=== PATIENT | female | born 1940 | race Caucasian/White ===

== ENCOUNTER 2023-07-13 10:23 | Inpatient (IN) ==
--- NOTE | 2023-07-13 11:08 | Emergency Department Note ---
Impression & Plan Acute hyponatremia, Dizziness ED Provider Note Provider: Kalin Wesley MD DATE OF SERVICE: 07/13/2023 CHIEF COMPLAINT: Weak/dizzy, abnormal labs HISTORY OF PRESENT ILLNESS: Patient is a 83-year-old female history of hypertension referred by primary doctor today due to abnormal blood work with symptoms. Family reports the patient had blood work drawn yesterday and was called with results by the primary doctor office today stating that her sodium was low and to come here for evaluation rather than keep their appointment this afternoon. Has been following particular over the past month with some weakness and balance and dizziness issues. Did fall about a month ago. Did strike her head but did not lose consciousness. Not on anticoagulants by report. On and off symptoms. Blood pressure has been waxing and waning as well. Working with primary doctor left several weeks with changes in lisinopril dosing. Is on hydrochlorothiazide. Hydrates well with water and flavored water according to family. Denies any syncope or falls. Denies significant headache or chest pain. Family states that she has always report all of her symptoms to them. No other significant injury from falling walking up the stairs about a month ago are reported. PAST MEDICAL HISTORY: As noted above MEDICATIONS: Reviewed home medication list SOCIAL HISTORY: Resides at home PHYSICAL EXAM: GENERAL: alert and oriented in no acute distress on stretcher Head: normocephalic and atraumatic EYES: No injection, discharge or icterus. PERRL, EOMI. NECK: Trachea midline. Supple. ENT: Mucous membranes pink and moist. LUNGS: Airway patent. No retractions. Breath sounds clear with good air entry bilaterally. HEART: Irregular rate and rhythm. No chest wall tenderness ABDOMEN: Soft and non-tender, without guarding or rebound SKIN: Acyanotic, warm, dry, without rashes EXTREMITIES: Without tenderness with some slight chronic edema of the feet. NEUROLOGICAL: No focal deficits moving all extremities to command. No aphasia. No facial droop or slurred speech.Ambulatory. EK bpm sinus bradycardia with PACs. No acute PVC. No acute ST segment elevation. Nonspecific anterior T wave changes. QTc 461 CONTINUOUS CARDIAC MONITORING: was ordered and showed a heart rate of 50s to 60s bpm in normal sinus rhythm to sinus bradycardia frequent PACs GCS 15. Patient's laboratory studies and imaging reviewed. Differential includes Infection, dehydration, metabolic abnormality, hypo/hyperglycemia, electrolyte disturbance, anemia, hypoxia, cardiac sources, intracerebral event, toxicologic, neurologic, as well as other pathologies. IMPRESSION/MEDICAL DECISION MAKING: Referred to ongoing symptoms did lose sodium by report. Case management accessed [facility] records and reviewed chemistries. Blood work yesterday with chronic CKD with creatinine 1.4 with a sodium of 129, chloride of 93, potassium of 4.4, CO2 of 24, BUN of 20. Did fall about a month ago and now having on and off dizziness symptoms. Will obtain head CT to exclude any cranial abnormality causing symptoms. EKG to be obtained but denies significant chest pain or palpitations. Denies significant chest or abdominal discomfort at this time. Has been hydrating well and would have this could be related little bit to the hyponatremia versus her hydrochlorothiazide she is on and was told to stop today. Blood pressure near initially somewhat elevated but blood pressures at home have been normal to slightly low. CT head and chest x-ray per radiology without significant traumatic injuries noted. Evidence of fluid overload. Blood work here without leukocytosis or anemia. TSH 7.9 with free T4 pending. Awesome's low at 266. CKD chronic with BUN 25 and creatinine 1.35 today. Significantly today worsened hyponatremia with a sodium now 124. Still awaiting urine sample for further testing there. Will bring the patient in given her worsening hyponatremia that seems somewhat symptomatic. Unsure if this is the entire ideology of why she has been more unsteady and having balance issues recently but will need monitoring. Discussed with the [facility] hospitalist team. DIAGNOSIS: Hyponatremia, weakness/dizziness DISPOSITION: Hospitalist will evaluate Patient was agreeable with this plan. Past Med/Surg History Medical History (Updated 07/13/23 @ 12:41 by NERIS Juárez) Hypothyroidism HLD (hyperlipidemia) HTN (hypertension) Surgical History (Updated 07/13/23 @ 13:24 by NERIS Juárez) No pertinent past surgical history Social History (Updated 07/13/23 @ 13:24 by NERIS Juárez) Smoking Status: Former smoker Second Hand Exposure: No; Do You Dip or Chew Tobacco: No; Hx Alcohol Use: No Hx Substance Use: No Preferred Language: Libyan Feels Safe at Home: Yes Allergies Allergies Allergy/AdvReac Type Severity Reaction Status Date / Time rosuvastatin [From Crestor] AdvReac Unknown Verified 07/13/23 13:49 Home Meds Home Medications Medication Instructions Recorded Confirmed alendronate 70 mg tablet 70 mg PO .WEEK 07/13/23 07/13/23 aspirin 81 mg tablet,delayed 81 mg PO DAILY 07/13/23 07/13/23 release cyanocobalamin (vitamin B-12) 5,000 mcg PO Q OTHER DAY 07/13/23 07/13/23 5,000 mcg sublingual tablet (Vitamin B-12) ferrous sulfate 325 mg (65 mg 65 mg PO Q OTHER DAY 07/13/23 07/13/23 iron) tablet (iron) folic acid 800 mcg tablet 0.8 mg PO DAILY 07/13/23 07/13/23 furosemide 20 mg tablet 20 mg PO Q OTHER DAY 07/13/23 07/13/23 hydrochlorothiazide 12.5 mg capsule 12.5 mg PO DAILY 07/13/23 07/13/23 levothyroxine 75 mcg tablet 75 mcg PO QAM 07/13/23 07/13/23 lisinopril 10 mg tablet 10 mg PO QAM 07/13/23 07/13/23 metoprolol succinate 100 mg 100 mg PO QAM 07/13/23 07/13/23 tablet,extended release 24 hr omeprazole 20 mg capsule,delayed 20 mg PO QAM 07/13/23 07/13/23 release pravastatin 20 mg tablet 20 mg PO DAILY 07/13/23 07/13/23 sertraline 50 mg tablet 50 mg PO QAM 07/13/23 07/13/23 Results & Data (ED) Vital Signs Vital Signs - 24 hr 07/13/23 10:36 07/13/23 10:52 07/13/23 10:54 Temperature 36.5 C Temperature Source Temporal Artery Scan Pulse Rate 62 58 L 60 Pulse Rate from SpO2 Sensor 59 L 53 L Respiratory Rate 20 13 14 Respiratory Effort / Characteristics Non-Labored Spontaneous Respiratory Depth Normal Blood Pressure 124/73 Blood Pressure Mean 90 Pulse Oximetry 97 99 98 Oxygen Delivery Method Room Air Sepsis Recent Fever Within 48 Hours No Sepsis New/Unexplained Change in Mental Status N/A Sepsis Action Taken by Nursing No Action Required 07/13/23 10:54 07/13/23 11:00 07/13/23 11:00 Temperature Temperature Source Pulse Rate 59 L Pulse Rate from SpO2 Sensor Respiratory Rate 21 Respiratory Effort / Characteristics Respiratory Depth Blood Pressure 160/80 H 146/77 H Blood Pressure Mean 109 98 Pulse Oximetry Oxygen Delivery Method Sepsis Recent Fever Within 48 Hours Sepsis New/Unexplained Change in Mental Status Sepsis Action Taken by Nursing 07/13/23 11:30 07/13/23 12:02 07/13/23 12:04 Temperature Temperature Source Pulse Rate 58 L Pulse Rate from SpO2 Sensor 41 L 56 L Respiratory Rate 21 Respiratory Effort / Characteristics Respiratory Depth Blood Pressure 140/68 Blood Pressure Mean 86 Pulse Oximetry 98 100 Oxygen Delivery Method Sepsis Recent Fever Within 48 Hours Sepsis New/Unexplained Change in Mental Status Sepsis Action Taken by Nursing 07/13/23 12:04 07/13/23 12:14 07/13/23 12:21 Temperature Temperature Source Pulse Rate 58 L 57 L Pulse Rate from SpO2 Sensor 54 L Respiratory Rate 15 Respiratory Effort / Characteristics Respiratory Depth Blood Pressure Blood Pressure Mean Pulse Oximetry 100 Oxygen Delivery Method Room Air Sepsis Recent Fever Within 48 Hours Sepsis New/Unexplained Change in Mental Status Sepsis Action Taken by Nursing Laboratory Data 07/13/23 11:05 07/13/23 11:05 Lab Results 07/13/23 07/13/23 Range/Units 11:05 11:15 WBC 7.73 (4.8-10.8) K/ul RBC 4.05 L (4.20-5.40) M/uL Hgb 12.1 (12.0-16.0) g/dl Hct 34.0 L (37.0-47.0) % MCV 84.0 (80.0-100.0) fL MCH 29.9 (25.0-34.0) pg MCHC 35.6 (32.0-36.0) g/dL RDW Std Deviation 41.6 (36.4-46.3) fL RDW Coeff of Amberly 13.5 (11.5-14.5) % Plt Count 181 (130-400) K/uL MPV 9.3 L (9.4-12.4) fL Immature Gran % (Auto) 0.4 % Neut % (Auto) 61.5 % Lymph % (Auto) 25.2 % [place] % (Auto) 10.2 % Eos % (Auto) 2.2 % Baso % (Auto) 0.5 % Neut # (Auto) 4.75 (1.40-6.50) K/uL Lymph # (Auto) 1.95 (1.20-3.40) K/uL [place] # (Auto) 0.79 H (0.11-0.59) K/uL Eos # (Auto) 0.17 (0.00-0.50) K/uL Baso # (Auto) 0.04 (0.00-0.20) K/uL Immature Gran # (Auto) 0.03 (0.01-0.20) K/uL PT 10.3 (9.0-12.0) Seconds INR 0.9 (0.9-1.1) Sodium 124 L (136-145) mmol/L Potassium 4.7 (3.5-5.1) mmol/L Chloride 92 L (98-107) mmol/L Carbon Dioxide 24 (21-32) mmol/L Anion Gap 8 (3-11) BUN 25 H (6-23) mg/dl Creatinine 1.35 H (0.6-1.2) mg/dl Est Cr Clr Drug Dosing 38.3 ml/min Est GFR ( Amer) 42.0 ml/min Est GFR (Non-Af Amer) 36.2 ml/min BUN/Creatinine Ratio 18.5 (10-20) Glucose 88 (70-99(Fasting)) mg/dl Osmolality 266 L (280-300) mOsm/kg Calcium 8.6 (8.6-10.3) mg/dl Phosphorus 3.4 (2.5-4.9) mg/dl Magnesium 1.7 (1.7-2.4) mg/dl Total Bilirubin 0.6 (0.2-1.0) mg/dl AST 17 (13-39) U/L ALT 8 (7-52) U/L Alkaline Phosphatase 66 (34-104) U/L Troponin I High Sens 7.2 (0-14) pg/ml Total Protein 6.8 (6.0-8.3) gm/dl Albumin 4.3 (3.4-5.0) gm/dl Globulin 2.5 (2.5-4.0) gm/dl Albumin/Globulin Ratio 1.7 (0.9-2) TSH 7.954 H (0.300-4.500) uIu/ml Free T4 0.97 (0.61-1.60) ng/dl SARS-CoV-2, RNA, NAAT NEGATIVE (NEGATIVE) Administered Medications Discontinued Medications Sodium Chloride (Nss) 1,000 mls @ 999 mls/hr IV .Q1H1M SEBASTIEN Stop: 07/13/23 14:16 Last Admin: 07/13/23 14:00 Dose: 999 mls/hr Documented By: Fabián Imaging Data Radiologist's Impression: Chest X-Ray 07/13/23 11:02 XR chest 1V portable HISTORY: 83 years-old Female weakness acute weakness COMPARISON: None TECHNIQUE: AP view of the chest. FINDINGS: Cardiomediastinal and hilar silhouettes are within normal limits. No pneumothorax, pleural effusion, airspace consolidation or pulmonary edema. Bones appear grossly intact. IMPRESSION: No acute process. ACT 112: Negative or not required by law. The above report was generated using voice recognition software. It may contain grammatical, syntax or spelling errors. Electronically signed by: Marko Mooney M.D. 07/13/2023 11:[address] 07/13/23 11:02 CT head/brain wo con CLINICAL HISTORY: 83 years-old Female with weak, fall, dizzy. Acute headache with weakness and dizziness. Trauma status post fall TECHNIQUE: Multiple axial CT images of the head were obtained without contrast. A dose lowering technique was utilized adhering to the principles of ALARA. CT DOSE: 547.75 mGy.cm COMPARISON: None. FINDINGS: No acute intracranial hemorrhage, midline shift, intracranial mass, hydrocephalus, territorial ischemia or abnormal extra-axial collection. Involutional changes with chronic microvascular ischemic disease. The calvarium is intact. The paranasal sinuses, mastoid air cells, and middle ear cavities are clear. IMPRESSION: No acute intracranial abnormality or calvarial fracture. ACT 112: Negative or not required by law. The above report was generated using voice recognition software. It may contain grammatical, syntax or spelling errors. Electronically signed by: Marko Mooney M.D. 07/13/2023 12:08 PM Discharge Plan Visit Data Chief Complaint: Referred by Doctor Stated Complaint: LOW SODIUM ED Provider: Kalin Wesley Discharge Problem: Acute hyponatremia, Dizziness Patient Disposition: Being Evaluated by Hospitalist Condition: Fair Discharge Instructions Interventions: ED Discharge Assessment Last Done: 07/13/23 12:55
--- NOTE | 2023-07-13 11:37 | XRay Report ---
XR chest 1V portable HISTORY: 83 years-old Female weakness acute weakness COMPARISON: None TECHNIQUE: AP view of the chest. FINDINGS: Cardiomediastinal and hilar silhouettes are within normal limits. No pneumothorax, pleural effusion, airspace consolidation or pulmonary edema. Bones appear grossly intact. IMPRESSION: No acute process. ACT 112: Negative or not required by law. The above report was generated using voice recognition software. It may contain grammatical, syntax o r spelling errors. Electronically signed by: Marko Mooney M.D. 07/13/2023 11:35 AM
[2023-07-13 11:38] LABS: Basophils # (auto) 0.04 K/uL (0.00-0.20); Basophils % (auto) 0.5 %; Eosinophils # (auto) 0.17 K/uL (0.00-0.50); Eosinophils % (auto) 2.2 %; Hemoglobin 12.1 g/dl (12.0-16.0); Immature Granulocytes # (auto) 0.03 K/uL (0.01-0.20); Immature Granulocytes % (auto) 0.4 %; Lymphocytes # (auto) 1.95 K/uL (1.20-3.40); Lymphocytes % (auto) 25.2 %; Mean Corpuscular Hemoglobin 29.9 pg (25.0-34.0); Mean Corpuscular Hgb Conc 35.6 g/dL (32.0-36.0); Mean Platelet Volume 9.3 fL (9.4-12.4); Monocytes # (auto) 0.79 K/uL (0.11-0.59); Monocytes % (auto) 10.2 %; Neutrophils # (auto) 4.75 K/uL (1.40-6.50); Neutrophils % (auto) 61.5 %; Platelet Count 181 K/uL (130-400); RDW Coefficient of Variation 13.5 % (11.5-14.5); RDW Standard Deviation 41.6 fL (36.4-46.3); Red Blood Count 4.05 M/uL (4.20-5.40); White Blood Count 7.73 K/ul (4.8-10.8)
[2023-07-13 11:58] LABS: Albumin Globulin Ratio 1.7 (0.9-2); Albumin Level 4.3 gm/dl (3.4-5.0); BUN Creatinine Ratio 18.5 (10-20); Bilirubin,Total 0.6 mg/dl (0.2-1.0); Calcium 8.6 mg/dl (8.6-10.3); Creatinine Clr Calc Pharmacy 38.3 ml/min; Est GFR (Non-African American) 36.2 ml/min; Globulin 2.5 gm/dl (2.5-4.0); Magnesium 1.7 mg/dl (1.7-2.4); Potassium 4.7 mmol/L (3.5-5.1); Total Protein 6.8 gm/dl (6.0-8.3)
[2023-07-13 11:59] LABS: Troponin I High Sensitivity 7.2 pg/ml (0-14)
[2023-07-13 12:04] LABS: INR 0.9 (0.9-1.1); Prothrombin Time 10.3 Seconds (9.0-12.0)
[2023-07-13 12:09] LABS: Thyroid Stimulating Hormone 7.954 uIu/ml (0.300-4.500)
--- NOTE | 2023-07-13 12:09 | CT Scan Report ---
CT head/brain wo con CLINICAL HISTORY: 83 years-old Female with weak, fall, dizzy. Acute headache with weakness and dizzi ness. Trauma status post fall TECHNIQUE: Multiple axial CT images of the head were obtained without contrast. A dose lowering tech nique was utilized adhering to the principles of ALARA. CT DOSE: 547.75 mGy.cm COMPARISON: None. FINDINGS: No acute intracranial hemorrhage, midline shift, intracranial mass, hydrocephalus, territorial ischem ia or abnormal extra-axial collection. Involutional changes with chronic microvascular ischemic disea se. The calvarium is intact. The paranasal sinuses, mastoid air cells, and middle ear cavities are clear . IMPRESSION: No acute intracranial abnormality or calvarial fracture. ACT 112: Negative or not required by law. The above report was generated using voice recognition software. It may contain grammatical, syntax o r spelling errors. Electronically signed by: Marko Mooney M.D. 07/13/2023 12:08 PM
[2023-07-13] MEDS ORDERED: MAGNESIUM HYDROXIDE SUSP 30 ML UDC PO PRN (12:31)
[2023-07-13] MEDS ORDERED: ONDANSETRON INJ 2 MG/ML 2 ML VIAL IV PRN (12:31)
[2023-07-13] MEDS ORDERED: POLYETHYLENE (MIRALAX) 17 GM PACK PO PRN (12:31)
[2023-07-13] MEDS ORDERED: ALUMINUM/MAGNESIUM SUSP 30 ML UDC PO PRN (12:31)
--- NOTE | 2023-07-13 12:42 | History & Physical Report ---
Date of Service July 13, 2023 Assessment & Plan (1) Acute hyponatremia: (2) Dizziness: (3) HTN (hypertension): (4) HLD (hyperlipidemia): (5) Hypothyroidism: Plan Ms. Nicole is an 83 y/o female that presented to the ED today as recommended by her PCP for abnormal labs; hyponatremic as OPT 129 on 07/11. Pt reportedly has been having intermittent dizziness and ambulatory dysfunction over the past month or so; as an outpatient blood pressure medications have been recently adjusted. She recently was started on hydrochlorothiazide on 06/14/2023 and was instructed to take home BPs prior to blood pressure medication administration and a few hours afterwards. With reviewing her outpatient BP log it appears that she is hypotensive in the morning consistently ranging anywhere from 78-98 systolic on some readings. Pt is prescribed lasix 20 mg three times per week, but stopped taking it last week. No leukocytosis, serum sodium 124, serum creatinine 1.35 (baseline 1.4), serum osmolality 266, TSH 7.9, LFT and Magnesium normal. Head CT and CXR negative. Patient will be admitted for further evaluation of hyponatremia with urine studies, every 4 BMP, troponin, will hold HCTZ as possible thiazide contributing factor to hyponatremiaand also hold newly prescribed sertraline as possible SSRI contributing factor. Continue antihypertensives for now with hold paramenter on Metoprolol, check ortho BPs. Will discuss and consult Nephro if no improvement with serum sodium level. Acute hyponatremia: Acute Serum sodium 124 today; 129 as an outpatient on 07/11 Recently started on HCTZ on 06/14/2023 Urine osmolality 266 No leukocytosis, LFT negative Every 4 BMP check Administer 1L NS B; followed by IVF 0.9% at 100 mL/h x 2 bags No JVP, no ascites, skin turgor normal Pt recently started on Sertraline in 06/02; will hold for now as outlined below. Consider nephro consult if no improvement HTN: Dizziness: Acute Intermittent dizziness with position changes Recently started on HCTZ 06/13; hold for now as outlined above Home BPs range anywhere from 78-98 systolic on some readings up to low 1 teens p rior to a.m. meds Takes lisinopril that was recently reduced from 20 mg to 10 mg every morning; continue for now Takes metoprolol 100 mg every morning; continue for now with hold parameters Adjust a.m. anti-hypertensives as needed Takes Lasix M/W/F, stopped on her own last week; will hold for now BP SBP 140 while here Check ortho BPs Hypothyroidism: Chronic Recent TSH 11/29 2.45 TSH today 7.9 Takes hypothyroidism; continue CKD: Chronic creatinine 1.35; baseline 1.3-1.4 HLD: Chronic Takes pravastatin;continue Depression: Chronic Takes sertraline; hold as possible SSRI contributing. Was recently started in May 2023. Disposition: PCP: Dr. Rocha Code status: Full code VTE Prophylaxis: Lovenox SQ I spent a total of 87 minutes coordinating, documenting, and providing care for this patient excluding time spent in the performance of separately billed services. All of the aforementioned completed while collaborating with the assigned attending physician for a full treatment plan. Please see their addendum for further details. History of Present Illness Chief Complaint: referred by OPT; hyponatremia Primary Care Provider: Antione Rocha MD Ms. Nicole is an 83 year old female that presented to the ED today as recommended by her PCP for abnormal labs; hyponatremic as OPT 129 on 07/11. Pt reportedly has been having intermittent dizziness and ambulatory dysfunction over the past month or so; as an outpatient blood pressure medications have been recently adjusted. She recently was started on hydrochlorothiazide on 06/14/2023 and was instructed to take home BPs prior to blood pressure medication administration and a few hours afterwards. With reviewing her outpatient BP log it appears that she is hypotensive in the morning consistently ranging anywhere from 78-98 systolic on some readings. Pt is prescribed lasix 20 mg three times per week, but stopped taking it last week. Reportedly dizziness appears to be around position changes in the morning and throughout the day. She states that she has been taking Lasix and holding it over the last week. She said that she has a history of being dehydrated so has increased her water intake recently and states she drinks approximately 4-5 8 ounce glasses of water per day. Additional PMH includes: HTN, HLD, depression, hypothyroidism, and CKD. In the ED, no leukocytosis, serum sodium 124, serum creatinine 1.35 (baseline 1.4), serum osmolality 266, TSH 7.9, LFT and Magnesium normal. Head CT and CXR negative for acute process. Pt denies fever, chills, ACEVEDO, SOB, chest pain, palpitations, N/V/D, urine or bowel changes, hematochezia, recent falls or trauma. Patient will be admitted for further evaluation of hyponatremia with urine studies, every 4 BMP, troponin, will hold HCTZ as possible contributing factors. Will discuss and consult Nephro if no improvement with serum sodium level. Home Medications Medication Instructions Recorded Confirmed Type alendronate 70 mg tablet 70 mg PO .WEEK 07/13/23 07/13/23 History aspirin 81 mg tablet,delayed 81 mg PO DAILY 07/13/23 07/13/23 History release cyanocobalamin (vitamin B-12) 5,000 mcg PO Q OTHER DAY 07/13/23 07/13/23 History 5,000 mcg sublingual tablet (Vitamin B-12) ferrous sulfate 325 mg (65 mg 65 mg PO Q OTHER DAY 07/13/23 07/13/23 History iron) tablet (iron) folic acid 800 mcg tablet 0.8 mg PO DAILY 07/13/23 07/13/23 History furosemide 20 mg tablet 20 mg PO Q OTHER DAY 07/13/23 07/13/23 History hydrochlorothiazide 12.5 mg capsule 12.5 mg PO DAILY 07/13/23 07/13/23 History levothyroxine 75 mcg tablet 75 mcg PO QAM 07/13/23 07/13/23 History lisinopril 10 mg tablet 10 mg PO QAM 07/13/23 07/13/23 History metoprolol succinate 100 mg 100 mg PO QAM 07/13/23 07/13/23 History tablet,extended release 24 hr omeprazole 20 mg capsule,delayed 20 mg PO QAM 07/13/23 07/13/23 History release pravastatin 20 mg tablet 20 mg PO DAILY 07/13/23 07/13/23 History sertraline 50 mg tablet 50 mg PO QAM 07/13/23 07/13/23 History Past Med/Surg History Medical History (Updated 07/13/23 @ 12:41 by NERIS Juárez) Hypothyroidism HLD (hyperlipidemia) HTN (hypertension) Surgical History (Updated 07/13/23 @ 13:24 by NERIS Juárez) No pertinent past surgical history Social History (Updated 07/13/23 @ 13:24 by NERIS Juárez) Smoking Status: Former smoker Second Hand Exposure: No; Do You Dip or Chew Tobacco: No; Hx Alcohol Use: No Hx Substance Use: No Preferred Language: Panamanian Feels Safe at Home: Yes Review of Systems Review of Systems: Neuro: (-) Falls, trauma, slurred speech HEENT: (-) ACEVEDO, (+) dizziness, (-) dysphagia, visual or auditory changes CV: (-) CP, palpitations, swelling Resp: (-) SOB GI: (-) appetite changes, N/V/D, bowel changes : (-) urinary changes Skin: (-) rashes Psych: (-) anxiety, depression Physical Exam Physical Exam: Neuro: AAOx4, PERRLA, no aphagia, memory changes, CNII-XII grossly intact HEENT: head normocephalic, moist mucus membranes CV: S1/S2, (-) M/G/R, (-) edema, cap refill < 3 seconds (-) JVP Resp: Lungs CTA in all araujo. On RA GI: Abdomen S/NT/ND, Ax4 bowel sounds, (-) CVA tenderness (-) ascites Musculoskeletal: 5/5 B/L UE strength, 5/5 B/L LE strength. No gait disturbance as I watched her walk to the bathroom Skin: (-) rashes , (-) erythema. Skin turgor normal. euvolemic on exam. Psych: euthymic mood Results & Data Results & Data Vital Signs (Past 12 Hours) Vital Signs Temp Pulse Resp BP Pulse Ox O2 Del Method 07/13/23 12:21 57 L 07/13/23 12:14 Room Air 07/13/23 12:04 58 L 15 100 07/13/23 12:04 140/68 07/13/23 12:02 100 07/13/23 11:30 58 L 21 98 07/13/23 11:00 146/77 H 07/13/23 11:00 59 L 21 07/13/23 10:54 160/80 H 07/13/23 10:54 60 14 98 07/13/23 10:52 58 L 13 99 07/13/23 10:36 36.5 C 62 20 124/73 97 Room Air Laboratory Results Short CBC 07/13/23 Range/Units 11:05 WBC 7.73 (4.8-10.8) K/ul Hgb 12.1 (12.0-16.0) g/dl Hct 34.0 L (37.0-47.0) % Plt Count 181 (130-400) K/uL BMP 07/13/23 11:05 Sodium 124 L Potassium 4.7 Chloride 92 L Carbon Dioxide 24 BUN 25 H Creatinine 1.35 H Glucose 88 Calcium 8.6 Liver Function 07/13/23 Range/Units 11:05 Total Bilirubin 0.6 (0.2-1.0) mg/dl AST 17 (13-39) U/L ALT 8 (7-52) U/L Alkaline Phosphatase 66 (34-104) U/L Albumin 4.3 (3.4-5.0) gm/dl Diagnostic Findings Chest X-Ray 07/13/23 11:02 XR chest 1V portable HISTORY: 83 years-old Female weakness acute weakness COMPARISON: None TECHNIQUE: AP view of the chest. FINDINGS: Cardiomediastinal and hilar silhouettes are within normal limits. No pneumothorax, pleural effusion, airspace consolidation or pulmonary edema. Bones appear grossly intact. IMPRESSION: No acute process. ACT 112: Negative or not required by law. The above report was generated using voice recognition software. It may contain grammatical, syntax or spelling errors. Electronically signed by: Marko Mooney M.D. 07/13/2023 11:[address] 07/13/23 11:02 CT head/brain wo con CLINICAL HISTORY: 83 years-old Female with weak, fall, dizzy. Acute headache with weakness and dizziness. Trauma status post fall TECHNIQUE: Multiple axial CT images of the head were obtained without contrast. A dose lowering technique was utilized adhering to the principles of ALARA. CT DOSE: 547.75 mGy.cm COMPARISON: None. FINDINGS: No acute intracranial hemorrhage, midline shift, intracranial mass, hydrocephalus, territorial ischemia or abnormal extra-axial collection. Involutional changes with chronic microvascular ischemic disease. The calvarium is intact. The paranasal sinuses, mastoid air cells, and middle ear cavities are clear. IMPRESSION: No acute intracranial abnormality or calvarial fracture. ACT 112: Negative or not required by law. The above report was generated using voice recognition software. It may contain grammatical, syntax or spelling errors. Electronically signed by: Marko Mooney M.D. 07/13/2023 12:08 PM Code Status & VTE Plan Code Status Full code in the event of cardiac or respiratory arrest VTE Prophylaxis Plan VTE Prophylaxis will be ordered: Yes Supervising Physician Co-Signing Physician Notes Patient was seen and examined independently at bedside. Chart reviewed. Case di scussed with Sandy CORDON and agree with the documentation above. In summary, this is a 83 year old female with h/o HTN who is sent to the ED by PCP for hyponatremia seen in OP labs. OP notes and labs reviewed. It seems she was started on HCTZ on 06/13 for HTN, her sodium on 06/28 was 137. She was recommended to drink more water which she has been doing. HCTZ was continued. Her sodium yesterday dropped to 129 in the labs yesterday and she was sent to the ED today. In the ED her sodium was 124. Osm 266. Urine sodium and osm pending. Also noted her BP readings of 70s and 90s at home and her orthostatic symptoms. Suspect acute moderate hyponatremia due to HCTZ and excess hypotonic fluid intake. Will discontinue HCTZ, give 1 L fluid bolus, start NS at 100 cc/hr and recheck renal function panel q4hr to ensure correcting appropriately. Will check orthostatic vitals. Discussed that BP not aggressively controlled given her orthostatic symptoms. Rest as per the note above. On exam- General: Lying comfortably in bed, not in distress, on room air HEENT: EOMI, MER, MMM Chest: Clear breath sounds bilaterally, no wheezes or crackles CVS: Regular rate and rhythm, normal heart sounds, no murmur Abdomen: Soft, non tender, not distended, normal bowel sounds Neuro: Awake, alert, oriented, conversing well, non focal Extremities: No cyanosis, clubbing or edema
[2023-07-13 12:54] LABS: T4 Free Thyroxine 0.97 ng/dl (0.61-1.60)
[2023-07-13 13:22] LABS: Appearance Urine Clear (Clear); Bacteria Urine Automated Negative (Negative); Bilirubin Urine Negative (Negative); Blood Urine Negative (Negative); Cast Urine Automated 0 /lpf (0-5); Color Urine Yellow; Epithelial Cell Urine Auto 20-30 /lpf (0-5); Glucose Urine UA Negative (Negative); Ketones Urine Negative (Negative); Leukocyte Esterase Urine 1+ (Negative); Nitrite Urine Negative (Negative); Protein Urine Negative (Negative); RBC Urine Automated 0-4 /hpf (0-4); Specific Gravity Urine 1.019 (1.000-1.030); Urobilinogen Urine Negative (Negative); pH Urine 5.5 (4.5-7.5)
[2023-07-13] MEDS ORDERED: Patient's ALLERGY Info needs ENTERED SCH (13:30)
[2023-07-13] MEDS: SODIUM CHLORIDE 0.9% 1,000 ML IV SCH ×2 (14:00→15:04)
[2023-07-13 14:10] LABS: Phosphorus 3.4 mg/dl (2.5-4.9)
[2023-07-13 16:44] LABS: BUN Creatinine Ratio 18.8 (10-20); Calcium 7.9 mg/dl (8.6-10.3); Creatinine Clr Calc Pharmacy 44.2 ml/min; Est GFR (African American) 49.9 ml/min; Est GFR (Non-African American) 43.1 ml/min; Potassium 4.5 mmol/L (3.5-5.1)
[2023-07-13 20:54] LABS: BUN Creatinine Ratio 15.5 (10-20); Calcium 7.8 mg/dl (8.6-10.3); Creatinine Clr Calc Pharmacy 40.1 ml/min; Est GFR (African American) 44.3 ml/min; Est GFR (Non-African American) 38.3 ml/min; Potassium 3.9 mmol/L (3.5-5.1)
[2023-07-13 23:49] LABS: BUN Creatinine Ratio 16.5 (10-20); Calcium 7.6 mg/dl (8.6-10.3); Creatinine Clr Calc Pharmacy 40.8 ml/min; Est GFR (African American) 45.2 ml/min; Potassium 4.4 mmol/L (3.5-5.1)
--- OUTSIDE RECORDS SUMMARY | 2023-07-14 02:18 | External Medical Summary | Summary of Care ---
Author Name Unknown Organization [facility] Address [address] [place] [address] Phone [phone] Care Team Providers Care Assistant Branch Manager Name Role Phone Antione Rocha MD Primary Care Provide r Reason for Visit * Reason Onset Date Comments Test Results 07/13/2023 Encounter Details Date Type Department Care Team (Late st Contact Info) Description 07/13/2023 Telephone Family Medicine [address] [phone] Antione Rocha MD [address] [place] [address] CHATO Carcamo [phone] Test Results Allergies Active Allergy Reactions Criticality Noted Date Comments Rosuvastatin Calcium 07/21/2016 myalgia documented as of this encounter (statuses as of 07/13/2023) Medications Medication Sig Dispensed Refills Start Date End Date Status aspirin enteric coated 81 MG TBEC Take 1 Tab by mouth daily. 100 Tab 3 07/21/2016 Active Ventolin HFA 108 (90 Base) MCG/ACT Inhalation Aerosol SolutionIndications: Bronchitis, complicated Inhale by mouth 2 Puffs every 4 hours as needed for Shortness of Breath or Wheezing. 8 g 1 08/03/2021 Active Sennosides-Docusate Sodium 8.6-50 MG Oral Tablet (Senokot-S)Indicatio ns:Constipation, unspecified constipation type Take by mouth 1 Tablet in the morning. 30 Tablet 2 08/22/2021 Active Omeprazole 20 MG Oral Capsule Delayed Release (PriLOSEC) TAKE ONE CAPSULE BY MOUTH EVERY MORNING ONE HOUR BEFORE THE FIRST MEAL OF THE DAY 100 Capsule 3 11/21/2022 Active Vitamin D-3 25 MCG (1000 UT) Oral Capsule Take 1 Capsule by mouth in the morning. 0 Active B-12 500 MCG Oral Tablet Take 1 Tablet by mouth every other day. 0 Active Iron 325 (65 Fe) MG Oral Tablet Take 1 Tablet by mouth every other day. 0 Active Furosemide 20 MG Oral Tablet (Lasix) Take 1 Tablet by mouth once a day on Sunday, Sunday, and Sunday only. 30 Tablet 5 12/13/2022 Active Metoprolol Succinate ER 100 MG Oral Tablet Extended Release 24 Hour (Toprol XL)Indications:Essen tial hypertension with goal blood pressure less than 140/90 Take 1 Tablet by mouth in the morning. 100 Tablet 3 01/08/2023 Active Pravastatin Sodium 20 MG Oral Tablet (Pravachol) TAKE ONE TABLET BY MOUTH IN THE MORNING 90 Tablet 1 03/14/2023 Active Levothyroxine Sodium 75 MCG Oral Tablet (Levoxyl)Indications :Acquired hypothyroidism TAKE 1 TABLET BY MOUTH DAILY AT LEAST 30 MINUTES PRIOR TO FIRST MEAL OF THE DAY OR OTHER MEDICATIONS 90 Tablet 2 03/14/2023 Active Alendronate Sodium 70 MG Oral Tablet (Fosamax)Indications :Age-related osteoporosis without current pathological fracture TAKE 1 TABLET BY MOUTH ONCE A WEEK AT LEAST 30 MINUTES BEFORE FIRST FOOD/BEVERAGE DO NOT LIE DOWN FOR 30 MINUTES AFTER TAKING 12 Tablet 11 05/10/2023 5 Active Sertraline HCl 50 MG Oral Tablet (Zoloft)Indications: Current mild episode of major depressive disorder without prior episode (HCC) Take 1 Tablet by mouth in the morning. 90 Tablet 1 05/22/2023 Active Cyclobenzaprine HCl 10 MG Oral Tablet (Flexeril)Indication s:Tension headache,Neck muscle spasm Take 1 Tablet by mouth at bedtime as needed for Pain. 10 Tablet 0 05/23/2023 Active Lisinopril 20 MG Oral Tablet (Prinivil)Indication s:Benign hypertension with stage 3b chronic kidney disease (HCC),HTN, goal below 150/90 Take 1 Tablet by mouth in the morning. 0 05/30/2023 Active hydroCHLOROthiazide 12.5 MG Oral CapsuleIndications:H TN, goal below 150/90 Take 1 Capsule by mouth in the morning. 30 Capsule 5 06/14/2023 Active documented as of this encounter (statuses as of 07/13/2023) Active Problems Problem Noted Date Diagnosed Date Asymptomatic bilateral carotid artery stenosis 0 12/01/2022 Mild mitral regurgitation 12/01/2022 Nonrheumatic mitral valve regurgitation 11/24/19 23 Current mild episode of jose r depressive disorder without prior episode 08/16/2022 Age-related osteoporosis wit hout current pathological fracture 06/08/2022 Benign hypertension with stage 3b chronic kidney disease 08/17/2020 Overview: Per CKD protocol Chronic kidney disease, stage 3b 08/17/2020 Overview: Per CKD protocol History of 2019 novel coronavirus disease (COVID -19) 08/11/2020 Anemia due to stage 3b chronic kidney disease Overview: Per CKD protocol B12 deficiency 02/06/2018 Dyslipidemia, goal LDL below 100 07/19/2017 Atrial septal aneurysm 01/24/2017 Overview: 2017-start ASA lifetime as inc risk CVA Old myocardial infarct 01/24/2017 Acquired hypothyroidism 07/21/2016 Essential hypertension with goal blood pressure less than 140/90 07/21/2016 Gastroesophageal reflux disease without esophagi tis 07/21/2016 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 REQUEST shot recs Distant RI? 08/23 TTE 5mm pericardial effusion-on repeat, appears to be fat pad. 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 documented as of this encounter (statuses as of 07/13/2023) Immunizations Name Administration Dates Next Due COVID-19 mRNA, LNP-s, No Pre serve, 2-Dose Series (Moderna) 09/22/2020,08/24/2020 COVID-19, mRNA, LNP-s, PF, B ooster, 100mcg/0.5mg (Moderna) 04/05/2021 Pneumococcal Conjugate Vacc, 13 Valent (Prevnar) 11/23/2014 Season Influenza, Quad, PF, Adjuvanted, 65+ Yrs, IM (FLUAD) 01/14/2020 Seasonal Influenza, PF, 6 M & above, IM , (FluLaval or Fluzone) 01/25/2018,01/24/2017 Seasonal Influenza, Quadriva lent Hd (Fluzone Hd) 01/12/2023,01/26/2022,12/30/2020 Seasonal Influenza, Split, I IV3, With Preserve, Inj 03/03/2013 Seasonal Influenza, Trivalen t, Adjuvanted, 65+ yrs 01/21/2019 documented as of this encounter Social History Tobacco Use Types Packs/Day Years Used Date Smoking Tobacco: Former Cigarettes 1 10 1 976 - 1986 Smokeless Tobacco: Never Alcohol Use Standard Drinks/Week Comments Yes 0 (1 standard drink = 0.6 oz pur e alcohol) rare wine PHQ-2 Answer Date Recorded PHQ Adult Total Score 2 10/21/2021 Hunger Vital Sign Answer Date Recorded Within the past 12 months, y ou worried that your food would run out before you got the money to buy more. Never true 06/08/19 23 Within the past 12 months, t he food you bought just didn't last and you didn't have money to get more. Never true 06/07/2022 Sex and Gender Information Value Date Recorded Sex Assigned at Female 08/19/2018 3:34 PM EDT Gender Identity Female 08/19/2018 3:34 PM EDT Sexual Orientation Straight 10/19/2021 10 :15 AM EDT Job Start Date Occupation Industry Not on file Not on file Not on file documented as of this encounter Miscellaneous Notes * Telephone Encounter - Antione Rocha MD - 07/13/2023 8:25 AM EDT Spoke to pt, pt;s , and her daughter - due to dizziness for few weeks with hypoNa+ sent the pt to the ER for repeat and sodium correction documented in this encounter Plan of Treatment Upcoming Encounters Date Type Department Care Team (Late st Contact Info) Description 07/13/2023 1:40 PM EDT Office Visit [address] [phone] Antione Rocha MD [address] [place] [address] CHATO Carcamo [phone] 09/06/2023 9:20 AM EDT Office Visit [address] [phone] Antione Rocha MD [address] [place] [address] CHATO Carcamo [id number] Scheduled Procedures Name Priority Associated Diagnoses Date/Ti me COLONOSCOPY FLEXIBLE PROXIMAL DIAGNOSTIC Recall History of colon polyps Health Maintenance Due Date Last Done Comments DTaP,Tdap,and Td Vaccines (1 - Tdap) 1959 Zoster Vaccines (1 of 2) 1990 Pneumococcal Vaccine: 65+ Years (2 of 2 - PPSV23 or PCV20) 11/24/2015 11/23/2014 COLONOSCOPY-EVERY 5 YRS AGES 18-100 10/27/2021 10/27/2016, 10/27/2016, 10/09/2011, Additional history exists Depression Screening 10/21/2022 10/21/2021 COVID-19 Vaccine ( season) 2022 04/05/2021, 09/22/2020, 08/24/2020 CKD PHOS USE SMARTSET [id number] 05/15/2023 02/0 09/2022, 05/05/2021, 01/27/2020, Additional history exists *NEPHROLOGY REFERRAL DUE TO RESISTANT HTN 05/26/2023 Albumin/Creatinine Ratio 08/17/2023 08/16/2022 TSH 11/14/2023 11/13/2022, 08/0 10/2022, 05/15/2022, Additional history exists GFR 01/11/2024 07/12/2023, 03/2 04/2023, 03/05/2023, Additional history exists CKD HGB USE SMARTSET [id number] 03/05/202403/05, 03/05/2023, 12/21/2022, Additional history exists DXA Scan 04/04/2024 04/04/2022, 04/04/2022 VITAMIN D LEVEL ONCE IN A LIFETIME-USE SMARTSET# [id number] Completed 10/09/2022, 08/16/2022 Influenza Vaccine (FLU shot) Completed 09/2022, 01/26/2022, 12/30/2020, Additional history exists GARDASIL-HPV IMMUNIZATION SERIES Aged Out No longer eligible based on patient's age to complete this topic Hepatitis B Aged Out No longer eligi ble based on patient's age to complete this topic MENINGOCOCCAL (MENACTRA/MENVEO) Aged Out No longer eligible based on patient's age to complete this topic documented as of this encounter Medical Devices Not on filedocumented as of this encounter Care Teams Assistant Branch Manager Relationship Specialty Start Date End Date Antione Rocha MD [address] [place] [address] CHATO Carcamo [phone] PCP - General Family Medicine 02/02/21 documented as of this encounter
--- OUTSIDE RECORDS SUMMARY | 2023-07-14 02:18 | External Medical Summary | Summary of Care ---
Author Name Unknown Organization [facility] Address [address] [place] [address] Phone [phone] Care Team Providers Care Chain Offbearer Name Role Phone Antione Rocha MD Primary Care Provide r Reason for Visit * Reason Comments Outpatient Testing Encounter Details Date Type Department Care Team (Late st Contact Info) Description 07/12/2023 8:50 AM EDT Laboratory Laboratory [address] [place] [phone] , Specimen Drop Off [address] [place] [address] HTN, goal below 150/90 Allergies Active Allergy Reactions Criticality Noted Date Comments Rosuvastatin Calcium 07/21/2016 myalgia documented as of this encounter (statuses as of 07/12/2023) Medications Medication Sig Dispensed Refills Start Date [...] as of this encounter (statuses as of 07/12/2023) Active Problems Problem Noted Date Diagnosed Date [...] tis 07/21/2016 Coronary artery disease invo lving [place] coronary artery of [place] heart without angina pectoris 07/21/2016 documented as of this encounter (statuses as of 07/12/2023) Resolved Problems Problem Noted Date Diagnosed Date Resolved Date Anemia in stage 3b chronic kidney disease 02/02/2021 02/17/2021 Benign hypertension with chr onic kidney disease, stage III 02/06/2018 08/19/2020 Overview: Per CKD protocol Anemia due to stage 3 chronic kidney disease 7 02/19/2020 Pericardial effusion 08/14/2016 017 Well adult exam 07/21/2016 01/20/2021 Overview: Prefers to stop breast, colon screening. REQUEST shot recs Distant [place]? 08/23 TTE 5mm pericardial effusion-on repeat, appears to be fat pad. 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 documented as of this encounter (statuses as of 07/12/2023) Immunizations Name Administration Dates Next Due COVID-19 [...] on file documented as of this encounter Plan of Treatment Upcoming Encounters Date Type Department Care Team (Late st Contact Info) Description 07/13/2023 1:40 PM EDT Office Visit [address] [place] [phone] Antione Rocha MD [address] [place] [address] [place] [phone] 09/06/2023 9:20 AM EDT Office [place] [address] [place] [phone] Antione Rocha MD [address] [place] [address] [place] [phone] Pending Results Name Type Priority Associated Diagnoses Date /Time BASIC METABOLIC PANEL Lab Routine HTN, goal below 150/90 07/12/2023 8:48 AM EDT Scheduled Procedures Name Priority Associated Diagnoses Date/Ti [...] 04/05/2021, 09/22/2020, 08/24/2020 CKD PHOS USE SMARTSET 39860 05/15/2023 02/0 09/2022, 05/05/2021, 01/27/2020, Additional history exists *NEPHROLOGY REFERRAL DUE TO RESISTANT HTN 05/26/2023 Albumin/Creatinine Ratio 08/17/2023 08/16/2022 TSH 11/14/2023 11/13/2022, 08/0 10/2022, 05/15/2022, Additional history exists GFR 12/29/2023 06/28/2023, 112 10/2022, 12/21/2022, Additional history exists CKD HGB USE SMARTSET 57507 03/05/202403/05, 03/05/2023, 12/21/2022, Additional history exists DXA Scan 04/04/2024 04/04/2022, 04/04/2022 VITAMIN D LEVEL ONCE IN A LIFETIME-USE SMARTSET# [id number] Completed 10/09/2022, 08/16/2022 Influenza Vaccine (FLU shot) [...] Not on filedocumented as of this encounter Visit Diagnoses Diagnosis HTN, goal below 150/90 documented in this encounter Care Teams Chain Offbearer Relationship Specialty Start Date End Date Antione Rocha MD [address] [place] [address] [place] [address] PCP - General Family Medicine 02/02/21 documented as of this encounter
--- OUTSIDE RECORDS SUMMARY | 2023-07-14 02:19 | External Medical Summary ---
Author Name Unknown Address Unknown Organization K01:[facility] [place] [facility] [address] [facility] [address] [place] [address] Laboratory Report Ordering Provider Test Date Status DYLON MARTIN 06/28/2023 06:20:00 Ros l Observation Date Value Abnormality Reference (Units ) Status BUN 06/28/2023 06:20:00 35 Above high normal 6-20 (mg/dL) Final Creatinine 06/28/2023 06:20:00 1.6 Above high normal 0.5-1.0 (mg/dL) Final Glomerular filtration rate/1.73 sq M.predicted [Volume Rate/Area] in Serum, Plasma or Blood by Creatinine-based formula (CKD-EPI) 06/28/2023 06:20:00 32 Below low normal >=60 (mL/min) Final eGFR is calculated based on the CKD-EPI 2020 equation Sodium 06/28/2023 06:20:00 137 135-146 (m mol/L) Final Potassium 06/28/2023 06:20:00 5.0 3.5-5.1 (m mol/L) Final Cl 06/28/2023 06:20:00 103 98-107 (mm ol/L) Final CO2 06/28/2023 06:20:00 22 22-32 (mmo l/L) Final Anion gap 06/28/2023 06:20:00 12 7-15 (mmol /L) Final Glucose 06/28/2023 06:20:00 122 Above high normal 70 -120 (mg/dL) Final Calcium 06/28/2023 06:20:00 9.3 8.4-10.2 ( mg/dL) Final Performing Location [facility] [place] [address] [place] [id number]
--- OUTSIDE RECORDS SUMMARY | 2023-07-14 02:19 | External Medical Summary | Summary of Care ---
Author Name Unknown Organization [facility] Address [address] [place] [address] Phone [phone] Care Team Providers Care Control Systems Designer Name Role Phone Antione Rocha MD Primary Care Provide r Reason for Visit * Reason Comments Knee Pain right Encounter Details Date Type Department Care Team (Latest Contact Info) Description 06/07/2023 11:00 AM EST Office Visit Orthopaedics [address] [phone] Augie Victoria MD [address] [place] [address] Primary osteoarthritis of right knee* Allergies Active Allergy Reactions Criticality Noted Date Comments Rosuvastatin Calcium 07/21/2016 myalgia documented as of this encounter (statuses as of 06/07/2023) Medications Medication Sig Dispensed Refills Start Date [...] mouth in the morning. 0 05/30/2023 Active Hospital, Clinic, or Other Facility Administered Medication Ordered Dose Route Frequency Start Date End Date Status lidocaine 1% 1 mL - triamcinolone acetonide 40 mg/mL 1 mL inj 2 mLIndications:Primary osteoarthritis of right knee 2 mL IJ ONCE 06/07/2023 06/07/2023 Ended documented as of this encounter (statuses as of 06/07/2023) Active Problems Problem Noted Date Diagnosed Date Asymptomatic bilateral carotid artery stenosis 0 12/01/2022 Mild mitral regurgitation 12/01/2022 Nonrheumatic mitral valve regurgitation 11/24/19 Current mild episode of jose r depressive [...] tis 07/21/2016 Coronary artery disease invo lving [place] coronary artery of [place] heart without angina pectoris 07/21/2016 documented as of this encounter (statuses as of 06/07/2023) Resolved Problems Problem Noted Date Diagnosed Date Resolved Date Anemia in stage 3b chronic kidney disease 02/02/2021 02/17/2021 Benign hypertension with chr onic kidney disease, stage III 02/06/2018 08/19/2020 Overview: Per CKD protocol Anemia due to stage 3 chronic kidney disease 7 02/19/2020 Pericardial effusion 08/14/2016 017 Well adult exam 07/21/2016 01/20/2021 Overview: Prefers to stop breast, colon screening. REQUEST shot recs Distant [place]? 08/23 TTE 5mm pericardial effusion-on repeat, appears to be fat pad. 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 documented as of this encounter (statuses as of 06/07/2023) Immunizations Name Administration Dates Next Due COVID-19 [...] on file documented as of this encounter Progress Notes * Augie Victoria MD - 06/07/2023 11:00 AM EST Violetta Nicole [id number] Violetta Nicole is a 83 year old female who presents for consultation to [facility] for right knee injury/pain. Consult requested by Antione Rocha MD. Violetta Nicole is here with her daughter Quality: reviewed and agree with Nursing Notes for HPI elements History: History - Presents for increased pain right knee, xrayed 06/04/23. Was injected by dr mart September of 2022 which last several months Pain is mostly anterior. Also has grinding. ROS: ROS per HPI otherwise non-contributory Past Medical History: Diagnosis Date Acquired hypothyroidism 07/21/2016 Atrial septal aneurysm 01/24/2017 B12 deficiency 02/06/2018 Benign neoplasm of colon 08/29/06 adenomatous polyps--repeat 3-5 years Benign neoplasm of colon 07/16/09 adenomatous polyps repeat in 1-2 yrs Benign neoplasm of colon 09/22/11 COLONOSCOPY FLEXIBLE PROXIMAL DIAGNOSTIC performed by Greta Holloway DO at [facility],HYPERPLASTIC AND ADENOMATOUS POLYPS REPEAT COLONOSCOPY IN 5 YEARS Dyslipidemia, goal LDL below 100 07/19/2017 Essential hypertension with goal blood pressure less than 140/90 07/21/2016 Gastroesophageal reflux disease without esophagitis 07/21/2016 Kidney disease, chronic, stage III (GFR 30-59 ml/min) (HCC) 01/24/2017 Old myocardial infarct 01/24/2017 Pericardial effusion 08/14/2016 Well adult exam 07/21/2016 Prefers to stop breast, colon screening. REQUEST shot recs Distant [place]? 08/23 TTE 5mm pericardial effusion-on repeat, appears to be fat pad. 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 Family History Problem Relation Age of Onset Neurological Disorder Mother 70 Alzheimers no cancers in family. Other (killed in war) Father Alzheimer's disease Sister 68 now 88 in 2019 in [place] No Known Problems Sister in [place]. 91 in 2019. 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 Tobacco Use Smoking status: Former Current packs/day: 0.00 Average packs/day: 1 pack/day for 10.0 years (10.0 ttl pk-yrs) Types: Cigarettes Start date: 1975 Quit date: 1985 Years since quittin.1 Smokeless tobacco: Never Vaping Use Vaping Use: Never used Substance and Sexual Activity Alcohol use: Yes Comment: rare wine Drug use: No Sexual activity: Not Currently control/protection: Surgical Comment: hysterectomymarried, 3 kids, 5 grandkids, +great 4 or so. Other Topics Concern Not on file Social History Narrative 61 yrs as of 10/21/2021 Likes--kylah. Active w/mult [employer] fairs. Born in [place]. Social Determinants of Health Financial Resource Strain: Not on file Food Insecurity: No Food Insecurity (06/07/2022) Hunger Vital Sign Worried About Running Out of Food in the Last Year: Never true Ran Out of Food in the Last Year: Never true Transportation Needs: Not on file Physical Activity: Not on file Stress: Not on file Social Connections: Not on file Intimate Partner Violence: Not on file Housing Stability: Not on file Physical Exam Constitutional: Generally well-nourished and in no acute distress Psychiatric: Mood and Affect normal Eyes: EOMI Respiratory: Normal respiratory effort with regular rate and rhythm Cardiovascular: No edema in the affected extremity(s) Knee Exam, right only - completed with the patient seated Inspection: Unremarkable Alignment: Normal Bilateral Effusion: Negative Bilateral Palpation: Tender palpate mediolateral patellar facet as well as medial lateral joint line ROM: Flexion/Neutral/Extension: R - 110/0/0 Strength: SLR: Extension: L - 5/5, R - 5/5 Flexion: L - 5/5, R - 5/5 Quadriceps Tone: Good and Equal Bilateral Hip exam, bilateral: passive internal and external rotation reproduces no pain. Full ROM B/L Radiology (I have personally reviewed the following films): 06/04/2023: 5 view xray of the right knee FINDINGS Stable benign lesion within the proximal tibia metaphysis. There is chondrocalcinosis of the [place]. Tricompartmental marginal osteophyte formation is present at the knee with progression of patellofemoral compartment joint space narrowing. No acute fracture. No joint effusion. IMPRESSION IMPRESSION Severe osteoarthritis patellofemoral compartment, progressed since 2020 Assessment and Plan: 1) chronic right knee pain Suspect secondary to DJD Options discussed Reports she got approximately 6 months benefit from steroid injection performed by her PCP Dr. Josefina SERRANO in September of 2022. Desired to repeat this. Steroid injection was performed today 06/07/2023 Also discussed options of physical therapy and viscosupplementation Will follow up p.r.n. Procedure note (knee injection), right : Time out: Prior to injection, a time out was called to confirm the administration of appropriate medicine, patient name, procedure and confirm to the best of our ability and knowledge the presence of any necessary risks and benefits. Patient verbalizes understanding. Sterile techinique applied. Skin sterilized with alcohol swab. Knee injected using 1.5 inch, 22 gauge needle. Injected with 1 ml lidocaine 1%, triamcinolone acetonide 40mg/ml 1 ml. Patient tolerated procedure with no significant bleeding or adverse reaction. Patient instructed to call or return to clinic for fever or warmth and redness at injection site for potential infection. Patient also advised as to potential for steroid flare reaction including increased pain and redness at injection site which should be treated with ice and resolve within 24 hours. Augie Victoria MD Primary Care Sports Medicine Orthopaedics [address] [phone] documented in this encounter Nursing Notes * Phylicia Sanchez LPN - 06/07/2023 11:01 AM EST Presents to increased pain right knee, xrayed 06/04/23. Was injected by dr mart September of 2022 which last several months. Phylicia armenta LPN documented in this encounter Plan of Treatment Upcoming Encounters Date Type Department Care Team (Late st Contact Info) Description 09/06/2023 9:20 AM EDT Office Visit Family Medicine [address] [place] [phone] Antione Rocha MD [address] [place] [address] [place] [address] Scheduled Procedures Name Priority Associated Diagnoses Date/Ti [...] exists Depression Screening 10/21/2022 10/21/2021 COVID-19 Vaccine (2022- season) 2022 04/05/2021, 09/22/2020, 08/24/2020 CKD PHOS USE SMARTSET 23150 05/15/20230 09/2022, 05/05/2021, 01/27/2020, Additional history exists *NEPHROLOGY REFERRAL DUE TO RESISTANT HTN 05/26/2023 Albumin/Creatinine Ratio 08/17/2023 08/16/2022 GFR 09/03/2023 03/05/2023, 12/08, 11/13/2022, Additional history exists TSH 11/14/2023 11/13/2022, 10/2022, 05/15/2022, Additional history exists CKD HGB USE SMARTSET 63058 03/05/202403/05, 03/05/2023, 12/21/2022, Additional history exists DXA Scan 04/04/2024 04/04/2022, 04/04/2022 VITAMIN D LEVEL ONCE IN A LIFETIME-USE SMARTSET# [id number] Completed 10/09/2022, 08/16/2022 Influenza Vaccine (FLU shot) [...] as of this encounter Visit Diagnoses Diagnosis Primary osteoarthritis of right knee- Primary Primary localized osteoarthrosis, lower leg documented in this encounter Administered Medications Inactive Administered Medications - up to 3 most recent administrations Medication Order MAR Action Action Date Dose Rate Site lidocaine 1% 1 mL - triamcinolone acetonide 40 mg/mL 1 mL inj 2 mL 2 mL, Injection, ONCE, On Darcy 06/07/23 at 1200, For 1 dose, Lidocaine 1% 1mL Triamcinolone Acetonide 40 mg/mL 1 mL (Final concentration = 20 mg/mL) REFRIGERATE and SHAKE WELL Given 06/07/2023 11:38 AM EST 2 mL Knee Right documented in this encounter Care Teams Control Systems Designer Relationship Specialty Start Date End Date Antione Rocha MD [address] [place] [address] [place] [address] PCP - General Family Medicine 02/02/21 documented as of this encounter
--- OUTSIDE RECORDS SUMMARY | 2023-07-14 02:19 | External Medical Summary | Summary of Care ---
Author Name Unknown Organization [facility] Address [address] [place] [address] Phone [phone] Care Team Providers Care Punch Operator Name Role Phone Antione Rocha MD Primary Care Provide r Encounter Details Date Type Department Care Team (Late st Contact Info) Description 06/18/2023 Orders Only PATIENT PORTAL DO NOT DELETE THIS DEPT USED BY [place] [id number] Allergies Active Allergy Reactions Criticality Noted Date Comments Rosuvastatin Calcium 07/21/2016 myalgia documented as of this encounter (statuses as of 06/18/2023) Medications Medication Sig Dispensed Refills Start Date [...] MINUTES AFTER TAKING 12 Tablet 11 05/10/2023 Active Sertraline HCl 50 MG Oral Tablet [...] as of this encounter (statuses as of 06/18/2023) Active Problems Problem Noted Date Diagnosed Date [...] Coronary artery disease invo lving [place] coronary artery of [place] heart without angina pectoris 07/21/2016 documented as of this encounter (statuses as of 06/18/2023) Resolved Problems Problem Noted Date Diagnosed Date Resolved Date Anemia in stage 3b chronic kidney disease 02/02/2021 02/17/2021 Benign hypertension with chr onic kidney disease, stage III 02/06/2018 08/19/2020 Overview: Per CKD protocol Anemia due to stage 3 chronic kidney disease 7 02/19/2020 Pericardial effusion 08/14/2016 017 Well adult exam 07/21/2016 01/20/2021 Overview: Prefers to stop breast, colon screening. REQUEST shot recs Distant [place]? 08/23 TTE 5mm pericardial effusion-on repeat, appears to be fat pad. 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 documented as of this encounter (statuses as of 06/18/2023) Immunizations Name Administration Dates Next Due COVID-19 [...] AM EDT Office Visit Family Medicine [address] [place] [phone] Antione Rocha MD [address] [place] [address] [place] [phone] Scheduled Procedures Name Priority Associated Diagnoses Date/Ti [...] 04/05/2021, 09/22/2020, 08/24/2020 CKD PHOS USE SMARTSET 94697 05/15/20230 09/2022, 05/05/2021, 01/27/2020, Additional history exists *NEPHROLOGY REFERRAL DUE TO RESISTANT HTN 05/26/2023 Albumin/Creatinine Ratio 08/17/2023 08/16/2022 GFR 09/03/2023 03/05/2023, 12/08, 11/13/2022, Additional history exists TSH 11/14/2023 11/13/2022, 080 10/2022, 05/15/2022, Additional history exists CKD HGB USE SMARTSET 73113 03/05/202403/05, 03/05/2023, 12/21/2022, Additional history exists DXA Scan 04/04/2024 04/04/2022, 04/04/2022 VITAMIN D LEVEL ONCE IN A LIFETIME-USE SMARTSET# [id number] Completed 10/09/2022, 08/16/2022 Influenza Vaccine (FLU shot) [...] filedocumented as of this encounter Care Teams Punch Operator Relationship Specialty Start Date End Date Antione Rocha MD [address] [place] [address] [place] [phone] PCP - General Family Medicine 02/02/21 documented as of this encounter
--- OUTSIDE RECORDS SUMMARY | 2023-07-14 02:19 | External Medical Summary | Summary of Care ---
Author Name Unknown Organization [facility] Address [address] [place] [address] Phone [phone] Care Team Providers Care Second Hand Paper Machine Name Role Phone Antione Rocha MD Primary Care Provide r Reason for Visit * Reason Comments Outpatient Testing Encounter Details Date Type Department Care Team (Late st Contact Info) Description 06/28/2023 9:10 AM EDT Laboratory Laboratory [address] [place] [phone] , Specimen Drop Off [address] [place] [address] HTN, goal below 150/90 Allergies Active Allergy Reactions Criticality Noted Date Comments Rosuvastatin Calcium 07/21/2016 myalgia documented as of this encounter (statuses as of 06/28/2023) Medications Medication Sig Dispensed Refills Start Date [...] as of this encounter (statuses as of 06/28/2023) Active Problems Problem Noted Date Diagnosed Date [...] tis 07/21/2016 Coronary artery disease invo lving [place] coronary artery of [place] heart without angina pectoris 07/21/2016 documented as of this encounter (statuses as of 06/28/2023) Resolved Problems Problem Noted Date Diagnosed Date Resolved Date Anemia in stage 3b chronic kidney disease 02/02/2021 02/17/2021 Benign hypertension with chr onic kidney disease, stage III 02/06/2018 08/19/2020 Overview: Per CKD protocol Anemia due to stage 3 chronic kidney disease 7 02/19/2020 Pericardial effusion 08/14/2016 017 Well adult exam 07/21/2016 01/20/2021 Overview: Prefers to stop breast, colon screening. REQUEST shot recs Distant [place]? 08/23 TTE 5mm pericardial effusion-on repeat, appears to be fat pad. 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 documented as of this encounter (statuses as of 06/28/2023) Immunizations Name Administration Dates Next Due COVID-19 [...] 9:20 AM EDT Office Visit Family Medicine [address] [place] [phone] Antione Rocha MD [address] [place] [address] [place] [phone] Pending Results Name Type Priority Associated Diagnoses Date /Time BASIC METABOLIC PANEL Lab Routine HTN, goal below 150/90 06/28/2023 6:20 AM EDT Scheduled Procedures Name Priority Associated [...] 04/05/2021, 09/22/2020, 08/24/2020 CKD PHOS USE SMARTSET 96676 05/15/20230 09/2022, 05/05/2021, 01/27/2020, Additional history exists *NEPHROLOGY REFERRAL DUE TO RESISTANT HTN 05/26/2023 Albumin/Creatinine Ratio 08/17/2023 08/16/2022 GFR 09/03/2023 03/05/2023, 12/08, 11/13/2022, Additional history exists TSH 11/14/2023 11/13/2022, 0810/2022, 05/15/2022, Additional history exists CKD HGB USE SMARTSET 90468 03/05/202403/05, 03/05/2023, 12/21/2022, Additional history exists DXA Scan 04/04/2024 04/04/2022, 04/04/2022 VITAMIN D LEVEL ONCE IN A LIFETIME-USE SMARTSET# [id number] Completed 10/09/2022, 08/16/2022 Influenza Vaccine (FLU shot) [...] 150/90 documented in this encounter Care Teams Second Hand Paper Machine Relationship Specialty Start Date End Date Antione Rocha MD [address] [place] [address] [place] [id number] PCP - General Family Medicine 02/02/21 documented as of this encounter
--- OUTSIDE RECORDS SUMMARY | 2023-07-14 02:19 | External Medical Summary | Summary of Care ---
Author Name Unknown Organization [facility] Address [address] [place] [address] Phone [phone] Care Team Providers Care Contact Lens Polisher Name Role Phone Antione Rocha MD Primary Care Provide r Reason for Visit * Reason Onset Date Comments Test Results 06/29/2023 Encounter Details Date Type Department Care Team (Late st Contact Info) Description 06/29/2023 Telephone Family Medicine [address] [phone] Antione Rocha MD [address] [place] [address] [place] [phone] Test Results Allergies Active Allergy Reactions Criticality Noted Date Comments Rosuvastatin Calcium 07/21/2016 myalgia documented as of this encounter (statuses as of 06/29/2023) Medications Medication Sig Dispensed Refills Start Date [...] as of this encounter (statuses as of 06/29/2023) Active Problems Problem Noted Date Diagnosed Date [...] tis 07/21/2016 Coronary artery disease invo lving [place] coronary artery of [place] heart without angina pectoris 07/21/2016 documented as of this encounter (statuses as of 06/29/2023) Resolved Problems Problem Noted Date Diagnosed Date [...] as of this encounter (statuses as of 06/29/2023) Immunizations Name Administration Dates Next Due COVID-19 [...] Telephone Encounter - Antione Rocha MD - 06/29/2023 11:56 AM EDT Informed pt's daughter abt the result - repeat BMP in 2 weeks and increase water intkae documented in this encounter Plan of Treatment Upcoming Encounters Date Type Department Care Team (Late st Contact Info) Description 09/06/2023 9:20 AM EDT Office Visit Family Medicine [address] [phone] Antione Rocha MD [address] [place] [address] [place] [address] Scheduled Orders Name Type Priority Associated Diagnoses Orde r Schedule BASIC METABOLIC PANEL Lab Routine HTN, goal below 150/90 Expected: 07/13/2023, Expires: 06/28/2024 Scheduled Procedures Name Priority Associated Diagnoses Date/Ti [...] Depression Screening 10/21/2022 10/21/2021 COVID-19 Vaccine ( - 2022- season) 2022 04/05/2021, 09/22/2020, 08/24/2020 CKD PHOS USE SMARTSET 31882 05/15/2023 02/0 09/2022, 05/05/2021, 01/27/2020, Additional history exists *NEPHROLOGY REFERRAL DUE TO RESISTANT HTN 05/26/2023 Albumin/Creatinine Ratio 08/17/2023 08/16/2022 TSH 11/14/2023 11/13/2022, 08/0 10/2022, 05/15/2022, Additional history exists GFR 12/29/2023 06/28/2023, 11/2 10/2022, 12/21/2022, Additional history exists CKD HGB USE SMARTSET 67772 03/05/202403/05, 03/05/2023, 12/21/2022, Additional history exists DXA Scan 04/04/2024 04/04/2022, 04/04/2022 VITAMIN D LEVEL ONCE IN A LIFETIME-USE SMARTSET# [id number] Completed 10/09/2022, 08/16/2022 Influenza Vaccine (FLU shot) [...] encounter Visit Diagnoses Diagnosis HTN, goal below 150/90- Primary documented in this encounter Care Teams Contact Lens Polisher Relationship Specialty Start Date End Date Antione Rocha MD [address] [place] [address] [place] [address] PCP - General Family Medicine 02/02/21 documented as of this encounter
--- OUTSIDE RECORDS SUMMARY | 2023-07-14 02:19 | External Medical Summary | Summary of Care ---
Author Name Unknown Organization [facility] Address [address] [place] [address] Phone [phone] Care Team Providers Care Roll Grinder Operator Name Role Phone Antione Rocha MD Primary Care Provide r Encounter Details Date Type Department Care Team (Late st Contact Info) Description 06/01/2023 Telephone Family [address] [phone] Antione Rocha MD [address] [place] [address] [place] [phone] Allergies Active Allergy Reactions Criticality Noted Date Comments Rosuvastatin Calcium 07/21/2016 myalgia documented as of this encounter (statuses as of 06/01/2023) Medications Medication Sig Dispensed Refills Start Date [...] mouth in the morning. 0 05/30/2023 Active documented as of this encounter (statuses as of 06/01/2023) Active Problems Problem Noted Date Diagnosed Date [...] tis 07/21/2016 Coronary artery disease invo lving [place] coronary artery of [place] heart without angina pectoris 07/21/2016 documented as of this encounter (statuses as of 06/01/2023) Resolved Problems Problem Noted Date Diagnosed Date Resolved Date Anemia in stage 3b chronic kidney disease 02/02/2021 02/17/2021 Benign hypertension with chr onic kidney disease, stage III 02/06/2018 08/19/2020 Overview: Per CKD protocol Anemia due to stage 3 chronic kidney disease 7 02/19/2020 Pericardial effusion 08/14/2016 017 Well adult exam 07/21/2016 01/20/2021 Overview: Prefers to stop breast, colon screening. REQUEST shot recs Distant [place]? 08/23 TTE 5mm pericardial effusion-on repeat, appears to be fat pad. 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 documented as of this encounter (statuses as of 06/01/2023) Immunizations Name Administration Dates Next Due COVID-19 [...] encounter Miscellaneous Notes * Telephone Encounter - Sellathurai, Thiviyanath, MD - 06/01/2023 1:49 PM EST Pt sched to see ortho for knee pain - will order xray documented in this encounter Plan of Treatment Upcoming Encounters Date Type Department Care Team (Late st Contact Info) Description 06/07/2023 11:00 AM EST Office Visit Orthopaedics [address] [phone] Augie Victoria MD [address] [place] [address] 09/06/2023 9:20 AM EDT Office Visit Family Medicine [address] [phone] Antione Rocha MD [address] [place] [address] [place] [address] Scheduled Orders Name Type Priority Associated Diagnoses Orde r Schedule XR KNEE 4 OR MORE VIEWS Medical Imaging Routine Chronic pain of right knee Expected: 06/01/2023, Expires: 06/29/2024 Scheduled Procedures Name Priority Associated Diagnoses Date/Ti [...] 04/05/2021, 09/22/2020, 08/24/2020 CKD PHOS USE SMARTSET 68322 05/15/2023 02/0 09/2022, 05/05/2021, 01/27/2020, Additional history exists *NEPHROLOGY REFERRAL DUE TO RESISTANT HTN 05/26/2023 Albumin/Creatinine Ratio 08/17/2023 08/16/2022 GFR 09/03/2023 03/05/2023, 12/08, 11/13/2022, Additional history exists TSH 11/14/2023 11/13/2022, 0 10/2022, 05/15/2022, Additional history exists CKD HGB USE SMARTSET 57128 03/05/202403/05, 03/05/2023, 12/21/2022, Additional history exists DXA Scan 04/04/2024 04/04/2022, 04/04/2022 VITAMIN D LEVEL ONCE IN A LIFETIME-USE SMARTSET# [id number] Completed 10/09/2022, 08/16/2022 Influenza Vaccine (FLU shot) [...] as of this encounter Visit Diagnoses Diagnosis Chronic pain of right knee- Primary documented in this encounter Care Teams Roll Grinder Operator Relationship Specialty Start Date End Date Antione Rocha MD [address] [place] [address] [place] [address] PCP - General Family Medicine 02/02/21 documented as of this encounter
--- OUTSIDE RECORDS SUMMARY | 2023-07-14 02:19 | External Medical Summary ---
Author Name Unknown Address Unknown Organization K01:LAB[facility]ATORY [facility] [place] - [facility] [address] [facility] [address] [address] Laboratory Report Ordering Provider Test Date Status DYLON MARTIN 07/12/2023 08:48:32 Ros l Observation Date Value Abnormality Reference (Units ) Status BUN 07/12/2023 08:48:32 20 6-20 (mg/dL) Final Creatinine 07/12/2023 08:48:32 1.4 Above high normal 0.5-1.0 (mg/dL) Final Glomerular filtration rate/1.73 sq M.predicted [Volume Rate/Area] in Serum, Plasma or Blood by Creatinine-based formula (CKD-EPI) 07/12/2023 08:48:32 39 Below low normal >=60 (mL/min) Final eGFR is calculated based on the CKD-EPI 2020 equation Sodium 07/12/2023 08:48:32 129 Below low normal 135 -146 (mmol/L) Final Potassium 07/12/2023 08:48:32 4.4 3.5-5.1 (m mol/L) Final Cl 07/12/2023 08:48:32 93 Below low normal 98- 107 (mmol/L) Final CO2 07/12/2023 08:48:32 24 22-32 (mmo l/L) Final Anion gap 07/12/2023 08:48:32 12 7-15 (mmol /L) Final Glucose 07/12/2023 08:48:32 99 70-120 (mg /dL) Final Calcium 07/12/2023 08:48:32 8.6 8.4-10.2 ( mg/dL) Final Performing Location LAB[facility]ATORY [facility] [place] - [address] [place] [address]
--- OUTSIDE RECORDS SUMMARY | 2023-07-14 02:19 | External Medical Summary | Summary of Care ---
Author Name Unknown Organization [facility] Address [address] [place] [address] Phone [phone] Care Team Providers Care Chemical Pumper Name Role Phone Antione Rocha MD Primary Care Provide r Reason for Visit * Reason Comments Knee Pain right Encounter Details Date Type Department Care Team (Latest Contact Info) Description 06/07/2023 11:00 AM EST Office Visit Orthopaedics [address] [phone] Augie Victoria MD [address] [place] [address] Primary osteoarthritis of right knee* Allergies Active [...] tis 07/21/2016 Coronary artery disease invo lving [place] coronary artery of [place] heart without angina pectoris 07/21/2016 [...] breast, colon screening. REQUEST shot recs Distant [place]? 08/23 TTE 5mm pericardial effusion-on repeat, appears [...] - 06/07/2023 11:00 AM EST Violetta Nicole [id number] Violetta Nicole is a 83 year old female who presents for consultation to [facility] for right knee [...] breast, colon screening. REQUEST shot recs [place]ant [place]? 08/23 TTE 5mm pericardial effusion-on repeat, appears [...] yrs as of 10/21/2021 Likes--kylah. 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 Born in [place]. Social Determinants of [...] Victoria MD Primary Care Sports Medicine Orthopaedics [address] [phone] documented in this encounter Nursing Notes * [...] 9:20 AM EDT Office Visit Family Medicine [address] [place] [address] Antione Rocha MD [address] [place] [address] [place] [address] Scheduled Procedures Name Priority [...] 04/05/2021, 09/22/2020, 08/24/2020 CKD PHOS USE SMARTSET [id number] 05/15/20230 09/2022, 05/05/2021, 01/27/2020, Additional history exists *NEPHROLOGY REFERRAL DUE TO RESISTANT HTN 05/26/2023 Albumin/Creatinine Ratio 08/17/2023 08/16/2022 GFR 09/03/2023 03/05/2023, 12/08, 11/13/2022, Additional history exists TSH 11/14/2023 11/13/2022, 10/2022, 05/15/2022, Additional history exists CKD HGB USE SMARTSET 08191 03/05/202403/05, 03/05/2023, 12/21/2022, Additional history exists DXA Scan 04/04/2024 04/04/2022, 04/04/2022 VITAMIN D LEVEL ONCE IN A LIFETIME-USE SMARTSET# [id number] Completed 10/09/2022, 08/16/2022 Influenza Vaccine (FLU shot) [...] Right documented in this encounter Care Teams Chemical Pumper Relationship Specialty Start Date End Date Antione Rocha MD [address] [place] [address] [place] [phone] PCP - General Family Medicine 02/02/21 documented as of this encounter
--- OUTSIDE RECORDS SUMMARY | 2023-07-14 02:20 | External Medical Summary | Summary of Care ---
Author Name Unknown Organization [facility] Address [address] [place] [address] Phone [phone] Care Team Providers Care Arbor Press Operator Name Role Phone Antione Rocha MD Primary Care Provide r Reason for Visit * Reason Comments Outpatient Testing Encounter Details Date Type Department Care Team (Late st Contact Info) Description 03/05/2023 9:00 AM EST Laboratory Laboratory [address] [place] [phone] , Specimen Drop Off [address] [place] [address] Chronic kidney disease, unspecified CKD stage Allergies Active Allergy Reactions Criticality Noted Date Comments Rosuvastatin Calcium 07/21/2016 myalgia documented as of this encounter (statuses as of 03/05/2023) Medications Medication Sig Dispensed Refills Start Date [...] the morning. 30 Tablet 2 08/22/2021 Active Alendronate Sodium 70 MG Oral Tablet (Fosamax)Indications :Age-related osteoporosis without current pathological fracture TAKE 1 TABLET BY MOUTH ONCE A WEEK AT LEAST 30 MINUTES BEFORE FIRST FOOD/BEVERAGE DO NOT LIE DOWN FOR 30 MINUTES AFTER TAKING 12 Tablet 11 04/05/2022 4 Active Pravastatin Sodium 20 MG Oral Tablet (Pravachol) TAKE ONE TABLET BY MOUTH IN THE MORNING 90 Tablet 3 03/10/2022 3 Active Levothyroxine Sodium 75 MCG Oral Tablet (Levoxyl)Indications :Acquired hypothyroidism TAKE 1 TABLET BY MOUTH DAILY AT LEAST 30 MINUTES PRIOR TO FIRST MEAL OF THE DAY OR OTHER MEDICATIONS 90 Tablet 3 03/10/2022 3 Active Omeprazole 20 MG Oral Capsule Delayed Release (PriLOSEC) TAKE ONE CAPSULE BY MOUTH EVERY MORNING ONE HOUR BEFORE THE FIRST MEAL OF THE DAY 100 Capsule 3 11/21/2022 Active Sertraline HCl 50 MG Oral Tablet (Zoloft)Indications: Current mild episode of major depressive disorder without prior episode (HCC) Take 1 Tablet by mouth in the morning. 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 90 Tablet 1 12/01/2022 Active Vitamin D-3 25 MCG (1000 UT) [...] the morning. 100 Tablet 3 01/08/2023 Active documented as of this encounter (statuses as of 03/05/2023) Active Problems Problem Noted Date Diagnosed Date [...] tis 07/21/2016 Coronary artery disease invo lving [place] coronary artery of [place] heart without angina pectoris 07/21/2016 documented as of this encounter (statuses as of 03/05/2023) Resolved Problems Problem Noted Date Diagnosed Date Resolved Date Anemia in stage 3b chronic kidney disease 02/02/2021 02/17/2021 Benign hypertension with chr onic kidney disease, stage III 02/06/2018 08/19/2020 Overview: Per CKD protocol Anemia due to stage 3 chronic kidney disease 7 02/19/2020 Pericardial effusion 08/14/2016 017 Well adult exam 07/21/2016 01/20/2021 Overview: Prefers to stop breast, colon screening. REQUEST shot recs Distant [place]? 08/23 TTE 5mm pericardial effusion-on repeat, appears to be fat pad. 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 documented as of this encounter (statuses as of 03/05/2023) Immunizations Name Administration Dates Next Due COVID-19 mRNA, LNP-s, No Pre serve, 2-Dose Series (Moderna) 09/22/2020,08/24/2020 COVID-19, mRNA, LNP-s, PF, B ooster, 100mcg/0.5mg (Moderna) 04/05/2021 Pneumococcal Conjugate Vacc, 13 Valent (Prevnar) 11/23/2014 SEASONAL INFLUENZA, PF, 6 M & Above, IM , (FLULAVAL or FLUZONE) 01/25/2018,01/24/2017 Season Influenza, Quad, PF, Adjuvanted, 65+ Yrs, IM (FLUAD) 01/14/2020 Seasonal Influenza, Quadriva lent Hd (Fluzone Hd) 01/12/2023,01/26/2022,12/30/2020 Seasonal Influenza, Split, I IV3, With Preserve, Inj 03/03/2013 Seasonal Influenza, Trivalen t, Adjuvanted, 65+ yrs 01/21/2019 documented as of this encounter Social History Tobacco Use Types Packs/Day Years Used Date Smoking Tobacco: Former Cigarettes 1 10 Q uit: 1985 Smokeless Tobacco: Never Alcohol Use Standard Drinks/Week [...] 9:20 AM EDT Office Visit Family Medicine [address] [place] [address] Antione Rocha MD [address] [place] [address] [place] [phone] Pending Results Name Type Priority Associated Diagnoses Date /Time COMPREHENSIVE METABOLIC PANEL Lab Routine Chronic kidney disease, unspecified CKD stage 03/05/2023 8:53 AM EST Scheduled Procedures Name Priority Associated Diagnoses Date/Ti me COLONOSCOPY FLEXIBLE PROXIMAL DIAGNOSTIC Recall History of colon polyps Health Maintenance Due Date Last Done Comments DTaP,Tdap,and Td Vaccines (1 - Tdap) 1959 Zoster Vaccines (1 of 2) 1990 Pneumococcal Vaccine: 65+ Years (2 - PPSV23 or PCV20) 11/24/2015 11/23/2014 COLONOSCOPY-EVERY 5 YRS AGES 18-100 10/27/2021 10/27/2016, 10/27/2016, 10/09/2011, Additional history exists Depression Screening 10/21/2022 10/21/2021 COVID-19 Vaccine ( season) 2022 04/05/2021, 09/22/2020, 08/24/2020 CKD PHOS USE SMARTSET 49395 05/15/2023 020 09/2022, 05/05/2021, 01/27/2020, Additional history exists GFR 06/21/2023 12/21/2022, 080 10/2022, 11/07/2022, Additional history exists Albumin/Creatinine Ratio 08/17/2023 08/16/2022 TSH 11/14/2023 11/13/2022, 08/0 10/2022, 05/15/2022, Additional history exists CKD HGB USE SMARTSET 12144 12/22/202312/21, 12/21/2022, 11/13/2022, Additional history exists DXA Scan 04/04/2024 04/04/2022 VITAMIN D LEVEL ONCE IN A LIFETIME-USE SMARTSET# [id number] Completed 10/09/2022, 08/16/2022 Influenza Vaccine (FLU shot) [...] of this encounter Visit Diagnoses Diagnosis Chronic kidney disease, unspecified CKD stage documented in this encounter Care Teams Arbor Press Operator Relationship Specialty Start Date End Date Antione Rocha MD [address] [place] [address] [place] [address] PCP - General Family Medicine 02/02/21 documented as of this encounter
--- OUTSIDE RECORDS SUMMARY | 2023-07-14 02:20 | External Medical Summary | Summary of Care ---
Author Name Unknown Organization [facility] Address [address] [place] [address] Phone [phone] Care Team Providers Care Supply Chain Generalist Name Role Phone Antione Rocha MD Primary Care Provide r Reason for Visit * Reason Onset Date Comments Medication Refill 05/22/2023 Encounter Details Date Type Department Care Team (Late st Contact Info) Description 05/22/2023 Refill Family Medicine [address] [phone] Antione Rocha MD [address] [place] [address] [place] [phone] Benign hypertension with stage 3b chronic kidney disease (HCC); HTN, goal below 150/90 Allergies Active Allergy Reactions Criticality Noted Date Comments Rosuvastatin Calcium 07/21/2016 myalgia documented as of this encounter (statuses as of 05/23/2023) Medications Medication Sig Dispensed Refills Start Date End Date Status aspirin enteric coated 81 MG TBEC Take 1 Tab by mouth daily. 100 Tab 3 07/21/2016 Active Ventolin HFA 108 (90 Base) MCG/ACT Inhalation Aerosol SolutionIndications :Bronchitis, complicated Inhale by mouth 2 Puffs every 4 hours as needed for Shortness of Breath or Wheezing. 8 g 1 08/03/2021 Active Sennosides-Docusate Sodium 8.6-50 MG Oral Tablet (Senokot-S)Indicati ons:Constipation, unspecified constipation type Take by mouth 1 [...] Oral Tablet Extended Release 24 Hour (Toprol XL)Indications:Esse ntial hypertension with goal blood pressure less than 140/90 Take 1 Tablet by mouth in the morning. 100 Tablet 3 01/08/2023 Active Pravastatin Sodium 20 MG Oral Tablet (Pravachol) TAKE ONE TABLET BY MOUTH IN THE MORNING 90 Tablet 1 03/14/2023 Active Levothyroxine Sodium 75 MCG Oral Tablet (Levoxyl)Indication s:Acquired hypothyroidism TAKE 1 TABLET BY MOUTH DAILY AT LEAST 30 MINUTES PRIOR TO FIRST MEAL OF THE DAY OR OTHER MEDICATIONS 90 Tablet 2 03/14/2023 Active Alendronate Sodium 70 MG Oral Tablet (Fosamax)Indication s:Age-related osteoporosis without current pathological fracture TAKE 1 TABLET BY MOUTH ONCE A WEEK AT LEAST 30 MINUTES BEFORE FIRST FOOD/BEVERAGE DO NOT LIE DOWN FOR 30 MINUTES AFTER TAKING 12 Tablet 11 05/10/2023 05/09/19 25 Active Lisinopril 10 MG Oral Tablet (Prinivil)Indicatio ns:Benign hypertension with stage 3b chronic kidney disease (HCC),HTN, goal below 150/90 Take 1 Tablet by mouth in the morning. 90 Tablet 1 05/23/2023 Active Sertraline HCl 50 MG Oral Tablet (Zoloft)Indications :Current mild episode of major depressive disorder without prior episode (HCC) Take 1 Tablet by mouth in the morning. 90 Tablet 1 05/22/2023 Active Lisinopril 10 MG Oral Tablet (Prinivil)Indicatio ns:Benign hypertension with stage 3b chronic kidney disease (HCC),HTN, goal below 150/90 Take 1 Tablet by mouth in the morning. 90 Tablet 1 12/01/2022 05/22/19 24 Discontinu ed(Refill) documented as of this encounter (statuses as of 05/23/2023) Active Problems Problem Noted Date Diagnosed Date [...] tis 07/21/2016 Coronary artery disease invo lving [place] coronary artery of [place] heart without angina pectoris 07/21/2016 documented as of this encounter (statuses as of 05/23/2023) Resolved Problems Problem Noted Date Diagnosed Date Resolved Date Anemia in stage 3b chronic kidney disease 02/02/2021 02/17/2021 Benign hypertension with chr onic kidney disease, stage III 02/06/2018 08/19/2020 Overview: Per CKD protocol Anemia due to stage 3 chronic kidney disease 7 02/19/2020 Pericardial effusion 08/14/2016 017 Well adult exam 07/21/2016 01/20/2021 Overview: Prefers to stop breast, colon screening. REQUEST shot recs Distant [place]? 08/23 TTE 5mm pericardial effusion-on repeat, appears to be fat pad. 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 documented as of this encounter (statuses as of 05/23/2023) Immunizations Name Administration Dates Next Due COVID-19 [...] encounter Miscellaneous Notes * Telephone Encounter - Patricia Madrigal RPh - 05/23/2023 1:10 PM ESTSigned Prescriptions: Disp Refills Lisinopril 10 MG Oral Tablet (Prinivil) 90 Tab*1 Sig: Take 1 Tablet by mouth in the morning.Authorizing Provider: ANTIONE ROCHAOrderkarie User: PATRICIA MADRIGAL Electronically signed by Patricia Madrigal [facility] at 05/23/2023 1:10 PM EST documented in this encounter Plan of Treatment Upcoming Encounters Date Type Department Care Team (Late st Contact Info) Description 05/23/2023 2:20 PM EST Office Visit [address] [phone] Antione Rocha MD [address] [place] [address] [place] [phone] 09/06/2023 9:20 AM EDT Office Visit Family [address] [place] [phone] Antione Rocha MD [address] [place] [address] [place] [phone] Scheduled Procedures Name Priority Associated Diagnoses Date/Ti [...] 04/05/2021, 09/22/2020, 08/24/2020 CKD PHOS USE SMARTSET 63042 05/15/2023 02/0 09/2022, 05/05/2021, 01/27/2020, Additional history exists Albumin/Creatinine Ratio 08/17/2023 08/16/2022 GFR 09/03/2023 03/05/2023, 12/08, 11/13/2022, Additional history exists TSH 11/14/2023 11/13/2022, 080 10/2022, 05/15/2022, Additional history exists CKD HGB USE SMARTSET 08030 03/05/202403/05, 03/05/2023, 12/21/2022, Additional history exists DXA Scan 04/04/2024 04/04/2022, 04/04/2022 VITAMIN D LEVEL ONCE IN A LIFETIME-USE SMARTSET# [id number] Completed 10/09/2022, 08/16/2022 Influenza Vaccine (FLU shot) [...] as of this encounter Visit Diagnoses Diagnosis Benign hypertension with stage 3b chronic kidney disease (HCC) HTN, goal below 150/90 documented in this encounter Care Teams Supply Chain Generalist Relationship Specialty Start Date End Date Antione Rocha MD [address] [place] [address] [place] [address] PCP - General Family Medicine 02/02/21 documented as of this encounter
--- OUTSIDE RECORDS SUMMARY | 2023-07-14 02:20 | External Medical Summary | Summary of Care ---
Author Name Unknown Organization [facility] Address [address] [place] [address] Phone [phone] Care Team Providers Care Logging Shovel Operator Name Role Phone Antione Rocha MD Primary Care Provide r Reason for Visit * Reason Comments Follow Up Encounter Details Date Type Department Care Team Description 01/24/2023 Office Visit Cardiology, [facility] [address] [facility] [place] [id number] Estefani Liz CRNP [address] [place] 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 100 Tab 3 07/21/2016 Active Diclofenac Sodium 1 % External Gel (Voltaren)Indication s:Acute bilateral low back pain without sciatica Apply 2 g topically to affected area every night at bedtime. Apply to the affected area 150 g 1 02/02/2021 Active Ventolin HFA 108 (90 Base) MCG/ACT Inhalation Aerosol SolutionIndications: Bronchitis, complicated Inhale by mouth 2 Puffs every 4 hours as needed for Shortness of Breath or Wheezing. 8 g 1 08/03/2021 Active Sennosides-Docusate Sodium 8.6-50 MG Oral Tablet (Senokot-S)Indicatio ns:Constipation, unspecified constipation type Take by mouth 1 Tablet in the morning. 30 Tablet 2 08/22/2021 Active Ondansetron HCl 4 MG Oral Tablet (Zofran)Indications: Nausea and vomiting, unspecified vomiting type Take 1 Tablet by mouth every 8 hours as needed for Nausea. 20 Tablet 0 05/15/2022 Active Alendronate Sodium 70 MG Oral Tablet (Fosamax)Indications :Age-related osteoporosis without current pathological fracture TAKE 1 TABLET BY MOUTH ONCE A WEEK AT LEAST 30 MINUTES BEFORE FIRST FOOD/BEVERAGE DO NOT LIE DOWN FOR 30 MINUTES AFTER TAKING 12 Tablet 11 04/05/2022 3 Active Pravastatin Sodium 20 MG Oral Tablet [...] as of this encounter (statuses as of 01/24/2023) Active Problems Problem Noted Date Asymptomatic bilateral carotid artery st enosis 12/01/2022 Mild mitral regurgitation 12/01/2022 Nonrheumatic mitral valve regurgitation 11/23/2022 Current mild episode of major depressive disorder without prior episode 08/16/2022 Age-related osteoporosis without current pathological fracture 06/08/2022 Benign hypertension with stage 3b chroni c kidney disease 08/17/2020 Overview: Per CKD protocol Chronic kidney disease, stage 3b 021 Overview: Per CKD protocol History of 2019 novel coronavirus diseas e (COVID-19) 08/11/2020 Anemia due to stage 3b chronic kidney di sease 02/16/2020 Overview: Per CKD protocol B12 deficiency 02/06/2018 Dyslipidemia, goal LDL below 100 018 Atrial septal aneurysm 01/24/2017 Overview: 2017-start ASA lifetime as inc risk CVA Old myocardial infarct 01/24/2017 Acquired hypothyroidism 07/21/2016 Essential hypertension with goal blood p ressure less than 140/90 07/21/2016 Gastroesophageal reflux disease without esophagitis 07/21/2016 Coronary artery disease invo lving skokomish coronary artery of skokomish heart without angina pectoris 07/21/2016 documented as of this encounter (statuses as of 01/24/2023) Resolved Problems Problem Noted Date Resolved Date Anemia in stage 3b chronic kidney disease 202002/17/2021 Benign hypertension with chronic kidney disease, stage III 02/06/2018 08/19/2020 Overview: Per CKD protocol Anemia due to stage 3 chronic kidney disease 02/19/2020 Pericardial effusion 08/14/2016 01/24/2017 Well adult exam 07/21/2016 01/20/2021 Overview: Prefers to stop breast, colon screening. REQUEST shot recs Distant AL? 08/23 TTE 5mm pericardial effusion-on repeat, appears to be fat pad. 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 documented as of this encounter (statuses as of 01/24/2023) Immunizations Name Administration Dates Next Due COVID-19 [...] 10 Q uit: 1985 Smokeless Tobacco: Never Tobacco Cessation:Counseling Given: Not Answered Alcohol Use Standard Drinks/Week Comments Yes 0 (1 standard drink = 0.6 oz pur e alcohol) rare wine Food Insecurity Answer Date Recorded Within the past 12 months, y ou worried that your food would run out before you got money to buy more. Never true 06/08/2022 Within the past 12 months, t he food you bought just didn't last and you didn't have money to get more. Never true 06/08/2022 Sex Assigned at Date Recorded Female 08/19/2018 3:34 PM E DT Job Start Date Occupation Industry Not on file Not on file Not on file documented as of this encounter Last Filed Vital Signs Vital Sign Reading Time Taken Comments Blood Pressure 140/78 01/24/2023 2:53 PM EDT Pulse 58 01/24/2023 2:53 PM EDT Temperature - - Respiratory Rate - - Oxygen Saturation 97% 01/24/2023 2:53 PM EDT Inhaled Oxygen Concentration - - Weight 83.5 kg (184 lb) 01/24/2023 2:53 PM EDT Height - - Body Mass Index 29.93 12/01/2022 11:56 AM EDT documented in this encounter Progress Notes * NERIS Arellano - 01/24/2023 3:00 PM EDT Cardiology Outpatient Visit 01/24/2023 Primary Video Editing Intern: KALPANA Past medical history: CAD, remote history of AL 1980s Nonischemic DSE 08/2016 Palpitations secondary to frequent PVCs 9% burden per zio 08/2021 4% per zio 12/2022 HTN Dyslipidemia Atrial septal aneurysm without evidence of ASD per echo 11/2022 CKD stage III Asymptomatic bilateral carotid artery stenosis (less than 50% BL per duplex 11/2022) Hypothyroidism GERD HPI 82-year-old female presenting to the cardiology office today in routine follow- up. Was last evaluated by the undersigned approximately 6 weeks ago. Patient was initially referred after hospital admission at [facility] from 11/04 to 11/05/2022 due to lightheadedness/ dizziness and syncope. Per thepatient prior to this episode she was not feeling well from a GI standpoint- had nausea and diarrhea. Admitted to not drinking much fluids that day. Upon presentation to the ED lab work indicated andAKI with a creatinine of 2. Symptoms as well as renal function improved with the use of IV hydration. D-dimer was elevated but CTA of the chest showed no evidence of PE. Hypertension meds were held on discharge (lisinopril and HCTZ). Was seen by PCP in hospital follow up on 11/13/2022- BP was elevated and lisinopril was restarted. Echo was obtained showing a preserved LV systolic function of 60-64% without wall motion abnormality. Mild MR and TR with mild pulmonary hypertension. Atrial septal aneurysm noted without evidence ofASD. Carotid duplex without obstructive disease (less than 50% stenosis bilaterally). Previously evaluated by Dr. Young (EP) 01/11/2022 due to syncope as well as palpitations secondary tononsustained AT and PVCs. Due to a preserved LV systolic function and no concerning dysrhythmias nomedication changes were made and patient followed up with her PCP. At her last appointment she was feeling well with only mild lightheadedness with quick position changes. She did however notice some lower extremity edema and weight gain and furosemide was started. Zio monitor showed primarily sinus rhythm with an average heart rate of 58 beats per minute. Patient has a known history of PVCs and the Zio monitor burden was about 4%, less than previously recorded9%. There was no sustained or concerning dysrhythmias. Given slow resting heart rate no medication changes were recommended. Today the patient presents feeling well and offers no acute concerns notes a significant improvement in her lower extremity edema with the addition of Lasix. She denies chest pain or shortness of breath. No palpitations lightheadedness or dizziness. No recurrent syncope. No orthopnea, PND, or increased lower extremity edema. No fever, chills, cough, hematochezia, melena, or hemoptysis. Patient is compliant with all medications, and offers no side effects. Current Outpatient Medications Medication Sig Dispense Refill aspirin enteric coated 81 MG TBEC Take 1 Tab by mouth daily. 100 Tab 3 Diclofenac Sodium 1 % External Gel (Voltaren) Apply 2 g topically to affected area every night at bedtime. Apply to the affected area 150 g 1 Ventolin HFA 108 (90 Base) MCG/ACT Inhalation Aerosol Solution Inhale by mouth 2 Puffs every 4 hours as needed for Shortness of Breath or Wheezing. 8 g 1 Sennosides-Docusate Sodium 8.6-50 MG Oral Tablet (Senokot-S) Take by mouth 1 Tablet in the morning.30 Tablet 2 Ondansetron HCl 4 MG Oral Tablet (Zofran) Take 1 Tablet by mouth every 8 hours as needed for Nausea. 20 Tablet 0 Alendronate Sodium 70 MG Oral Tablet (Fosamax) TAKE 1 TABLET BY MOUTH ONCE A WEEK AT LEAST 30 MINUTES BEFORE FIRST FOOD/BEVERAGE DO NOT LIE DOWN FOR 30 MINUTES AFTER TAKING 12 Tablet 11 Pravastatin Sodium 20 MG Oral Tablet (Pravachol) TAKE ONE TABLET BY MOUTH IN THE MORNING 90 Tablet 3 Levothyroxine Sodium 75 MCG Oral Tablet (Levoxyl) TAKE 1 TABLET BY MOUTH DAILY AT LEAST 30 MINUTES PRIOR TO FIRST MEAL OF THE DAY OR OTHER MEDICATIONS 90 Tablet 3 Omeprazole 20 MG Oral Capsule Delayed Release (PriLOSEC) TAKE ONE CAPSULE BY MOUTH EVERY MORNING ONE HOUR BEFORE THE FIRST MEAL OF THE DAY 100 Capsule 3 Sertraline HCl 50 MG Oral Tablet (Zoloft) Take 1 Tablet by mouth in the morning. 90 Tablet 1 Lisinopril 10 MG Oral Tablet (Prinivil) Take 1 Tablet by mouth in the morning. 90 Tablet 1 Vitamin D-3 25 MCG (1000 UT) Oral Capsule Take 1 Capsule by mouth in the morning. B-12 500 MCG Oral Tablet Take 1 Tablet by mouth every other day. Iron 325 (65 Fe) MG Oral Tablet Take 1 Tablet by mouth every other day. Furosemide 20 MG Oral Tablet (Lasix) Take 1 Tablet by mouth once a day on Sunday, Sunday, and Sunday only. 30 Tablet 5 Metoprolol Succinate ER 100 MG Oral Tablet Extended Release 24 Hour (Toprol XL) Take 1 Tablet by mouth in the morning. 100 Tablet 3 No current facility-administered medications for this visit. Past Medical History: Diagnosis Date Acquired hypothyroidism 07/21/2016 Atrial septal aneurysm 01/24/2017 B12 deficiency 02/06/2018 Benign neoplasm of colon 08/29/06 adenomatous polyps--repeat 3-5 years Benign neoplasm of colon 07/16/09 adenomatous polyps repeat in 1-2 yrs Benign neoplasm of colon 09/22/11 COLONOSCOPY FLEXIBLE PROXIMAL DIAGNOSTIC performed by Greta Holloway DO at ENDOSCOPY [facility],HYPERPLASTIC AND ADENOMATOUS POLYPS REPEAT COLONOSCOPY IN 5 YEARS Dyslipidemia, goal LDL below 100 07/19/2017 Essential hypertension with goal blood pressure less than 140/90 07/21/2016 Gastroesophageal reflux disease without esophagitis 07/21/2016 Kidney disease, chronic, stage III (GFR 30-59 ml/min) (HCC) 01/24/2017 Old myocardial infarct 01/24/2017 Pericardial effusion 08/14/2016 Well adult exam 07/21/2016 Prefers to stop breast, colon screening. REQUEST shot recs Distant AL? 08/23 TTE 5mm pericardial effusion-on repeat, appears to be fat pad. 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 Past Surgical History: Procedure Laterality Date COLONOSCOPY W/ BIOPSY (RECTUM) 08/29/06 adenomatous polyp-- repeat in 3-5 years COLONOSCOPY W/ LESION REMOVAL, SNARE 07/16/09 adenomatous polyps repeat in 1-2 yrs , diverticulosis, IH & EH. repeat in 2 years COLONOSCOPY, DIAGNOSTIC (RECTUM) 09/22/2011 COLONOSCOPY FLEXIBLE PROXIMAL DIAGNOSTIC performed by Greta Holloway DO at [facility],HYPERPLASTIC AND ADENOMATOUS POLYPS REPEAT COLONOSCOPY IN 5 YEARS COLONOSCOPY, DIAGNOSTIC (RECTUM) 10/27/2016 diverticulosis, repeat 5 yrs/COLONOSCOPY FLEXIBLE PROXIMAL DIAGNOSTIC performed by Greta Holloway DO at ENDOSCOPY [facility] PARTIAL HYSTERECTOMY due to heavy bleeding. thinks has ovaries REMOVAL OF THYROID GLAND thinks was partial Social History Tobacco Use Smoking status: Former Packs/day: 1.00 Years: 10.00 Pack years: 10.00 Types: Cigarettes Quit date: 1985 Years since quittin.8 Smokeless tobacco: Never Vaping Use Vaping Use: Never used Substance Use Topics Alcohol use: Yes Comment: rare wine Drug use: No Review of patient's allergies indicates: Allergen Reactions Crestor [Rosuvastatin Calcium] myalgia Review of Systems: See HPI for pertinent positives. All others negative, other than those noted in HPI. Physical Exam BP 140/78 | Pulse 58 | Wt 83.5 kg (184 lb) | SpO2 97% | BMI 29.93 kg/m | BSA 1.97 m General: No acute distress. A+Ox3. HEENT: Normocephalic. Atraumatic. Conjunctiva and sclera clear. NECK: No carotid bruits. No JVD. Carotid upstrokes are brisk. Heart: RRR. S1 and S2 noted without murmur, rubs, gallops. PMI non displaced. Lungs: Clear to auscultation. No wheezes, rhonchi, rales. Abdomen: Normal bowel sounds. Soft. Nontender. No masses or organomegaly. No abdominal bruits. Extremities: Trace bilateral nonpitting lower extremity edema. No clubbing or cyanosis. Pulses: radial=2/4, posterior tibial=2/4, dorsalis pedis = 2/4. NEURO: No focal deficits. PSYCH: Normal. Lab data/imaging study review: Echo 11/23/2022 The examination is adequate to evaluate the referral indication. The LV wall thickness is mildly increased (concentric). The left ventricular wall motion is normal. The qualitative LV ejection fraction is 60-64% (normal). The left atrium is mildly enlarged. Mild mitral regurgitation is present. Mild tricuspid regurgitation is present. Mild pulmonary hypertension is present. The estimated pulmonary artery systolic pressure is 42 mm Hg. There is an atrial septal aneurysm. There is no evidence of an atrial septal defect but resolution does not allow assessment for a patent foramen ovale. Compared to the report of the previous study dated 11/17/2016, the atrial septal aneurysm was observed at that time also. ZIO PATCH (08/22/2021 - 08/29/2021) - normal sinus rhythm at an average heart rate of 65 BPM - nonsustained atrial tachycardia - maximum duration 11 beats - average rate of 119 BPM - unifocal PVCs with a burden of 9% - no reported symptoms Dobutamine Stress Echocardiography Report (08/11/2016) The stress echo is negative for inducible ischemia. No arrhythmias. Normal HR and BP response to dobutamine infusion. At rest, normal LV chamber size with mild concentric LVH. Normal LV systolic function without regional wall motion abnormality, EF 6065%. Mild tricuspid regurgitation. A small (<5 mm) circumferential pericardial effusion is noted. Cardiac tamponade is absent. Impression/Plan: 1. Syncope, unspecified syncope type -History of syncope possibly due to orthostatic hypotension/volume depletion. Has not had any return of symptoms. -Zio monitor without concerning findings/arrhythmias. -Echocardiogram with preserved LV systolic function and wall motion. -Carotid duplex without obstructive stenosis 2. Heart palpitations 3. PVC (premature ventricular contraction) -History of palpitations secondary to sensed/frequent PVCs. -Zio monitor indicating a burden of approximately 4%, improved compared to previously 9%--slow average resting heart rate -Echo with preserved LV systolic function and wall motion Continue metoprolol succinate 100 mg daily 4. HTN, goal below 140/90 -Improved blood pressures since the addition Lasix. Now borderline controlled. -Prior antihypertensive medications held at discharge due to hypotension and dehydration. 1. For now continue lisinopril 10 mg daily, will consider increase to 20 mg daily should blood pressures trend above goal. 2. Lower extremity edema resolved with the addition of Lasix, continue 20 mg every Sunday. 5. Dyslipidemia, goal LDL below 70 -Controlled, LDL 58. 1. Continue pravastatin 20 mg daily 6. Coronary artery disease involving skokom[place] coronary artery of skokomish heart without angina pectoris -Prior history of remote AL in the 1980s -Stable, no angina. -EKG without ischemic changes. Continue aspirin 81 mg daily 7. Atrial septal aneurysm Atrial septal aneurysm without evidence of ASD. The patient agrees to the above plan and will call with additional questions or concerns. ER with all emergencies advised. Follow Up: Return in about 1 year (around 01/25/2024). I spent a total of 30 minutes on the date of service in preparation, delivery, and documentation ofthe care provided to Violetta Nicole excluding any time spent in the performance of separately billed services. NERIS Valadez, Department of Cardiology This chart was completed in part utilizing [employer] Speech Voice Recognition Software. Grammatical errors, random word insertions, prounoun errors, and incomplete sentences are an occasional consequence of this system due to software limitations, ambient noise, and hardware issues. Any formal questions or concerns about the content, text, or information contained within the body of this dictation should be directly addressed to the provider for clarification. documented in this encounter Nursing Notes * Nahomi Whitt CMA - 01/24/2023 2:52 PM EDT Examination Room: 7 Name: Violetta Nicole Date of : (1940) Reason for Visit: 6 week f/u Interim Hospitalization(s): none Problems/Concerns: denied Chest Pain/SOB: denied My [facility] is a way you can talk to your provider online through e-mail. Would you like to sign up? I can activate it for you? ALREADY ACTIVE Patient was instructed to not get up on the exam table until directed and assisted by their provider; patient is to remain seated in the chair/ wheelchair/ exam table for fall prevention and safety reasons. Patient is aware to have assistance to step down off exam table with personnel. Patient voiced full comprehension of instructions. documented in this encounter Plan of Treatment Upcoming Encounters Date Type Specialty Care Team Description 02/14/2023 Office Visit Family Medicine Antione Rocha MD [address] [place] [address] [place] [id number] Scheduled Procedures Name Priority [...] 04/05/2021, 09/22/2020, 08/24/2020 CKD PHOS USE SMARTSET 87418 05/15/2023 020 09/2022, 05/05/2021, 01/27/2020, Additional history exists GFR 06/21/2023 12/21/2022, 080 10/2022, 11/07/2022, Additional history exists Albumin/Creatinine Ratio 08/17/2023 08/16/2022 TSH 11/14/2023 11/13/2022, 080 10/2022, 05/15/2022, Additional history exists CKD HGB USE SMARTSET 54692 12/22/202312/21, 12/21/2022, 11/13/2022, Additional history exists DXA Scan 04/04/2024 04/04/2022 VITAMIN D LEVEL ONCE IN A LIFETIME-USE SMARTSET# [id number] Completed 10/09/2022, 08/16/2022 Influenza Vaccine (FLU shot) [...] as of this encounter Visit Diagnoses Diagnosis Syncope, unspecified syncope type- Primary Heart palpitations Palpitations PVC (premature ventricular contraction) Other premature beats HTN, goal below 140/90 Unspecified essential hypertension Dyslipidemia, goal LDL below 70 Other and unspecified hyperlipidemia Coronary artery disease involving skokomish coronary artery of skokomish heart without angina pectoris Atrial septal aneurysm Aneurysm of heart (wall) documented in this encounter Care Teams Logging Shovel Operator Relationship Specialty Start Date End Date Antione Rocha MD [address] [place] [address] [place] [id number] PCP - General Family Medicine 02/02/21 documented as of this encounter"
--- OUTSIDE RECORDS SUMMARY | 2023-07-14 02:20 | External Medical Summary ---
Author Name Unknown Address Unknown Organization [id number]:[place] [place] [facility] [place] [address] [place] [address] [address] Laboratory Report Ordering Provider Test Date Status DYLON MARTIN 03/05/2023 08:53:11 Ros l Observation Date Value Abnormality Reference (Units ) Status BUN 03/05/2023 08:53:11 17 6-20 (mg/dL) Final Creatinine 03/05/2023 08:53:11 1.4 Above high normal 0.5-1.0 (mg/dL) Final Glomerular filtration rate/1.73 sq M.predicted [Volume Rate/Area] in Serum, Plasma or Blood by Creatinine-based formula (CKD-EPI) 03/05/2023 08:53:11 38 Below low normal >=60 (mL/min) Final eGFR is calculated based on the CKD-EPI 2020 equation SODIUM 03/05/2023 08:53:11 139 135-146 (m mol/L) Final Potassium 03/05/2023 08:53:11 4.8 3.5-5.1 (m mol/L) Final Cl 03/05/2023 08:53:11 103 98-107 (mm ol/L) Final CO2 03/05/2023 08:53:11 25 22-32 (mmo l/L) Final Anion gap 03/05/2023 08:53:11 11 7-15 (mmol /L) Final Glucose 03/05/2023 08:53:11 127 Above high normal 70 -120 (mg/dL) Final Albumin 03/05/2023 08:53:11 4.1 3.8-5.0 (g /dL) Final AST (Aspartate aminotransferase) 03/05/2023 08:53:11 19 10-35 (U/L) Fin al Alk Phos 03/05/2023 08:53:11 67 35-130 (U/ L) Final Bilirubin, Total 03/05/2023 08:53:11 0.2 <=1 .2 (mg/dL) Final Calcium 03/05/2023 08:53:11 8.5 8.4-10.2 ( mg/dL) Final Protein 03/05/2023 08:53:11 5.8 Below low normal 6.0 -8.3 (g/dL) Final ALT (Alanine aminotransferase) 03/05/2023 08:53:11 10 10-35 (U/L) Angel stanton Performing Location [facility] [place] [place] [facility] [address] [facility] [address]
--- OUTSIDE RECORDS SUMMARY | 2023-07-14 02:20 | External Medical Summary ---
Author Name Unknown Address Unknown Organization [id number]:[place] [place] [facility] [address] [facility] [address] Laboratory Report Ordering Provider Test Date Status DYLON MARTIN 03/05/2023 08:53:11 Ros l Observation Date Value Abnormality Reference (Units ) Status WBC, Total 03/05/2023 08:53:11 5.04 4.00-10.80 (K/uL) Final RBC 03/05/2023 08:53:11 4.09 3.85-5.15 (M/uL) Final Hemoglobin 03/05/2023 08:53:11 12.0 12.0-15.3 (g/dL) Final HCT 03/05/2023 08:53:11 38.7 36.0-45.2 (%) Final MCV 03/05/2023 08:53:11 94.6 81.5-97.5 (fL) Final MCH 03/05/2023 08:53:11 29.3 27.0-34.0 (pg) Final MCHC 03/05/2023 08:53:11 31.0 32.0-36.0 (g/dL) Final RDW 03/05/2023 08:53:11 13.1 11.5-15.5 (%) Final Platelets 03/05/2023 08:53:11 140 140-400 (K/uL) Final MPV 03/05/2023 08:53:11 10.2 6.6-11.1 (fL) Final Nucleated erythrocytes/100 leukocytes [Ratio] in Blood by Automated count 03/05/2023 08:53:11 0 <=0 (/100 WBCs) Final Performing Location [facility] [place] [address] [place] [address]
--- OUTSIDE RECORDS SUMMARY | 2023-07-14 02:20 | External Medical Summary | Summary of Care ---
Author Name Unknown Organization [facility] Address [address] [place] [address] Phone [phone] Care Team Providers Care Can Crimper Name Role Phone Antione Rocha MD Primary Care Provide r Reason for Visit * Reason Comments Acute Pt c/o cough x 11 da ys. Encounter Details Date Type Department Care Team (Late st Contact Info) Description 05/07/2023 10:40 AM EST Office Visit Family Medicine [address] [phone] Rachel Clark PA-C [address] [place] [address] [place] [id number] Bronchitis, complicated* Allergies Active Allergy Reactions Criticality Noted Date Comments Rosuvastatin Calcium 07/21/2016 myalgia documented as of this encounter (statuses as of 05/07/2023) Medications Medication Sig Dispensed Refills Start Date [...] TAKING 12 Tablet 11 04/05/2022 4 Active Omeprazole 20 MG Oral Capsule Delayed [...] OTHER MEDICATIONS 90 Tablet 2 03/14/2023 Active predniSONE 20 MG Oral Tablet (Deltasone)Indicatio ns:Loss of voice Take 2 Tablets by mouth in the morning for 5 days. 10 Tablet 0 05/02/2023 Active Doxycycline Hyclate 100 MG Oral CapsuleIndications:B anna, complicated Take 1 Capsule by mouth in the morning and 1 Capsule before bedtime. Do all this for 10 days. Until gone.. 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 REQUEST shot recs Distant [place]? 08/23 TTE 5mm pericardial effusion-on repeat, appears to be fat pad. 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 documented as of this encounter (statuses as of 05/07/2023) Immunizations Name Administration Dates Next Due COVID-19 [...] Sign Reading Time Taken Comments Blood Pressure 146/86 05/07/2023 10:38 AM EST Pulse 62 05/07/2023 10:38 AM EST Temperature 36.4 C (97.5 F) 05/07/2023 10:[address] Respiratory Rate - - Oxygen Saturation 99% 05/07/2023 10:38 AM EST Inhaled Oxygen Concentration - - Weight - - Height - - Body Mass Index - - documented in this encounter Progress Notes * Rachel Clark PA-C - 05/07/2023 10:43 AM EST Chief Complaint Patient presents with Acute Pt c/o cough x 11 days. Pt here today with cough, chest congestion for the past 11 days. Pt denies fever, chills, nausea, vomiting, diarrhea, chest pain, SOB, sinus pain/pressure. Pt has been taking some OTC meds with little relief. Review of patient's allergies indicates: Allergen Reactions Crestor [Rosuvastatin Calcium] myalgia Current Outpatient Medications Medication Sig Dispense Refill aspirin enteric coated 81 MG TBEC Take 1 Tab by mouth daily. 100 Tab 3 Ventolin HFA 108 (90 Base) MCG/ACT Inhalation Aerosol Solution Inhale by mouth 2 Puffs every 4 hours as needed for Shortness of Breath or Wheezing. 8 g 1 Sennosides-Docusate Sodium 8.6-50 MG Oral Tablet (Senokot-S) Take by mouth 1 Tablet in the morning.30 Tablet 2 Alendronate Sodium 70 MG Oral Tablet (Fosamax) TAKE 1 TABLET BY MOUTH ONCE A WEEK AT LEAST 30 MINUTES BEFORE FIRST FOOD/BEVERAGE DO NOT LIE DOWN FOR 30 MINUTES AFTER TAKING 12 Tablet 11 Omeprazole 20 MG Oral Capsule Delayed Release [...] mouth in the morning. 100 Tablet 3 Pravastatin Sodium 20 MG Oral Tablet (Pravachol) TAKE ONE TABLET BY MOUTH IN THE MORNING 90 Tablet 1 Levothyroxine Sodium 75 MCG Oral Tablet (Levoxyl) TAKE 1 TABLET BY MOUTH DAILY AT LEAST 30 MINUTES PRIOR TO FIRST MEAL OF THE DAY OR OTHER MEDICATIONS 90 Tablet 2 predniSONE 20 MG Oral Tablet (Deltasone) Take 2 Tablets by mouth in the morning for 5 days. 10 Tablet 0 No current facility-administered medications for this visit. Past Medical History: Diagnosis Date Acquired hypothyroidism 07/21/2016 Atrial septal aneurysm 01/24/2017 B12 deficiency 02/06/2018 Benign neoplasm of colon 08/29/06 adenomatous polyps--repeat 3-5 years Benign neoplasm of colon 07/16/09 adenomatous polyps repeat in 1-2 yrs Benign neoplasm of colon 09/22/11 COLONOSCOPY FLEXIBLE PROXIMAL DIAGNOSTIC performed by Greta Holloway DO at ENDOSCOPY [facility],HYPERPLASTIC AND ADENOMATOUS POLYPS REPEAT COLONOSCOPY IN 5 YEARS Dyslipidemia, goal LDL below 100 07/19/2017 Essential hypertension with goal blood pressure less than 140/90 07/21/2016 Gastroesophageal reflux disease without esophagitis 07/21/2016 Kidney disease, chronic, stage III (GFR 30-59 ml/min) (HCC) 01/24/2017 Old myocardial infarct 01/24/2017 Pericardial effusion 08/14/2016 Well adult exam 07/21/2016 Prefers to stop breast, colon screening. REQUEST shot recs [place]? 08/23 TTE 5mm pericardial effusion-on repeat, appears to be fat pad. 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 Tobacco Use Smoking status: Former Packs/day: 1.00 Years: 10.00 Additional pack years: 0.00 Total pack years: 10.00 Types: Cigarettes Quit date: 1985 Years since quittin.1 Smokeless tobacco: Never Vaping Use Vaping Use: Never used Substance and Sexual Activity Alcohol use: Yes Comment: rare wine Drug use: No Sexual activity: Not Currently control/protection: Surgical Comment: hysterectomymarried, 3 kids, 5 grandkids, +great 4 or so. Other Topics Concern Not on file Social History Narrative 61 yrs as of 10/21/2021 Likes--kylah. Active w/mult [employer]. Born in [facility]. Social Determinants of Health Financial Resource Strain: [...] on file Housing Stability: Not on file O:Blood pressure 146/86, pulse 62, temperature 36.4 C (97.5 F), SpO2 99%. GENERAL: alert and no distress NECK: supple, no adenopathy EYES: conjunctiva are pink and non-injected, sclera clear EARS: External ears normal, Canals clear, TM's Normal NOSE: no mucosal erythema, no mucosal edema, no purulent discharge OROPHARYNX: no exudate, no erythema, lips, buccal mucosa, and tongue normal, and mucous membranes are moist HEART: regular rate & rhythm, no murmur, and no gallops LUNGS: chest symmetric with normal AP diameter, no chest deformities noted, no chest wall tenderness, lungs clear to auscultation A:Bronchitis, complicated (Primary) - Doxycycline Hyclate 100 MG Oral Capsule; Take 1 Capsule by mouth in the morning and 1 Capsule before bedtime. Do all this for 10 days. Until gone.. Start above med. Rest, fluids. Any questions/problems, please call. If anything changes, worsens, develops new sx, please call CHARLI. Follow Up: Return if symptoms worsen or fail to improve. Rachel Clark PA-C documented in this encounter Plan of Treatment Upcoming Encounters Date Type Department Care Team (Late st Contact Info) Description 09/06/2023 9:20 AM EDT Office Visit Family Medicine [address] [place] [phone] Antione Rocha MD [address] [place] [address] [place] [phone] Scheduled Procedures Name Priority [...] 04/05/2021, 09/22/2020, 08/24/2020 CKD PHOS USE SMARTSET 86400 05/15/20230 09/2022, 05/05/2021, 01/27/2020, Additional history exists Albumin/Creatinine Ratio 08/17/2023 08/16/2022 GFR 09/03/2023 03/05/2023, 12/08, 11/13/2022, Additional history exists TSH 11/14/2023 11/13/2022, 0810/2022, 05/15/2022, Additional history exists CKD HGB USE SMARTSET 63416 03/05/202403/05, 03/05/2023, 12/21/2022, Additional history exists DXA Scan 04/04/2024 04/04/2022 VITAMIN D LEVEL ONCE IN A LIFETIME-USE SMARTSET# [id number] Completed 10/09/2022, 08/16/2022 Influenza Vaccine (FLU shot) [...] as of this encounter Visit Diagnoses Diagnosis Bronchitis, complicated- Primary Bronchitis, not specified as acute or chronic documented in this encounter Care Teams Can Crimper Relationship Specialty Start Date End Date Antione Rocha MD [address] [place] [address] [place] [phone] PCP - General Family Medicine 02/02/21 documented as of this encounter
--- OUTSIDE RECORDS SUMMARY | 2023-07-14 02:20 | External Medical Summary | Summary of Care ---
Author Name Unknown Organization [facility] Address [address] [place] [address] Phone [phone] Care Team Providers Care It Field Technician Name Role Phone Antione Rocha MD Primary Care Provide r Reason for Visit * Reason Comments Acute Encounter Details Date Type Department Care Team (Late st Contact Info) Description 05/23/2023 2:20 PM EST Office Visit Family Medicine [address] [phone] Antione Rocha MD [address] [place] [address] [place] [phone] Tension headache*; Elevated blood pressure reading; Essential hypertension with goal blood pressure less than 140/90; Neck muscle spasm Allergies Active Allergy Reactions Criticality Noted Date [...] TAKING 12 Tablet 11 05/10/2023 5 Active Lisinopril 10 MG Oral Tablet (Prinivil)Indication s:Benign hypertension with stage 3b chronic kidney disease (HCC),HTN, goal below 150/90 Take 1 Tablet by mouth in the morning. 90 Tablet 1 05/23/2023 Active Sertraline HCl 50 MG Oral Tablet (Zoloft)Indications: Current mild episode of major depressive disorder without prior episode (HCC) Take 1 Tablet by mouth in the morning. 90 Tablet 1 05/22/2023 Active predniSONE 20 MG Oral Tablet (Deltasone)Indicatio ns:Tension headache,Neck muscle spasm Take 2 Tablets by mouth in the morning for 5 days. 10 Tablet 0 05/23/2023 Active Cyclobenzaprine HCl 10 MG Oral Tablet (Flexeril)Indication s:Tension headache,Neck muscle spasm Take 1 Tablet by mouth at bedtime as needed for Pain. 10 Tablet 0 05/23/2023 Active documented as of this encounter (statuses [...] tis 07/21/2016 Coronary artery disease invo lving deering coronary artery of deering heart without angina pectoris 07/21/2016 documented as [...] breast, colon screening. REQUEST shot recs Distant [place]? 08/23 TTE 5mm pericardial effusion-on repeat, appears [...] Sign Reading Time Taken Comments Blood Pressure 194/83 05/23/2023 2:28 PM EST din amap Pulse 63 05/23/2023 2:28 PM EST Temperature 36 C (96.8 F) 05/23/2023 2:17 PM EST Respiratory Rate - - Oxygen Saturation 95% 05/23/2023 2:17 PM EST Inhaled Oxygen Concentration - - Weight 88.5 kg (195 lb 3.2 oz) 05/23/2023 2:17 P M EST Height - - Body Mass Index 31.75 12/01/2022 11:56 AM EDT documented in this encounter Progress Notes * Antione Rocha MD - 05/23/2023 2:26 PM EST Subjective: HPI: Violetta Nicole is a 83 year old female with hx of Hypothyroidism, HLD, HTN, CAD, hx of [place] (), GERD, CKD III, Anemia, hx of COVID infection (06/2020), atrial septal aneurysm, b/l cataract surgery, b/l carotid artery stenosis, mild mitral regurgitation seen for Pt recently had URI symptoms and completed the abx last week - now having frontal ACEVEDO - denied any dizziness or change in vision - currently on metoprolol ER 100mg daily, lisinopril 10mg daily and lasix 20mg M,W,F - ACEVEDO starts with neck soreness then radiates toward the scalp - denied any trauma - has been complaint with meds - due to ACEVEDO has been taking advil 3-4 tabs/day - denied any CP or SOB - cough resolved - denied any fever or sinus pressure Patient Active Problem List Diagnosis Code Acquired hypothyroidism E03.9 Essential hypertension with goal blood pressure less than 140/90 I10 Gastroesophageal reflux disease without esophagitis K21.9 Coronary artery disease involving deering coronary artery of deering heart without angina pectoris I25.10 Atrial septal aneurysm I25.3 Old myocardial infarct I25.2 Dyslipidemia, goal LDL below 100 E78.5 B12 deficiency E53.8 Anemia due to stage 3b chronic kidney disease N18.32, D63.1 History of 2019 novel coronavirus disease (COVID-19) Z86.16 Benign hypertension with stage 3b chronic kidney disease (HCC) I12.9, N18.32 Chronic kidney disease, stage 3b (HCC) N18.32 Age-related osteoporosis without current pathological fracture M81.0 Current mild episode of major depressive disorder without prior episode ([facility]) F32.0 Nonrheumatic mitral valve regurgitation I34.0 Asymptomatic bilateral carotid artery stenosis I65.23 Mild mitral regurgitation I34.0 Current Outpatient Medications Medication Sig Dispense Refill [...] 1 Tablet in the morning.30 Tablet 2 Omeprazole 20 MG Oral Capsule Delayed Release (PriLOSEC) TAKE ONE CAPSULE BY MOUTH EVERY MORNING ONE HOUR BEFORE THE FIRST MEAL OF THE DAY 100 Capsule 3 Vitamin D-3 25 MCG (1000 UT) Oral [...] DAY OR OTHER MEDICATIONS 90 Tablet 2 Alendronate Sodium 70 MG Oral Tablet (Fosamax) TAKE 1 TABLET BY MOUTH ONCE A WEEK AT LEAST 30 MINUTES BEFORE FIRST FOOD/BEVERAGE DO NOT LIE DOWN FOR 30 MINUTES AFTER TAKING 12 Tablet 11 Lisinopril 10 MG Oral Tablet (Prinivil) Take 1 Tablet by mouth in the morning. 90 Tablet 1 Sertraline HCl 50 MG Oral Tablet (Zoloft) Take 1 Tablet by mouth in the morning. 90 Tablet 1 predniSONE 20 MG Oral Tablet (Deltasone) Take 2 Tablets by mouth in the morning for 5 days. 10 Tablet 0 Cyclobenzaprine HCl 10 MG Oral Tablet (Flexeril) Take 1 Tablet by mouth at bedtime as needed for Pain. 10 Tablet 0 No current facility-administered medications for this visit. Past Medical History: Diagnosis Date Acquired hypothyroidism 07/21/2016 Atrial septal aneurysm 01/24/2017 B12 deficiency 02/06/2018 Benign neoplasm of colon 08/29/06 adenomatous polyps--repeat 3-5 years Benign neoplasm of colon 07/16/09 adenomatous polyps repeat in 1-2 yrs Benign neoplasm of colon 09/22/11 COLONOSCOPY FLEXIBLE PROXIMAL DIAGNOSTIC performed by Greta Holloway DO at ENDOSCOPY [facility],HYPERPLASTIC AND ADENOMATOUS POLYPS REPEAT COLONOSCOPY IN 5 YEARS Dyslipidemia, goal LDL below 100 07/19/2017 Essential hypertension with goal blood pressure less than 140/90 07/21/2016 Gastroesophageal reflux disease without esophagitis 07/21/2016 Kidney disease, chronic, stage III (GFR 30-59 ml/min) ([facility]) 01/24/2017 Old myocardial infarct 01/24/2017 Pericardial effusion 08/14/2016 Well adult exam 07/21/2016 Prefers to stop breast, colon screening. REQUEST shot recs [place]ant [place]? 08/23 TTE 5mm pericardial effusion-on repeat, appears to be fat pad. +Atrial sept aneurysm-start ASA as inc risk CVA 10/23 colon- WNL margaux 5y (hx polyp) Dr Allred-Rawlins. Past Surgical History: Procedure Laterality Date COLONOSCOPY W/ BIOPSY (RECTUM) 08/29/06 adenomatous polyp-- repeat in 3-5 years COLONOSCOPY W/ LESION REMOVAL, SNARE 07/16/09 adenomatous polyps repeat in 1-2 yrs , diverticulosis, IH & EH. repeat in 2 years COLONOSCOPY, DIAGNOSTIC (RECTUM) 09/22/2011 COLONOSCOPY FLEXIBLE PROXIMAL DIAGNOSTIC performed by Greta Holloway DO at ENDOSCOPY [facility],HYPERPLASTIC AND ADENOMATOUS POLYPS REPEAT COLONOSCOPY IN 5 YEARS COLONOSCOPY, DIAGNOSTIC (RECTUM) 10/27/2016 diverticulosis, repeat 5 yrs/COLONOSCOPY FLEXIBLE PROXIMAL DIAGNOSTIC performed by Greta Holloway DO at ENDOSCOPY [facility] HYST[facility] due to heavy bleeding. thinks has ovaries REMOVAL OF THYROID GLAND thinks was partial Review of patient's allergies indicates: Allergen Reactions Crestor [Rosuvastatin Calcium] myalgia Family History Problem Relation Age of Onset Neurological Disorder Mother 70 Alzheimers no cancers in family. Other (killed in war) Father Alzheimer's disease Sister 68 now 88 in 2019 in [place] No Known Problems Sister in [place]. 91 in 2019. Social History Tobacco Use Smoking status: Former Packs/day: 1.00 Years: 10.00 Additional pack years: 0.00 Total pack years: 10.00 Types: Cigarettes Quit date: 1985 Years since quittin.1 Smokeless tobacco: Never Substance Use Topics Alcohol use: Yes Comment: rare wine Vaping/E-Cigarette Use Vaping/E-Cigarette Use Never User Vaping/E-Cigarette Substances Vaping/E-Cigarette Devices ROS: -Per HPI OBJECTIVE: BP 194/83 Comment: dinamap | Pulse 63 | Temp 36 C (96.8 F) | Wt 88.5 kg (195 lb 3.2 oz) | SpO2 95% | BMI 31.75 kg/m | BSA 2.03 m PHYSICAL EXAM: Vitals are reviewed General:. NAD, well developed HEENT:. Normal Conjunctiva, EOMI Cardiac:. Normal S1, S2, no murmur Lungs:. CTA, no wheezing or crackles MSK: no ttp of the C spine, normal ROM of the neck Psych:. AAOx3, normal affect ASSESSMENT/PLAN: Elevated BP is likely 2/2 NSAID use - pt's previous BP was normal - pt is asymptomatic thus no need for urgent work up - advised the pt to stop NSAID use - msg the clinic in 2 days with BP readings then in 5 days - ER precautions given Reviewed the risk and benefit of flexeril - only at nighttime Tension headache (Primary) - predniSONE 20 MG Oral Tablet (Deltasone); Take 2 Tablets by mouth in the morning for 5 days. - Cyclobenzaprine HCl 10 MG Oral Tablet (Flexeril); Take 1 Tablet by mouth at bedtime as needed forPain. Elevated blood pressure reading Essential hypertension with goal blood pressure less than 140/90 Neck muscle spasm - predniSONE 20 MG Oral Tablet (Deltasone); Take 2 Tablets by mouth in the morning for 5 days. - Cyclobenzaprine HCl 10 MG Oral Tablet (Flexeril); Take 1 Tablet by mouth at bedtime as needed forPain. I spent a total of 30-39 minutes (exact time 33 mins) on the date of service in preparation, delivery, and documentation of the care provided to Violetta Nicole excluding any time spent in the performance of separately billed services. Antione Rocha MD Family medicine, [place] [id number] documented in this encounter Nursing Notes * Shruthi Mandel CMA - 05/23/2023 2:16 PM EST She was sick 3 weeks ago and now she is having headaches. documented in this encounter Plan of Treatment Upcoming Encounters Date Type Department Care Team (Late st Contact Info) Description 09/06/2023 9:20 AM EDT Office Visit Family Medicine [address] [place] [phone] Antione Rocha MD [address] [place] [address] [place] [phone] Scheduled Procedures Name Priority Associated Diagnoses Date/Ti [...] 04/05/2021, 09/22/2020, 08/24/2020 CKD PHOS USE SMARTSET 39938 05/15/2023 020 09/2022, 05/05/2021, 01/27/2020, Additional history exists Albumin/Creatinine Ratio 08/17/2023 08/16/2022 GFR 09/03/2023 03/05/2023, 12/08, 11/13/2022, Additional history exists TSH 11/14/2023 11/13/2022, 080 10/2022, 05/15/2022, Additional history exists CKD HGB USE SMARTSET 87595 03/05/202403/05, 03/05/2023, 12/21/2022, Additional history exists DXA Scan 04/04/2024 04/04/2022, 04/04/2022 VITAMIN D LEVEL ONCE IN A LIFETIME-USE SMARTSET# [id number] Completed 10/09/2022, 08/16/2022 Influenza Vaccine (FLU shot) [...] as of this encounter Visit Diagnoses Diagnosis Tension headache- Primary Elevated blood pressure reading Elevated blood pressure reading without diagnosis of hypertension Essential hypertension with goal blood pressure less than 140/90 Neck muscle spasm Spasm of muscle documented in this encounter Care Teams It Field Technician Relationship Specialty Start Date End Date Antione Rocha MD [address] [place] [address] [place] [address] PCP - General Family Medicine 02/02/21 documented as of this encounter"
--- OUTSIDE RECORDS SUMMARY | 2023-07-14 02:20 | External Medical Summary ---
Author Name Unknown Address Unknown Organization [id number]:[facility] - [address] [facility] [address] Laboratory Report Ordering Provider Test Date Status DYLON MARTIN 03/05/2023 08:53:11 Ros l Observation Date Value Abnormality Reference (Units ) Status SYNC LEUKOCYTES IN BLOOD BY AUTOMATED COUNT 03/05/2023 08:53:11 5.04 4.00-10.80 (K/uL) Final Segs 03/05/2023 08:53:11 49.6 40.0-75.0 (%) Final Lymphs % 03/05/2023 08:53:11 40.5 18.0-42.0 (%) Final Monos 03/05/2023 08:53:11 7.3 1.0-11.0 (%) Final Eosinophils 03/05/2023 08:53:11 1.8 0.0-6.0 (%) Final Basos 03/05/2023 08:53:11 0.4 0.0-2.0 (%) Final Immature Granulocyte, Percent 03/05/2023 08:53:11 0.4 0.0-2.0 (%) Final Absolute Segs 03/05/2023 08:53:11 2.50 1.80-7.70 (K/uL) Final Lymphs, absolute 03/05/2023 08:53:11 2.04 1.00-4.80 (K/ul) Final Monos, Abs 03/05/2023 08:53:11 0.37 0.00-1.10 (K/uL) Final Eos, Abs 03/05/2023 08:53:11 0.09 0.00-0.70 (K/uL) Final Basos, Abs 03/05/2023 08:53:11 0.02 0.00-0.20 (K/uL) Final Immature Granulocytes, Number 03/05/2023 08:53:11 0.02 0.00-0.20 (K/uL) Final Performing Location [facility] - [facility] [place] [id number]
--- OUTSIDE RECORDS SUMMARY | 2023-07-14 02:20 | External Medical Summary | Summary of Care ---
Author Name Unknown Organization [facility] Address [address] [place] [address] Phone [phone] Care Team Providers Care Performance Solutions Specialist Name Role Phone Antione Rocha MD Primary Care Provide r Reason for Visit * Reason Comments Medication Refill Encounter Details Date Type Department Care Team (Late st Contact Info) Description 05/08/2023 Refill Family Medicine [address] [phone] Antione Rocha MD [address] [place] [address] [place] [id number] Age-related osteoporosis without current pathological fracture Allergies Active Allergy Reactions Criticality Noted Date Comments Rosuvastatin Calcium 07/21/2016 myalgia documented as of this encounter (statuses as of 05/10/2023) Medications Medication Sig Dispensed Refills Start Date [...] 11/23/2022 Active Lisinopril 10 MG Oral Tablet (Prinivil)Indicatio [...] OTHER MEDICATIONS 90 Tablet 2 03/14/2023 Active Doxycycline Hyclate 100 MG Oral CapsuleIndications: Bronchitis, complicated Take 1 Capsule by mouth in the morning and 1 Capsule before bedtime. Do all this for 10 days. Until gone.. 20 Capsule 0 05/07/2023 05/17/19 24 Active Alendronate Sodium 70 MG Oral Tablet (Fosamax)Indication s:Age-related osteoporosis without current pathological fracture TAKE 1 TABLET BY MOUTH ONCE A WEEK AT LEAST 30 MINUTES BEFORE FIRST FOOD/BEVERAGE DO NOT LIE DOWN FOR 30 MINUTES AFTER TAKING 12 Tablet 11 05/10/2023 05/09/19 25 Active Alendronate Sodium 70 MG Oral Tablet (Fosamax)Indication s:Age-related osteoporosis without current pathological fracture TAKE 1 TABLET BY MOUTH ONCE A WEEK AT LEAST 30 MINUTES BEFORE FIRST FOOD/BEVERAGE DO NOT LIE DOWN FOR 30 MINUTES AFTER TAKING 12 Tablet 11 04/05/2022 05/08/19 24 Discontinu ed(Refill) documented as of this encounter (statuses as of 05/10/2023) Active Problems Problem Noted Date Diagnosed Date [...] tis 07/21/2016 Coronary artery disease invo lving [place] coronary artery of [place] heart without angina pectoris 07/21/2016 documented as of this encounter (statuses as of 05/10/2023) Resolved Problems Problem Noted Date Diagnosed Date Resolved Date Anemia in stage 3b chronic kidney disease 02/02/2021 02/17/2021 Benign hypertension with chr onic kidney disease, stage III 02/06/2018 08/19/2020 Overview: Per CKD protocol Anemia due to stage 3 chronic kidney disease 7 02/19/2020 Pericardial effusion 08/14/2016 017 Well adult exam 07/21/2016 01/20/2021 Overview: Prefers to stop breast, colon screening. REQUEST shot recs [facility] [place]? 08/23 TTE 5mm pericardial effusion-on repeat, appears to be fat pad. 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 documented as of this encounter (statuses as of 05/10/2023) Immunizations Name Administration Dates Next Due COVID-19 [...] Telephone Encounter - Antione Rocha MD - 05/10/2023 8:20 AM EST Signed Prescriptions: Disp Refills Alendronate Sodium 70 MG Oral Tablet (Fosa*12 Tab*11 Sig: TAKE 1 TABLET BY MOUTH ONCE A WEEK AT LEAST 30 MINUTES BEFORE FIRST FOOD/BEVERAGE DO NOT LIE DOWN FOR 30 MINUTES AFTER TAKING Authorizing Provider: ANTIONE ROCHA * Telephone Encounter - Angely Andre [facility] - 05/09/2023 6:35 AM EST Pending Prescriptions: Disp Refills Alendronate Sodium 70 MG Oral Tablet (Fosa*12 Tab*11 Sig: TAKE 1 TABLET BY MOUTH ONCE A WEEK AT LEAST 30 MINUTES BEFORE FIRST FOOD/BEVERAGE DO NOT LIE DOWN FOR 30 MINUTES AFTER TAKING * Telephone Encounter - Angely Andre [facility] - 05/09/2023 6:35 AM EST Serum creatinine: 1.4 mg/dL (H) 03/05/23 0853 Estimated creatinine clearance: 33.6 mL/min (A) CrCl <35 mL/minute: Use not recommended (perfect bind machine operator s labeling). However, based on limited data, use of an unadjusted dose may be considered in patients with CrCl of >25 to <35 mL/minuteand without underlying CKD-mineral and bone disorder when the benefits outweigh the risks documented in this encounter Plan of Treatment Upcoming Encounters Date Type Department Care Team (Late st Contact Info) Description 09/06/2023 9:20 AM EDT Office Visit Family Medicine [address] [place] [phone] Antione Rocha MD [address] [place] [address] [place] [phone] Scheduled Procedures Name Priority [...] Vaccine (2022- season) 2022 04/05/2021, 09/22/2020, 08/24/2020 *NEPHROLOGY REFERRAL DUE TO RESISTANT HTN 05/10/2023 CKD PHOS USE SMARTSET 24313 05/15/2023 02/0 09/2022, 05/05/2021, 01/27/2020, Additional history exists Albumin/Creatinine Ratio 08/17/2023 08/16/2022 GFR 09/03/2023 03/05/2023, 12/08, 11/13/2022, Additional history exists TSH 11/14/2023 11/13/2022, 08/0 10/2022, 05/15/2022, Additional history exists CKD HGB USE SMARTSET 25683 03/05/202403/05, 03/05/2023, 12/21/2022, Additional history exists DXA Scan 04/04/2024 04/04/2022, 04/04/2022 VITAMIN D LEVEL ONCE IN A LIFETIME-USE SMARTSET# [id number] Completed 10/09/2022, 08/16/2022 Influenza Vaccine (FLU shot) [...] as of this encounter Visit Diagnoses Diagnosis Age-related osteoporosis without current pathological fracture Senile osteoporosis documented in this encounter Care Teams Performance Solutions Specialist Relationship Specialty Start Date End Date Antione Rocha MD [address] [place] [address] [place] [phone] PCP - General Family Medicine 02/02/21 documented as of this encounter
--- OUTSIDE RECORDS SUMMARY | 2023-07-14 02:20 | External Medical Summary | Summary of Care ---
Author Name Unknown Organization [facility] Address [address] [place] [address] Phone [phone] Care Team Providers Care Manager Terminal Name Role Phone Antione Rocha MD Primary Care Provide r Reason for Visit * Reason Comments Medication Refill Encounter Details Date Type Department Care Team (Late st Contact Info) Description 03/14/2023 Refill Family Practice [facility] [address] [facility] [place] [address] Tatyana Scott MD [address] [place] [address] [place] [phone] Acquired hypothyroidism Allergies Active Allergy Reactions Criticality Noted Date Comments Rosuvastatin Calcium 07/21/2016 myalgia documented as of this encounter (statuses as of 03/14/2023) Medications Medication Sig Dispensed Refills Start Date [...] MINUTES AFTER TAKING 12 Tablet 11 04/05/2022 05/16/19 24 Active Omeprazole 20 MG Oral Capsule Delayed [...] OTHER MEDICATIONS 90 Tablet 2 03/14/2023 Active Pravastatin Sodium 20 MG Oral Tablet (Pravachol) TAKE ONE TABLET BY MOUTH IN THE MORNING 90 Tablet 3 03/10/2022 03/14/20 23 Discontinu ed(Refill) Levothyroxine Sodium 75 MCG Oral Tablet (Levoxyl)Indication s:Acquired hypothyroidism TAKE 1 TABLET BY MOUTH DAILY AT LEAST 30 MINUTES PRIOR TO FIRST MEAL OF THE DAY OR OTHER MEDICATIONS 90 Tablet 3 03/10/2022 03/14/20 23 Discontinu ed(Refill) documented as of this encounter (statuses as of 03/14/2023) Active Problems Problem Noted Date Diagnosed Date [...] tis 07/21/2016 Coronary artery disease invo lving [place] coronary artery of [place] heart without angina pectoris 07/21/2016 documented as of this encounter (statuses as of 03/14/2023) Resolved Problems Problem Noted Date Diagnosed Date [...] as of this encounter (statuses as of 03/14/2023) Immunizations Name Administration Dates Next Due COVID-19 [...] encounter Miscellaneous Notes * Telephone Encounter - Shlomo Whitfield [facility] - 03/14/2023 12:08 PM ESTSigned Prescriptions: Disp Refills Pravastatin Sodium 20 MG Oral Tablet (Prav*90 Tab*1 Sig: TAKE ONE TABLET BY MOUTH IN THE MORNING Authorizing Provider: TATYANA SCOTT Ordering User: SHLOMO ASKEW Levothyroxine Sodium 75 MCG Oral Tablet (L*90 Tab*2 Sig: TAKE 1 TABLET BY MOUTH DAILY AT LEAST 30 MINUTES PRIOR TO FIRST MEAL OF THE DAY OR OTHER MEDICATIONS Authorizing Provider: TATYANA SCOTT Ordering User: SHLOMO ASKEW * Telephone Encounter - 03/14/2023 12:12 AM ESTPending Prescriptions: Disp Refills Pravastatin Sodium 20 MG Oral Tablet (Prav*90 Tab*3 Sig: TAKE ONE TABLET BY MOUTH IN THE MORNING Levothyroxine Sodium 75 MCG Oral Tablet (L*90 Tab*3 Sig: TAKE 1 TABLET BY MOUTH DAILY AT LEAST 30 MINUTES PRIOR TO FIRST MEAL OF THE DAY OR OTHER MEDICATIONS--------- documented in this encounter Plan of Treatment Upcoming Encounters Date Type Department Care Team (Late st Contact Info) Description 09/06/2023 9:20 AM EDT Office Visit [address] [place] [phone] Antione Rocha MD [address] [place] [address] [place] [phone] Scheduled Procedures Name Priority Associated Diagnoses Date/Ti [...] 04/05/2021, 09/22/2020, 08/24/2020 CKD PHOS USE SMARTSET 90348 05/15/2023 020 09/2022, 05/05/2021, 01/27/2020, Additional history exists Albumin/Creatinine Ratio 08/17/2023 08/16/2022 GFR 09/03/2023 03/05/2023, 12/08, 11/13/2022, Additional history exists TSH 11/14/2023 11/13/2022, 080 10/2022, 05/15/2022, Additional history exists CKD HGB USE SMARTSET 66341 03/05/202403/05, 03/05/2023, 12/21/2022, Additional history exists DXA Scan 04/04/2024 04/04/2022 VITAMIN D LEVEL ONCE IN A LIFETIME-USE SMARTSET# [id number] Completed 10/09/2022, 08/16/2022 Influenza Vaccine (FLU shot) [...] as of this encounter Visit Diagnoses Diagnosis Acquired hypothyroidism Unspecified hypothyroidism documented in this encounter Care Teams Manager Terminal Relationship Specialty Start Date End Date Antione Rocha MD [address] [place] [address] [place] [phone] PCP - General Family Medicine 02/02/21 documented as of this encounter
--- OUTSIDE RECORDS SUMMARY | 2023-07-14 02:20 | External Medical Summary | Summary of Care ---
Author Name Unknown Organization [facility] Address [address] [place] [address] Phone [phone] Care Team Providers Care District Scout Executive Name Role Phone Antione Rocha MD Primary Care Provide r Reason for Visit * Reason Onset Date Comments Advice 05/02/2023 Encounter Details Date Type Department Care Team (Late st Contact Info) Description 05/02/2023 Telephone Family Medicine [address] [phone] Antione Rocha MD [address] [place] [address] [place] [phone] Advice Allergies Active Allergy Reactions Criticality Noted Date Comments Rosuvastatin Calcium 07/21/2016 myalgia documented as of this encounter (statuses as of 05/02/2023) Medications Medication Sig Dispensed Refills Start Date [...] for 5 days. 10 Tablet 0 05/02/2023 4 Active documented as of this encounter (statuses as of 05/02/2023) Active Problems Problem Noted Date Diagnosed Date [...] tis 07/21/2016 Coronary artery disease invo lving [place] coronary artery of [place] heart without angina pectoris 07/21/2016 documented as of this encounter (statuses as of 05/02/2023) Resolved Problems Problem Noted Date Diagnosed Date [...] as of this encounter (statuses as of 05/02/2023) Immunizations Name Administration Dates Next Due COVID-19 [...] Telephone Encounter - Antione Rocha MD - 05/02/2023 9:49 AM EST Spoke to the - pt is having loss of voice and cough - per pt cough is getting better - denied any fever or SOB - currently taking dayquil documented in this encounter Plan of Treatment Upcoming Encounters Date Type Department Care Team (Late st Contact Info) Description 09/06/2023 9:20 AM EDT Office Visit Family [address] [place] [phone] Antione Rocha MD [address] [place] [address] [place] [phone] Scheduled Procedures Name Priority [...] 04/05/2021, 09/22/2020, 08/24/2020 CKD PHOS USE SMARTSET 66974 05/15/202309/2022, 05/05/2021, 01/27/2020, Additional history exists Albumin/Creatinine Ratio 08/17/2023 08/16/2022 GFR 09/03/2023 03/05/2023, 12/08, 11/13/2022, Additional history exists TSH 11/14/2023 11/13/2022, 10/2022, 05/15/2022, Additional history exists CKD HGB USE SMARTSET 30315 03/05/202403/05, 03/05/2023, 12/21/2022, Additional history exists DXA Scan 04/04/2024 04/04/2022 VITAMIN D LEVEL ONCE IN A LIFETIME-USE SMARTSET# [id number] Completed 10/09/2022, 08/16/2022 Influenza Vaccine (FLU shot) [...] as of this encounter Visit Diagnoses Diagnosis Loss of voice- Primary Aphonia documented in this encounter Care Teams District Scout Executive Relationship Specialty Start Date End Date Antione Rocha MD [address] [place] [address] [place] [phone] PCP - General Family Medicine 02/02/21 documented as of this encounter
--- OUTSIDE RECORDS SUMMARY | 2023-07-14 02:20 | External Medical Summary | Summary of Care ---
Author Name Unknown Organization [facility] Address [address] [place] [address] Phone [phone] Care Team Providers Care Coiled Tubing Supervisor Name Role Phone Antione Rocha MD Primary Care Provide r Reason for Visit * Reason Comments Re-Check Pt denies any concer ns at this time. Encounter Details Date Type Department Care Team (Late st Contact Info) Description 03/02/2023 2:20 PM EST Office Visit Family Medicine [address] [phone] Antione Rocha MD [address] [place] [address] [place] [phone] HTN, goal below 150/90*; Benign hypertension with stage 3b chronic kidney disease (HCC); Anemia, unspecified type Allergies Active Allergy Reactions Criticality Noted Date Comments Rosuvastatin Calcium 07/21/2016 myalgia documented as of this encounter (statuses as of 03/02/2023) Medications Medication Sig Dispensed Refills Start Date [...] 12 Tablet 11 04/05/2022 05/16/19 24 Active Pravastatin Sodium 20 MG Oral Tablet (Pravachol) TAKE ONE TABLET BY MOUTH IN THE MORNING 90 Tablet 3 03/10/2022 03/22/20 23 Active Levothyroxine Sodium 75 MCG Oral Tablet (Levoxyl)Indication s:Acquired hypothyroidism TAKE 1 TABLET BY MOUTH DAILY AT LEAST 30 MINUTES PRIOR TO FIRST MEAL OF THE DAY OR OTHER MEDICATIONS 90 Tablet 3 03/10/2022 03/22/20 23 Active Omeprazole 20 MG Oral Capsule Delayed [...] the morning. 100 Tablet 3 01/08/2023 Active Diclofenac Sodium 1 % External Gel (Voltaren)Indicatio ns:Acute bilateral low back pain without sciatica Apply 2 g topically to affected area every night at bedtime. Apply to the affected area 150 g 1 02/02/2021 03/02/20 23 Discontinu ed(Patient preference /discontin uation) Ondansetron HCl 4 MG Oral Tablet (Zofran)Indications :Nausea and vomiting, unspecified vomiting type Take 1 Tablet by mouth every 8 hours as needed for Nausea. 20 Tablet 0 05/15/2022 03/02/20 23 Discontinu ed(Patient preference /discontin uation) documented as of this encounter (statuses as of 03/02/2023) Active Problems Problem Noted Date Diagnosed Date [...] tis 07/21/2016 Coronary artery disease invo lving [place] coronary artery of [place] heart without angina pectoris 07/21/2016 documented as of this encounter (statuses as of 03/02/2023) Resolved Problems Problem Noted Date Diagnosed Date Resolved Date Anemia in stage 3b chronic kidney disease 02/02/2021 02/17/2021 Benign hypertension with chr onic kidney disease, stage III 02/06/2018 08/19/2020 Overview: Per CKD protocol Anemia due to stage 3 chronic kidney disease 7 02/19/2020 Pericardial effusion 08/14/2016 017 Well adult exam 07/21/2016 01/20/2021 Overview: Prefers to stop breast, colon screening. REQUEST shot recs [facility] [place]? 08/23 TTE 5mm pericardial effusion-on repeat, appears to be fat pad. 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 documented as of this encounter (statuses as of 03/02/2023) Immunizations Name Administration Dates Next Due COVID-19 [...] Sign Reading Time Taken Comments Blood Pressure 122/68 03/02/2023 2:26 PM EST Pulse 66 03/02/2023 2:26 PM EST Temperature 37 C (98.6 F) 03/02/2023 2:26 PM EST Respiratory Rate - - Oxygen Saturation 97% 03/02/2023 2:26 PM EST Inhaled Oxygen Concentration - - Weight 86.9 kg (191 lb 9.6 oz) 03/02/2023 2:26 P M EST Height - - Body Mass Index 31.16 12/01/2022 11:56 AM EDT documented in this encounter Progress Notes * Antione Rocha MD - 03/02/2023 2:22 PM EST Subjective: HPI: Violetta Nicole is a 82 year old female with hx of Hypothyroidism, HLD, HTN, CAD, hx of [place] (), GERD, CKD III, Anemia, hx of COVID infection (06/2020), atrial septal aneurysm, b/l cataract surgery, b/l carotid artery stenosis, mild mitral regurgitation seen for HTN and CKD III: - on lisinopril 10mg daily and lasix 20mg M,W,F - leg swelling is better - denied any dizziness or syncope Anemia: - Hgb is improving - still taking the iron Patient Active Problem List Diagnosis Code Acquired hypothyroidism E03.9 Essential hypertension with goal blood pressure less than 140/90 I10 Gastroesophageal reflux disease without esophagitis K21.9 Coronary artery disease involving [place] coronary artery of [place] heart without angina pectoris I25.10 Atrial septal [...] of major depressive disorder without prior episode ([facility]) F32.0 Nonrheumatic mitral valve regurgitation [...] performed by Greta Holloway DO at ENDOSCOPY [facility],HYPERPLASTIC AND ADENOMATOUS POLYPS REPEAT COLONOSCOPY IN 5 YEARS Dyslipidemia, goal LDL below 100 07/19/2017 Essential hypertension with goal blood pressure less than 140/90 07/21/2016 Gastroesophageal reflux disease without esophagitis 07/21/2016 Kidney disease, chronic, stage III (GFR 30-59 ml/min) (HCC) 01/24/2017 Old myocardial infarct 01/24/2017 Pericardial effusion 08/14/2016 Well adult exam 07/21/2016 Prefers to stop breast, colon screening. REQUEST shot recs [facility] [place]? 08/23 TTE 5mm pericardial effusion-on repeat, appears to be fat pad. +Atrial sept aneurysm-start ASA as inc risk CVA 10/23 colon- WNL margaux 5y (hx polyp) Dr oPon. Past Surgical History: Procedure Laterality Date COLONOSCOPY W/ BIOPSY (RECTUM) 08/29/06 adenomatous polyp-- repeat in 3-5 years COLONOSCOPY W/ LESION REMOVAL, SNARE 07/16/09 adenomatous polyps repeat in 1-2 yrs , diverticulosis, IH & EH. repeat in 2 years COLONOSCOPY, DIAGNOSTIC (RECTUM) 09/22/2011 COLONOSCOPY FLEXIBLE PROXIMAL DIAGNOSTIC performed by Greta Holloway DO at ENDOSCOPY [facility],HYPERPLASTIC AND ADENOMATOUS POLYPS REPEAT COLONOSCOPY IN 5 YEARS COLONOSCOPY, DIAGNOSTIC (RECTUM) 10/27/2016 diverticulosis, repeat 5 yrs/COLONOSCOPY FLEXIBLE PROXIMAL DIAGNOSTIC performed by Greta Holloway DO at ENDOSCOPY [facility] HYSTERECTOMY due to heavy bleeding. thinks [...] Types: Cigarettes Quit date: 1985 Years since quittin.9 Smokeless tobacco: Never Substance Use Topics Alcohol use: Yes Comment: rare wine Vaping/E-Cigarette Use Vaping/E-Cigarette Use Never User Vaping/E-Cigarette Substances Vaping/E-Cigarette Devices ROS: -Per HPI OBJECTIVE: BP 122/68 | Pulse 66 | Temp 37 C (98.6 F) | Wt 86.9 kg (191 lb 9.6 oz) | SpO2 97% | BMI 31.16 kg/m | BSA 2.01 m PHYSICAL EXAM: Vitals are reviewed General:. NAD, well developed HEENT:. Normal Conjunctiva, EOMI MSK:. Normal gait Psych:. AAOx3, normal affect ASSESSMENT/PLAN: Bp is wnl For now continue lisinopril and lasix CBC today to check hgb HTN, goal below 150/90 (Primary) - BASIC METABOLIC PANEL Benign hypertension with stage 3b chronic kidney disease (HCC) - BASIC METABOLIC PANEL Anemia, unspecified type - CBC WITH WBC DIFFERENTIAL Follow Up: Return in about 6 months (around 08/31/2023). Antione Rocha MD Family medicine, [address] [address] documented in this encounter Plan of Treatment Upcoming Encounters Date Type Department Care Team (Late st Contact Info) Description 09/06/2023 9:20 AM EDT Office Visit Family Medicine [address] [phone] Antione Rocha MD [address] [place], [place] [address] [address] Scheduled Orders Name Type Priority Associated Diagnoses Orde r Schedule BASIC METABOLIC PANEL Lab Routine HTN, goal below 150/90 Benign hypertension with stage 3b chronic kidney disease (HCC) Ordered: 03/02/2023 CBC WITH WBC DIFFERENTIAL Lab Routine Anemia, unspecified type Ordered: 03/02/2023 Scheduled Procedures Name Priority Associated Diagnoses Date/Ti [...] 04/05/2021, 09/22/2020, 08/24/2020 CKD PHOS USE SMARTSET 93596 05/15/2023 02/0 09/2022, 05/05/2021, 01/27/2020, Additional history exists GFR 06/21/2023 12/21/2022, 08/0 10/2022, 11/07/2022, Additional history exists Albumin/Creatinine Ratio 08/17/2023 08/16/2022 TSH 11/14/2023 11/13/2022, 08/0 10/2022, 05/15/2022, Additional history exists CKD HGB USE SMARTSET 73197 12/22/202312/21, 12/21/2022, 11/13/2022, Additional history exists DXA Scan 04/04/2024 04/04/2022 VITAMIN D LEVEL ONCE IN A LIFETIME-USE SMARTSET# [id number] Completed 10/09/2022, 08/16/2022 Influenza Vaccine (FLU shot) [...] Diagnoses Diagnosis HTN, goal below 150/90- Primary Benign hypertension with stage 3b chronic kidney disease (HCC) Anemia, unspecified type documented in this encounter Care Teams Coiled Tubing Supervisor Relationship Specialty Start Date End Date Antione Rocha MD [address] [place] [address] [place] [phone] PCP - General Family Medicine 02/02/21 documented as of this encounter"
[2023-07-14] MEDS: LEVOTHYROXINE SODIUM 75 MCG TABLET PO SCH (06:41)
--- NOTE | 2023-07-14 07:17 | Electrocardiogram Report ---
Test Reason : Blood Pressure : / mmHG Vent. Rate : 059 BPM Atrial Rate : 059 BPM P-R Int : 190 ms QRS Dur : 084 ms QT Int : 466 ms P-R-T Axes : 084 006 050 degrees QTc Int : 461 ms Sinus bradycardia with Premature ventricular complexes Nonspecific ST and T wave abnormality Abnormal ECG No previous ECGs available Confirmed by Seb Butler ([id number]) on 07/14/2023 7:17:15 AM Referred By: REFERRED SELF Confirmed By:Seb Butler
[2023-07-14] MEDS: CYANOCOBALAMIN (B-12) 2,500 MCG TABLET PO SCH (07:51)
[2023-07-14] MEDS: ENOXAPARIN INJ 40 MG/0.4 ML SYR SQ SCH (07:51)
[2023-07-14 07:52] LABS: Hematocrit (blood only) 31.7 % (37.0-47.0); Mean Corpuscular Hemoglobin 29.6 pg (25.0-34.0); Mean Corpuscular Hgb Conc 34.7 g/dL (32.0-36.0); Mean Corpuscular Volume 85.4 fL (80.0-100.0); Mean Platelet Volume 9.1 fL (9.4-12.4); Platelet Count 135 K/uL (130-400); RDW Coefficient of Variation 13.4 % (11.5-14.5); RDW Standard Deviation 42.2 fL (36.4-46.3); Red Blood Count 3.71 M/uL (4.20-5.40); White Blood Count 5.44 K/ul (4.8-10.8)
[2023-07-14] MEDS: ASPIRIN 81 MG ECTAB PO SCH (07:52)
[2023-07-14] MEDS: FERROUS SULFATE 325 MG TAB PO SCH (07:52)
[2023-07-14] MEDS: PANTOprazole 40 MG TAB PO SCH (07:52)
[2023-07-14] MEDS: METOPROLOL SUCC 50MG EXT REL TAB PO SCH (07:53)
[2023-07-14] MEDS: lisinopril 10 MG TAB PO SCH (07:53)
[2023-07-14] MEDS: FOLIC ACID 400 MCG TAB PO SCH (07:53)
[2023-07-14] MEDS: SERTRALINE HCL 50 MG TABLET PO SCH (07:54)
[2023-07-14] MEDS: PRAVASTATIN SOD 20 MG TAB PO SCH (07:54)
[2023-07-14 08:14] LABS: Albumin Globulin Ratio 1.8 (0.9-2); Albumin Level 3.7 gm/dl (3.4-5.0); BUN Creatinine Ratio 15.5 (10-20); Bilirubin,Total 0.6 mg/dl (0.2-1.0); Est GFR (African American) 53.8 ml/min; Est GFR (Non-African American) 46.4 ml/min; Globulin 2.1 gm/dl (2.5-4.0); Potassium 4.5 mmol/L (3.5-5.1); Total Protein 5.8 gm/dl (6.0-8.3)
--- NOTE | 2023-07-14 16:37 | Hospitalist Progress Note ---
Date of Service July 14, 2023 Assessment & Plan (1) Acute hyponatremia: (2) Dizziness: (3) HTN (hypertension): (4) HLD (hyperlipidemia): (5) Hypothyroidism: Plan Ms. Nicole is an 83 y/o female that presented to the ED today as recommended by her PCP for abnormal labs; hyponatremic as OPT 129 on 07/11. Pt reportedly has been having intermittent dizziness and ambulatory dysfunction over the past month or so; as an outpatient blood pressure medications have been recently adjusted. She recently was started on hydrochlorothiazide on 06/14/2023 and was instructed to take home BPs prior to blood pressure medication administration and a few hours afterwards. With reviewing her outpatient BP log it appears that she is hypotensive in the morning consistently ranging anywhere from 78-98 systolic on some readings. Pt is prescribed lasix 20 mg three times per week, but stopped taking it last week. No leukocytosis, serum sodium 124, serum creatinine 1.35 (baseline 1.4), serum osmolality 266, TSH 7.9, LFT and Magnesium normal. Head CT and CXR negative. Patient will be admitted for further evaluation of hyponatremia with urine studies, every 4 BMP, troponin, will hold HCTZ as possible thiazide contributing factor to hyponatremiaand also hold newly prescribed sertraline as possible SSRI contributing factor. Continue antihypertensives for now with hold paramenter on Metoprolol, check ortho BPs. Will discuss and consult Nephro if no improvement with serum sodium level. Acute hyponatremia: Serum sodium 124 on admission; 129 as an outpatient on 07/11 Recently started on HCTZ on 06/14/2023 Urine osmolality low at 266 No leukocytosis, LFT negative Administer 1L NS B; followed by IVF 0.9% at 100 mL/h x 2 bags No JVP, no ascites, skin turgor normal Pt recently started on Sertraline in 06/02; will hold for now as outlined below. Clinically much better Sodium level has gone up to 130 Advised to ambulate and no more intravenous fluid Will monitor PRP-she will not have hydrochlorothiazide on discharge and Lasix will be given as needed HTN: Dizziness: Acute Intermittent dizziness with position changes Recently started on HCTZ 06/13; hold for now as outlined above Home BPs range anywhere from 78-98 systolic on some readings up to low 1 teens prior to a.m. meds Takes lisinopril that was recently reduced from 20 mg to 10 mg every morning; continue for now Takes metoprolol 100 mg every morning; continue for now with hold parameters Adjust a.m. anti-hypertensives as needed Takes Lasix M/W/F, stopped on her own last week; will hold for now BP SBP 140 while here Will adjust blood pressure medications if needed Hypothyroidism: Chronic Recent TSH 11/29 2.45 TSH today 7.9 Takes hypothyroidism; continue CKD: Chronic creatinine 1.35; baseline 1.3-1.4 Creatinine has been normalized HLD: Chronic Takes pravastatin;continue Depression: Chronic Takes sertraline; hold as possible SSRI contributing. Was recently started in May 2023. Disposition: PCP: Dr. Rocha Code status: Full code VTE Prophylaxis: Lovenox SQ Admission and Anticipated Discharge Date Admission Date: July 13, 2023 Subjective 07/14/2023 The patient was seen and examined in telemetry unit She was admitted with hyponatremia with symptoms of dizziness and unsteadiness Sodium level is improved to 130 and symptomatically she is much better Denies any other significant symptoms Review of Systems Review of Systems: All systems reviewed and are unremarkable except as noted below Physical Exam Physical Exam: Lying in bed comfortably Constitutional: well developed and well nourished; not ill appearing Eyes: PERRL, conjunctivae normal, anicteric sclerae ENMT: external ear and nose normal, oropharynx normal Neck: trachea midline, no thyromegaly Respiratory: no respiratory distress Auscultation: lungs clear to auscultation bilaterally Cardiovascular: Rate/Rhythm: regular rate and regular rhythm; not tachycardic Heart Sounds: normal S1 and normal S2; no murmur Extremities: no edema Gastrointestinal (Abdomen): Inspection/Auscultation: normal bowel sounds; abdomen not distended Percussion/Palpation: abdomen soft; abdomen nontender Musculoskeletal: no cyanosis or clubbing, extremities motor strength 5/5 Neurologic: normal touch/pain/proprioception and moves all extremities; no focal motor deficits Psychiatric: A+Ox3, euthymic affect Lymphatic: no cervical or axillary lymphadenopathy Results & Data Results & Data Vital Signs (Past 12 Hours) Vital Signs Temp Pulse Resp BP Pulse Ox O2 Del Method 07/14/23 12:05 36.8 C 74 18 141/76 H 97 Room Air 07/14/23 07:57 36.8 C 61 16 113/70 Laboratory Results Short CBC 07/14/23 Range/Units 07:35 WBC 5.44 (4.8-10.8) K/ul Hgb 11.0 L (12.0-16.0) g/dl Hct 31.7 L (37.0-47.0) % Plt Count 135 (130-400) K/uL BMP 07/13/23 07/13/23 07/13/23 16:08 20:23 23:11 Sodium 126 L 128 L 128 L Potassium 4.5 3.9 4.4 Chloride 96 L 97 L 98 Carbon Dioxide 24 24 23 BUN 22 20 21 Creatinine 1.17 1.29 H 1.27 H Glucose 98 90 94 Calcium 7.9 L 7.8 L 7.6 L 07/14/23 07:35 Sodium 130 L Potassium 4.5 Chloride 100 Carbon Dioxide 27 BUN 17 Creatinine 1.10 Glucose 94 Calcium 8.0 L Liver Function 07/14/23 Range/Units 07:35 Total Bilirubin 0.6 (0.2-1.0) mg/dl AST 13 (13-39) U/L ALT 6 L (7-52) U/L Alkaline Phosphatase 59 (34-104) U/L Albumin 3.7 (3.4-5.0) gm/dl Medications Administered Current Inpatient Medications Acetaminophen (Acetaminophen 325 Mg Tab) 650 mg PO Q4H PRN PRN Reason: Pain or Fever Stop: 08/12/23 12:30 Al Hydrox/Mg Hydrox/Simethicone (Aluminum/Magnesium Susp 30 Ml Udc) 15 ml PO Q4H PRN PRN Reason: Dyspepsia Stop: 08/12/23 12:30 Alendronate Sodium (Alendronate Sodium 70 Mg Tab) 70 mg PO Yarbrough@0900 [facility] Stop: 08/14/23 08:59 Aspirin (Aspirin 81 Mg Ectab) 81 mg PO DAILY [facility] Stop: 08/13/23 08:59 Last Admin: 07/14/23 07:52 Dose: 81 mg Cyanocobalamin (Cyanocobalamin (B-12) 2,500 Mcg Tablet) 5,000 mcg PO Q2D@0900 [facility] Stop: 08/13/23 08:59 Last Admin: 07/14/23 07:51 Dose: 5,000 mcg Enoxaparin Sodium (Enoxaparin Inj 40 Mg/0.4 Ml Syr) 40 mg SQ QAM [facility] Stop: 08/13/23 08:59 Last Admin: 07/14/23 07:51 Dose: Not Given Ferrous Sulfate (Ferrous Sulfate 325 Mg Tab) 325 mg PO Q2D@0900 [facility] Stop: 08/13/23 08:59 Last Admin: 07/14/23 07:52 Dose: 325 mg Folic Acid (Folic Acid 400 Mcg Tab) 800 mcg PO DAILY [facility] Stop: 08/13/23 08:59 Last Admin: 07/14/23 07:53 Dose: 800 mcg Levothyroxine Sodium (Levothyroxine Sodium 75 Mcg Tablet) 75 mcg PO DAILYBB [facility] Stop: 08/13/23 06:29 Last Admin: 07/14/23 06:41 Dose: 75 mcg Lisinopril (Lisinopril 10 Mg Tab) 10 mg PO QAM [facility] Stop: 08/13/23 08:59 Last Admin: 07/14/23 07:53 Dose: 10 mg Magnesium Hydroxide (Magnesium Hydroxide Susp 30 Ml Udc) 30 ml PO Q12H PRN PRN Reason: Constipation Stop: 08/12/23 12:30 Metoprolol Succinate (Metoprolol Succ 50mg Ext Rel Tab) 100 mg PO [facility] Stop: 08/13/23 08:59 Last Admin: 07/14/23 07:53 Dose: 100 mg Ondansetron HCl (Ondansetron Inj 2 Mg/Ml 2 Ml Vial) 4 mg IV Q6H PRN PRN Reason: Nausea Stop: 08/12/23 12:30 Pantoprazole Sodium (Pantoprazole 40 Mg Tab) [facility] Stop: 08/13/23 08:59 Last Admin: 07/14/23 07:52 Dose: 40 mg Polyethylene Glycol (Polyethylene (Miralax) 17 Gm Pack) 17 gm PO DAILY PRN PRN Reason: Constipation Stop: 08/12/23 12:30 Pravastatin Sodium (Pravastatin Sod 20 Mg Tab) 20 mg PO DAILY [facility] Stop: 08/13/23 08:59 Last Admin: 07/14/23 07:54 Dose: 20 mg Sertraline HCl (Sertraline Hcl 50 Mg Tablet) [facility] Stop: 08/13/23 08:59 Last Admin: 07/14/23 07:54 Dose: 50 mg
[2023-07-14] MEDS: ACETAMINOPHEN 325 MG TAB PO PRN (21:47)
[2023-07-15] MEDS: ALENDRONATE SODIUM 70 MG TAB PO SCH (07:30)
[2023-07-15 08:04] LABS: BUN Creatinine Ratio 15.1 (10-20); Calcium 8.7 mg/dl (8.6-10.3); Creatinine Clr Calc Pharmacy 48.8 ml/min; Est GFR (African American) 56.2 ml/min; Est GFR (Non-African American) 48.5 ml/min; Magnesium 1.5 mg/dl (1.7-2.4)
[2023-07-15] MEDS: SODIUM CHLORIDE 1 GM TABLET PO SCH (13:05)
--- NOTE | 2023-07-15 15:21 | Hospitalist Progress Note ---
Date of Service July 15, 2023 Assessment & Plan (1) Acute hyponatremia: (2) Dizziness: (3) HTN (hypertension): (4) HLD (hyperlipidemia): (5) Hypothyroidism: Plan Ms. Nicole is an 83 y/o female that presented to the ED today as recommended by her PCP for abnormal labs; hyponatremic as OPT 129 on 07/11. Pt reportedly has been having intermittent dizziness and ambulatory dysfunction over the past month or so; as an outpatient blood pressure medications have been recently adjusted. She recently was started on hydrochlorothiazide on 06/14/2023 and was instructed to take home BPs prior to blood pressure medication administration and a few hours afterwards. With reviewing her outpatient BP log it appears that she is hypotensive in the morning consistently ranging anywhere from 78-98 systolic on some readings. Pt is prescribed lasix 20 mg three times per week, but stopped taking it last week. No leukocytosis, serum sodium 124, serum creatinine 1.35 (baseline 1.4), serum osmolality 266, TSH 7.9, LFT and Magnesium normal. Head CT and CXR negative. Patient will be admitted for further evaluation of hyponatremia with urine studies, every 4 BMP, troponin, will hold HCTZ as possible thiazide contributing factor to hyponatremiaand also hold newly prescribed sertraline as possible SSRI contributing factor. Continue antihypertensives for now with hold paramenter on Metoprolol, check ortho BPs. Will discuss and consult Nephro if no improvement with serum sodium level. Acute hyponatremia: Serum sodium 124 on admission; 129 as an outpatient on 07/11 Recently started on HCTZ on 06/14/2023 Urine osmolality low at 266 No leukocytosis, LFT negative Administer 1L NS B; followed by IVF 0.9% at 100 mL/h x 2 bags No JVP, no ascites, skin turgor normal Pt recently started on Sertraline in 06/02; will hold for now as outlined below. Clinically much better Sodium level has gone up to 130 Advised to ambulate and no more intravenous fluid Will monitor PRP-she will not have hydrochlorothiazide on discharge and Lasix will be given as needed Sodium level has gone down to 127 today She was advised to drink less than 1.5 L of fluid a day and she was given sodium tablet 1 g twice daily Was advised to ambulate Will monitor PRP and likely discharge tomorrow HTN: Dizziness: Acute Intermittent dizziness with position changes Recently started on HCTZ 3/7; hold for now as outlined above Home BPs range anywhere from 78-98 systolic on some readings up to low 1 teens prior to a.m. meds Takes lisinopril that was recently reduced from 20 mg to 10 mg every morning; continue for now Takes metoprolol 100 mg every morning; continue for now with hold parameters Adjust a.m. anti-hypertensives as needed Takes Lasix M/W/F, stopped on her own last week; will hold for now BP SBP 140 while here Will adjust blood pressure medications if needed Blood pressure remains borderline low at 112/73 Hypothyroidism: Chronic Recent TSH 11/29 2.45 TSH today 7.9 Takes hypothyroidism; continue CKD: Chronic creatinine 1.35; baseline 1.3-1.4 Creatinine has been normalized HLD: Chronic Takes pravastatin;continue Depression: Chronic Takes sertraline; hold as possible SSRI contributing. Was recently started in May 2023. Disposition: PCP: Dr. Rocha Code status: Full code VTE Prophylaxis: Lovenox SQ Admission and Anticipated Discharge Date Admission Date: July 13, 2023 Subjective 07/14/2023 The patient was seen and examined in telemetry unit She was admitted with hyponatremia with symptoms of dizziness and unsteadiness Sodium level is improved to 130 and symptomatically she is much better Denies any other significant symptoms 07/15/2023 The patient was seen and examined in medical floor She has been feeling much better Her sodium is minimally dropped to 127 She denies any significant symptoms Review of Systems Review of Systems: All systems reviewed and are unremarkable except as noted below Physical Exam Physical Exam: Lying in bed comfortably Constitutional: well developed and well nourished; not ill appearing Eyes: PERRL, conjunctivae normal, anicteric sclerae ENMT: external ear and nose normal, oropharynx normal Neck: trachea midline, no thyromegaly Respiratory: no respiratory distress Auscultation: lungs clear to auscultation bilaterally Cardiovascular: Rate/Rhythm: regular rate and regular rhythm; not tachycardic Heart Sounds: normal S1 and normal S2; no murmur Extremities: no edema Gastrointestinal (Abdomen): Inspection/Auscultation: normal bowel sounds; abdomen not distended Percussion/Palpation: abdomen soft; abdomen nontender Musculoskeletal: no cyanosis or clubbing, extremities motor strength 5/5 Neurologic: normal touch/pain/proprioception and moves all extremities; no focal motor deficits Psychiatric: A+Ox3, euthymic affect Lymphatic: no cervical or axillary lymphadenopathy Results & Data Results & Data Vital Signs (Past 12 Hours) Vital Signs Temp Pulse Resp BP Pulse Ox O2 Del Method 07/15/23 14:11 36.6 C 64 16 112/73 99 Room Air 07/15/23 07:22 36.4 C L 63 16 138/79 99 Room Air Laboratory Results [facility] 07/15/23 07:15 Sodium 127 L Potassium 4.0 Chloride 97 L Carbon Dioxide 24 BUN 16 Creatinine 1.06 Glucose 117 H Calcium 8.7 Medications Administered Current Inpatient Medications Acetaminophen (Acetaminophen 325 Mg Tab) 650 mg PO Q4H PRN PRN Reason: Pain or Fever Stop: 08/12/23 12:30 Last Admin: 07/14/23 21:47 Dose: 650 mg Al Hydrox/Mg Hydrox/Simethicone (Aluminum/Magnesium Susp 30 Ml Udc) 15 ml PO Q4H PRN PRN Reason: Dyspepsia Stop: 08/12/23 12:30 Alendronate Sodium (Alendronate Sodium 70 Mg Tab) 70 mg PO Yarbrough@0900 [facility] Stop: 08/14/23 08:59 Last Admin: 07/15/23 07:30 Dose: 70 mg Aspirin (Aspirin 81 Mg Ectab) 81 mg PO DAILY [facility] Stop: 08/13/23 08:59 Last Admin: 07/15/23 07:30 Dose: 81 mg Cyanocobalamin (Cyanocobalamin (B-12) 2,500 Mcg Tablet) 5,000 mcg PO Q2D@0900 [facility] Stop: 08/13/23 08:59 Last Admin: 07/14/23 07:51 Dose: 5,000 mcg Enoxaparin Sodium (Enoxaparin Inj 40 Mg/0.4 Ml Syr) 40 mg SQ QAM [facility] Stop: 08/13/23 08:59 Last Admin: 07/15/23 07:29 Dose: Not Given Ferrous Sulfate (Ferrous Sulfate 325 Mg Tab) 325 mg PO Q2D@0900 [facility] Stop: 08/13/23 08:59 Last Admin: 07/14/23 07:52 Dose: 325 mg Folic Acid (Folic Acid 400 Mcg Tab) 800 mcg PO DAILY [facility] Stop: 08/13/23 08:59 Last Admin: 07/15/23 07:30 Dose: 800 mcg Levothyroxine Sodium (Levothyroxine Sodium 75 Mcg Tablet) 75 mcg PO DAILYBB [facility] Stop: 08/13/23 06:29 Last Admin: 07/15/23 05:53 Dose: 75 mcg Lisinopril (Lisinopril 10 Mg Tab) [facility] [place]: 08/13/23 08:59 Last Admin: 07/15/23 07:29 Dose: 10 mg Magnesium Hydroxide (Magnesium Hydroxide Susp 30 Ml Udc) 30 ml PO Q12H PRN PRN Reason: Constipation Stop: 08/12/23 12:30 Metoprolol Succinate (Metoprolol Succ 50mg Ext Rel Tab) 100 mg PO [facility] Stop: 08/13/23 08:59 Last Admin: 07/15/23 07:29 Dose: 100 mg Ondansetron HCl (Ondansetron Inj 2 Mg/Ml 2 Ml Vial) 4 mg IV Q6H PRN PRN Reason: Nausea Stop: 08/12/23 12:30 Pantoprazole Sodium (Pantoprazole 40 Mg Tab) 40 mg PO [facility] Stop: 08/13/23 08:59 Last Admin: 07/15/23 07:30 Dose: 40 mg Polyethylene Glycol (Polyethylene (Miralax) 17 Gm Pack) 17 gm PO DAILY PRN PRN Reason: Constipation Stop: 08/12/23 12:30 Pravastatin Sodium (Pravastatin Sod 20 Mg Tab) 20 mg PO DAILY [facility] Stop: 08/13/23 08:59 Last Admin: 07/15/23 07:30 Dose: 20 mg Sertraline HCl (Sertraline Hcl 50 Mg Tablet) 50 mg PO [facility] Stop: 08/13/23 08:59 Last Admin: 07/15/23 07:30 Dose: 50 mg Sodium Chloride (Sodium Chloride 1 Gm Tablet) 1 gm PO BID [facility] Stop: 08/14/23 11:44 Last Admin: 07/15/23 13:05 Dose: 1 gm
[2023-07-16 06:25] LABS: BUN Creatinine Ratio 17.7 (10-20); Calcium 8.6 mg/dl (8.6-10.3); Creatinine Clr Calc Pharmacy 39.8 ml/min; Est GFR (African American) 43.9 ml/min; Est GFR (Non-African American) 37.9 ml/min; Potassium 4.1 mmol/L (3.5-5.1)
[2023-07-16 17:10] LABS: BUN Creatinine Ratio 16.4 (10-20); Calcium 8.9 mg/dl (8.6-10.3); Creatinine Clr Calc Pharmacy 29.2 ml/min; Est GFR (African American) 30.3 ml/min; Est GFR (Non-African American) 26.1 ml/min; Potassium 4.1 mmol/L (3.5-5.1)
[2023-07-16] MEDS: NSS + 20MEQ KCL 20 MEQ/1,000 ML BAG IV SCH (19:26)
[2023-07-16] MEDS: MAGNESIUM SULFATE / D5W 1 GM/100 ML BAG IV SCH (19:33)
[2023-07-17 07:40] LABS: Calcium 8.6 mg/dl (8.6-10.3); Creatinine Clr Calc Pharmacy 39.8 ml/min; Est GFR (African American) 43.9 ml/min; Est GFR (Non-African American) 37.9 ml/min; Phosphorus 3.7 mg/dl (2.5-4.9); Potassium 5.1 mmol/L (3.5-5.1)
[2023-07-17] MEDS: PNEUMOCOCCAL VACCINE (PCV20) 20-VAL CONJ-DIP CRM/PF 0.5 ML SYR IM ONE (08:43)
--- NOTE | 2023-07-17 12:37 | Hospitalist Progress Note ---
Date of Service July 16, 2023 Assessment & Plan (1) Acute hyponatremia: (2) Dizziness: (3) HTN (hypertension): (4) HLD (hyperlipidemia): (5) Hypothyroidism: Plan Ms. Nicole is an 83 y/o female that presented to the ED today as recommended by her PCP for abnormal labs; hyponatremic as OPT 129 on 07/11. Pt reportedly has been having intermittent dizziness and ambulatory dysfunction over the past month or so; as an outpatient blood pressure medications have been recently adjusted. She recently was started on hydrochlorothiazide on 06/14/2023 and was instructed to take home BPs prior to blood pressure medication administration and a few hours afterwards. With reviewing her outpatient BP log it appears that she is hypotensive in the morning consistently ranging anywhere from 78-98 systolic on some readings. Pt is prescribed lasix 20 mg three times per week, but stopped taking it last week. No leukocytosis, serum sodium 124, serum creatinine 1.35 (baseline 1.4), serum osmolality 266, TSH 7.9, LFT and Magnesium normal. Head CT and CXR negative. Patient will be admitted for further evaluation of hyponatremia with urine studies, every 4 BMP, troponin, will hold HCTZ as possible thiazide contributing factor to hyponatremiaand also hold newly prescribed sertraline as possible SSRI contributing factor. Continue antihypertensives for now with hold paramenter on Metoprolol, check ortho BPs. Will discuss and consult Nephro if no improvement with serum sodium level. Acute hyponatremia: Serum sodium 124 on admission; 129 as an outpatient on 07/11 Recently started on HCTZ on 06/14/2023 Urine osmolality low at 266 No leukocytosis, LFT negative Administer 1L NS B; followed by IVF 0.9% at 100 mL/h x 2 bags No JVP, no ascites, skin turgor normal Pt recently started on Sertraline in 06/02; will hold for now as outlined below. Clinically much better Sodium level has gone up to 130 Advised to ambulate and no more intravenous fluid Will monitor PRP-she will not have hydrochlorothiazide on discharge and Lasix will be given as needed Sodium level has gone down to 127 today She was advised to drink less than 1.5 L of fluid a day and she was given sodium tablet 1 g twice daily Was advised to ambulate Will monitor PRP and likely discharge tomorrow Acute hypotension with sebleiny Was moved to telemetry unit Will not be discharged home Electrolytes are replaced HTN: Dizziness: Acute Intermittent dizziness with position changes Recently started on HCTZ 06/13; hold for now as outlined above Home BPs range anywhere from 78-98 systolic on some readings up to low 1 teens prior to a.m. meds Takes lisinopril that was recently reduced from 20 mg to 10 mg every morning; continue for now Takes metoprolol 100 mg every morning; continue for now with hold parameters Adjust a.m. anti-hypertensives as needed Takes Lasix M/W/F, stopped on her own last week; will hold for now BP SBP 140 while here Will adjust blood pressure medications if needed Blood pressure remains borderline low at 112/73 Hypothyroidism: Chronic Recent TSH 11/29 2.45 TSH today 7.9 Takes hypothyroidism; continue CKD: Chronic creatinine 1.35; baseline 1.3-1.4 Creatinine has been normalized HLD: Chronic Takes pravastatin;continue Depression: Chronic Takes sertraline; hold as possible SSRI contributing. Was recently started in May 2023. Disposition: PCP: Dr. Rocha Code status: Full code VTE Prophylaxis: Lovenox SQ Admission and Anticipated Discharge Date Admission Date: July 13, 2023 Subjective 07/14/2023 The patient was seen and examined in telemetry unit She was admitted with hyponatremia with symptoms of dizziness and unsteadiness Sodium level is improved to 130 and symptomatically she is much better Denies any other significant symptoms 07/15/2023 The patient was seen and examined in medical floor She has been feeling much better Her sodium is minimally dropped to 127 She denies any significant symptoms 07/16/2023 Patient was seen and examined in medical floor She was noted to have very low heart rate and low blood pressure at 1 point EKG showed bigeminy She was moved to telemetry unit Review of Systems Review of Systems: All systems reviewed and are unremarkable except as noted below Physical Exam Physical Exam: Lying in bed comfortably Constitutional: well developed and well nourished; not ill appearing Eyes: PERRL, conjunctivae normal, anicteric sclerae ENMT: external ear and nose normal, oropharynx normal Neck: trachea midline, no thyromegaly Respiratory: no respiratory distress Auscultation: lungs clear to auscultation bilaterally Cardiovascular: Rate/Rhythm: regular rate and regular rhythm; not tachycardic Heart Sounds: normal S1 and normal S2; no murmur Extremities: no edema Gastrointestinal (Abdomen): Inspection/Auscultation: normal bowel sounds; abdomen not distended Percussion/Palpation: abdomen soft; abdomen nontender Musculoskeletal: no cyanosis or clubbing, extremities motor strength 5/5 Neurologic: normal touch/pain/proprioception and moves all extremities; no focal motor deficits Psychiatric: A+Ox3, euthymic affect Lymphatic: no cervical or axillary lymphadenopathy Results & Data Results & Data Vital Signs (Past 12 Hours) Vital Signs Temp Pulse Pulse Resp BP Pulse Ox Pulse Ox 07/17/23 11:37 36.5 C 61 18 137/71 99 07/17/23 07:49 49 L 07/17/23 07:28 36.3 C L 53 L 16 141/62 H 99 07/17/23 03:31 36.7 C 57 L 18 110/70 96 07/17/23 01:00 97 O2 Del Method O2 Del Method 07/17/23 11:37 Room Air 07/17/23 07:49 07/17/23 07:28 Room Air 07/17/23 03:31 Room Air 07/17/23 01:00 Room Air
--- NOTE | 2023-07-17 12:42 | Hospitalist Progress Note ---
Date of Service July 17, 2023 Assessment & Plan (1) Acute hyponatremia: (2) Dizziness: (3) HTN (hypertension): (4) HLD (hyperlipidemia): (5) Hypothyroidism: Plan Ms. Nicole is an 83 y/o female that presented to the ED today as recommended by her PCP for abnormal labs; hyponatremic as OPT 129 on 07/11. Pt reportedly has been having intermittent dizziness and ambulatory dysfunction over the past month or so; as an outpatient blood pressure medications have been recently adjusted. She recently was started on hydrochlorothiazide on 06/14/2023 and was instructed to take home BPs prior to blood pressure medication administration and a few hours afterwards. With reviewing her outpatient BP log it appears that she is hypotensive in the morning consistently ranging anywhere from 78-98 systolic on some readings. Pt is prescribed lasix 20 mg three times per week, but stopped taking it last week. No leukocytosis, serum sodium 124, serum creatinine 1.35 (baseline 1.4), serum osmolality 266, TSH 7.9, LFT and Magnesium normal. Head CT and CXR negative. Patient will be admitted for further evaluation of hyponatremia with urine studies, every 4 BMP, troponin, will hold HCTZ as possible thiazide contributing factor to hyponatremiaand also hold newly prescribed sertraline as possible SSRI contributing factor. Continue antihypertensives for now with hold paramenter on Metoprolol, check ortho BPs. Will discuss and consult Nephro if no improvement with serum sodium level. Acute hyponatremia: Serum sodium 124 on admission; 129 as an outpatient on 07/11 Recently started on HCTZ on 06/14/2023 Urine osmolality low at 266 No leukocytosis, LFT negative Administer 1L NS B; followed by IVF 0.9% at 100 mL/h x 2 bags No JVP, no ascites, skin turgor normal Pt recently started on Sertraline in 06/02; will hold for now as outlined below. Clinically much better Sodium level has gone up to 130 Advised to ambulate and no more intravenous fluid Will monitor PRP-she will not have hydrochlorothiazide on discharge and Lasix will be given as needed Sodium level has gone down to 127 today She was advised to drink less than 1.5 L of fluid a day and she was given sodium tablet 1 g twice daily Was advised to ambulate Sodium level has gone up to 131 She was advised to have little salt in her regular diet Acute hypotension with bigeminy Was moved to telemetry unit Will not be discharged home Electrolytes are replaced Monitor reviewed- and no significant bradycardia arrhythmias and no significant continued bigeminy She will be discharged home this afternoon Will have Zio patch as an outpatient from doctor's office HTN: Dizziness: Acute Intermittent dizziness with position changes Recently started on HCTZ 06/13; hold for now as outlined above Home BPs range anywhere from 78-98 systolic on some readings up to low 1 teens prior to a.m. meds Takes lisinopril that was recently reduced from 20 mg to 10 mg every morning; continue for now Takes metoprolol 100 mg every morning; continue for now with hold parameters Adjust a.m. anti-hypertensives as needed Takes Lasix M/W/, stopped on her own last week; will hold for now BP SBP 140 while here Will adjust blood pressure medications if needed Blood pressure remains borderline low at 112/73 Blood pressure remains stable on current regimen and will continue Hypothyroidism: Chronic Recent TSH 11/29 2.45 TSH today 7.9 Takes hypothyroidism; continue CKD: Chronic creatinine 1.35; baseline 1.3-1.4 Creatinine has been normalized Creatinine is improved to 1.30 HLD: Chronic Takes pravastatin;continue Depression: Chronic Takes sertraline; hold as possible SSRI contributing. Was recently started in May 2023. Disposition: PCP: Dr. Rocha Code status: Full code VTE Prophylaxis: Lovenox SQ All of the questions from the family members were answered Admission and Anticipated Discharge Date Admission Date: July 13, 2023 Subjective 07/14/2023 The patient was seen and examined in telemetry unit She was admitted with hyponatremia with symptoms of dizziness and unsteadiness Sodium level is improved to 130 and symptomatically she is much better Denies any other significant symptoms 07/15/2023 The patient was seen and examined in medical floor She has been feeling much better Her sodium is minimally dropped to 127 She denies any significant symptoms 07/16/2023 Patient was seen and examined in medical floor She was noted to have very low heart rate and low blood pressure at 1 point EKG showed bigeminy She was moved to telemetry unit 07/17/2023 The patient was seen and examined in telemetry unit in presence of the family members She has been feeling much better No more bradycardia in the bigeminy is resolving Heart rate remains around 60 Sodium level has come up to 131 Blood pressure is maintained She will be discharged home this afternoon Review of Systems Review of Systems: All systems reviewed and are unremarkable except as noted below Physical Exam Physical Exam: Lying in bed comfortably Constitutional: well developed and well nourished; not ill appearing Eyes: PERRL, conjunctivae normal, anicteric sclerae ENMT: external ear and nose normal, oropharynx normal Neck: trachea midline, no thyromegaly Respiratory: no respiratory distress Auscultation: lungs clear to auscu ltation bilaterally Cardiovascular: Rate/Rhythm: regular rate and regular rhythm; not tachycardic Heart Sounds: normal S1 and normal S2; no murmur Extremities: no edema Gastrointestinal (Abdomen): Inspection/Auscultation: normal bowel sounds; abdomen not distended Percussion/Palpation: abdomen soft; abdomen nontender Musculoskeletal: no cyanosis or clubbing, extremities motor strength 5/5 Neurologic: normal touch/pain/proprioception and moves all extremities; no focal motor deficits Psychiatric: A+Ox3, euthymic affect Lymphatic: no cervical or axillary lymphadenopathy Results & Data Results & Data Vital Signs (Past 12 Hours) Vital Signs Temp Pulse Pulse Resp BP Pulse Ox Pulse Ox 07/17/23 11:37 36.5 C 61 18 137/71 99 07/17/23 07:49 49 L 07/17/23 07:28 36.3 C L 53 L 16 141/62 H 99 07/17/23 03:31 36.7 C 57 L 18 110/70 96 07/17/23 01:00 97 O2 Del Method O2 Del Method 07/17/23 11:37 Room Air 07/17/23 07:49 07/17/23 07:28 Room Air 07/17/23 03:31 Room Air 07/17/23 01:00 Room Air Laboratory Results BMP 07/16/23 07/17/23 16:40 06:29 Sodium 128 L 131 L Potassium 4.1 5.1 D Chloride 96 L 100 Carbon Dioxide 25 26 BUN 29 H 26 H Creatinine 1.77 H D 1.30 H D Glucose 98 99 Calcium 8.9 8.6 Medications Administered Current Inpatient Medications Acetaminophen (Acetaminophen 325 Mg Tab) 650 mg PO Q4H PRN PRN Reason: Pain or Fever Stop: 08/12/23 12:30 Last Admin: 07/16/23 20:03 Dose: 650 mg Al Hydrox/Mg Hydrox/Simethicone (Aluminum/Magnesium Susp 30 Ml Udc) 15 ml PO Q4H PRN PRN Reason: Dyspepsia Stop: 08/12/23 12:30 Alendronate Sodium (Alendronate Sodium 70 Mg Tab) 70 mg PO Yarbrough@0900 [facility] Stop: 08/14/23 08:59 Last Admin: 07/15/23 07:30 Dose: 70 mg Aspirin (Aspirin 81 Mg Ectab) 81 mg PO DAILY [facility] Stop: 08/13/23 08:59 Last Admin: 07/17/23 08:37 Dose: 81 mg Cyanocobalamin (Cyanocobalamin (B-12) 2,500 Mcg Tablet) 5,000 mcg PO Q2D@0900 [facility] Stop: 08/13/23 08:59 Last Admin: 07/16/23 08:30 Dose: 5,000 mcg Enoxaparin Sodium (Enoxaparin Inj 40 Mg/0.4 Ml Syr) 40 mg SQ QAM [facility] Stop: 08/13/23 08:59 Last Admin: 07/17/23 08:35 Dose: 40 mg Ferrous Sulfate (Ferrous Sulfate 325 Mg Tab) 325 mg PO Q2D@0900 [facility] Stop: 08/13/23 08:59 Last Admin: 07/16/23 08:30 Dose: 325 mg Folic Acid (Folic Acid 400 Mcg Tab) 800 mcg PO DAILY [facility] Stop: 08/13/23 08:59 Last Admin: 07/17/23 08:36 Dose: 800 mcg Levothyroxine Sodium (Levothyroxine Sodium 75 Mcg Tablet) 75 mcg PO DAILYBB [facility] Stop: 08/13/23 06:29 Last Admin: 07/17/23 06:35 Dose: 75 mcg Lisinopril (Lisinopril 10 Mg Tab) 10 mg PO QAM [facility] Stop: 08/13/23 08:59 Last Admin: 07/17/23 08:36 Dose: 10 mg Magnesium Hydroxide (Magnesium Hydroxide Susp 30 Ml Udc) 30 ml PO Q12H PRN PRN Reason: Constipation Stop: 08/12/23 12:30 Metoprolol Succinate (Metoprolol Succ 50mg Ext Rel Tab) [facility] Stop: 08/13/23 08:59 Last Admin: 07/17/23 08:37 Dose: 100 mg Ondansetron HCl (Ondansetron Inj 2 Mg/Ml 2 Ml Vial) 4 mg IV Q6H PRN PRN Reason: Nausea Stop: 08/12/23 12:30 Pantoprazole Sodium (Pantoprazole 40 Mg Tab) 40 mg PO QAM [facility] Stop: 08/13/23 08:59 Last Admin: 07/17/23 08:37 Dose: 40 mg Polyethylene Glycol (Polyethylene (Miralax) 17 Gm Pack) 17 gm PO DAILY PRN PRN Reason: Constipation Stop: 08/12/23 12:30 Pravastatin Sodium (Pravastatin Sod 20 Mg Tab) 20 mg PO DAILY [facility] Stop: 08/13/23 08:59 Last Admin: 07/17/23 08:37 Dose: 20 mg Sertraline HCl (Sertraline Hcl 50 Mg Tablet) 50 mg PO QAM [facility] Stop: 08/13/23 08:59 Last Admin: 07/17/23 08:37 Dose: 50 mg Sodium Chloride (Sodium Chloride 1 Gm Tablet) 1 gm PO BID [facility] Stop: 08/14/23 11:44 Last Admin: 07/17/23 08:36 Dose: 1 gm
--- NOTE | 2023-07-18 07:57 | Discharge Summary ---
Date of Service July 17, 2023 Admission HPI Per Admitting Provider Ms. Nicole is an 83 year old female that presented to the ED today as recommended by her PCP for abnormal labs; hyponatremic as OPT 129 on 07/11. Pt reportedly has been having intermittent dizziness and ambulatory dysfunction over the past month or so; as an outpatient blood pressure medications have been recently adjusted. She recently was started on hydrochlorothiazide on 06/14/2023 and was instructed to take home BPs prior to blood pressure medication administration and a few hours afterwards. With reviewing her outpatient BP log it appears that she is hypotensive in the morning consistently ranging anywhere from 78-98 systolic on some readings. Pt is prescribed lasix 20 mg three times per week, but stopped taking it last week. Reportedly dizziness appears to be around position changes in the morning and throughout the day. She states that she has been taking Lasix and holding it over the last week. She said that she has a history of being dehydrated so has increased her water intake recently and states she drinks approximately 4-5 8 ounce glasses of water per day. Additional PMH includes: HTN, HLD, depression, hypothyroidism, and CKD. In the ED, no leukocytosis, serum sodium 124, serum creatinine 1.35 (baseline 1.4), serum osmolality 266, TSH 7.9, LFT and Magnesium normal. Head CT and CXR negative for acute process. Pt denies fever, chills, ACEVEDO, SOB, chest pain, palpitations, N/V/D, urine or bowel changes, hematochezia, recent falls or trauma. Patient will be admitted for further evaluation of hyponatremia with urine studies, every 4 BMP, troponin, will hold HCTZ as possible contributing factors. Will discuss and consult Nephro if no improvement with serum sodium level. Admission Exam Per Admitting Provider Physical Exam: Neuro: AAOx4, PERRLA, no aphagia, memory changes, CNII-XII grossly intact HEENT: head normocephalic, moist mucus membranes CV: S1/S2, (-) M/G/R, (-) edema, cap refill < 3 seconds (-) JVP Resp: Lungs CTA in all araujo. On RA GI: Abdomen S/NT/ND, Ax4 bowel sounds, (-) CVA tenderness (-) ascites Musculoskeletal: 5/5 B/L UE strength, 5/5 B/L LE strength. No gait disturbance as I watched her walk to the bathroom Skin: (-) rashes , (-) erythema. Skin turgor normal. euvolemic on exam. Psych: euthymic mood Principal Diagnosis Acute hyponatremia, hypertension, hypothyroidism Discharge Exam Lying in bed comfortably Constitutional well developed and well nourished; not ill appearing Eyes PERRL, conjunctivae normal, anicteric sclerae ENMT external ear and nose normal, oropharynx normal Neck trachea midline, no thyromegaly Respiratory no respiratory distress Auscultation: lungs clear to auscultation bilaterally Cardiovascular Rate/Rhythm: regular rate and regular rhythm; not tachycardic Heart Sounds: normal S1 and normal S2; no murmur Extremities: no edema Gastrointestinal (Abdomen) Inspection/Auscultation: normal bowel sounds; abdomen not distended Percussion/Palpation: abdomen soft; abdomen nontender Musculoskeletal no cyanosis or clubbing, extremities motor strength 5/5 Neurologic normal touch/pain/proprioception and moves all extremities; no focal motor deficits Psychiatric A+Ox3, euthymic affect Lymphatic no cervical or axillary lymphadenopathy Discharge Data Allergies Allergy/AdvReac Type Severity Reaction Status Date / Time rosuvastatin [From Crestor] AdvReac Unknown Verified 07/13/23 13:49 Consultations 07/13/23 12:23 ED Decision to Admit Stat Ordered Studies 07/13/23 11:02 CT head/brain wo con Stat Hospital Course (1) Acute hyponatremia: (2) Dizziness: (3) HTN (hypertension): (4) HLD (hyperlipidemia): (5) Hypothyroidism: Plan Ms. Nicole is an 83 y/o female that presented to the ED today as recommended by her PCP for abnormal labs; hyponatremic as OPT 129 on 07/11. Pt reportedly has been having intermittent dizziness and ambulatory dysfunction over the past month or so; as an outpatient blood pressure medications have been recently adjusted. She recently was started on hydrochlorothiazide on 06/14/2023 and was in structed to take home BPs prior to blood pressure medication administration and a few hours afterwards. With reviewing her outpatient BP log it appears that she is hypotensive in the morning consistently ranging anywhere from 78-98 systolic on some readings. Pt is prescribed lasix 20 mg three times per week, but stopped taking it last week. No leukocytosis, serum sodium 124, serum creatinine 1.35 (baseline 1.4), serum osmolality 266, TSH 7.9, LFT and Magnesium normal. Head CT and CXR negative. Patient will be admitted for further evaluation of hyponatremia with urine studies, every 4 BMP, troponin, will hold HCTZ as possible thiazide contributing factor to hyponatremiaand also hold newly prescribed sertraline as possible SSRI contributing factor. Continue antihypertensives for now with hold paramenter on Metoprolol, check ortho BPs. Will discuss and consult Nephro if no improvement with serum sodium level. Acute hyponatremia: Serum sodium 124 on admission; 129 as an outpatient on 07/11 Recently started on HCTZ on 06/14/2023 Urine osmolality low at 266 No leukocytosis, LFT negative Administer 1L NS B; followed by IVF 0.9% at 100 mL/h x 2 bags No JVP, no ascites, skin turgor normal Pt recently started on Sertraline in 06/02; will hold for now as outlined below. Clinically much better Sodium level has gone up to 130 Advised to ambulate and no more intravenous fluid Will monitor PRP-she will not have hydrochlorothiazide on discharge and Lasix will be given as needed Sodium level has gone down to 127 today She was advised to drink less than 1.5 L of fluid a day and she was given sodium tablet 1 g twice daily Was advised to ambulate Sodium level has gone up to 131 She was advised to have little salt in her regular diet Acute hypotension with bigeminy Was moved to telemetry unit Will not be discharged home Electrolytes are replaced Monitor reviewed- and no significant bradycardia arrhythmias and no significant continued bigeminy She will be discharged home this afternoon Will have Zio patch as an outpatient from doctor's office HTN: Dizziness: Acute Intermittent dizziness with position changes Recently started on HCTZ 06/13; hold for now as outlined above Home BPs range anywhere from 78-98 systolic on some readings up to low 1 teens prior to a.m. meds Takes lisinopril that was recently reduced from 20 mg to 10 mg every morning; continue for now Takes metoprolol 100 mg every morning; continue for now with hold parameters Adjust a.m. anti-hypertensives as needed Takes Lasix M/W/F, stopped on her own last week; will hold for now BP SBP 140 while here Will adjust blood pressure medications if needed Blood pressure remains borderline low at 112/73 Blood pressure remains stable on current regimen and will continue Hypothyroidism: Chronic Recent TSH 11/29 2.45 TSH today 7.9 Takes hypothyroidism; continue CKD: Chronic creatinine 1.35; baseline 1.3-1.4 Creatinine has been normalized Creatinine is improved to 1.30 HLD: Chronic Takes pravastatin;continue Depression: Chronic Takes sertraline; hold as possible SSRI contributing. Was recently started in May 2023. Disposition: PCP: Dr. Rocha Code status: Full code VTE Prophylaxis: Lovenox SQ All of the questions from the family members were answered Total Time Total Time Spent Total Time Spent (In Minutes): 45 minutes Discharge Plan Discharge Items Patient Disposition: Home - Self-Care Reason For Visit: HYPONATREMIA; SERUM 124 Discharge Diagnosis: Acute hyponatremia, hypertension, hypothyroidism Condition on Discharge: Good Activity: Resume your previous activity Non-emergency contact: Primary Care Provider Call non-emergency contact if: you have any medication questions and your symptoms worsen Follow-up/Referrals: Antione Rocha MD [Primary Care Provider] - (Your doctor's office will give you a call with an appointment within 7 days) Diet: Heart Healthy Addtl Attending Provider Instructions: Please take precautions to avoid falls Take your medications as advised We are going to stop your hydrochlorothiazide Your outpatient Lasix will need to take as directed Please keep appointments with the healthcare providers You need to have a Zio patch placed from your PCPs office Pending Studies at Discharge: No Stand-Alone Forms: My [facility], Smoking Cessation Medications and DC Order Prescriptions: Continued alendronate 70 mg tablet 70 mg PO .WEEK Rx Instructions: Sunday AM aspirin 81 mg Tablet,Delayed Release (Dr/Ec) 81 mg PO DAILY levothyroxine 75 mcg tablet 75 mcg PO QAM ferrous sulfate [iron] 325 mg (65 mg iron) Tablet 65 mg PO Q OTHER DAY lisinopril 10 mg tablet 10 mg PO QAM omeprazole 20 mg capsule,delayed release(DR/EC) 20 mg PO QAM pravastatin 20 mg tablet 20 mg PO DAILY sertraline 50 mg tablet 50 mg PO QAM folic acid 800 mcg Tablet 0.8 mg PO DAILY cyanocobalamin (vitamin B-12) [Vitamin B-12] 5,000 mcg Tablet, Sublingual 5,000 mcg PO Q OTHER DAY metoprolol succinate 100 mg tablet extended release 24 hr 100 mg PO QAM Changed furosemide 20 mg Tablet 20 mg PO UD Qty: 1 0RF Rx Instructions: Weigh yourself once a week, if the weight is more than 2 to 3 pounds you can take Lasix 1 tablet daily for a day or 2. Discontinued hydrochlorothiazide 12.5 mg capsule 12.5 mg PO DAILY Discharge Orders: Discharge Order (Routine); Ordered 07/17/23 Ordered By: James Morales/Other Patient Handouts: Hyponatremia Dc Admission Data Admit Date/Time: 07/13/23 12:31 Attending Provider: James Armando Admit Provider: Roscoe Agustin Primary Care Provider: Antione Rocha Other Providers: Roscoe Augstin Other Interventions: Discharge Summary Assessment (RN) Last Done: 07/17/23 13:02
--- NOTE | 2023-07-19 21:07 | Electrocardiogram Report ---
Test Reason : Blood Pressure : / mmHG Vent. Rate : 067 BPM Atrial Rate : 067 BPM P-R Int : 178 ms QRS Dur : 094 ms QT Int : 440 ms P-R-T Axes : 075 044 059 degrees QTc Int : 464 ms Sinus rhythm with frequent Premature ventricular complexes in a pattern of bigeminy Abnormal ECG When compared with ECG of 13-JUL-2023 11:19, T wave inversion more evident in Anterior leads Confirmed by Seb Butler ([id number]) on 07/19/2023 9:06:41 PM Referred By: REFERRED SELF Confirmed By:Seb uBtler
--- NOTE | 2023-07-20 05:23 | Electrocardiogram Report ---
Test Reason : Blood Pressure : / mmHG Vent. Rate : 062 BPM Atrial Rate : 062 BPM P-R Int : 198 ms QRS Dur : 086 ms QT Int : 448 ms P-R-T Axes : 048 029 032 degrees QTc Int : 454 ms Poor data quality, interpretation may be adversely affected Sinus rhythm with Premature ventricular complexes T wave abnormality, consider anterior ischemia Abnormal ECG When compared with ECG of 16-JUL-2023 16:27, No significant change Confirmed by Seb Butler ([id number]) on 07/20/2023 5:22:41 AM Referred By: REFERRED SELF Confirmed By:Seb Butler
== END 2023-07-17 13:57 | disposition home or self-care (01) | DRG 641 ==
LOC: ED 10:23 → EDINP 12:31 → SUATTDRO 12:31 → 2S 12:55 → 3E 07-14 18:24 → 2S 07-16 18:54

== ENCOUNTER 2024-05-05 19:33 | Inpatient (IN) ==
--- NOTE | 2024-05-05 22:07 | Emergency Department Note ---
ED Provider Note History of Present Illness Chief Complaint: Hip Pain Stated Complaint: FELL 5 MONTHS AGO, HIP FX ACCORDING TO MRI Time Seen by Provider: 05/05/24 20:53 Source: patient and family Mode of arrival: EMS Limitations: no limitations This patient is an 84-year-old female who presents to the emergency department via EMS accompanied by her daughter for evaluation of a known left hip fracture. Daughter states that the patient has had worsening left hip pain over the past 3 weeks. Pain has been radiating down the left leg and into the back. She has been seeing sports medicine and had an injection into the knee without relief. She has been doing PT without improvement. Daughter states that it has gotten to the point that she is unable to walk and had to crawl inside today. They had MRIs done today at [facility] as an outpatient and were called and told that she had a hip fracture. The patient denies any recent injury. She states that she may have fallen but it would have been several months ago and she does not remember an injury to the hip. Daughter states that the patient is completely unable to walk due to the severe pain in her hip. Home Medications Medication Instructions Recorded Confirmed Type alendronate 70 mg tablet 70 mg PO .WEEK 07/13/23 05/05/24 History aspirin 81 mg tablet,delayed 81 mg PO DAILY 07/13/23 05/05/24 History release cyanocobalamin (vitamin B-12) 5,000 mcg PO Q OTHER DAY 07/13/23 05/05/24 History 5,000 mcg sublingual tablet (Vitamin B-12) ferrous sulfate 325 mg (65 mg 65 mg PO Q OTHER DAY 07/13/23 05/05/24 History iron) tablet (iron) folic acid 800 mcg tablet 0.8 mg PO DAILY 07/13/23 05/05/24 History levothyroxine 75 mcg tablet 75 mcg PO QAM 07/13/23 05/05/24 History lisinopril 10 mg tablet 10 mg PO QAM 07/13/23 05/05/24 History metoprolol succinate 100 mg 100 mg PO QAM 07/13/23 05/05/24 History tablet,extended release 24 hr omeprazole 20 mg capsule,delayed 20 mg PO QAM 07/13/23 05/05/24 History release pravastatin 20 mg tablet 20 mg PO DAILY 07/13/23 05/05/24 History sertraline 50 mg tablet 50 mg PO QAM 07/13/23 05/05/24 History furosemide 20 mg tablet 20 mg PO UD #1 tab 07/17/23 05/05/24 Rx tramadol 50 mg tablet 50 mg PO HS 05/05/24 05/05/24 History Allergies Allergy/AdvReac Type Severity Reaction Status Date / Time rosuvastatin [From Crestor] AdvReac Unknown Verified 07/13/23 13:49 Past Med/Surg History Problem List (Updated 05/06/24 @ 00:08 by More Diana PA-C) Atypical fracture of femur (Acute) Hypothyroidism HLD (hyperlipidemia) HTN (hypertension) Dizziness (Acute) Acute hyponatremia (Acute) Surgical History No pertinent past surgical history Social History Smoking Status: Former smoker Second Hand Exposure: Yes; Do You Dip or Chew Tobacco: No; Hx Alcohol Use: No Hx Substance Use: No Preferred Language: Yemeni Communication Ability: Effective Airways Operations Specialist Required: No Beliefs That Will Affect Care: None Current Living Situation: Spouse Feels Safe at Home: Yes Assistive Devices: Walker Physical Exam Vital Signs Vital Signs - 24 hr 05/05/24 19:37 05/05/24 19:37 05/05/24 19:47 Temperature 36.8 C 36.8 C Temperature Source Oral Oral Pulse Rate 72 70 Pulse Rate [Apical] 68 Respiratory Rate 15 18 Respiratory Effort / Characteristics Non-Labored Spontaneous Non-Labored Respiratory Depth Normal Normal Blood Pressure 187/96 H Blood Pressure [Right Arm] 187/96 H Blood Pressure Mean 126 Blood Pressure Mean [Right Arm] 126 Pulse Oximetry 95 97 Oxygen Delivery Method Room Air Room Air Sepsis Recent Fever Within 48 Hours No Sepsis New/Unexplained Change in Mental Status No Sepsis Action Taken by Nursing No Action Required 05/05/24 21:00 05/05/24 23:00 Temperature Temperature Source Pulse Rate Pulse Rate [Apical] 69 63 Respiratory Rate 16 14 Respiratory Effort / Characteristics Non-Labored Spontaneous Respiratory Depth Normal Normal Blood Pressure Blood Pressure [Right Arm] 149/93 H 138/110 H Blood Pressure Mean Blood Pressure Mean [Right Arm] 111 119 Pulse Oximetry 95 97 Oxygen Delivery Method Room Air Room Air Sepsis Recent Fever Within 48 Hours Sepsis New/Unexplained Change in Mental Status Sepsis Action Taken by Nursing VITALS: Vitals are noted on the nurse's note and reviewed by myself. GENERAL: This is an 84-year-old female, in no acute distress, lying supine in bed. SKIN: The skin was without rashes, erythema, edema, or bruising. HEAD: Normocephalic atraumatic. EARS: External auditory canals clear, tympanic membranes pearly frias without erythema or effusion bilaterally. EYES: Pupils equal round and reactive to light and accommodation. Conjunctivae without injection, sclerae without icterus. Extraocular movements intact. NOSE: Patent, turbinates without inflammation or discharge. No sinus tenderness. MOUTH: Mucous membranes moist. Tonsils are not enlarged. Pharynx without erythema or exudate. Uvula midline. Airway patent. Tongue does not deviate. NECK: Supple without nuchal rigidity. No lymphadenopathy. No thyromegaly. Cervical spine is nontender. No JVD. HEART: Regular rate and rhythm without murmurs gallops or rubs. LUNGS: Clear to auscultation bilaterally without wheezes, rales or rhonchi. No dullness to percussion. No retractions or accessory muscle use. ABDOMEN: Positive bowel sounds x 4. Normal tympanic percussion. Soft, nontender, without masses or organomegaly. Haines sign negative. No guarding or rebound tenderness. MUSCULOSKELETAL: No muscle atrophy, erythema, or edema noted. Full range of motion without joint tenderness in all extremities. No tenderness to palpation. Normal gait. Strength 5/5 throughout. NEURO: Patient was alert and oriented to person place and time. Normal sensation to light and sharp touch. Deep tendon reflexes 2+ throughout. No focal neurological deficits. Medical Decision Making Differential Diagnosis Fracture, dislocation, neurovascular compromise, compartment syndrome, soft tissue injury, as well as other pathologies. Medical Records Attestation: I reviewed the patient's medical records. Additional Comments: [facility] records accessed by case management and were reviewed. MRI left hip: Impression: Nondisplaced left atypical femur fracture. Recommend weightbearing precautions on the left lower extremity and orthopedic surgery evaluation. Laboratory Data Attestation: I reviewed the patient's lab results. 05/05/24 21:29 05/05/24 21:29 Lab Results 05/05/24 Range/Units 21:29 WBC 8.72 (4.8-10.8) K/ul RBC 3.78 L (4.20-5.40) M/uL Hgb 11.0 L (12.0-16.0) g/dl Hct 33.1 L (37.0-47.0) % MCV 87.6 (80.0-100.0) fL MCH 29.1 (25.0-34.0) pg MCHC 33.2 (32.0-36.0) g/dL RDW Std Deviation 43.2 (36.4-46.3) fL RDW Coeff of Amberly 13.4 (11.5-14.5) % Plt Count 191 (130-400) K/uL MPV 9.4 (9.4-12.4) fL Immature Gran % (Auto) 0.7 % Neut % (Auto) 71.9 % Lymph % (Auto) 20.3 % [place] % (Auto) 6.4 % Eos % (Auto) 0.6 % Baso % (Auto) 0.1 % Neut # (Auto) 6.27 (1.40-6.50) K/uL Lymph # (Auto) 1.77 (1.20-3.40) K/uL [place] # (Auto) 0.56 (0.11-0.59) K/uL Eos # (Auto) 0.05 (0.00-0.50) K/uL Baso # (Auto) 0.01 (0.00-0.20) K/uL Immature Gran # (Auto) 0.06 (0.01-0.20) K/uL PT 11.1 (9.0-12.0) Seconds INR 1.0 (0.9-1.1) APTT 25 (21-31) Seconds PTT Ratio 0.9 Sodium 137 (136-145) mmol/L Potassium TNP Chloride 101 (98-107) mmol/L Carbon Dioxide 30 (21-32) mmol/L Anion Gap 6 (3-11) BUN 17 (6-23) mg/dl Creatinine 0.91 (0.6-1.2) mg/dl Est Cr Clr Drug Dosing 51.0 ml/min eGFR 62.21 BUN/Creatinine Ratio 18.7 (10-20) Glucose 96 (70-99(Fasting)) mg/dl Calcium 7.7 L (8.6-10.3) mg/dl Total Bilirubin 0.8 (0.2-1.0) mg/dl AST TNP ALT 10 (7-52) U/L Alkaline Phosphatase 66 (34-104) U/L Total Protein 5.8 L (6.0-8.3) gm/dl Albumin 3.6 (3.4-5.0) gm/dl Globulin 2.2 L (2.5-4.0) gm/dl Albumin/Globulin Ratio 1.6 (0.9-2) Imaging Data Attestation: I personally reviewed and interpreted this imaging study as follows: Radiologist's Impression: Hip X-Ray 05/05/24 21:17 Exam(s): XR LEFT HIP EXAM: XR Left Hip , 2 Views CLINICAL HISTORY: Reason for exam: left hip atypical fx on outside imaging. TECHNIQUE: Two views of the left hip COMPARISON: No relevant prior studies available. FINDINGS: Bones/joints: There is a nondisplaced fracture noted of the proximal femoral shaft.. No dislocation. Soft tissues: Unremarkable. IMPRESSION: There is a nondisplaced fracture noted of the proximal femoral shaft.. This is of undetermined age . Electronically signed by: Edi Whittaker MD 05/05/24 23:19 PM MDM Narrative Patient is an 84-year-old female who presents to the emergency department for evaluation of a left hip fracture which was diagnosed on MRI done as an outpatient today. Patient has had progressively worsening left hip pain over the past 3 weeks and is now unable to ambulate. MRI results were reviewed and showed an atypical femur fracture likely from patient's bisphosphonate use. Discussed this with Dr. Underwood from orthopedic surgery who felt patient would likely need surgical intervention and recommended keeping her n.p.o. after midnight tonight. Case was then discussed with the [facility] hospitalist, Dr. Yang who evaluated the patient for further care. Impression Atypical fracture of femur Discharge Plan Visit Data Chief Complaint: Hip Pain Stated Complaint: FELL 5 MONTHS AGO, HIP FX ACCORDING TO MRI ED Provider: Magdiel Moreira ED Midlevel Provider: More Diana Discharge Problem: Atypical fracture of femur Patient Disposition: Admitted As Inpatient Discharge Instructions Interventions: ED Discharge Assessment Last Done: 05/05/24 23:41 Discharge Problem: Atypical fracture of femur Qualifiers: Encounter type: initial encounter Qualified Code(s): M84.750A - Atypical femoral fracture, unspecified, initial encounter for fracture
[2024-05-05 22:11] LABS: Partial Thromboplastin Ratio 0.9; Partial Thromboplastin Time 25 Seconds (21-31); Prothrombin Time 11.1 Seconds (9.0-12.0)
[2024-05-05 22:34] LABS: Alanine Aminotransferase 10 U/L (7-52); Albumin Globulin Ratio 1.6 (0.9-2); Albumin Level 3.6 gm/dl (3.4-5.0); Alkaline Phosphatase 66 U/L (34-104); Anion Gap 6 (3-11); BUN Creatinine Ratio 18.7 (10-20); Bilirubin,Total 0.8 mg/dl (0.2-1.0); Blood Urea Nitrogen 17 mg/dl (6-23); Calcium 7.7 mg/dl (8.6-10.3); Carbon Dioxide 30 mmol/L (21-32); Chloride 101 mmol/L (98-107); Globulin 2.2 gm/dl (2.5-4.0); Glucose 96 mg/dl (70-99(Fasting)); Sodium 137 mmol/L (136-145); Total Protein 5.8 gm/dl (6.0-8.3)
[2024-05-05 22:38] LABS: Basophils # (auto) 0.01 K/uL (0.00-0.20); Basophils % (auto) 0.1 %; Eosinophils # (auto) 0.05 K/uL (0.00-0.50); Eosinophils % (auto) 0.6 %; Hematocrit (blood only) 33.1 % (37.0-47.0); Immature Granulocytes # (auto) 0.06 K/uL (0.01-0.20); Immature Granulocytes % (auto) 0.7 %; Lymphocytes # (auto) 1.77 K/uL (1.20-3.40); Lymphocytes % (auto) 20.3 %; Mean Corpuscular Hemoglobin 29.1 pg (25.0-34.0); Mean Corpuscular Hgb Conc 33.2 g/dL (32.0-36.0); Mean Corpuscular Volume 87.6 fL (80.0-100.0); Mean Platelet Volume 9.4 fL (9.4-12.4); Monocytes # (auto) 0.56 K/uL (0.11-0.59); Monocytes % (auto) 6.4 %; Neutrophils # (auto) 6.27 K/uL (1.40-6.50); Neutrophils % (auto) 71.9 %; Platelet Count 191 K/uL (130-400); RDW Coefficient of Variation 13.4 % (11.5-14.5); RDW Standard Deviation 43.2 fL (36.4-46.3); Red Blood Count 3.78 M/uL (4.20-5.40); White Blood Count 8.72 K/ul (4.8-10.8)
--- NOTE | 2024-05-05 22:55 | History & Physical Report ---
Date of Service May 05, 2024 Assessment & Plan (1) Asymptomatic hypertensive urgency: Plan: Secondary to protracted left hip pain Atypical left femoral fracture on outpatient MRI hx CAD/PVD, stable as per recent outpatient [facility] visit last December 2023 valvular heart disease (mild MR/TR) atrial septal aneurysm pulmonary hypertension hyperlipidemia, on statin Rx CRI, creatinine better than baseline chronic anemia, at baseline hypothyroidism, euthyroid as of recent outpatient TSH past tobacco abuse Medical telemetry Analgesia, titrate home BP meds Orthopedics consult Re: Atypical left femur fracture (ED provider already in touch with Dr. Underwood. Surgery recommended in a.m.) N.p.o. until patient seen by specialist in AM. Acceptable risk for cardiac complications resulting from prospective procedure Revised Cardiac Risk Index (RCRI): 1. High-risk type of surgery (examples include vascular and any open intraperitoneal or intrathoracic procedures). No 2. History of ischemic heart disease (history of myocardial infarction or positive exercise test, current compliant of chest pain considered to be secondary to myocardial ischemia, use of nitrate therapy, or ECG with pathological Q waves; do not count prior coronary revascularization procedure unless one of the other criteria for ischemic heart disease is present). Yes 3. History of heart failure. No 4. History of cerebrovascular disease. No 5. Diabetes mellitus requiring treatment with insulin. No 6. Preoperative serum creatinine >2.0. No Pt has revised cardiac index score of 1 points. (Class I Risk.) 6 % 30-day risk of , [place], or cardiac arrest. Acceptable risk for cardiac complications if surgery recommended by Orthopedics and patient/family agreeable to attendant procedural benefits and risks.. Patient daughter requested to secure CD of MRI images from [facility]. Hold aspirin for now in anticipation of procedure Resume home aspirin once bleeding risk is deemed minimal/negligible following Orthopedics eval. DVT prophylaxis. SCDs re: contemplated procedure Full code Patient daughter requesting updates providers. Ms. Ailyn Foster, contact #[phone]. Text document was generated using Trendient voice recognition software. It may contain grammatical or spelling errors. Kindly contact undersigned for clarification of any documentation item in question. History of Present Illness Chief Complaint: Abnormal MRI Primary Care Provider: Antione Rocha MD History obtained from patient, family, and records. Medical history significant for CAD, PVD, valvular heart disease (mild MR/TR), atrial septal aneurysm, pulmonary hypertension, history PVCs, hypertension, hyperlipidemia, CRI (baseline creatinine 1.2-1.3), chronic anemia (baseline hemoglobin of 11), postsurgical hypothyroidism, GERD, past tobacco abuse. Last confinement 2023 for acute hyponatremia. Patient has had achy left hip pain last 3 months possibly following a fall at home. Hip pain worse with ambulation. Denies fever, chills. Denies chest pain, SOB. Denies headache symptoms. No improvement with pain medication and steroid Rx prescribed by PCP. No improvement with outpatient steroid injection by sandblaster paint sprayer 3 weeks ago. Mild osteoarthritis left hip on outpatient imaging prior to outpatient pain management visit. Outpatient MRI of the lumbar spine and left hip ordered on sandblaster paint sprayer a few days ago due to worsening discomfort on insistence of family. LS MRI Degenerative changes are most prominent at L4-L5 and L5-S1 with subarticular and foraminal stenosis with compression of the exiting and descending nerve roots as above Left hip MRI Nondisplaced left atypical femur fracture. Patient directed to ER for evaluation by PCP with abnormal left hip MRI result.. SBP 180s upon arrival at the ER. Medical History as above Surgical History : Partial hysterectomy, thyroidectomy Family History : Dementia Personal/Social history : Past tobacco abuse, no EtOH intake, retired [employer]; born in [place] Allergies Allergy/AdvReac Type Severity Reaction Status Date / Time rosuvastatin [From Crestor] AdvReac Unknown Verified 07/13/23 13:49 Home Medications Medication Instructions Recorded Confirmed Type alendronate 70 mg tablet 70 mg PO .WEEK 07/13/23 05/05/24 History aspirin 81 mg tablet,delayed 81 mg PO DAILY 07/13/23 05/05/24 History release cyanocobalamin (vitamin B-12) 5,000 mcg PO Q OTHER DAY 07/13/23 05/05/24 History 5,000 mcg sublingual tablet (Vitamin B-12) ferrous sulfate 325 mg (65 mg 65 mg PO Q OTHER DAY 07/13/23 05/05/24 History iron) tablet (iron) folic acid 800 mcg tablet 0.8 mg PO DAILY 07/13/23 05/05/24 History levothyroxine 75 mcg tablet 75 mcg PO QAM 07/13/23 05/05/24 History lisinopril 10 mg tablet 10 mg PO QAM 07/13/23 05/05/24 History metoprolol succinate 100 mg 100 mg PO QAM 07/13/23 05/05/24 History tablet,extended release 24 hr omeprazole 20 mg capsule,delayed 20 mg PO QAM 07/13/23 05/05/24 History release pravastatin 20 mg tablet 20 mg PO DAILY 07/13/23 05/05/24 History sertraline 50 mg tablet 50 mg PO QAM 07/13/23 05/05/24 History furosemide 20 mg tablet 20 mg PO UD #1 tab 07/17/23 05/05/24 Rx tramadol 50 mg tablet 50 mg PO HS 05/05/24 05/05/24 History Past Med/Surg History Problem List (Updated 05/06/24 @ 04:45 by Manish Yang MD) Asymptomatic hypertensive urgency Atypical fracture of femur (Acute) Hypothyroidism HLD (hyperlipidemia) HTN (hypertension) Dizziness (Acute) Acute hyponatremia (Acute) Surgical History No pertinent past surgical history Social History Smoking Status: Former smoker Second Hand Exposure: Yes; Do You Dip or Chew Tobacco: No; Hx Alcohol Use: No Hx Substance Use: No Preferred Language: Malagasy Communication Ability: Effective Cosmetic Sales Advisor Required: No Beliefs That Will Affect Care: None Current Living Situation: Spouse Current Living Situation Comment: with Feels Safe at Home: Yes Safety Concerns: Feels Safe At This Time Assistive Devices: Cane and Walker Assistive Devices Comment: pt uses a walker and cane at baseline, unable to ambulate at this time Review of Systems Review of Systems: As per HPI, all other systems reviewed and negative Physical Exam Physical Exam: GENERAL: Comfortable, obese, pleasant, no respiratory distress SKIN: Normal color, warm HEENT: [place] palpebral conjunctivae, no ptosis, dry buccal mucosa NECK : Supple, short neck, no tenderness CHEST : CTA, no tenderness HEART : RRR, no obvious murmurs ABDOMEN: Some distention, nontender EXTREMITIES : Minimal LE swelling, left hip tenderness, no other conspicuous deformities noted NEUROLOGIC : Coherent, no facial asymmetry, no other gross focality Results & Data Results & Data Vital Signs (Past 12 Hours) Vital Signs Temp Pulse Pulse Resp BP BP Pulse Ox 05/05/24 21:00 69 16 149/93 H 95 05/05/24 19:47 70 05/05/24 19:37 36.8 C 68 18 187/96 H 97 05/05/24 19:37 36.8 C 72 15 187/96 H 95 O2 Del Method 05/05/24 21:00 Room Air 05/05/24 19:47 05/05/24 19:37 Room Air 05/05/24 19:37 Room Air Laboratory Results Laboratory Results WBC 8.72 K/ul (4.8-10.8) 05/05/24 21: RBC 3.78 M/uL (4.20-5.40) L 05/05/24 21: Hgb 11.0 g/dl (12.0-16.0) L 05/05/24 21: Hct 33.1 % (37.0-47.0) L 05/05/24 21: MCV 87.6 fL (80.0-100.0) 05/05/24 21: MCH 29.1 pg (25.0-34.0) 05/05/24 21: MCHC 33.2 g/dL (32.0-36.0) 05/05/24 21: RDW Std Deviation 43.2 fL (36.4-46.3) 05/05/24 21: RDW Coeff of Amberly 13.4 % (11.5-14.5) 05/05/24 21: Plt Count 191 K/uL (130-400) 05/05/24 21: MPV 9.4 fL (9.4-12.4) 05/05/24 21: Immature Gran % (Auto) 0.7 % 05/05/24: Neut % (Auto) 71.9 % 05/05/24: Lymph % (Auto) 20.3 % 05/05/24: [place] % (Auto) 6.4 % 05/05/24 21: Eos % (Auto) 0.6 % 05/05/24: Baso % (Auto) 0.1 % 05/05/24: Neut # (Auto) 6.27 K/uL (1.40-6.50) 05/05/24 21: Lymph # (Auto) 1.77 K/uL (1.20-3.40) 05/05/24: [place] # (Auto) 0.56 K/uL (0.11-0.59) 05/05/24 21: Eos # (Auto) 0.05 K/uL (0.00-0.50) 05/05/24: Baso # (Auto) 0.01 K/uL (0.00-0.20) 05/05/24: Immature Gran # (Auto) 0.06 K/uL (0.01-0.20) 05/05/24: PT 11.1 Seconds (9.0-12.0) 05/05/24: INR 1.0 (0.9-1.1) 05/05/24: APTT 25 Seconds (21-31) 05/05/24: PTT Ratio 0.9 05/05/24: Sodium 137 mmol/L (136-145) 05/05/24: Potassium TNP 05/05/24: Chloride 101 mmol/L (98-107) 05/05/24: Carbon Dioxide 30 mmol/L (21-32) 05/05/24: Anion Gap 6 (3-11) 05/05/24: BUN 17 mg/dl (6-23) 05/05/24: Creatinine 0.91 mg/dl (0.6-1.2) 05/05/24: Est Cr Clr Drug Dosing 51.0 ml/min 05/05/24: eGFR 62.21 05/05/24: BUN/Creatinine Ratio 18.7 (10-20) 05/05/24: Glucose 96 mg/dl (70-99(Fasting)) 05/05/24: Calcium 7.7 mg/dl (8.6-10.3) L 05/05/24: Total Bilirubin 0.8 mg/dl (0.2-1.0) 05/05/24: AST TNP 05/05/24: ALT 10 U/L (7-52) 05/05/24: Alkaline Phosphatase 66 U/L (34-104) 05/05/24 21: Total Protein 5.8 gm/dl (6.0-8.3) L 05/05/24 21: Albumin 3.6 gm/dl (3.4-5.0) 05/05/24 21: Globulin 2.2 gm/dl (2.5-4.0) L 05/05/24 21: Albumin/Globulin Ratio 1.6 (0.9-2) 05/05/24 21:29 Diagnostic Findings Chest x-ray as per my interpretation cardiomegaly, atelectasis EKG as per my interpretation : Rate 65, NSR, normal axis, T wave abnormalities septal leads
--- NOTE | 2024-05-05 23:20 | XRay Report ---
Exam(s): XR LEFT HIP EXAM: XR Left Hip , 2 Views CLINICAL HISTORY: Reason for exam: left hip atypical fx on outside imaging. TECHNIQUE: Two views of the left hip COMPARISON: No relevant prior studies available. FINDINGS: Bones/joints: There is a nondisplaced fracture noted of the proximal femoral shaft.. No dislocation. Soft tissues: Unremarkable. IMPRESSION: There is a nondisplaced fracture noted of the proximal femoral shaft.. This is of undetermined age . Electronically signed by: Edi Whittaker MD 05/05/24 23:19 PM
[2024-05-06] MEDS ORDERED: bisacodyL 10 MG SUPP PR PRN (00:07)
[2024-05-06] MEDS ORDERED: NALOXONE HCL 0.4 MG/1 ML VIAL/CARP IV PRN (00:07)
[2024-05-06] MEDS ORDERED: ACETAMINOPHEN 325 MG TAB PO PRN (00:07)
[2024-05-06] MEDS: oxyCODONE HCL IR 5 MG TAB (IMMEDIATE RELEASE) PO STA (00:31)
[2024-05-06] MEDS: MoRPHine SULFATE 2 MG/ML CARP IV PRN (01:17)
[2024-05-06 01:38] LABS: Potassium 3.5 mmol/L (3.5-5.1)
--- NOTE | 2024-05-06 02:27 | XRay Report ---
EXAM: XR chest 1V portable CLINICAL HISTORY: PRE OP HISTORY OF SMOKING [facility] TECHNIQUE: An X-ray image of the chest is obtained in AP projection. COMPARISON: 07/13/2023 FINDINGS: Pulmonary Parenchyma: Right lower zone peripheral opacity. Blunting of both costophrenic angles. Suspected left lower zone opacity silhouetting the heart apex. Heart and Mediastinum: Apparent cardiomegaly. Prominent hilar shadows. Bony Thorax: Bony thorax appears intact without fractures or deformities. Soft Tissues: Soft tissues overlying the chest wall are unremarkable. IMPRESSION: 1. Right lower zone peripheral opacity, could be exaggerated due to overlying soft tissue shadows. Clinical correlation is advised to assess for pulmonary infiltrates. (More conspicuous in the present study) 2. Blunting of the right costophrenic angle, could be due to mild pleural effusion/thickening. 3. Suspected left lower zone opacity nearly stable since the previous study, could be projectional. 4. Cardiomegaly, apparent? Electronically signed by Lucy Albert 05-06-2024 02:27 AM
[2024-05-06] MEDS: SODIUM CHLORIDE 0.9% 1,000 ML IV ONE (04:28)
[2024-05-06 05:04] LABS: Appearance Urine Cloudy (Clear); Bacteria Urine Automated 4+ (None Seen); Bilirubin Urine Negative (Negative); Blood Urine Negative (Negative); Cast Urine Automated 0-2 /lpf (0-2); Color Urine Yellow; Epithelial Cell Urine Auto 0-2 /hpf (0-2); Glucose Urine UA Negative (Negative); Ketones Urine Trace (Negative); Leukocyte Esterase Urine Trace (Negative); Nitrite Urine Positive (Negative); Protein Urine Negative (Negative); RBC Urine Automated 0-2 /hpf (0-2); Specific Gravity Urine 1.019 (1.000-1.030); Urobilinogen Urine Negative (Negative); WBC Urine Automated 0-5 /hpf (0-5); pH Urine 6.5 (4.5-7.5)
[2024-05-06] MEDS: LEVOTHYROXINE SODIUM 75 MCG TABLET PO SCH (05:56)
--- OUTSIDE RECORDS SUMMARY | 2024-05-06 06:06 | External Medical Summary | Summary of Care ---
Author Name Unknown Organization [facility] Address [address] [place] [address] Phone [phone] Care Team Providers Care Tier Lift Truck Operator Name Role Phone Antione Rocha MD Primary Care Provide r Encounter Details Date Type Department Care Team (Late st Contact Info) Description 04/28/2024 Population Health External Data Unspecified Department Allergies Active Allergy Reactions Criticality Noted Date Comments Rosuvastatin Calcium 07/21/2016 myalgia documented as of this encounter (statuses as of 04/28/2024) Medications aspirin enteric coated 81 MG TBEC Take 1 Tab by mouth daily. 100 Tab 3 07/22/19 17 Active Ventolin HFA 108 (90 Base) MCG/ACT Inhalation Aerosol SolutionIndication s:Bronchitis, complicated Inhale by mouth 2 Puffs every 4 hours as needed for Shortness of Breath or Wheezing. 8 g 1 08/04/19 22 Active Additional Information Patient not taking.Reported on 02/18/2024 Sennosides-Docusat e Sodium 8.6-50 MG Oral Tablet (Senokot-S)Indicat ions:Constipation, unspecified constipation type Take by mouth 1 Tablet in the morning. 30 Tablet 2 08/23/19 22 Active Additional Information Patient taking differently:1 Tablet OralDAILY PRN, Constipation, Informant: Patient, Reported on 02/18/2024 B-12 500 MCG Oral Tablet Take 1 Tablet by mouth every other day. Active Iron 325 (65 Fe) MG Oral Tablet Take 1 Tablet by mouth every other day. Active Alendronate Sodium 70 MG Oral Tablet (Fosamax)Indicatio ns:Age-related osteoporosis without current pathological fracture TAKE 1 TABLET BY MOUTH ONCE A WEEK AT LEAST 30 MINUTES BEFORE FIRST FOOD/BEVERAGE DO NOT LIE DOWN FOR 30 MINUTES AFTER TAKING 12 Tablet 11 04/04/2024 10:12 AM EST 05/10/19 24 025 Active Additional Information Patient taking differently: Sundays., Reported on 02/18/2024 Furosemide 20 MG Oral Tablet (Lasix) Weigh yourself once a week, if the weight is up more than 2-3 lbs you can take 1 tablet daily for 1-2 days. 30 Tablet 5 07/20/19 24 Active Folic Acid 800 MCG Oral Tablet Take 1 Tablet by mouth in the morning. Active Acetaminophen 325 MG Oral Tablet (Tylenol) Take 2 Tablets by mouth every 6 hours as needed for Pain, Moderate. Active guaiFENesin ER 600 MG Oral Tablet Extended Release 12 Hour (Humibid LA)Indications:Acu te cough Take 1 Tablet by mouth in the morning and 1 Tablet before bedtime. 40 Tablet 11/05/19 24 Active Additional Information Patient not taking.Reported on 02/18/2024 Sertraline HCl 50 MG Oral Tablet (Zoloft)Indication s:Current mild episode of major depressive disorder without prior episode (HCC) Take 1 Tablet by mouth in the morning. 90 Tablet 3 11/21/19 24 Active Levothyroxine Sodium 75 MCG Oral Tablet (Levoxyl)Indicatio ns:Acquired hypothyroidism TAKE 1 TABLET BY MOUTH DAILY AT LEAST 30 MINUTES PRIOR TO FIRST MEAL OF THE DAY OR OTHER MEDICATIONS 90 Tablet 3 03/07/2024 5:51 PM EST 12/06/19 24 Active Omeprazole 20 MG Oral Capsule Delayed Release (PriLOSEC) TAKE ONE CAPSULE BY MOUTH EVERY MORNING ONE HOUR BEFORE THE FIRST MEAL OF THE DAY 100 Capsule 1 04/03/2024 12:55 PM EST 12/24/19 24 Active Lisinopril 20 MG Oral Tablet (Prinivil)Indicati ons:Benign hypertension with stage 3b chronic kidney disease (HCC),HTN, goal below 150/90 Take 1 Tablet by mouth in the morning. 90 Tablet 1 01/22/20 24 Active Metoprolol Succinate ER 100 MG Oral Tablet Extended Release 24 Hour (Toprol XL)Indications:Ess ential hypertension with goal blood pressure less than 140/90 Take 1 Tablet by mouth in the morning. 100 Tablet 3 02/12/2024 10:03 AM EST 02/09/20 24 Active Gabapentin 100 MG Oral Capsule (Neurontin)Indicat ions:Chronic bilateral low back pain without sciatica Take 2 Capsules by mouth 2 times a day. 360 Capsule 1 02/25/20 24 Active Pravastatin Sodium 20 MG Oral Tablet (Pravachol) TAKE ONE TABLET BY MOUTH IN THE MORNING 100 Tablet 1 03/14/2024 3:30 PM EST 03/13/20 24 Active predniSONE 10 MG Oral Tablet (Deltasone) Take 5 tablets by mouth daily for five days, then 4 tablets for one day, then 3 tablets for one day, then 2 tablets for one day, then 1 tablet. 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 07/21/2016 documented as of this encounter (statuses as of 04/28/2024) Resolved Problems Problem Noted Date Diagnosed Date Resolved Date Stage 3 chronic kidney disease 08/24/2023 09/20/2023 Mild mitral regurgitation 12/01/2022 Overview (11/05/2023): duplicate Anemia in stage 3b chronic kidney disease 02/02/2021 02/17/2021 Benign hypertension with chr onic kidney disease, stage III 02/06/2018 08/19/2020 Overview: Per CKD protocol Atrial septal aneurysm 01/24/201712/10 Overview (01/24/2017): 2017-start ASA lifetime as inc risk CVA Anemia due to stage 3 chronic kidney disease 7 02/19/2020 Pericardial effusion 08/14/2016 017 Well adult exam 07/21/2016 01/20/2021 Overview (07/19/2017): Prefers to stop breast, colon screening. REQUEST shot recs [place] [place]? 08/23 TTE 5mm pericardial effusion-on repeat, appears to be fat pad. 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 documented as of this encounter (statuses as of 04/28/2024) Immunizations Name Administration Dates Next Due COVID-19 mRNA, LNP-s, No Pre serve, 2-Dose Series (Moderna) 09/22/2020,08/24/2020 COVID-19, mRNA, LNP-s, PF, B ooster, 100mcg/0.5mg (Moderna) 04/05/2021 Pneumococcal Conjugate Vacc, 13 Valent (Prevnar) 11/23/2014 Season Influenza, Quad, PF, Adjuvanted, 65+ Yrs, IM (FLUAD) 01/14/2020 Seasonal Influenza Vac., MDV , IM, 0.5 mL (Fluzone) 03/03/2013 Seasonal Influenza, High Dos e, Trivalent, PF, IM (Fluzone HD) 12/26/2023 Seasonal Influenza, PF, 6 M & above, IM , (FluLaval or Fluzone) 01/25/2018,01/24/2017 Seasonal Influenza, Quadriva lent Hd (Fluzone Hd) 01/12/2023,01/26/2022,12/30/2020 Seasonal Influenza, Trivalen t, Adjuvanted, 65+ YRS, PF, (Fluad) 01/21/2019 documented as of this encounter Social History Tobacco Use Types Packs/Day Years Used Date Smoking Tobacco: Former Cigarettes 1 10 976 - 1985 Smokeless Tobacco: Never Alcohol Use Standard Drinks/Week Comments Not Currently 0 (1 standard drink = 0.6 oz pur e alcohol) PHQ-2 Answer Date Recorded PHQ Adult Total Score 0 07/19/2023 Hunger Vital Sign Answer Date Recorded Within the past 12 months, y ou worried that your food would run out before you got the money to buy more. Never true 07/26/19 24 Within the past 12 months, t he food you bought just didn't last and you didn't have money to get more. Never true 07/26/2023 Childcare Answer Date Recorded Do you feel overwhelmed with taking care of a child, family member or friend? No 07/26/2023 Does your family need help f inding childcare? (Household - for ages 0-17 years) Not on file 07/26/2023 Clothing Answer Date Recorded Have you been unable to get clothing when it was really needed? No 07/26/2023 Is your family able to get c lothes or diapers when needed? (Household - for ages 0-17 years) Not on file 07/26/2023 Personal Safety Answer Date Recorded Do you feel unsafe or have concerns for your saf ety? No 07/26/2023 Do you have concerns for you r family's safety? (Household - for ages 0-17 years) Not on file 07/26/2023 Utilities Answer Date Recorded Do you have trouble paying y our heating, water, or electric bill? No 07/26/2023 Is your family able to pay t he heat, water, or electric bill? (Household - for ages 0-17 years) Not on file 07/26/2023 Does your family have access to good internet? (Household - for ages 0-17 years) Not on file 07/26/2023 Employment Status Answer Date Recorded Are you unemployed or without regular income? No 07/26/2023 Does the household have a re gular source of income? (Household - for ages 0-17 years) Not on file 07/26/2023 Social Connections Answer Date Recorded How often do you feel lonely or isolated from th ose around you? Never 07/26/2023 Financial Resource Strain Answer Date R ecorded Do you have any trouble payi ng for your medications, or do you think you might in the future? No 07/26/2023 Does your family have troubl e paying for medicine? (Household - for ages 0-17 years) Not on file 07/26/2023 Transportation Needs Answer Date Record ed READ ONLY Do you have troubl e getting a ride to medical visits or work? Never True 07/26/2023 Does your family have a hard time getting a ride to doctors visits? (Household - for ages 0-17 years) Not on file 07/26/2023 Has lack of transportation k ept you from medical appointments, meetings, work, or from getting things needed for daily living? Check all that apply. (Adult - for ages 18 years and over) Not on file 07/26/2023 Do you (or your family) have trouble finding or paying for a ride (transportation)? (Household - for ages 0-17 years) Not on file 07/26/2023 Housing Stability Answer Date Recorded Do you currently live in a s helter or have no steady place to sleep at night? Yes 07/26/2023 READ ONLY Do you think you a re at risk of becoming homeless? Yes 07/26/2023 Does your family worry about paying for your home or becoming homeless? (Household - for ages 0-17 years) Not on file 0 07/26/2023 Are you homeless or worried that you might be in the future? (Adult - for ages 18 years and over) Not on file Are you (or your family) carlos enrique eless or worried that you might be in the future? (Household - for ages 0-17 years) Not on file Food Insecurity Answer Date Recorded Do you need food for this week? Yes 07/26/2023 Are you able to get enough f ood for your family? (Household - for ages 0-17 years) Not on file 07/26/2023 Does your family need food t his week? (Household - for ages 0-17 years) Not on file 07/26/2023 Do you always have enough fo od for your family? 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 Not on file Not on file Not on f ile documented as of this encounter Plan of Treatment Upcoming Encounters Date Type Department Care Team (Late st Contact Info) Description 05/05/2024 12:15 PM EST Imaging Radiology [address] [place] [address] 05/05/2024 1:00 PM EST Imaging Radiology [address] [place] [address] 05/06/2024 8:00 AM EST Office Visit Family Medicine [address] [place] [phone] Antione Rocha MD [address] [place] [address] [place] [address] 06/04/2024 8:00 AM EST Office Visit [facility] [address] [place] [phone] Rochelle Christianson PA-C [address] [place] [address] 10/23/2024 11:00 AM EDT Office Visit Cardiology [address] [place] [address] Yesenia Garcia PA-C [address] [place] [address] Scheduled Procedures Name Priority Associated Diagnoses Date/Ti me COLONOSCOPY FLEXIBLE PROXIMAL DIAGNOSTIC Recall History of colon polyps Health Maintenance Due Date Last Done Comments DTap/Tdap Vaccines (1 - Tdap) 1959 Zoster Vaccines (1 of 2) 1990 Pneumococcal Vaccine: 50+ Years (2 of 2 - PPSV23) 11/24/2015 11/23/2014 Colonoscopy 10/27/2021 10/27/2016, 10/08, 09/22/2011, Additional history exists Adult Wellness Visit 10/21/2022 10/21/2021, 09/17/19 CKD PHOS USE SMARTSET 07699 05/15/2023 020 09/2022, 05/05/2021, 01/27/2020, Additional history exists COVID-19 Vaccine ( season) 2023 04/05/2021, 09/22/2020, 08/24/2020 CKD HGB USE SMARTSET 76314 03/05/202403/05, 03/05/2023, 12/21/2022, Additional history exists DXA Scan 04/04/2024 04/04/2022, 04/04/2022 Depression Monitoring 07/18/2024 07/19/2023 GFR 07/21/2024 01/21/2024, 0906/2023, 09/06/2023, Additional history exists Albumin/Creatinine Ratio 09/05/2024 09/06/2023, 05 TSH 12/10/2024 12/11/2023, 08/09, 11/13/2022, Additional history exists RETIRED - COLONOSCOPY-EVERY 5 YRS AGES 18-100 Discontinued 10/27/2016, 10/27/2016, 10/09/2011, Additional history exists VITAMIN D LEVEL ONCE IN A LIFETIME-USE SMARTSET# [id number] Completed 10/09/2022, 08/16/2022 Influenza Vaccine (FLU shot) Completed 12/26/2023, 01/12/2023, 01/26/2022, Additional history exists HPV (Gardasil) Vaccine Aged Out No lo nger eligible based on patient's age to complete this topic Hepatitis B Vaccine Aged Out No longe r eligible based on patient's age to complete this topic MENINGOCOCCAL (MENACTRA/MENVEO) Aged Out No longer eligible based on patient's age to complete this topic documented as of this encounter Medical Devices Not on filedocumented as of this encounter Advance Directives Healthcare Agents on File Name Relationship Healthcare Agent Relationshi p Communication Ailyn Foster Adult Child Health Care Repr esentative (appointed verbally by patient or by statute hierarchy) Care Teams Tier Lift Truck Operator Relationship Specialty Start Date End Date Antione Rocha MD [address] [place] [address] [place] [address] PCP - General Family Medicine 02/02/21 documented as of this encounter
--- OUTSIDE RECORDS SUMMARY | 2024-05-06 06:07 | External Medical Summary | Summary of Care ---
Author Name Unknown Organization [facility] Address [address] [place] [address] Phone [phone] Care Team Providers Care Beef Cattle Farmer Name Role Phone Antione Rocha MD Primary Care Provide r Reason for Visit * Reason Comments Follow Up B/L knee Knee Pain Encounter Details Date Type Department Care Team (Latest Contact Info) Description 04/10/2024 3:00 PM EST Office Visit Orthopaedics [address] [phone] Augie Victoria MD [address] [place] [address] Primary osteoarthritis of right knee*; Primary osteoarthritis of left knee; Hip pain, left Allergies Active Allergy Reactions Criticality Noted Date Comments Rosuvastatin Calcium 07/21/2016 myalgia documented as of this encounter (statuses as of 04/10/2024) Medications aspirin enteric coated 81 MG TBEC [...] Active Alendronate Sodium 70 MG Oral Tablet (Fosamax)Miguel Angeltio ns:Age-related osteoporosis without current pathological fracture TAKE [...] 03/14/2024 3:30 PM EST 03/13/20 24 Active Hospital, Clinic, or Other Facility Administered Medication Ordered Dose Route Frequency Start Date End Date Status sodium hyaluronate (Gelsyn-3) 16.8 MG/2ML inj 16.8 mgIndications:Primary osteoarthritis of right knee 16.8 mg IX ONCE 04/10/2024 04/10/2024 Ended sodium hyaluronate (Gelsyn-3) 16.8 MG/2ML inj 16.8 mgIndications:Primary osteoarthritis of left knee 16.8 mg IX ONCE 04/10/2024 04/10/19 25 Ended documented as of this encounter (statuses as of 04/10/2024) Active Problems Problem Noted Date Diagnosed Date [...] tis 07/21/2016 Coronary artery disease invo lving lytton coronary artery of [place]yt[place] heart without angina pectoris 07/21/2016 documented as of this encounter (statuses as of 04/10/2024) Resolved Problems Problem Noted Date Diagnosed Date [...] breast, colon screening. REQUEST shot recs [place]? 08/23 TTE 5mm pericardial effusion-on repeat, appears to be fat pad. 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 documented as of this encounter (statuses as of 04/10/2024) Immunizations Name Administration Dates Next Due COVID-19 [...] 07/26/2023 Does the household have a re lar source of income? (Household - for ages [...] f ile documented as of this encounter Progress Notes * Augie Victoria MD - 04/10/2024 3:00 PM EST Violetta Nicole [phone] Diagnosis: OA bilateral knee. The patient is here for the first of a series of Gelsyn injections. There is no sign of infection in the injected knee. A timeout was called immediately prior to the procedure, to confirm the correct patient, procedure,and site. The site was marked by the physician prior to the procedure. Site was identified: knee: bilateral Procedure: Under sterile fashion, a 2 ml vial of Gelsyn was injected intra- articularly into each knee. Patient tolerated this well. Note: Prior to the injection limited ultrasound was performed. Patient did not have an effusion therefore the suprapatellar recess was difficult to identify in the left knee. Was identifiable in the right knee but not large enough to warrant aspiration.. Injection therefore performed with palpation/landmark guidance. Note: Ultrasound was used to confirm appropriate location in the inferolateral port but was not used for the actual injection and therefore not billed for. Assessment: OA bilateral knee. Plan: The patient will follow up in 1 Week for reinjection. Patient also is reporting some groin/anterior thigh pain. That did not improve with therapy. Recommended x-rays and will evaluated her next visit. Would consider intra- articular steroid injection with ultrasound guidance as well if he is able Augie Victoria MD Primary Care Sports Medicine Orthopaedics [address] [phone] documented in this encounter Nursing Notes * Serena Paez LPN - 04/10/2024 12:54 PM EST F/u B/L knee pain FIRST of a series Gelsyn injections Pt accompanied by her spouse Rachel AdkinsShaylee JOHNSON documented in this encounter Plan of Treatment Upcoming Encounters Date Type Department Care Team (Late st Contact Info) Description 04/17/2024 3:00 PM EST Office Visit Orthopaedics [address] [phone] Augie Victoria MD [address] [place] [address] 04/24/2024 3:00 PM EST Office Visit Orthopaedics [address] [phone] Augie Victoria MD [address] [place] [address] 05/06/2024 8:00 AM EST Office Visit Family Medicine [address] [place] [phone] Antione Rocha MD [address] [place] [address] [place] [address] 10/23/2024 11:00 AM EDT Office Visit Cardiology [address] [place] [address] Yesenia Garcia PA-C [address] [place] [address] Pending Results Name Type Priority Associated Diagnoses Date /Time XR HIP UNILAT 2-3 VIEWS INCLUDING AP PELVIS Medical Imaging Routine Hip pain, left 04/10/2024 2:07 PM EST Scheduled Procedures Name Priority Associated Diagnoses Date/Ti me COLONOSCOPY FLEXIBLE PROXIMAL DIAGNOSTIC Recall History of colon polyps Health Maintenance Due Date Last Done Comments DTap/Tdap Vaccines (1 - Tdap) 1959 Zoster Vaccines (1 of 2) 1990 Pneumococcal Vaccine: 50+ Years (2 of 2 - PPSV23) 11/24/2015 11/23/2014 Colonoscopy 10/27/2021 10/27/2016, 10/08, 09/22/2011, Additional history exists Adult Wellness Visit 10/21/2022 10/21/2021, 09/17/19 21 CKD PHOS USE SMARTSET 40943 05/15/2023 020 09/2022, 05/05/2021, 01/27/2020, Additional history exists COVID-19 Vaccine ( season) 2023 04/05/2021, 09/22/2020, 08/24/2020 CKD HGB USE SMARTSET 14108 03/05/202403/05, 03/05/2023, 12/21/2022, Additional history exists DXA Scan 04/04/2024 04/04/2022, 04/04/2022 Depression Monitoring 07/18/2024 07/19/2023 GFR 07/21/2024 01/21/2024, 06/2023, 09/06/2023, Additional history exists Albumin/Creatinine Ratio 09/05/2024 09/06/2023, 08/07 TSH 12/10/2024 12/11/2023, 08/09, 11/13/2022, Additional history exists RETIRED - COLONOSCOPY-EVERY 5 YRS AGES 18-100 Discontinued 10/27/2016, 10/27/2016, 10/09/2011, Additional history exists VITAMIN D LEVEL ONCE IN A LIFETIME-USE SMARTSET# [id number] Completed 10/09/2022, 08/16/2022 Influenza Vaccine (FLU shot) [...] knee- Primary Primary localized osteoarthrosis, lower leg Primary osteoarthritis of left knee Primary localized osteoarthrosis, lower leg Hip pain, left Pain in joint, pelvic region and thigh documented in this encounter Administered Medications Inactive Administered Medications - up to 3 most recent administrations Medication Order MAR Action Action Date Dose Rate Site sodium hyaluronate (Gelsyn-3) 16.8 MG/2ML inj 16.8 mg 16.8 mg, Intra-Articular, ONCE, On Sun04/10/24 at 1400, For 1 doseIndications:Primary osteoarthritis of right knee Given 04/10/2024 3:21 PM EST 16.8 mg Knee Right sodium hyaluronate (Gelsyn-3) 16.8 MG/2ML inj 16.8 mg 16.8 mg, Intra-Articular, ONCE, On Sun04/10/24 at 1400, For 1 doseIndications:Primary osteoarthritis of left knee Given 04/10/2024 3:20 PM EST 16.8 mg Knee Left documented in this encounter Advance Directives Healthcare Agents on File Name Relationship Healthcare Agent Relationshi p Communication Ailyn Foster Adult Child Health Care Repr esentative (appointed verbally by patient or by statute hierarchy) Care Teams Beef Cattle Farmer Relationship Specialty Start Date End Date Antione Rocha MD [address] [place] [address] [place] [phone] PCP - General Family Medicine 02/02/21 documented as of this encounter
--- OUTSIDE RECORDS SUMMARY | 2024-05-06 06:07 | External Medical Summary | Summary of Care ---
Author Name Unknown Organization [facility] Address [address] [place] [address] Phone [phone] Care Team Providers Care Earth Science Technician Name Role Phone Antione Rocha MD Primary Care Provide r Reason for Referral * Evaluate & Treat - Unlimited Visits (Within 10 days (routine)) - Authorized Specialty Diagnoses / Procedures Referred By Contac t Referred To Contact Pain Management / Pain Medicine Diagnoses Chronic left-sided low back pain with left-sided sciatica Augie Victoria MD [address] [place] [address] Phone: tel: fax: Referral ID Status Reason Start Date Expiration Date Visits Requested Visits Authorized [id number] Authorized Specialty Services Required 04/24/2024 999 999 Question Answer Referral Priority Within 10 days (routine) Where should this appointment be scheduled? [facility] Reason for referral? Interventional Pain Management - (Injection) What condition is the patient being referred for? Lumbar Radiculopathy What is the preferred location to have this test performed? [facility] Comments Patient Name: Violetta Nicole Date of : 1940 Department Phone Number: MRI or CT (if unable to have a MRI) is recommended if any of the following apply: 1. Patient has neck or back pain with radiation to extremities. A previous MRI will be accepted if symptoms unchanged since prior MRI. 2. Spinal surgery since last MRI. If yes, order a MRI with and without contrast. 3. Hx or ongoing cancer treatment. Patient will need spine x-ray (Ap/Lat) for axial neck or back pain if not done previously. Fax No. [facility] [phone] or contact vest front presser [phone] Fax No. [facility] [phone] or contact vest front presser [phone] Fax No. [facility] [phone] or contact vest front presser [phone] * Precert (Within 10 days (routine)) - Authorized Specialty Diagnoses / Procedures Referred By Contac t Referred To Contact Radiology Diagnoses Chronic left-sided low back pain with left-sided sciatica Procedures MRI L SPINE WO CONTRAST Augie Victoria MD [address] [facility] [place] [address] Phone: tel: fax: Referral ID Status Reason Start Date Expiration Date V isits Requested Visits Authorized [id number] Authorized 04/24/2024 999 999 * Precert (Within 10 days (routine)) - Authorized Specialty Diagnoses / Procedures Referred By Contac t Referred To Contact Radiology Diagnoses Hip pain, left Procedures MRI HIP LEFT WO CONTRAST Augie Victoria MD [address] [place] [address] Phone: tel: fax: Referral ID Status Reason Start Date Expiration Date V isits Requested Visits Authorized [id number] Authorized 04/24/2024 999 999 Reason for Visit * Reason Comments Pain Encounter Details Date Type Department Care Team (Latest Contact Info) Description 04/24/2024 3:00 PM EST Office Visit Orthopaedics [address] [place] [phone] Augie Victoria MD [address] [place] [address] Primary osteoarthritis of both knees*; Hip pain, left; Chronic left-sided low back pain with left-sided sciatica Allergies Active Allergy Reactions Criticality Noted Date Comments Rosuvastatin Calcium 07/21/2016 myalgia documented as of this encounter (statuses as of 04/24/2024) Medications aspirin enteric coated 81 MG TBEC [...] 11 04/04/2024 10:12 AM EST 05/10/19 24 07/04/2 025 Active Additional Information Patient taking differently: [...] Then discontinue 35 Tablet 04/24/19 25 Active Hospital, Clinic, or Other Facility Administered Medication Ordered Dose Route Frequency Start Date End Date Status sodium hyaluronate (Gelsyn-3) 16.8 MG/2ML inj 16.8 mgIndications:Primary osteoarthritis of both knees 16.8 mg IX ONCE 04/24/2024 04/25/2024 Active sodium hyaluronate (Gelsyn-3) 16.8 MG/2ML inj 16.8 mgIndications:Primary osteoarthritis of both knees 16.8 mg IX ONCE 04/24/2024 04/25/2024 Active documented as of this encounter (statuses as of 04/24/2024) Active Problems Problem Noted Date Diagnosed Date [...] tis 07/21/2016 Coronary artery disease invo lving [place] coronary artery of [place] heart without angina pectoris 07/21/2016 documented as of this encounter (statuses as of 04/24/2024) Resolved Problems Problem Noted Date Diagnosed Date [...] as of this encounter (statuses as of 04/24/2024) Immunizations Name Administration Dates Next Due COVID-19 [...] Smoking Tobacco: Former Cigarettes 1 10 976 1985 Smokeless Tobacco: Never Alcohol Use Standard [...] Progress Notes * Augie Victoria MD - 04/24/2024 3:00 PM EST Violetta Nicole [id number] Violetta Nicole is a 83 year old female who presents for NEW evaluation of left hip injury/pain and receive viscosupplementation in the bilateral knee to [facility]. Consult requested by Antione Rocha MD. Violetta Nicole is here with his/her Quality: reviewed and agree with Nursing Notes for HPI elements History: History - New evaluation L hip pain x 2 mos Xray L hip 04/10/24 Pt accompanied by her spouse Pain is greatest in the lateral hip ROS: ROS per HPI otherwise non-contributory Past Medical History: Diagnosis Date Acquired hypothyroidism 07/21/2016 Atrial septal aneurysm 01/24/2017 B12 deficiency 02/06/2018 Benign neoplasm of colon 08/29/06 adenomatous polyps--repeat 3-5 years Benign neoplasm of colon 07/16/09 adenomatous polyps repeat in 1-2 yrs Benign neoplasm of colon 09/22/11 COLONOSCOPY FLEXIBLE PROXIMAL DIAGNOSTIC performed by Greta Holloway DO at [facility],HYPERPLASTIC AND ADENOMATOUS POLYPS REPEAT COLONOSCOPY IN 5 YEARS Dyslipidemia, goal LDL below 100 07/19/2017 Essential hypertension with goal blood pressure less than 140/90 07/21/2016 Gastroesophageal reflux disease without esophagitis 07/21/2016 Kidney disease, chronic, stage III (GFR 30-59 ml/min) ([facility]) 01/24/2017 Old myocardial infarct 01/24/2017 Pericardial effusion 08/14/2016 Well adult exam 07/21/2016 Prefers to stop breast, colon screening. REQUEST shot recs Distant [place]? 08/23 TTE 5mm pericardial effusion-on repeat, appears to be fat pad. 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 Family History Problem Relation Name Age of Onset Neurological Disorder Mother 70 Alzheimers no cancers in family. Other (killed in war) Father Alzheimer's disease Sister 68 now 88 in 2019 in [place] No Known Problems Sister in [place]. 91 [...] date: 1975 Quit date: 1985 Years since quittin.0 Smokeless tobacco: Never Vaping Use Vaping status: Never Used Substance and Sexual Activity Alcohol use: Not Currently Drug use: No Sexual activity: Not Currently control/protection: Surgical Comment: hysterectomymarried, 3 kids, 5 grandkids, +great 4 or so. Other Topics Concern Not on file Social History Narrative 61 yrs as of 10/21/2021 Likes--kylah. [facility]. Born in [place]. Social Needs Financial Resource Strain: Low Risk (07/26/2023) Financial Resource Strain Do you have any trouble paying for your medications, or do you think you might in the future? (Adult - for ages 18 years and over): No Does your family have trouble paying for medicine? (Household - for ages 0-17 years): Not on file Food Insecurity: Food Insecurity Present (07/26/2023) Food Insecurity Do you need food for this week? (Adult - for ages 18 years and over): Yes Are you able to get enough food for your family? (Household - for ages 0-17 years): Not on file Does your family need food this week? (Household - for ages 0-17 years): Not on file Do you always have enough food for your family? (Household - for ages 0-17 years): Not on file Transportation Needs: No Transportation Needs (07/26/2023) Transportation Needs Do you have trouble getting a ride to medical visits or work? (Adult - for ages 18 years and over):Never True Does your family have a hard time getting a ride to doctors visits? (Household - for ages 0-17 years): Not on file Has lack of transportation kept you from medical appointments, meetings, work, or from getting things needed for daily living? Check all that apply. (Adult - for ages 18 years and over): Not on file Do you (or your family) have trouble finding or paying for a ride (transportation)? (Household - for ages 0-17 years): Not on file Social Connections: Socially Integrated (07/26/2023) Social Connections How often do you feel lonely or isolated from those around you? (Adult - for ages 18 years and over): Never Housing Stability: High Risk (07/26/2023) Housing Stability Do you currently live in a mcfp or have no steady place to sleep at night? (Adult - for ages 18 years and over): Yes Do you think you are at risk of becoming homeless? (Adult - for ages 18 years and over): Yes Does your family worry about paying for your home or becoming homeless? (Household - for ages 0-17 years): Not on file Are you homeless or worried that you might be in the future? (Adult - for ages 18 years and over): Not on file Are you (or your family) homeless or worried that you might be in the future? (Household - for ages0-17 years): Not on file Physical Exam Constitutional: Generally well-nourished and in no acute distress Psychiatric: Mood and Affect normal Eyes: EOMI Respiratory: Normal respiratory effort with regular rate and rhythm Cardiovascular: No edema in the affected extremity (s) Radiology: 04/10/24: 3 view xr L hip including AP view pelvis. FINDINGS Mild osteoarthritis left hip. No fracture or dislocation. Lumbosacral disc disease. IMPRESSION IMPRESSION Mild osteoarthritis left hip Assessment and Plan: 1) Lateral left hip pain At previous visit I suspected greater trochanteric pain syndrome. Discussed options of physical therapy or trial of a steroid injection Greater trochanteric bursa steroid injection performed today 04/17/2024 with ultrasound guidance Unfortunately she has not yet had benefit from that injection. I discussed it may still be a littleearly as it can on occasion take up to 2 weeks. However I also now have concern that this may be more secondary to a lumbar radiculopathy as she isalso reporting pain in the back that radiates down the leg past the knee. MRIs of both the hip and lumbar spine ordered. 2) chronic bilateral knee pain Here for viscosupplementation #3 BL knee, which was completed Note: Patient's daughter works at our [employer] office as closing machine operator Violetta Nicole [phone] Diagnosis: OA bilateral knee. The patient is here for the THIRD of a series of Gelsyn injections. There [...] OA bilateral knee. Plan: The patient will message me in 6 weeks. Aware these can be done every 6 months if needed. Also aware that prior authorization is needed before scheduling these injections. Augie Victoria MD Sports Medicine Primary Care Orthopaedics [address] [phone] documented in this encounter Plan of Treatment Upcoming Encounters Date Type Department Care Team (Late st Contact Info) Description 05/05/2024 12:15 PM EST Imaging Radiology [address] [place] [address] 05/05/2024 1:00 PM EST Imaging Radiology [address] [place] [address] 05/06/2024 8:00 AM EST Office Visit Family Medicine [address] [place] [phone] Antione Rocha MD [address] [place] [address] [place] [address] 06/04/2024 8:00 AM EST Office Visit Interventional Pain Center [facility] [address] [place] [phone] Rochelle Christianson PA-C [address] [place] [address] 10/23/2024 11:00 AM EDT Office Visit Cardiology [address] [place] [address] Yesenia Garcia PA-C [address] [place] [address] Scheduled Orders Name Type Priority Associated Diagnoses Orde r Schedule MRI HIP LEFT WO CONTRAST Medical Imaging Routine Hip pain, left Expected: 04/24/2024, Expires: 05/25/2025 MRI L SPINE WO CONTRAST Medical Imaging Routine Chronic left-sided low back pain with left-sided sciatica Expected: 04/24/2024, Expires: 05/25/2025 XR L SPINE MINIMUM 4 VIEWS Medical Imaging Routine Chronic left-sided low back pain with left-sided sciatica Expected: 04/24/2024, Expires: 05/25/2025 Scheduled Procedures Name Priority Associated Diagnoses Date/Ti me COLONOSCOPY FLEXIBLE PROXIMAL DIAGNOSTIC Recall History of colon polyps Scheduled Referrals Name Type Priority Associated Diagnoses Orde r Schedule PAIN MEDICINE REFERRAL OP Referral Within 10 days (routine) Chronic left-sided low back pain with left-sided sciatica Ordered: 04/24/2024 Health Maintenance Due Date Last Done Comments DTap/Tdap Vaccines (1 - Tdap) 1959 Zoster Vaccines (1 of 2) 1990 Pneumococcal Vaccine: 50+ Years (2 of 2 - PPSV23) 11/24/2015 11/23/2014 Colonoscopy 10/27/2021 10/27/2016, 10/08, 09/22/2011, Additional history exists Adult Wellness Visit 10/21/2022 10/21/2021, 09/17/19 CKD PHOS USE SMARTSET 47587 05/15/2023 02/0 09/2022, 05/05/2021, 01/27/2020, Additional history exists COVID-19 Vaccine ( season) 2023 04/05/2021, 09/22/2020, 08/24/2020 CKD HGB USE SMARTSET 56950 03/05/202403/05, 03/05/2023, 12/21/2022, Additional history exists DXA Scan 04/04/2024 04/04/2022, 04/04/2022 Depression Monitoring 07/18/2024 07/19/2023 GFR 07/21/2024 01/21/2024, 0906/2023, 09/06/2023, Additional history exists Albumin/Creatinine Ratio 09/05/2024 09/06/2023, 051 TSH 12/10/2024 12/11/2023, 08/09, 11/13/2022, Additional history exists RETIRED - COLONOSCOPY-EVERY 5 YRS AGES 18-100 Discontinued 10/27/2016, 10/27/2016, 10/09/2011, Additional history exists VITAMIN D LEVEL ONCE IN A LIFETIME-USE SMARTSET# [id number] Completed 10/09/2022, 08/16/2022 Influenza Vaccine (FLU shot) [...] encounter Visit Diagnoses Diagnosis Primary osteoarthritis of both knees- Primary Primary localized osteoarthrosis, lower leg Hip pain, left Pain in joint, pelvic region and thigh Chronic left-sided low back pain with left-sided sciatica documented in this encounter Advance Directives Healthcare Agents on File Name Relationship Healthcare Agent Relationshi p Communication Ailyn Cristian Adult Child Health Care Repr esentative (appointed verbally by patient or by statute hierarchy) Care Teams Earth Science Technician Relationship Specialty Start Date End Date Antione Rocha MD [address] [place] [address] [place] [address] PCP - General Family Medicine 02/02/21 documented as of this encounter
--- OUTSIDE RECORDS SUMMARY | 2024-05-06 06:07 | External Medical Summary | Summary of Care ---
Author Name Unknown Organization [facility] Address [address] [place] [address] Phone [phone] Care Team Providers Care Brand Engineer Name Role Phone Antione Rocha MD Primary Care Provide r Reason for Visit * Reason Onset Date Comments Pre Cert/Prior Auth 04/10/2024 Gelsyn. Encounter Details Date Type Department Care Team (Late st Contact Info) Description 04/10/2024 Telephone Orthopaedics [facility] [address] [place] [address] Augie Marcus MD [address] [place] [address] Pre Cert/Prior Auth (Gelsyn.) Allergies Active Allergy Reactions Criticality Noted Date [...] 03/14/2024 3:30 PM EST 03/13/20 24 Active documented as of this encounter (statuses [...] tis 07/21/2016 Coronary artery disease invo lving [place] coronary artery of [place] heart without angina pectoris 07/21/2016 documented as [...] breast, colon screening. REQUEST shot recs Distant [place]? 08/23 TTE 5mm pericardial effusion-on repeat, appears [...] Used Date Smoking Tobacco: Former Cigarettes 1 01 07 976 1985 Smokeless Tobacco: Never Alcohol Use [...] f ile documented as of this encounter Miscellaneous Notes * Telephone Encounter - Serena Paez LPN - 04/23/2024 4:24 PM EST Orthopaedics Pre-Cert Request Medication/Disease State Information: Medication: Hyaluronate- Gelsyn-3 ([id number]): inject 16.8 mg (2 mL) once weekly for 3 weeks (total of 6 injections). Route to [id number] Is there radiological proof(x-ray, cat scan, mri of osteoarthritis? yesIf yes, date of scan: Has the patient tried physical therapy?yes Has the patient tried tylenol or NSAIDs?yes Has the patient failed corticosteroid injections of the knee?yes Has the patient tried weight loss?no Has the patient tried knee bracing?yes Has the patient tried a home exercise program?no Diagnosis (including ICD-10): Bilateral Osteoarthritis of Knee- M17.0 Medication(s) Tried/Failed/Contraindicated: Is this for continuation of therapy?(If yes, was there improvement?) See corresponding visit note(s) for additional supporting clinical information. Office Information: Prescriber: augie marcus documented in this encounter Plan of Treatment Upcoming Encounters Date Type Department Care Team (Late st Contact Info) Description 04/24/2024 3:00 PM EST Office Visit Orthopaedics [address] [phone] Augie Marcus MD [address] [place] [address] 05/06/2024 8:00 AM EST Office Visit Family Medicine [address] [place] [phone] Antione Rocha MD [address] [place] [address] [place] [address] 10/23/2024 11:00 AM EDT Office Visit Cardiology [address] [place] [address] Yesenia Garcia PA-C [address] [place] [address] Scheduled Procedures Name Priority Associated Diagnoses Date/Ti [...] 10/21/2021, 09/17/19 21 CKD PHOS USE SMARTSET 40770 05/15/2023 02/0 09/2022, 05/05/2021, 01/27/2020, Additional history exists COVID-19 Vaccine ( season) 2023 04/05/2021, 09/22/2020, 08/24/2020 CKD HGB USE SMARTSET [id number] 03/05/202403/05, 03/05/2023, 12/21/2022, Additional history exists DXA Scan 04/04/2024 04/04/2022, 04/04/2022 Depression Monitoring 07/18/2024 07/19/2023 GFR 07/21/2024 01/21/2024, 0 06/2023, 09/06/2023, Additional history exists Albumin/Creatinine Ratio 09/05/2024 09/06/2023, 1 TSH 12/10/2024 12/11/2023, 08/09, 11/13/2022, Additional history exists RETIRED - COLONOSCOPY-EVERY 5 YRS AGES 18-100 Discontinued 10/27/2016, 10/27/2016, 10/09/2011, Additional history exists VITAMIN D LEVEL ONCE IN A LIFETIME-USE SMARTSET# [id number] Completed 10/09/2022, 08/16/2022 Influenza Vaccine (FLU shot) [...] patient or by statute hierarchy) Care Teams Brand Engineer Relationship Specialty Start Date End Date Antione Rocha MD [address] [place] [address] [place] [phone] PCP - General Family Medicine 02/02/21 documented as of this encounter
--- OUTSIDE RECORDS SUMMARY | 2024-05-06 06:07 | External Medical Summary | Summary of Care ---
Author Name Unknown Organization [facility] Address [address] [place] [address] Phone [phone] Care Team Providers Care Engine Setter Name Role Phone Antione Rocha MD Primary Care Provide r Reason for Visit * Reason Comments Follow Up L hip Pain Encounter Details Date Type Department Care Team (Latest Contact Info) Description 04/17/2024 3:00 PM EST Office Visit Orthopaedics [address] [phone] Augie Victoria MD [address] [place] [address] Primary osteoarthritis of both knees*; Hip pain, left Allergies Active Allergy Reactions Criticality Noted Date Comments Rosuvastatin Calcium 07/21/2016 myalgia documented as of this encounter (statuses as of 04/18/2024) Medications aspirin enteric coated 81 MG TBEC [...] of both knees 16.8 mg IX ONCE 04/17/2024 04/17/2024 Ended sodium hyaluronate (Gelsyn-3) 16.8 MG/2ML inj 16.8 mgIndications:Primary osteoarthritis of both knees 16.8 mg IX ONCE 04/17/2024 04/17/2024 Ended lidocaine 1 % inj 10 mgIndications:Hip pain, left 10 mg IX ONCE 04/17/2024 04/17/2024 Ended Triamcinolone Acetonide (Kenalog) 40 MG/ML inj 40 mgIndications:Hip pain, left 40 mg IX ONCE 04/17/2024 04/17/2024 Ended documented as of this encounter (statuses as of 04/18/2024) Active Problems Problem Noted Date Diagnosed Date [...] as of this encounter (statuses as of 04/18/2024) Resolved Problems Problem Noted Date Diagnosed Date [...] breast, colon screening. REQUEST shot recs Distant [place]? 08/23 TTE 5mm pericardial effusion-on repeat, appears to be fat pad. 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 documented as of this encounter (statuses as of 04/18/2024) Immunizations Name Administration Dates Next Due COVID-19 [...] No 07/26/2023 Does the household have a [facility] source [facility] income? (Household - for ages [...] Progress Notes * Augie Victoria MD - 04/17/2024 3:00 PM EST Violetta Nicole [id number] Violetta Nicole is a 83 year old female who presents for NEW evaluation of left hip injury/pain and [facility] the [facility]. Consult requested by [...] COLONOSCOPY FLEXIBLE PROXIMAL DIAGNOSTIC performed by Greta Holloway, at [facility],HYPERPLASTIC AND ADENOMATOUS POLYPS REPEAT COLONOSCOPY IN 5 YEARS Dyslipidemia, goal LDL below 100 07/19/2017 Essential hypertension with goal blood pressure less than 140/90 07/21/2016 Gastroesophageal reflux disease without esophagitis 07/21/2016 Kidney disease, chronic, stage III (GFR 30-59 ml/min) ([facility]) 01/24/2017 Old myocardial infarct 01/24/2017 Pericardial effusion 08/14/2016 Well adult exam 07/21/2016 Prefers to stop breast, colon screening. REQUEST shot recs Distant [place]? 08/23 TTE 5mm pericardial effusion-on repeat, appears [...] yrs as of 10/21/2021 Likes--kylah. Active w/mult state fairs. Born in [place]. Social Needs [...] Stability Do you currently live in a nursing home or have no steady place to sleep [...] No edema in the affected extremity (s) Hip and Pelvis Exam Palpation: Mild tenderness over the anterior hip joint but significant tenderness at the greater trochanter Hernia: No ROM: Flexion (normal 120-130): L - 120, R - 120 Internal at 90 (normal 45): L - 30, R - 30 External at 90 (normal 50): L - 50, R - 50 Radiology: 04/10/24: 3 view xr L hip including AP view pelvis. FINDINGS Mild osteoarthritis left hip. No fracture or dislocation. Lumbosacral disc disease. 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 The patient is here for the SECOND of a series of Gelsyn injections. There [...] follow up in 1 Week for reinjection. PROCEDURE NOTE: TROCHANTERIC BURSA INJECTION Laterality: Left Time out: Prior to injection, a time out was called to confirm the administration of appropriate medicine, patient name, procedure and confirm to the best of our ability and knowledge the presence of any necessary risks and benefits. Patient verbalized understanding. Ultrasound utilized to guide injection. During the procedure, the needle was visualized in plane and was advanced with continuous ultrasound guidance to the appropriate anatomical landmark as described in the procedure. Ultrasound required due to location of joint being too deep to accurately inject without ultrasoundguidance Sterile technique applied using gloves, chlorhexadine, and alcohol swabs. Ethyl chloride spray for local anesthetic. Trochanteric bursa region injected with lateral approach using 3.5 inch, 22 gauge needle. Injected with 1 mL Lidocaine 1% - 1 mL Triamcinolone Acetonide 40 mg/mL >> inject 2 mL. Patient tolerated procedure with no significant bleeding or adverse reaction. Patient instructed to call or return to clinic for fever, warmth, unusual redness at injection sitefor potential infection. Patient also advised regarding post-procedural pain. Augie Victoria MD Sports Medicine Primary Care Orthopaedics [address] [address] documented in this encounter Nursing Notes * Serena Paez LPN - 04/17/2024 12:46 PM EST F/u B/L knee SECOND of a series Gelsyn injections New evaluation L hip pain x 2 mos Xray L hip 04/10/24 Pt accompanied by her spouse Rachel AdkinsShaylee JOHNSON documented in this encounter Plan of Treatment Upcoming Encounters Date Type Department Care Team (Late st Contact Info) Description 04/24/2024 3:00 PM EST Office Visit Orthopaedics [address] [place] [phone] Augie Victoria MD [address] [place] [address] 05/06/2024 8:00 AM EST Office Visit Family Medicine [address] [place] [address] Antione Rocha MD [address] [place] [address] [place] [address] 10/23/2024 11:00 AM EDT Office Visit Cardiology [address] [place] [address] Yesenia Garcia PA-C [address] [place] [address] Scheduled Orders Name Type Priority Associated Diagnoses Orde r Schedule POINT OF CARE US MAJOR JOINT INJECTION, ORTHO Medical Imaging Routine Hip pain, left Ordered: 04/17/2024 Scheduled Procedures Name Priority Associated Diagnoses Date/Ti [...] 10/21/2021, 09/17/19 21 CKD PHOS USE SMARTSET 52865 05/15/2023 02/0 09/2022, 05/05/2021, 01/27/2020, Additional history exists COVID-19 Vaccine ( season) 2023 04/05/2021, 09/22/2020, 08/24/2020 CKD HGB USE SMARTSET 39302 03/05/2024 11/27 /2023, 03/05/2023, 12/21/2022, Additional history exists DXA Scan 04/04/2024 04/04/2022, 04/04/2022 Depression Monitoring 07/18/2024 07/19/2023 GFR 07/21/2024 01/21/2024, 0 06/2023, 09/06/2023, Additional history exists Albumin/Creatinine Ratio 09/05/2024 09/06/2023, 08/07 TSH 12/10/2024 12/11/2023, 08/09, 11/13/2022, Additional history exists RETIRED - COLONOSCOPY-EVERY 5 YRS AGES 18-100 Discontinued 10/27/2016, 10/27/2016, 10/09/2011, Additional history exists VITAMIN D LEVEL ONCE IN A LIFETIME-USE SMARTSET# [id number] Completed 10/09/2022, 08/16/2022 Influenza Vaccine (FLU shot) [...] Action Action Date Dose Rate Site lidocaine 1 % inj 10 mg 10 mg, Intra-Articular, ONCE, On Darcy 04/17/24 at 1415, For 1 doseIndications:Hip pain, left Given 04/17/2024 1:42 PM EST 10 mg Hip Left sodium hyaluronate (Gelsyn-3) 16.8 MG/2ML inj 16.8 mg 16.8 mg, Intra-Articular, ONCE, On Darcy 04/17/24 at 1415, For 1 doseIndications:Primary osteoarthritis of both knees Given 04/17/2024 1:42 PM EST 16.8 mg Knee Right sodium hyaluronate (Gelsyn-3) 16.8 MG/2ML inj 16.8 mg 16.8 mg, Intra-Articular, ONCE, On Darcy 04/17/24 at 1415, For 1 doseIndications:Primary osteoarthritis of both knees Given 04/17/2024 1:42 PM EST 16.8 mg Knee Left Triamcinolone Acetonide (Kenalog) 40 MG/ML inj 40 mg 40 mg, Intra-Articular, ONCE, On Darcy 04/17/24 at 1415, For 1 doseIndications:Hip pain, left Given 04/17/2024 1:42 PM EST 40 mg Hip Left documented in this encounter Advance Directives Healthcare Agents on File Name Relationship Healthcare Agent Relationshi p Communication Ailyn Foster Adult Child Health Care Repr esentative (appointed verbally by patient or by statute hierarchy) Care Teams Engine Setter Relationship Specialty Start Date End Date Antione Rocha MD [address] [place] [address] [place] [address] PCP - General Family Medicine 02/02/21 documented as of this encounter
--- OUTSIDE RECORDS SUMMARY | 2024-05-06 06:07 | External Medical Summary | Summary of Care ---
Author Name Unknown Organization [facility] Address [address] [place] [address] Phone [phone] Care Team Providers Care Critical Care Nurse Specialist Name Role Phone Antione Rocha MD Primary Care Provide r Reason for Visit * Reason Comments Follow Up L hip Pain Encounter Details Date Type Department Care Team (Latest Contact Info) Description 04/17/2024 3:00 PM EST Office Visit Orthopaedics [address] [phone] Augie Victoria MD [address] [place] [address] Primary osteoarthritis of both knees*; Hip pain, left Allergies Active Allergy Reactions Criticality Noted Date Comments Rosuvastatin Calcium 07/21/2016 myalgia documented as of this encounter (statuses as of 04/17/2024) Medications aspirin enteric coated 81 MG TBEC [...] as of this encounter (statuses as of 04/17/2024) Active Problems Problem Noted Date Diagnosed Date [...] tis 07/21/2016 Coronary artery disease invo lving [place] coronary artery of [place] heart without angina pectoris 07/21/2016 documented as of this encounter (statuses as of 04/17/2024) Resolved Problems Problem Noted Date Diagnosed Date [...] breast, colon screening. REQUEST shot recs Distant [place]? 08/23 TTE 5mm pericardial effusion-on repeat, appears to be fat pad. 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 documented as of this encounter (statuses as of 04/17/2024) Immunizations Name Administration Dates Next Due COVID-19 [...] No 07/26/2023 Does the household have a [facility] source [facility] income? (Household - for [...] - 04/17/2024 3:00 PM EST Violetta Nicole [id number] Violetta Nicole is a 83 year old female who presents for NEW evaluation of left hip injury/pain and receive [facility]. Consult requested by [...] disease, chronic, stage III (GFR 30-59 ml/min) ([facility]) 01/24/2017 Old myocardial infarct 01/24/2017 Pericardial effusion 08/14/2016 Well adult exam 07/21/2016 Prefers to stop breast, colon screening. REQUEST shot recs Distant [place]? 08/23 TTE 5mm pericardial effusion-on repeat, appears [...] Stability Do you currently live in a skilled nursing or have no steady place to sleep [...] knee pain Here for viscosupplementation Violetta Hansenbritney [id number] Diagnosis: OA bilateral knee. The patient is [...] follow up in 1 Week for reinjection. Augie Victoria MD Primary Care Sports Medicine Orthopaedics [address] [phone] documented in this encounter Nursing Notes * Serena Paez LPN - 04/17/2024 12:46 PM EST F/u B/L knee SECOND of a series Gelsyn injections New evaluation L hip pain x 2 mos Xray L hip 04/10/24 Pt accompanied by her spouse Rachel Pimentel ELIZABETH documented in this encounter Plan of Treatment Upcoming Encounters Date Type Department Care Team (Late st Contact Info) Description 04/24/2024 3:00 PM EST Office Visit Orthopaedics [address] [place] [phone] Augie Victoria MD [address] [place] [address] 05/06/2024 8:00 AM EST Office [address] [address] Antione Rocha MD [address] [place] [address] [place] [address] 10/23/2024 11:00 AM EDT Office Visit Cardiology [address] [place] [address] Yesenia Garcia PA-C [address] [place] [address] Scheduled Orders Name Type Priority Associated Diagnoses [...] 10/21/2022 10/21/2021, 09/17/19 CKD PHOS USE SMARTSET 41459 05/15/2023 02/0 09/2022, 05/05/2021, 01/27/2020, Additional history exists COVID-19 Vaccine ( season) 2023 04/05/2021, 09/22/2020, 08/24/2020 CKD HGB USE SMARTSET 06415 03/05/202403/05, 03/05/2023, 12/21/2022, Additional history exists DXA Scan 04/04/2024 04/04/2022, 04/04/2022 Depression Monitoring 07/18/2024 07/19/2023 GFR 07/21/2024 01/21/2024, 09/0 06/2023, 09/06/2023, Additional history exists Albumin/Creatinine Ratio 09/05/2024 09/06/2023, 05 TSH 12/10/2024 12/11/2023, 08/09, 11/13/2022, Additional history exists RETIRED - COLONOSCOPY-EVERY 5 YRS AGES 18-100 Discontinued 10/27/2016, 10/27/2016, 10/09/2011, Additional history exists VITAMIN D LEVEL ONCE IN A LIFETIME-USE SMARTSET# [id number] Completed 10/09/2022, 08/16/2022 Influenza Vaccine (FLU shot) [...] patient or by statute hierarchy) Care Teams Critical Care Nurse Specialist Relationship Specialty Start Date End Date Antione Rocha MD [address] [place] [address] [place] [address] PCP - General Family Medicine 02/02/21 documented as of this encounter
--- OUTSIDE RECORDS SUMMARY | 2024-05-06 06:07 | External Medical Summary | Summary of Care ---
Author Name Unknown Organization [facility] Address [address] [place] [address] Phone [phone] Care Team Providers Care Police Captain Precinct Name Role Phone Antione Rocha MD Primary Care Provide r Reason for Visit * Reason Comments Follow Up L hip Pain Encounter Details Date Type Department Care Team (Latest Contact Info) Description 04/17/2024 3:00 PM EST Office Visit Orthopaedics [address] [phone] Augie Victoria MD [address] [place] [address] Primary osteoarthritis of both knees*; Hip pain, [...] tis 07/21/2016 Coronary artery disease invo lving [place] coronary artery of [place] heart without angina pectoris 07/21/2016 documented as [...] No 07/26/2023 Does the household have a [facility] source [facility] income? (Household - for [...] - 04/17/2024 3:00 PM EST Violetta Nicole [id number] Violetta Nicole is a 83 year old female who presents for NEW evaluation of left hip injury/pain and receive [facility] the [facility]. Consult requested by [...] disease, chronic, stage III (GFR 30-59 ml/min) ([facility]) 01/24/2017 Old myocardial infarct 01/24/2017 [...] Stability Do you currently live in a alf or have no steady place to sleep [...] knee pain Here for viscosupplementation Violetta Hansenbritney [id number] Diagnosis: OA bilateral knee. The patient is [...] Victoria MD Primary Care Sports Medicine Orthopaedics [address] [address] documented in this encounter Nursing Notes * [...] 04/24/2024 3:00 PM EST Office Visit Orthopaedics [address] [place] [phone] Augie Victoria MD [address] [place] [address] 05/06/2024 8:00 AM EST Office Visit [address] Medicine [address] [address] Antione Rocha MD [address] [place] [address] [place] [address] 10/23/2024 11:00 AM EDT Office Visit Cardiology [address] [place] [address] Yesenia Garcia PA-C [address] [place] [address] Scheduled Orders Name Type Priority Associated Diagnoses [...] 10/21/2022 10/21/2021, 09/17/19 CKD PHOS USE SMARTSET 16744 05/15/2023 02/0 09/2022, 05/05/2021, 01/27/2020, Additional history exists COVID-19 Vaccine ( season) 2023 04/05/2021, 09/22/2020, 08/24/2020 CKD HGB USE SMARTSET 75070 03/05/202403/05, 03/05/2023, 12/21/2022, Additional history exists DXA Scan 04/04/2024 04/04/2022, 04/04/2022 Depression Monitoring 07/18/2024 07/19/2023 GFR 07/21/2024 01/21/2024, 09/0 06/2023, 09/06/2023, Additional history exists Albumin/Creatinine Ratio 09/05/2024 09/06/2023, 05 TSH 12/10/2024 12/11/2023, 08/09, 11/13/2022, Additional history exists RETIRED - COLONOSCOPY-EVERY 5 YRS AGES 18-100 Discontinued 10/27/2016, 10/27/2016, 10/09/2011, Additional history exists VITAMIN D LEVEL ONCE IN A LIFETIME-USE SMARTSET# 10991 Completed 10/09/2022, 08/16/2022 Influenza Vaccine (FLU shot) [...] 16.8 mg 16.8 mg, Intra-Articular, ONCE, On Daryc 04/17/24 at 1415, For 1 doseIndications:Primary osteoarthritis [...] patient or by statute hierarchy) Care Teams Police Captain Precinct Relationship Specialty Start Date End Date Antione Rocha MD [address] [place] [address] [place] [address] PCP - General Family Medicine 02/02/21 documented as of this encounter
--- OUTSIDE RECORDS SUMMARY | 2024-05-06 06:07 | External Medical Summary | Summary of Care ---
Author Name Unknown Organization [facility] Address [address] [place] [address] Phone [phone] Care Team Providers Care Corporate Officer Name Role Phone Antione Rocha MD Primary Care Provide r Reason for Referral * Evaluate & Treat - Unlimited Visits (Within 10 days (routine)) - Authorized Specialty Diagnoses / Procedures Referred By Contac t Referred To Contact Pain Management / Pain Medicine Diagnoses Chronic left-sided low back pain with left-sided sciatica Augie Victoria MD [address] [place] [address] Phone: tel: fax: Referral ID Status Reason Start Date Expiration Date Visits Requested Visits Authorized [id number] Authorized Specialty Services Required 04/24/2024 999 999 [...] pain if not done previously. Fax No. [facility] [phone] or contact helpdesk technician [phone] Fax No. [facility] [phone] or contact helpdesk technician [phone] Fax No. [facility] [phone] or contact helpdesk technician [phone] * Precert (Within 10 days (routine)) - Authorized Specialty Diagnoses / Procedures Referred By Contac t Referred To Contact Radiology Diagnoses Chronic left-sided low back pain with left-sided sciatica Procedures MRI L SPINE WO CONTRAST Augie Victoria MD [address] [place] [facility] [place] [address] Phone: tel: fax: Referral ID Status Reason Start Date Expiration Date V isits Requested Visits Authorized [id number] Authorized 04/24/2024 999 999 * Precert (Within 10 days (routine)) - Authorized Specialty Diagnoses / Procedures Referred By Contac t Referred To Contact Radiology Diagnoses Hip pain, left Procedures MRI HIP LEFT WO CONTRAST Augie Victoria MD [address] [place] [address] Phone: tel: fax: Referral ID Status Reason Start Date Expiration Date V isits Requested Visits Authorized [id number] Authorized 04/24/2024 999 999 Reason for Visit * Reason Comments Pain Encounter Details Date Type Department Care Team (Latest Contact Info) Description 04/24/2024 3:00 PM EST Office Visit Orthopaedics [address] [place] [phone] Augie Victoria MD [address] [place] [address] Primary osteoarthritis of both knees*; Hip pain, [...] both knees 16.8 mg IX ONCE 04/24/2024 04/24/2024 Ended sodium hyaluronate (Gelsyn-3) 16.8 MG/2ML inj 16.8 mgIndications:Primary osteoarthritis of both knees 16.8 mg IX ONCE 04/24/2024 04/24/2024 Ended documented as of this encounter (statuses [...] tis 07/21/2016 Coronary artery disease invo lving [place] coronary artery of [place] heart without angina pectoris 07/21/2016 documented as [...] breast, colon screening. REQUEST shot recs Distant [place]? 08/23 TTE 5mm pericardial effusion-on repeat, appears [...] - 04/24/2024 3:00 PM EST Violetta Nicole [id number] Violetta Nicole is a 83 year old female who presents for NEW evaluation of left hip injury/pain and receive viscosupplementation in the bilateral knee to [facility] Orthopaedics and Sports Medicine. Consult requested by [...] by Greta Holloway DO at [facility] [place],HYPERPLASTIC AND ADENOMATOUS POLYPS REPEAT COLONOSCOPY IN 5 YEARS Dyslipidemia, goal LDL below 100 07/19/2017 Essential hypertension with goal blood pressure less than 140/90 07/21/2016 Gastroesophageal reflux disease without esophagitis 07/21/2016 Kidney disease, chronic, stage III (GFR 30-59 ml/min) ([facility]) 01/24/2017 Old myocardial infarct 01/24/2017 Pericardial effusion 08/14/2016 Well adult exam 07/21/2016 Prefers to stop breast, colon screening. REQUEST shot recs Distant [place]? 08/23 TTE 5mm pericardial effusion-on repeat, appears [...] 61 yrs as of 10/21/2021 Likes--kylah. Active [facility]. Born in [place]. Social Needs [...] Stability Do you currently live in a correction or have no steady place to sleep [...] completed Note: Patient's daughter works at our [employer] office as customer retention specialist Violetta Nicole [id number] Diagnosis: OA bilateral knee. The patient is [...] is needed before scheduling these injections. Augie Vitcoria MD Sports Medicine Primary Care Orthopaedics [address] [address] documented in this encounter Plan of Treatment Upcoming Encounters Date Type Department Care Team (Late st Contact Info) Description 05/05/2024 12:15 PM EST Imaging Radiology [address] [place] [address] 05/05/2024 1:00 PM EST Imaging Radiology [address] [place] [address] 05/06/2024 8:00 AM EST Office Visit Family Medicine [address] [place] [address] Antione Rocha MD [address] [place] [address] [place] [address] 06/04/2024 8:00 AM EST Office Visit [facility] [address] [place] [phone] Rochelle Christianson PA-C [address] [place] [address] 10/23/2024 11:00 AM EDT Office Visit Cardiology [address] [place] [address] Yesenia Garcia PA-C [address] [place] [address] Scheduled Orders Name Type Priority Associated Diagnoses [...] 10/21/2022 10/21/2021, 09/17/19 CKD PHOS USE SMARTSET 72718 05/15/2023 02/0 09/2022, 05/05/2021, 01/27/2020, Additional history exists COVID-19 Vaccine ( season) 2023 04/05/2021, 09/22/2020, 08/24/2020 CKD HGB USE SMARTSET 94857 03/05/202403/05, 03/05/2023, 12/21/2022, Additional history exists DXA Scan 04/04/2024 04/04/2022, 04/04/2022 Depression Monitoring 07/18/2024 07/19/2023 GFR 07/21/2024 01/21/2024, 0906/2023, 09/06/2023, Additional history exists Albumin/Creatinine Ratio 09/05/2024 09/06/2023, 051 TSH 12/10/2024 12/11/2023, 08/09, 11/13/2022, Additional history exists RETIRED - COLONOSCOPY-EVERY 5 YRS AGES 18-100 Discontinued 10/27/2016, 10/27/2016, 10/09/2011, Additional history exists VITAMIN D LEVEL ONCE IN A LIFETIME-USE SMARTSET# [id number] Completed 10/09/2022, 08/16/2022 Influenza Vaccine (FLU shot) [...] with left-sided sciatica documented in this encounter Administered Medications Inactive Administered Medications - up to 3 most recent administrations Medication Order MAR Action Action Date Dose Rate Site sodium hyaluronate (Gelsyn-3) 16.8 MG/2ML inj 16.8 mg 16.8 mg, Intra-Articular, ONCE, On Darcy 04/24/24 at 1345, For 1 doseIndications:Primary osteoarthritis of both knees Given 04/24/2024 2:26 PM EST 16.8 mg Knee Right sodium hyaluronate (Gelsyn-3) 16.8 MG/2ML inj 16.8 mg 16.8 mg, Intra-Articular, ONCE, On Darcy 04/24/24 at 1345, For 1 doseIndications:Primary osteoarthritis of both knees Given 04/24/2024 2:25 PM EST 16.8 mg Knee Left documented in this encounter Advance Directives Healthcare Agents on File Name Relationship Healthcare Agent Relationshi p Communication Ailyn [place] Adult Child Health Care Repr esentative (appointed verbally by patient or by statute hierarchy) Care Teams Corporate Officer Relationship Specialty Start Date End Date Antione Rocha MD [address] [place] [address] [place] [address] PCP - General Family Medicine 02/02/21 documented as of this encounter
--- OUTSIDE RECORDS SUMMARY | 2024-05-06 06:07 | External Medical Summary | Summary of Care ---
Author Name Unknown Organization [facility] Address [address] [place] [address] Phone [phone] Care Team Providers Care Network Technical Analyst Name Role Phone Antione Rocha MD Primary Care Provide r Reason for Visit * Reason Onset Date Comments Med Request 04/10/2024 Encounter Details Date Type Department Care Team (Late st Contact Info) Description 04/10/2024 Telephone Orthopaedics [facility] [address] [place] [address] Augie Marcus MD [address] [place] [address] Med Request Allergies Active Allergy Reactions Criticality Noted Date Comments Rosuvastatin Calcium 07/21/2016 myalgia documented as of this encounter (statuses as of 04/23/2024) Medications aspirin enteric coated 81 MG TBEC [...] as of this encounter (statuses as of 04/23/2024) Active Problems Problem Noted Date Diagnosed Date [...] tis 07/21/2016 Coronary artery disease invo lving [place] coronary artery of [place] heart without angina pectoris 07/21/2016 documented as of this encounter (statuses as of 04/23/2024) Resolved Problems Problem Noted Date Diagnosed Date [...] as of this encounter (statuses as of 04/23/2024) Immunizations Name Administration Dates Next Due COVID-19 [...] weeks (total of 6 injections). Route to [id number] Is there radiological proof(x-ray, cat scan, mri [...] 04/24/2024 3:00 PM EST Office Visit Orthopaedics [address] [place] [phone] Augie Marcus MD [address] [place] [address] 05/06/2024 8:00 AM EST Office Visit Family Medicine [address] [place] [phone] Antione Rocha MD [address] [place] [address] [place] [address] 10/23/2024 11:00 AM EDT Office Visit Cardiology [address] [place] [address] Yesenia Garcia PA-C [address] [place] [address] Scheduled Procedures Name Priority Associated Diagnoses Date/Ti [...] 10/21/2021, 09/17/19 21 CKD PHOS USE SMARTSET 30763 05/15/2023 02/0 09/2022, 05/05/2021, 01/27/2020, Additional history exists COVID-19 Vaccine ( season) 2023 04/05/2021, 09/22/2020, 08/24/2020 CKD HGB USE SMARTSET 53066 03/05/202403/05, 03/05/2023, 12/21/2022, Additional history exists DXA Scan 04/04/2024 04/04/2022, 04/04/2022 Depression Monitoring 07/18/2024 07/19/2023 GFR 07/21/2024 01/21/2024, 06/2023, 09/06/2023, Additional history exists Albumin/Creatinine Ratio 09/05/2024 09/06/2023, 08/07 TSH 12/10/2024 12/11/2023, 08/09, 11/13/2022, Additional history exists RETIRED - COLONOSCOPY-EVERY 5 YRS AGES 18-100 Discontinued 10/27/2016, 10/27/2016, 10/09/2011, Additional history exists VITAMIN D LEVEL ONCE IN A LIFETIME-USE SMARTSET# 51383 Completed 10/09/2022, 08/16/2022 Influenza Vaccine (FLU shot) [...] patient or by statute hierarchy) Care Teams Network Technical Analyst Relationship Specialty Start Date End Date Antione Rocha MD [address] [place] [address] [place] [address] PCP - General Family Medicine 02/02/21 documented as of this encounter
--- OUTSIDE RECORDS SUMMARY | 2024-05-06 06:07 | External Medical Summary | Summary of Care ---
Author Name Unknown Organization [facility] Address [address] [place] [address] Phone [phone] Care Team Providers Care Salon Leader Name Role Phone Antione Rocha MD Primary Care Provide r Reason for Visit * Reason Onset Date Comments Pre Cert/Prior Auth 04/10/2024 Gelsyn. Encounter Details Date Type Department Care Team (Late st Contact Info) Description 04/10/2024 Telephone Orthopaedics [facility] [address] [place] [address] Augie Marcus MD [address] [place] [address] Pre Cert/Prior Auth (Gelsyn.) Allergies Active Allergy [...] Coronary artery disease invo lving [place] coronary artery of [place] heart without angina pectoris 07/21/2016 documented as [...] breast, colon screening. REQUEST shot recs Distant [place]? 08/23 TTE 5mm pericardial effusion-on repeat, appears [...] encounter Miscellaneous Notes * Telephone Encounter - Shantel Goetz OSA - 04/24/2024 8:06 AM EST SEE REFERRAL MESSAGE * Telephone Encounter - Serena Paez LPN - 04/23/2024 4:24 PM EST Orthopaedics Pre-Cert Request Medication/Disease State Information: Medication: Hyaluronate- Gelsyn-3 ([id number]): inject 16.8 mg (2 mL) once weekly for 3 weeks (total of 6 injections). Route to [id number] Is there radiological proof(x-ray, cat scan, mri [...] 04/24/2024 3:00 PM EST Office Visit Orthopaedics [address] [phone] Augie Marcus MD [address] [place] [address] 05/06/2024 8:00 AM EST Office Visit Family Medicine [address] [place] [phone] Antione Rocha MD [address] [place] [address] [place] [address] 10/23/2024 11:00 AM EDT Office Visit Cardiology [address] [place] [address] Yesenia Garcia, [place]ER[place] [address] [place] [address] Scheduled Procedures Name Priority Associated Diagnoses Date/Ti [...] 10/21/2021, 09/17/19 21 CKD PHOS USE SMARTSET 73087 05/15/2023 02/0 09/2022, 05/05/2021, 01/27/2020, Additional history exists COVID-19 Vaccine ( season) 2023 04/05/2021, 09/22/2020, 08/24/2020 CKD HGB USE SMARTSET 59317 03/05/202403/05, 03/05/2023, 12/21/2022, Additional history exists DXA Scan 04/04/2024 04/04/2022, 04/04/2022 Depression Monitoring 07/18/2024 07/19/2023 GFR 07/21/2024 01/21/2024, 06/2023, 09/06/2023, Additional history exists Albumin/Creatinine Ratio 09/05/2024 09/06/2023, 08/07 TSH 12/10/2024 12/11/2023, 08/09, 11/13/2022, Additional history exists RETIRED - COLONOSCOPY-EVERY 5 YRS AGES 18-100 Discontinued 10/27/2016, 10/27/2016, 10/09/2011, Additional history exists VITAMIN D LEVEL ONCE IN A LIFETIME-USE SMARTSET# 57830 Completed 10/09/2022, 08/16/2022 Influenza Vaccine (FLU shot) [...] patient or by statute hierarchy) Care Teams Salon Leader Relationship Specialty Start Date End Date Antione Rocha MD [address] [place] [address] [place] [address] PCP - General Family Medicine 02/02/21 documented as of this encounter
--- OUTSIDE RECORDS SUMMARY | 2024-05-06 06:07 | External Medical Summary | Summary of Care ---
Author Name Unknown Organization [facility] Address [address] [place] [address] Phone [phone] Care Team Providers Care Labor Expediter Name Role Phone Antione Rocha MD Primary Care Provide r Reason for Visit * Reason Comments Follow Up B/L knee Knee Pain Encounter Details Date Type Department Care Team (Latest Contact Info) Description 04/10/2024 3:00 PM EST Office Visit Orthopaedics [address] [phone] Augie Victoria MD [address] [place] [address] Primary osteoarthritis of right knee*; Primary osteoarthritis [...] right knee 16.8 mg IX ONCE 04/10/2024 04/11/2024 Active sodium hyaluronate (Gelsyn-3) 16.8 MG/2ML inj 16.8 mgIndications:Primary osteoarthritis of left knee 16.8 mg IX ONCE 04/10/2024 04/11/19 25 Active documented as of this encounter [...] tis 07/21/2016 Coronary artery disease invo lving [place] coronary artery of [place] heart without angina pectoris 07/21/2016 documented as [...] breast, colon screening. REQUEST shot recs [place]? 08/23 TTE 5mm pericardial effusion-on repeat, appears [...] - 04/10/2024 3:00 PM EST Violetta Nicole [id number] Diagnosis: OA bilateral knee. The patient is [...] Victoria MD Primary Care Sports Medicine Orthopaedics [address] [phone] documented in this encounter Nursing Notes * Serena Paez LPN - 04/10/2024 12:54 PM EST F/u B/L knee pain FIRST of a series Gelsyn injections Pt accompanied by her spouse Rachel AdkinsShaylee JOHNSON documented in this encounter Plan of Treatment Upcoming Encounters Date Type Department Care Team (Late st Contact Info) Description 04/17/2024 3:00 PM EST Office Visit Orthopaedics [address] [phone] Augie Victoria MD [address] [place] [address] 04/24/2024 3:00 PM EST Office Visit Orthopaedics [address] [phone] Augie Victoria MD [address] [place] [address] 05/06/2024 8:00 AM EST Office Visit Family Medicine [address] [place] [phone] Antione Rocha MD [address] [place] [address] [place] [address] 10/23/2024 11:00 AM EDT Office Visit Cardiology [address] [place] [address] Yesenia Garcia PA-C [address] [place] [address] Scheduled Orders Name Type Priority Associated Diagnoses Orde r Schedule XR HIP UNILAT 2-3 VIEWS INCLUDING AP PELVIS Medical Imaging Routine Hip pain, left Ordered: 04/10/2024 Scheduled Procedures Name Priority Associated Diagnoses Date/Ti [...] 10/21/2021, 09/17/19 21 CKD PHOS USE SMARTSET 22405 05/15/2023 02/0 09/2022, 05/05/2021, 01/27/2020, Additional history exists COVID-19 Vaccine ( season) 2023 04/05/2021, 09/22/2020, 08/24/2020 CKD HGB USE SMARTSET 81358 03/05/202403/05, 03/05/2023, 12/21/2022, Additional history exists DXA Scan 04/04/2024 04/04/2022, 04/04/2022 Depression Monitoring 07/18/2024 07/19/2023 GFR 07/21/2024 01/21/2024, 06/2023, 09/06/2023, Additional history exists Albumin/Creatinine Ratio 09/05/2024 09/06/2023, 08/07 TSH 12/10/2024 12/11/2023, 08/09, 11/13/2022, Additional history exists RETIRED - COLONOSCOPY-EVERY 5 YRS AGES 18-100 Discontinued 10/27/2016, 10/27/2016, 10/09/2011, Additional history exists VITAMIN D LEVEL ONCE IN A LIFETIME-USE SMARTSET# 15920 Completed 10/09/2022, 08/16/2022 Influenza Vaccine (FLU shot) [...] region and thigh documented in this encounter Advance Directives Healthcare Agents on File Name Relationship Healthcare Agent Relationshi p Communication Ailyn Foster Adult Child Health Care Repr esentative (appointed verbally by patient or by statute hierarchy) Care Teams Labor Expediter Relationship Specialty Start Date End Date Antione Rocha MD [address] [place] [address] [place] [phone] PCP - General Family Medicine 02/02/21 documented as of this encounter
--- OUTSIDE RECORDS SUMMARY | 2024-05-06 06:08 | External Medical Summary | Summary of Care ---
Author Name Unknown Organization [facility] Address [address] [place] [address] Phone [phone] Care Team Providers Care Billet Driller Name Role Phone Antione Rocha MD Primary Care Provide r Reason for Referral * Evaluate & Treat - Unlimited Visits (Within 30 days (routine)) - Authorized Specialty Diagnoses / Procedures Referred By Contleanne t Referred To Contact Physical Therapy / Physical Medicine And Rehab Diagnoses Hip pain, left Sciatica of left side Antione Rocha MD [address] [place] [address] [place] [id number] Phone: tel: fax: Referral ID Status Reason Start Date Expiration Date Visits Requested Visits Authorized [id number] Authorized Specialty Services Required [phone] Question Answer Referral Priority Within 30 days (routine) Where should this appointment be scheduled? External Reason for Visit * Reason Comments Acute Hip pain Encounter Details Date Type Department Care Team (Late st Contact Info) Description 02/18/2024 9:40 AM EST Office Visit Family Medicine [address] [place] [phone] Antione Rocha MD [address] [place] [address] [place] [id number] Hip pain, left*; Sciatica of left side Allergies Active Allergy Reactions Criticality Noted Date Comments Rosuvastatin Calcium 07/21/2016 myalgia documented as of this encounter (statuses as of 02/18/2024) Medications aspirin enteric coated 81 MG TBEC Take 1 Tab by mouth daily. 100 Tab 3 017 Active Ventolin HFA 108 (90 Base) MCG/ACT Inhalation Aerosol SolutionIndicatio ns:Bronchitis, complicated Inhale by mouth 2 Puffs every 4 hours as needed for Shortness of Breath or Wheezing. 8 g 1 022 Active Additional Information Patient not taking.Reported on 02/18/2024 Sennosides-Docusa te Sodium 8.6-50 MG Oral Tablet (Senokot-S)Indica tions:Constipatio n, unspecified constipation type Take by mouth 1 Tablet in the morning. 30 Tablet 2 Active Additional Information Patient taking differently:1 Tablet OralDAILY PRN, Constipation, Informant: Patient, Reported on 02/18/2024 B-12 500 MCG Oral Tablet Take 1 Tablet by mouth every other day. Active Iron 325 (65 Fe) MG Oral Tablet Take 1 Tablet by mouth every other day. Active Alendronate Sodium 70 MG Oral Tablet (Fosamax)Indicati ons:Age-related osteoporosis without current pathological fracture TAKE 1 TABLET BY MOUTH ONCE A WEEK AT LEAST 30 MINUTES BEFORE FIRST FOOD/BEVERAGE DO NOT LIE DOWN FOR 30 MINUTES AFTER TAKING 12 Tablet 11 4 9:46 AM EDT 024 2024 Active Additional Information Patient taking differently: Sundays., Reported on 02/18/2024 Furosemide 20 MG Oral Tablet (Lasix) Weigh yourself once a week, if the weight is up more than 2-3 lbs you can take 1 tablet daily for 1-2 days. 30 Tablet 5 024 Active Folic Acid 800 MCG Oral Tablet Take 1 Tablet by mouth in the morning. Active Acetaminophen 325 MG Oral Tablet (Tylenol) Take 2 Tablets by mouth every 6 hours as needed for Pain, Moderate. Active Pravastatin Sodium 20 MG Oral Tablet (Pravachol) TAKE ONE TABLET BY MOUTH IN THE MORNING 100 Tablet 1 4 5:49 PM EDT 024 Active guaiFENesin ER 600 MG Oral Tablet Extended Release 12 Hour (Humibid LA)Indications:Ac trey cough Take 1 Tablet by mouth in the morning and 1 Tablet before bedtime. 40 Tablet Active Additional Information Patient not taking.Reported on 02/18/2024 Sertraline HCl 50 MG Oral Tablet (Zoloft)Indicatio ns:Current mild episode of major depressive disorder without prior episode (HCC) Take 1 Tablet by mouth in the morning. 90 Tablet 3 024 Active Levothyroxine Sodium 75 MCG Oral Tablet (Levoxyl)Indicati ons:Acquired hypothyroidism TAKE 1 TABLET BY MOUTH DAILY AT LEAST 30 MINUTES PRIOR TO FIRST MEAL OF THE DAY OR OTHER MEDICATIONS 90 Tablet 3 4 11:58 AM EDT 024 Active Gabapentin 100 MG Oral Capsule (Neurontin)Indica tions:Chronic bilateral low back pain without sciatica Take 1 Capsule by mouth at bedtime. 30 Capsule 5 024 Active Omeprazole 20 MG Oral Capsule Delayed Release (PriLOSEC) TAKE ONE CAPSULE BY MOUTH EVERY MORNING ONE HOUR BEFORE THE FIRST MEAL OF THE DAY 100 Capsule 1 4 6:21 PM EDT 024 Active Lisinopril 20 MG Oral Tablet (Prinivil)Indicat ions:Benign hypertension with stage 3b chronic kidney disease (HCC),HTN, goal below 150/90 Take 1 Tablet by mouth in the morning. 90 Tablet 1 024 Active Metoprolol Succinate ER 100 MG Oral Tablet Extended Release 24 Hour (Toprol XL)Indications:Es sential hypertension with goal blood pressure less than 140/90 Take 1 Tablet by mouth in the morning. 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 angina pectoris 07/21/2016 documented as of this encounter (statuses as of 02/18/2024) Resolved Problems Problem Noted Date Diagnosed Date [...] as of this encounter (statuses as of 02/18/2024) Immunizations Name Administration Dates Next Due COVID-19 [...] f ile documented as of this encounter Last Filed Vital Signs Vital Sign Reading Time Taken Comments Blood Pressure 116/64 02/18/2024 9:20 AM EST Pulse 71 02/18/2024 9:20 AM EST Temperature 35.5 C (95.9 F) 02/18/2024 9:20 AM ES T Respiratory Rate - - Oxygen Saturation 95% 02/18/2024 9:20 AM EST Inhaled Oxygen Concentration - - Weight 89 kg (196 lb 3.2 oz) 02/18/2024 9:20 AM EST Height - - Body Mass Index 28.15 08/16/2023 12:50 PM EDT documented in this encounter Progress Notes * Antione Rocha MD - 02/18/2024 9:23 AM EST Subjective: HPI: Violetta Nicole is a 83 year old female with hx of Hypothyroidism, HLD, HTN, CAD, hx of [place] (), GERD, CKD III, Anemia, hx of COVID infection (06/2020), atrial septal aneurysm, b/l cataract surgery, b/l carotid artery stenosis, mild mitral regurgitation seen for Pt has been having L hip pain - for few months - prednisone did not help (she was taking it for cough) - radiates to the L leg - denied any trauma - worse with walking - localized to gluteal area Patient Active Problem List Diagnosis Acquired hypothyroidism Essential hypertension with goal blood pressure less than 140/90 Gastroesophageal reflux disease without esophagitis 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 100 Tab 3 Sennosides-Docusate Sodium 8.6-50 MG Oral Tablet (Senokot-S) Take by mouth 1 Tablet in the morning.(Patient taking differently: Take 1 Tablet by mouth daily as needed for Constipation.) 30 Tablet 2 B-12 500 MCG Oral Tablet Take 1 Tablet by mouth every other day. Iron 325 (65 Fe) MG Oral Tablet Take 1 Tablet by mouth every other day. Alendronate Sodium 70 MG Oral Tablet (Fosamax) TAKE 1 TABLET BY MOUTH ONCE A WEEK AT LEAST 30 MINUTES BEFORE FIRST FOOD/BEVERAGE DO NOT LIE DOWN FOR 30 MINUTES AFTER TAKING (Patient taking differently: Sundays.) 12 Tablet 11 Furosemide 20 MG Oral Tablet (Lasix) Weigh yourself once a week, if the weight is up more than 2-3 lbs you can take 1 tablet daily for 1-2 days. 30 Tablet 5 Folic Acid 800 MCG Oral Tablet Take 1 Tablet by mouth in the morning. Acetaminophen 325 MG Oral Tablet (Tylenol) Take 2 Tablets by mouth every 6 hours as needed for Pain, Moderate. Pravastatin Sodium 20 MG Oral Tablet (Pravachol) TAKE ONE TABLET BY MOUTH IN THE MORNING 100 Tablet1 Sertraline HCl 50 MG Oral Tablet (Zoloft) Take 1 Tablet by mouth in the morning. 90 Tablet 3 Levothyroxine Sodium 75 MCG Oral Tablet (Levoxyl) TAKE 1 TABLET BY MOUTH DAILY AT LEAST 30 MINUTES PRIOR TO FIRST MEAL OF THE DAY OR OTHER MEDICATIONS 90 Tablet 3 Gabapentin 100 MG Oral Capsule (Neurontin) Take 1 Capsule by mouth at bedtime. 30 Capsule 5 Omeprazole 20 MG Oral Capsule Delayed Release (PriLOSEC) TAKE ONE CAPSULE BY MOUTH EVERY MORNING ONE HOUR BEFORE THE FIRST MEAL OF THE DAY 100 Capsule 1 Ventolin HFA 108 (90 Base) MCG/ACT Inhalation Aerosol Solution Inhale by mouth 2 Puffs every 4 hours as needed for Shortness of Breath or Wheezing. (Patient not taking: Reported on 02/18/2024) 8 g 1 guaiFENesin ER 600 MG Oral Tablet Extended Release 12 Hour (Humibid LA) Take 1 Tablet by mouth in the morning and 1 Tablet before bedtime. (Patient not taking: Reported on 02/18/2024) 40 Tablet 0 Lisinopril 20 MG Oral Tablet (Prinivil) Take 1 Tablet by mouth in the morning. 90 Tablet 1 Metoprolol Succinate ER 100 MG Oral Tablet [...] performed by Greta Holloway DO at ENDOSCOPY [facility],HYPERPLASTIC AND ADENOMATOUS POLYPS REPEAT COLONOSCOPY IN 5 YEARS Dyslipidemia, goal LDL below 100 07/19/2017 Essential hypertension with goal blood pressure less than 140/90 07/21/2016 Gastroesophageal reflux disease without esophagitis 07/21/2016 Kidney disease, chronic, stage III (GFR 30-59 ml/min) ([facility]) 01/24/2017 Old myocardial infarct 01/24/2017 Pericardial effusion 08/14/2016 Well adult exam 07/21/2016 Prefers to stop breast, colon screening. REQUEST shot recs Distant [place]? 08/23 TTE 5mm pericardial effusion-on repeat, appears to be fat pad. +Atrial sept aneurysm-start ASA as inc risk CVA 10/23 colon- WNL marg[place] 5y (hx polyp) Dr [place]. Past Surgical History: Procedure Laterality Date COLONOSCOPY W/ BIOPSY (RECTUM) 08/29/06 adenomatous polyp-- repeat in 3-5 years COLONOSCOPY W/ LESION REMOVAL, SNARE 07/16/09 adenomatous polyps repeat in 1-2 yrs , diverticulosis, IH & EH. repeat in 2 years COLONOSCOPY, DIAGNOSTIC (RECTUM) 09/22/2011 COLONOSCOPY FLEXIBLE PROXIMAL DIAGNOSTIC performed by Greta Holloway DO at ENDOSCOPY [facility],HYPERPLASTIC AND ADENOMATOUS POLYPS REPEAT COLONOSCOPY IN 5 YEARS COLONOSCOPY, DIAGNOSTIC (RECTUM) 10/27/2016 diverticulosis, repeat 5 yrs/COLONOSCOPY FLEXIBLE PROXIMAL DIAGNOSTIC performed by Greta Holloway DO at ENDOSCOPY [facility] PARTIAL HYSTERECTOMY due to heavy bleeding. thinks has ovaries REMOVAL OF THYROID GLAND thinks was partial Review of patient's allergies indicates: Allergen Reactions Crestor [Rosuvastatin Calcium] myalgia Family History Problem Relation Name Age of Onset Neurological Disorder Mother 70 Alzheimers no cancers in family. Other (killed in war) Father Alzheimer's disease Sister 68 now 88 in 2019 in [place] No Known Problems Sister in [place]. 91 in 2019. Social History Tobacco Use Smoking status: Former Current packs/day: 0.00 Average packs/day: 1 pack/day for 10.0 years (10.0 ttl pk-yrs) Types: Cigarettes Start date: 1975 Quit date: 1985 Years since quittin.8 Smokeless tobacco: Never Substance Use Topics Alcohol use: Not Currently Vaping/E-Cigarette Use Vaping/E-Cigarette Use Never User Vaping/E-Cigarette Substances Vaping/E-Cigarette Devices ROS: -Per HPI OBJECTIVE: BP 116/64 | Pulse 71 | Temp 35.5 C (95.9 F) | Wt 89 kg (196 lb 3.2 oz) | SpO2 95% | BMI 28.15 kg/m | BSA 2.1 m PHYSICAL EXAM: MSK: slightly decrease in L hip ROM - TTP of the mid gluteal area - good strength ASSESSMENT/PLAN: Will temporarily try higher dose of gabapentin (200mg BID) - PT referral - recommended warm compress AM, topical pain reliever qhs, ice Qhs Hip pain, left (Primary) - PHYSICAL THERAPY REFERRAL OP Sciatica of left side - PHYSICAL THERAPY REFERRAL OP Antione Rocha MD Family medicine, [place] [phone] documented in this encounter Nursing Notes * Shruthi Mandel, BRENT - 02/18/2024 9:19 AM EST She is here for left hip pain. No injury. documented in this encounter Plan of Treatment Upcoming Encounters Date Type Department Care Team (Late st Contact Info) Description 03/13/2024 9:30 AM EST Office Visit Cardiology [address] [place] [phone] Yesenia Garcia PA-C [address] [place] [address] 04/10/2024 3:00 PM EST Office Visit Orthopaedics [address] [phone] Augie Victoria MD [address] [place] [id number] 04/17/2024 3:00 PM EST Office Visit Orthopaedics [address] [phone] Augie Victoria MD [address] [place] [address] 04/24/2024 3:00 PM EST Office Visit Orthopaedics [address] [phone] Augie Victoria MD [address] [place] [id number] 05/06/2024 8:00 AM EST Office Visit Family Medicine [address] [phone] Antione Rocha MD [address] [place] [address] [place] [id number] Scheduled Procedures Name Priority Associated Diagnoses Date/Ti me COLONOSCOPY FLEXIBLE PROXIMAL DIAGNOSTIC Recall History of colon polyps Scheduled Referrals Name Type Priority Associated Diagnoses Orde r Schedule PHYSICAL THERAPY REFERRAL OP Referral Within 30 days (routine) Hip pain, left Sciatica of left side Ordered: 02/18/2024 Health Maintenance Due Date Last Done Comments DTap/Tdap Vaccines (1 - Tdap) 1959 Zoster Vaccines (1 of 2) 1990 Pneumococcal Vaccine: 65+ Years (2 of 2 - PPSV23 or PCV20) 11/24/2015 11/23/2014 Colonoscopy 10/27/2021 10/27/2016, 10/08, 09/22/2011, Additional history exists Adult Wellness Visit 10/21/2022 10/21/2021, 09/17/19 CKD PHOS USE SMARTSET 32252 05/15/20230 09/2022, 05/05/2021, 01/27/2020, Additional history exists COVID-19 Vaccine ( season) 2023 04/05/2021, 09/22/2020, 08/24/2020 CKD HGB USE SMARTSET [id number] 03/05/202403/05, 03/05/2023, 12/21/2022, Additional history exists DXA Scan 04/04/2024 04/04/2022, 04/04/2022 Depression Monitoring 07/18/2024 07/19/2023 GFR 07/21/2024 01/21/2024, 0906/2023, 09/06/2023, Additional history exists Albumin/Creatinine Ratio 09/05/2024 09/06/2023, 08/07 TSH 12/10/2024 12/11/2023, 08/09, 11/13/2022, Additional history exists RETIRED - COLONOSCOPY-EVERY 5 YRS AGES 18-100 Discontinued 10/27/2016, 10/27/2016, 10/09/2011, Additional history exists VITAMIN D LEVEL ONCE IN A LIFETIME-USE SMARTSET# [id number] Completed 10/09/2022, 08/16/2022 Influenza Vaccine (FLU shot) [...] as of this encounter Visit Diagnoses Diagnosis Hip pain, left- Primary Pain in joint, pelvic region and thigh Sciatica of left side Sciatica documented in this encounter Additional Health Concerns Infection Onset Date Last Indicated Resolved Time COVID-19 (confirmed) 02/07/2024 02/07/2024 documented as of this encounter Advance Directives Healthcare Agents on File Name Relationship Healthcare Agent Relationshi p Communication Ailyn Foster Adult Child Health Care Repr esentative (appointed verbally by patient or by statute hierarchy) Care Teams Billet Driller Relationship Specialty Start Date End Date Antione Rocha MD [address] [place] [address] [place] [phone] PCP - General Family Medicine 02/02/21 documented as of this encounter"
--- OUTSIDE RECORDS SUMMARY | 2024-05-06 06:08 | External Medical Summary | Summary of Care ---
Author Name Unknown Organization [facility] Address [address] [place] [address] Phone [phone] Care Team Providers Care Senior Computer Specialist Name Role Phone Antione Rocha MD Primary Care Provide r Reason for Visit * Reason Comments New Problem Knee Pain L knee Encounter Details Date Type Department Care Team (Latest Contact Info) Description 01/31/2024 1:30 PM EDT Office Visit Orthopaedics [address] [phone] Augie [place] MD [address] [facility] [address] Primary osteoarthritis of left knee*; Primary osteoarthritis of right knee Allergies Active Allergy Reactions Criticality Noted Date Comments Rosuvastatin Calcium 07/21/2016 myalgia documented as of this encounter (statuses as of 01/31/2024) Medications Medication Sig Dispensed Refills Start Date [...] the morning. 30 Tablet 2 08/22/2021 Active Additional Information Patient taking differently:1 Tablet OralDAILY PRN, Constipation, Informant: Patient, Reported on 07/19/2023 B-12 500 MCG Oral Tablet Take 1 Tablet by mouth every other day. Active Iron 325 (65 Fe) MG Oral Tablet Take 1 Tablet by mouth every other day. Active Metoprolol Succinate ER 100 MG Oral Tablet Extended Release 24 Hour (Toprol XL)Indications:Essen tial hypertension with goal blood pressure less than 140/90 Take 1 Tablet by mouth in the morning. 100 Tablet 3 01/08/2023 Active Alendronate Sodium 70 MG Oral Tablet (Fosamax)Indications :Age-related osteoporosis without current pathological fracture TAKE 1 TABLET BY MOUTH ONCE A WEEK AT LEAST 30 MINUTES BEFORE FIRST FOOD/BEVERAGE DO NOT LIE DOWN FOR 30 MINUTES AFTER TAKING 12 Tablet 11 05/10/2023 Active Additional Information Patient taking differently: Sundays., Reported on 07/19/2023 Furosemide 20 MG Oral Tablet (Lasix) Weigh yourself once a week, if the weight is up more than 2-3 lbs you can take 1 tablet daily for 1-2 days. 30 Tablet 5 07/20/2023 Active Folic Acid 800 MCG Oral Tablet Take 1 Tablet by mouth in the morning. Active Acetaminophen 325 MG Oral Tablet (Tylenol) Take 2 Tablets by mouth every 6 hours as needed for Pain, Moderate. Active Pravastatin Sodium 20 MG Oral Tablet (Pravachol) TAKE ONE TABLET BY MOUTH IN THE MORNING 100 Tablet 1 08/27/2023 Active guaiFENesin ER 600 MG Oral Tablet Extended Release 12 Hour (Humibid LA)Indications:Acute cough Take 1 Tablet by mouth in the morning and 1 Tablet before bedtime. 40 Tablet 11/05/2023 Active Additional Information Patient not taking.Reported on 12/26/2023 Sertraline HCl 50 MG Oral Tablet (Zoloft)Indications: Current mild episode of major depressive disorder without prior episode (HCC) Take 1 Tablet by mouth in the morning. 90 Tablet 3 11/21/2023 Active Levothyroxine Sodium 75 MCG Oral Tablet (Levoxyl)Indications :Acquired hypothyroidism TAKE 1 TABLET BY MOUTH DAILY AT LEAST 30 MINUTES PRIOR TO FIRST MEAL OF THE DAY OR OTHER MEDICATIONS 90 Tablet 3 12/06/2023 Active Gabapentin 100 MG Oral Capsule (Neurontin)Indicatio ns:Chronic bilateral low back pain without sciatica Take 1 Capsule by mouth at bedtime. 30 Capsule 5 12/11/2023 Active Omeprazole 20 MG Oral Capsule Delayed Release (PriLOSEC) TAKE ONE CAPSULE BY MOUTH EVERY MORNING ONE HOUR BEFORE THE FIRST MEAL OF THE DAY 100 Capsule 1 12/24/2023 Active Lisinopril 20 MG Oral Tablet (Prinivil)Indication s:Benign hypertension with stage 3b chronic kidney disease (HCC),HTN, goal below 150/90 Take 1 Tablet by mouth in the morning. 90 Tablet 1 01/22/2024 Active Hospital, Clinic, or Other Facility Administered Medication Ordered Dose Route Frequency Start Date End Date Status lidocaine 1 % inj 10 mgIndications:Primary osteoarthritis of left knee 10 mg IX ONCE 01/31/2024 01/31/20 Ended Triamcinolone Acetonide (Kenalog) 40 MG/ML inj 40 mgIndications:Primary osteoarthritis of left knee 40 mg IX ONCE 01/31/2024 01/31/20 Ended documented as of this encounter (statuses as of 01/31/2024) Active Problems Problem Noted Date Diagnosed Date Asymptomatic bilateral carotid artery stenosis 0 12/01/2022 Nonrheumatic mitral valve regurgitation 11/24/19 Current [...] tis 07/21/2016 Coronary artery disease invo lving [place] coronary artery of [place] heart without angina pectoris 07/21/2016 documented as of this encounter (statuses as of 01/31/2024) Resolved Problems Problem Noted Date Diagnosed Date Resolved Date Stage 3 chronic kidney disease 08/24/2023 09/20/2023 Mild mitral regurgitation 12/01/2022 Overview: duplicate Anemia in stage 3b chronic kidney disease 02/02/2021 02/17/2021 Benign hypertension with chr onic kidney disease, stage III 02/06/2018 08/19/2020 Overview: Per CKD protocol Atrial septal aneurysm 01/24/201712/10 Overview: 2017-start ASA lifetime as inc risk CVA Anemia due to stage 3 chronic kidney disease 7 02/19/2020 Pericardial effusion 08/14/2016 017 Well adult exam 07/21/2016 01/20/2021 Overview: Prefers to stop breast, colon screening. REQUEST shot recs [place]? 08/23 TTE 5mm pericardial effusion-on repeat, appears to be fat pad. 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 documented as of this encounter (statuses as of 01/31/2024) Immunizations Name Administration Dates Next Due COVID-19 [...] ages 0-17 years) Not on file 07/26/2023 Sex and Gender Information Value Date Recorded Sex Assigned at Female 08/19/2018 3:34 PM EDT Gender Identity Female 08/19/2018 3:34 PM EDT Sexual Orientation Straight 10/19/2021 10 :15 AM EDT Job Start Date Occupation Industry Not on file Not on file Not on file documented as of this encounter Progress Notes * Augie [place] MD - 01/31/2024 1:33 PM EDT Violetta Nicole [phone] Violetta Nicole is a 83 year old female who presents for follow-up to [facility] for new evaluation of left knee pain and follow-up ofright knee injury/pain. I saw her originally for right knee pain on 06/07/2023 The most recent visit regarding her right knee was on 01/10/2024 over Violetta Nicole is here with her daughter Quality: reviewed and agree with Nursing Notes for HPI elements History: History on 06/07/2023 - Presents for increased pain right knee, xrayed 06/04/23. Was injected by her PCP Dr. Josefina SERRANO September of 2022 which last several months Pain is mostly anterior. Also has grinding. Additional history 01/10/2024: Reports getting at least 6 months of significant benefit out of previous steroid shot R knee pain / Pt would like repeat steroid injection Since that visit: New evaluation left knee Reports chronic pain in the left knee greatest across the medial aspect of the joint. Follow-up right knee: Had benefit from the steroid injection I performed in the right knee on 01/10/2024 but not nearly as much as the injection on 06/07/2023. ROS: ROS per HPI otherwise non-contributory Past Medical History: Diagnosis Date Acquired hypothyroidism 07/21/2016 Atrial septal aneurysm 01/24/2017 B12 deficiency 02/06/2018 Benign neoplasm of colon 08/29/06 adenomatous polyps--repeat 3-5 years Benign neoplasm of colon 07/16/09 adenomatous polyps repeat in 1-2 yrs Benign neoplasm of colon 09/22/11 COLONOSCOPY FLEXIBLE PROXIMAL DIAGNOSTIC performed by Greta Holloway, DO at [facility],HYPERPLASTIC AND ADENOMATOUS [...] breast, colon screening. REQUEST shot recs [place]? 08/23 TTE 5mm pericardial effusion-on repeat, appears [...] quittin.8 Smokeless tobacco: Never Vaping Use Vaping status: Never Used Substance and Sexual Activity Alcohol use: Not Currently Drug use: No Sexual activity: Not Currently control/protection: Surgical Comment: hysterectomymarried, 3 kids, 5 grandkids, +great 4 or so. Other Topics Concern Not on file Social History Narrative 61 yrs as of 10/21/2021 Likes--kylah. Active w/mult state fairs. Born in [place]. Social Determinants of Health Financial Resource Strain: Low Risk (07/26/2023) Financial [...] Stability Do you currently live in a [place] or have no steady place to sleep [...] edema in the affected extremity(s) Knee Exam, left only - completed with the patient seated [...] since 2020 Assessment and Plan: 1) chronic bilateral knee pain Suspect secondary to DJD The right knee is traditionally bothered her more than the left. Previous intra-articular steroid injections she has received in her right knee include: 09/2022 from her PCP which gave her nearly 6 months benefit Injections I performed include: 12/28/2023 and 01/10/2024. The injection on 01/30/2024 did not helpas much as previous ones. Intra-articular steroid injection performed in the left knee today 01/31/2024 Note: prior to injection limited aspiration into the syringe performed on the L knee showed straw color joint fluid confirming intra-articular location of needle for injection. She is to be scheduled for viscosupplementation series starting in 6-8 weeks for the bilateral kneeand I will likely use ultrasound guidance for those injections. Note: We have also discussed the possibility of viscosupplementation in the future and that repetitive steroid injections over time can increase the rate of development/progression of arthritis. Will follow up p.r.n. Procedure note (knee injection), left : Time out: Prior to injection, a [...] with ice and resolve within 24 hours. Note: prior to injection limited aspiration into the syringe performed on the L knee showed straw color joint fluid confirming intra-articular location of needle for injection. Augie [place] MD Primary Care Sports Medicine Orthopaedics [address] [place] [facility] [phone] documented in this encounter Nursing Notes * Serena Paez LPN - 01/31/2024 1:28 PM EDT F/u R knee pain 01/10/24 steroid injection: lasted 1 week NEW PROBLEM: LEFT KNEE pain x 2 mos Xray L knee 01/28/24 Pt c/o 11/16 pain Pt is accompanied by her today Rachel Pimentel LPN documented in this encounter Plan of Treatment Upcoming Encounters Date Type Department Care Team (Late st Contact Info) Description 03/13/2024 9:30 AM EST Office Visit Cardiology [address] [place] [address] Yesenia Garcia PA-C [address] [place] [address] 04/10/2024 3:00 PM EST Office Visit [address] [phone] Augie [place] MD [address] [place] [address] 04/17/2024 3:00 PM EST Office Visit [address] [place] [address] Augie [place] MD [address] [place] [address] 04/24/2024 3:00 PM EST Office Visit [address] [phone] Augie [place] MD [address] [place] [address] 05/06/2024 8:00 AM EST Office Visit Family Medicine [address] [phone] Antione Rocha MD [address] [place] [address] [place] [id number] Scheduled Procedures Name Priority Associated Diagnoses Date/Ti [...] 10/21/2021, 09/17/19 21 CKD PHOS USE SMARTSET 10757 05/15/2023 02/0 09/2022, 05/05/2021, 01/27/2020, Additional history exists COVID-19 Vaccine ( season) 2023 04/05/2021, 09/22/2020, 08/24/2020 CKD HGB USE SMARTSET 19729 03/05/202403/05, 03/05/2023, 12/21/2022, Additional history exists DXA Scan 04/04/2024 04/04/2022, 04/04/2022 Depression Monitoring 07/18/2024 07/19/2023 GFR 07/21/2024 01/21/2024, 06/2023, 09/06/2023, Additional history exists Albumin/Creatinine Ratio 09/05/2024 09/06/2023, 08/07 TSH 12/10/2024 12/11/2023, 08/09, 11/13/2022, Additional history exists RETIRED - COLONOSCOPY-EVERY 5 YRS AGES 18-100 Discontinued 10/27/2016, 10/27/2016, 10/09/2011, Additional history exists VITAMIN D LEVEL ONCE IN A LIFETIME-USE SMARTSET# 64609 Completed 10/09/2022, 08/16/2022 Influenza Vaccine (FLU shot) [...] encounter Visit Diagnoses Diagnosis Primary osteoarthritis of left knee- Primary Primary localized osteoarthrosis, lower leg Primary osteoarthritis of right knee Primary localized osteoarthrosis, lower leg documented in this encounter Administered Medications Inactive Administered Medications - up to 3 most recent administrations Medication Order MAR Action Action Date Dose Rate Site lidocaine 1 % inj 10 mg 10 mg, Intra-Articular, ONCE, On Darcy 01/31/24 at 1430, For 1 dose Given 01/31/2024 1:51 PM EDT 10 mg Knee Left Triamcinolone Acetonide (Kenalog) 40 MG/ML inj 40 mg 40 mg, Intra-Articular, ONCE, On Darcy 01/31/24 at 1430, For 1 dose Given 01/31/2024 1:51 PM EDT 40 mg Knee Left documented in this encounter Advance Directives Healthcare Agents on File Name Relationship Healthcare Agent Relationshi p Communication Ailyn Foster Adult Child Health Care Repr esentative (appointed verbally by patient or by statute hierarchy) Care Teams Senior Computer Specialist Relationship Specialty Start Date End Date Antione Rocha MD [address] [place] [address] [place] [address] PCP - General Family Medicine 02/02/21 documented as of this encounter
--- OUTSIDE RECORDS SUMMARY | 2024-05-06 06:08 | External Medical Summary ---
Author Name Unknown Address Unknown Organization K01:[facility] - [address] [facility] [address] Laboratory Report Ordering Provider Test Date Status DYLON MARTIN 02/07/2024 09:06:00 Ros l Observation Date Value Abnormality Reference (Units ) Status SARS Coronavirus 2 02/07/2024 09:06:00 Positive Abnormal N egative Final SARS-CoV2 Coronavirus RNA de tected by PCR (amplified probe). Test results reported to [facility].
This express test was developed and its performance characteristics determined by [facility]. It has not been cleared or approved by the U.S. Food and Drug Administration (FDA). FDA does not require this test to go thru premarket FDA review. This test is used for clinical purposes. It should not be regarded as investigational or for research. This laboratory is certified under the Clinical Laboratory Improvement Amendments (CLIA) as qualified to perform high complexity clinical laboratory testing.

This test is a nucleic acid amplification test (NAAT), a reverse transcriptase polymerase chain reaction (RT-PCR) test, or a Centers for Disease Control-acceptable equivalent. The test is performed in a high complexity Clinical Laboratory Improvement Amendments-(CLIA) certified laboratory. The test is acceptable for SARS-CoV-2 diagnosis, surveillance, and travel within the [place] and to most countries. Please check with local testing authorities about requirements before travel.

The validation of bronchial specimens, tracheal aspirates, and sputum for this assay was developed and performance characteristics determined by [facility]. The validation of alternate specimen types has not been cleared or approved by the U.S. Food and Drug Administration (FDA). It has been determined that such clearance is not necessary. Influenza virus A RNA [Prese nce] in Specimen by [facility] with probe detection 02/07/2024 09:06:00 Negative Negative Final No Influenza A RNA detected by PCR (amplified probe) Influenza virus B RNA [Prese nce] in Specimen by [facility] with probe detection 02/07/2024 09:06:00 Negative Negative Final No Influenza B RNA detected by PCR (amplified probe) Respiratory syncytial virus RNA [Identifier] in Specimen by [facility] with probe detection 02/07/2024 09:06:00 Negative Negative Final No Respiratory Syncytial Vir us RNA detected by PCR (amplified probe) Performing Location [address]ATORY [address] [facility] [address]
--- OUTSIDE RECORDS SUMMARY | 2024-05-06 06:08 | External Medical Summary | Summary of Care ---
Author Name Unknown Organization [facility] Address [address] [place] [address] Phone [phone] Care Team Providers Care Cook Candy Name Role Phone Antione Rocha MD Primary Care Provide r Reason for Visit * Reason Comments New Problem Knee Pain L knee Encounter Details Date Type Department Care Team (Latest Contact Info) Description 01/31/2024 1:30 PM EDT Office Visit Orthopaedics [address] [phone] Augie [place] MD [address] [facility] [place] [id number] Primary osteoarthritis of left knee*; Primary osteoarthritis [...] Coronary artery disease invo lving [place] coronary artery of [place] heart without angina pectoris 07/21/2016 documented as [...] breast, colon screening. REQUEST shot recs Distant [place]? 08/23 TTE 5mm pericardial effusion-on repeat, appears [...] - 01/31/2024 1:33 PM EDT Violetta Nicole [phone] Violetta Nicole is a 83 year old female who presents for follow-up to [facility] Medicine for new [...] breast, colon screening. REQUEST shot recs Distant [place]? 08/23 TTE 5mm pericardial effusion-on repeat, appears [...] Stability Do you currently live in a fpc or have no steady place to sleep [...] [place] MD Primary Care Sports Medicine Orthopaedics [address] [place] [facility] [phone] documented in this encounter Nursing Notes * [...] 03/13/2024 9:30 AM EST Office Visit Cardiology [address] [place] [address] Yesenia Garcia PA-C [address] [place] [address] 04/10/2024 3:00 PM EST Office Visit [address] [phone] Augie [place] MD [address] [place] [address] 04/17/2024 3:00 PM EST Office Visit [address] [place] [address] Augie [place] MD [address] [place] [address] 04/24/2024 3:00 PM EST Office Visit [address] [phone] Augie [place] MD [address] [place] [address] 05/06/2024 8:00 AM EST Office Visit Family Medicine [address] [phone] Antione Rocha MD [address] [place] [address] [place] [address] Scheduled Procedures Name Priority Associated Diagnoses Date/Ti [...] 10/21/2021, 09/17/19 21 CKD PHOS USE SMARTSET 86185 05/15/2023 02/0 09/2022, 05/05/2021, 01/27/2020, Additional history exists COVID-19 Vaccine ( season) 2023 04/05/2021, 09/22/2020, 08/24/2020 CKD HGB USE SMARTSET 42810 03/05/202403/05, 03/05/2023, 12/21/2022, Additional history exists DXA Scan 04/04/2024 04/04/2022, 04/04/2022 Depression Monitoring 07/18/2024 07/19/2023 GFR 07/21/2024 01/21/2024, 06/2023, 09/06/2023, Additional history exists Albumin/Creatinine Ratio 09/05/2024 09/06/2023, 08/07 TSH 12/10/2024 12/11/2023, 08/09, 11/13/2022, Additional history exists RETIRED - COLONOSCOPY-EVERY 5 YRS AGES 18-100 Discontinued 10/27/2016, 10/27/2016, 10/09/2011, Additional history exists VITAMIN D LEVEL ONCE IN A LIFETIME-USE SMARTSET# [id number] Completed 10/09/2022, 08/16/2022 Influenza Vaccine (FLU shot) [...] patient or by statute hierarchy) Care Teams Cook Candy Relationship Specialty Start Date End Date Antione Rocha MD [address] [place] [address] [place] [address] PCP - General Family Medicine 02/02/21 documented as of this encounter
--- OUTSIDE RECORDS SUMMARY | 2024-05-06 06:08 | External Medical Summary | Summary of Care ---
Author Name Unknown Organization [facility] Address [address] [place] [address] Phone [phone] Care Team Providers Care Twx Operator Name Role Phone Antione Rocha MD Primary Care Provide r Reason for Visit * Reason Comments Medication Refill Encounter Details Date Type Department Care Team (Late st Contact Info) Description 03/12/2024 Refill Family Practice [facility] [address] [place] [address] Antione Rocha MD [address] [place] [address] [place] [address] Allergies Active Allergy Reactions Criticality Noted Date Comments Rosuvastatin Calcium 07/21/2016 myalgia documented as of this encounter (statuses as of 03/13/2024) Medications aspirin enteric coated 81 MG TBEC [...] 12 Tablet 11 4 9:46 AM EDT 05/10/19 24 025 Active Additional Information Patient [...] OR OTHER MEDICATIONS 90 Tablet 3 4 5:51 PM EST 12/06/19 24 Active Omeprazole 20 MG Oral Capsule Delayed Release (PriLOSEC) TAKE ONE CAPSULE BY MOUTH EVERY MORNING ONE HOUR BEFORE THE FIRST MEAL OF THE DAY 100 Capsule 1 4 6:21 PM EDT 12/24/19 24 Active Lisinopril 20 MG Oral [...] 100 Tablet 3 4 10:03 AM EST 02/09/20 24 Active Gabapentin 100 MG Oral Capsule (Neurontin)Indicat ions:Chronic bilateral low back pain without sciatica Take 2 Capsules by mouth 2 times a day. 360 Capsule 1 02/25/20 24 Active Pravastatin Sodium 20 MG Oral Tablet (Pravachol) TAKE ONE TABLET BY MOUTH IN THE MORNING 100 Tablet 1 03/13/20 24 Active Pravastatin Sodium 20 MG Oral Tablet (Pravachol) TAKE ONE TABLET BY MOUTH IN THE MORNING 100 Tablet 1 4 5:49 PM EDT 08/27/19 24 024 Discontin ued(Refil l) documented as of this encounter (statuses as of 03/13/2024) Active Problems Problem Noted Date Diagnosed Date [...] tis 07/21/2016 Coronary artery disease invo lving [place] coronary artery of [place] heart without angina pectoris 07/21/2016 documented as of this encounter (statuses as of 03/13/2024) Resolved Problems Problem Noted Date Diagnosed Date [...] as of this encounter (statuses as of 03/13/2024) Immunizations Name Administration Dates Next Due COVID-19 [...] encounter Miscellaneous Notes * Telephone Encounter - Brent Monsalve [facility] - 03/13/2024 10:20 AM ESTSigned Prescriptions: Disp Refills Pravastatin Sodium 20 MG Oral Tablet (Prav*100 Ta*1 Sig: TAKE ONE TABLET BY MOUTH IN THE MORNINGAuthorizing Provider: Kayla ROCHA User: BRENT MONSALVE documented in this encounter Plan of Treatment Upcoming Encounters Date Type Department Care Team (Late st Contact Info) Description 04/10/2024 3:00 PM EST Office Visit Orthopaedics [address] [phone] Augie [place] MD [address] [place] [address] 04/17/2024 3:00 PM EST Office Visit Orthopaedics [address] [phone] Augie [place] MD [address] [place] [address] 04/24/2024 3:00 PM EST Office Visit Orthopaedics [address] [phone] Augie [place] MD [address] [place] [address] 05/06/2024 8:00 AM EST Office Visit Family Medicine [address] [phone] Antione Rocha MD [address] [place] [address] [place] [address] 10/23/2024 11:00 AM EDT Office Visit Cardiology [address] [place] [address] Yesenia Garcia PA-C [address] [place] [address] Scheduled Procedures Name Priority Associated Diagnoses Date/Ti [...] 10/21/2021, 09/17/19 21 CKD PHOS USE SMARTSET 13731 05/15/2023 02/0 09/2022, 05/05/2021, 01/27/2020, Additional history exists COVID-19 Vaccine ( season) 2023 04/05/2021, 09/22/2020, 08/24/2020 CKD HGB USE SMARTSET 17992 03/05/202403/05, 03/05/2023, 12/21/2022, Additional history exists DXA Scan 04/04/2024 04/04/2022, 04/04/2022 Depression Monitoring 07/18/2024 07/19/2023 GFR 07/21/2024 01/21/2024, 06/2023, 09/06/2023, Additional history exists Albumin/Creatinine Ratio 09/05/2024 09/06/2023, 08/07 TSH 12/10/2024 12/11/2023, 08/09, 11/13/2022, Additional history exists RETIRED - COLONOSCOPY-EVERY 5 YRS AGES 18-100 Discontinued 10/27/2016, 10/27/2016, 10/09/2011, Additional history exists VITAMIN D LEVEL ONCE IN A LIFETIME-USE SMARTSET# 90077 Completed 10/09/2022, 08/16/2022 Influenza Vaccine (FLU shot) [...] patient or by statute hierarchy) Care Teams Twx Operator Relationship Specialty Start Date End Date Antione Rocha MD [address] [place] [address] [place] [address] PCP - General Family Medicine 02/02/21 documented as of this encounter
--- OUTSIDE RECORDS SUMMARY | 2024-05-06 06:08 | External Medical Summary | Summary of Care ---
Author Name Unknown Organization [facility] Address [address] [place] [address] Phone [phone] Care Team Providers Care Advance Agent Name Role Phone Antione Rocha MD Primary Care Provide r Encounter Details Date Type Department Care Team (Late st Contact Info) Description 01/31/2024 Telephone Orthopaedics [facility] [address] [place] [place] [address] Augie Victoria MD [address] [place] [address] Allergies Active Allergy Reactions Criticality Noted Date [...] the morning. 90 Tablet 1 01/22/2024 Active documented as of this encounter (statuses [...] tis 07/21/2016 Coronary artery disease invo lving [place] coronary artery of [place] heart without angina pectoris 07/21/2016 documented as [...] breast, colon screening. REQUEST shot recs [place]ant [place]? 08/23 TTE 5mm pericardial effusion-on repeat, appears [...] encounter Miscellaneous Notes * Telephone Encounter - Alissa Figueroa MED ASSIST - 01/31/2024 3:11 PM EDT Orthopaedics Pre-Cert Request Medication/Disease State Information: Medication: Hyaluronate- Gelsyn-3 ([id number]): inject 16.8 mg (2 mL) once weekly for 3 weeks (total of 6 injections). Route to [id number] Is there radiological proof(x-ray, cat scan, mri of osteoarthritis? 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 Office Information: Prescriber: Augie Victoria MD * Telephone Encounter - Alissa Figueroa MED ASSIST - 01/31/2024 3:10 PM EDT ----- Message from Augie Victoria MD sent at 01/31/2024 1:40 PM EDT ----- Regarding: ACE[employer] auth Please get authorization for Hyaluronic acid injection series (prefer Gelsyn) for BL knee. This series was scheduled to start in 6-8 weeks. Will need canceled or rescheduled if authorizationdenied. documented in this encounter Plan of Treatment Upcoming Encounters Date Type Department Care Team (Late st Contact Info) Description 03/13/2024 9:30 AM EST Office Visit Cardiology [address] [place] [address] Yesenia Garcia PA-C [address] [place] [address] 04/10/2024 3:00 PM EST Office Visit [address] [phone] Augie Victoria MD [address] [place] [address] 04/17/2024 3:00 PM EST Office Visit [address] [phone] Augie Victoria MD [address] [place] [address] 04/24/2024 3:00 PM EST Office Visit [address] [phone] Augie Victoria MD [address] [place] [address] 05/06/2024 8:00 AM EST Office Visit Family Medicine [address] [phone] Antione Rocha MD [address] [place] [address] [place] [address] Scheduled Procedures Name Priority Associated Diagnoses Date/Ti [...] 10/21/2022 10/21/2021, 09/17/19 CKD PHOS USE SMARTSET 48699 05/15/2023 02/0 09/2022, 05/05/2021, 01/27/2020, Additional history exists COVID-19 Vaccine ( season) 2023 04/05/2021, 09/22/2020, 08/24/2020 CKD HGB USE SMARTSET 11952 03/05/202403/05, 03/05/2023, 12/21/2022, Additional history exists DXA Scan 04/04/2024 04/04/2022, 04/04/2022 Depression Monitoring 07/18/2024 07/19/2023 GFR 07/21/2024 01/21/2024, 090 06/2023, 09/06/2023, Additional history exists Albumin/Creatinine Ratio 09/05/2024 09/06/2023, 08/07 TSH 12/10/2024 12/11/2023, 08/09, 11/13/2022, Additional history exists RETIRED - COLONOSCOPY-EVERY 5 YRS AGES 18-100 Discontinued 10/27/2016, 10/27/2016, 10/09/2011, Additional history exists VITAMIN D LEVEL ONCE IN A LIFETIME-USE SMARTSET# [id number] Completed 10/09/2022, 08/16/2022 Influenza Vaccine (FLU shot) [...] patient or by statute hierarchy) Care Teams Advance Agent Relationship Specialty Start Date End Date Antione Rocha MD [address] [place] [address] [place] [address] PCP - General Family Medicine 02/02/21 documented as of this encounter
--- OUTSIDE RECORDS SUMMARY | 2024-05-06 06:08 | External Medical Summary | Summary of Care ---
Author Name Unknown Organization [facility] Address [address] [place] [address] Phone [phone] Care Team Providers Care Referral Rn Name Role Phone Antione Rocha MD Primary Care Provide r Reason for Visit * Reason Comments Acute Encounter Details Date Type Department Care Team (Late st Contact Info) Description 02/07/2024 8:40 AM EDT Office Visit Family Medicine [address] [phone] Antione Rocha MD [address] [place] [address] [place] [address] Acute cough* Allergies Active Allergy Reactions Criticality Noted Date Comments Rosuvastatin Calcium 07/21/2016 myalgia documented as of this encounter (statuses as of 02/07/2024) Medications Medication Sig Dispensed Refills Start Date End Date Status aspirin enteric coated 81 MG TBEC Take 1 Tab by mouth daily. 100 Tab 3 07/21/2016 Active Ventolin HFA 108 (90 Base) MCG/ACT Inhalation Aerosol SolutionIndications: Bronchitis, complicated Inhale by mouth 2 Puffs every 4 hours as needed for Shortness of Breath or Wheezing. 8 g 1 08/03/2021 Active Additional Information Patient not taking.Reported on 02/07/2024 Sennosides-Docusate Sodium 8.6-50 MG Oral Tablet (Senokot-S)Indicatio [...] the morning. 90 Tablet 1 01/22/2024 Active predniSONE 10 MG Oral Tablet (Deltasone)Indicatio ns:Acute cough Take 5 tabs for 2 days, 4 tabs for 2 days, 3 tabs for 2 days, 2 tabs for 2 days 1 tab for 2 days 30 Tablet 02/07/2024 Active documented as of this encounter (statuses as of 02/07/2024) Active Problems Problem Noted Date Diagnosed Date [...] tis 07/21/2016 Coronary artery disease invo lving tangir[place]q coronary artery of tangirnaq heart without angina pectoris 07/21/2016 documented as of this encounter (statuses as of 02/07/2024) Resolved Problems Problem Noted Date Diagnosed Date [...] breast, colon screening. REQUEST shot recs Distant CT? 08/23 TTE 5mm pericardial effusion-on repeat, appears to be fat pad. 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 documented as of this encounter (statuses as of 02/07/2024) Immunizations Name Administration Dates Next Due COVID-19 [...] Sign Reading Time Taken Comments Blood Pressure 124/80 02/07/2024 8:33 AM EDT Pulse 99 02/07/2024 8:33 AM EDT Temperature 36.2 C (97.1 F) 02/07/2024 8:33 AM ED T Respiratory Rate - - Oxygen Saturation 95% 02/07/2024 8:33 AM EDT Inhaled Oxygen Concentration - - Weight 89.1 kg (196 lb 6.4 oz) 02/07/2024 8:33 A M EDT Height - - Body Mass Index 28.18 08/16/2023 12:50 PM EDT documented in this encounter Progress Notes * Antione Rocha MD - 02/07/2024 8:52 AM EDT Subjective: HPI: Violetta Nicole is a 83 year old female with hx of Hypothyroidism, HLD, HTN, CAD, hx of CT (), GERD, CKD III, Anemia, hx of COVID infection (06/2020), atrial septal aneurysm, b/l cataract surgery, b/l carotid artery stenosis, mild mitral regurgitation seen for For 5 days - cough- initially dry and now its productive - fatigue, loss of voice, sweats - taking OTC cough meds - denied any fever or SOB Patient Active Problem List Diagnosis Acquired hypothyroidism Essential hypertension with goal blood pressure less than 140/90 Gastroesophageal reflux disease without esophagitis Coronary artery disease involving tangirnaq coronary artery of tangirnaq heart without angina pectoris Old myocardial infarct [...] 1 Tablet by mouth every other day. Metoprolol Succinate ER 100 MG Oral Tablet Extended Release 24 Hour (Toprol XL) Take 1 Tablet by mouth in the morning. 100 Tablet 3 Alendronate Sodium 70 MG Oral Tablet (Fosamax) [...] MEAL OF THE DAY 100 Capsule 1 Lisinopril 20 MG Oral Tablet (Prinivil) Take 1 Tablet by mouth in the morning. 90 Tablet 1 predniSONE 10 MG Oral Tablet (Deltasone) Take 5 tabs for 2 days, 4 tabs for 2 days, 3 tabs for 2 days, 2 tabs for 2 days 1 tab for 2 days 30 Tablet 0 Ventolin HFA 108 (90 Base) MCG/ACT Inhalation Aerosol Solution Inhale by mouth 2 Puffs every 4 hours as needed for Shortness of Breath or Wheezing. (Patient not taking: Reported on 02/07/2024) 8 g 1 guaiFENesin ER 600 MG Oral Tablet Extended Release 12 Hour (Humibid LA) Take 1 Tablet by mouth in the morning and 1 Tablet before bedtime. (Patient not taking: Reported on 12/26/2023) 40 Tablet 0 No current facility-administered medications for this visit. Past Medical History: Diagnosis Date Acquired hypothyroidism 07/21/2016 Atrial septal aneurysm 01/24/2017 B12 deficiency 02/06/2018 Benign neoplasm of colon 08/29/06 adenomatous polyps--repeat 3-5 years Benign neoplasm of colon 07/16/09 adenomatous polyps repeat in 1-2 yrs Benign neoplasm of colon 09/22/11 COLONOSCOPY FLEXIBLE PROXIMAL DIAGNOSTIC performed by Greta Holloway DO at ENDOSCOPY [facility],HYPERPLASTIC AND ADENOMATOUS POLYPS REPEAT COLONOSCOPY IN 5 YEARS Dyslipidemia, goal LDL below 100 07/19/2017 Essential hypertension with goal blood pressure less than 140/90 07/21/2016 Gastroesophageal reflux disease without esophagitis 07/21/2016 Kidney disease, chronic, stage III (GFR 30-59 ml/min) (HCC) 01/24/2017 Old myocardial infarct 01/24/2017 Pericardial effusion 08/14/2016 Well adult exam 07/21/2016 Prefers to stop breast, colon screening. REQUEST shot recs Distant CT? 08/23 TTE 5mm pericardial effusion-on repeat, appears to be fat pad. +Atrial sept aneurysm-start ASA as inc risk CVA 10/23 colon- WNL margaux 5y (hx polyp) Dr Andrewfield. Past Surgical History: Procedure Laterality Date COLONOSCOPY W/ BIOPSY (RECTUM) 08/29/06 adenomatous polyp-- repeat in 3-5 years COLONOSCOPY W/ LESION REMOVAL, SNARE 07/16/09 adenomatous polyps repeat in 1-2 yrs , diverticulosis, IH & EH. repeat in 2 years COLONOSCOPY, DIAGNOSTIC (RECTUM) 09/22/2011 COLONOSCOPY FLEXIBLE PROXIMAL DIAGNOSTIC performed by Greta Holloway DO at ENDOSCOPY [facility],HYPERPLASTIC AND ADENOMATOUS POLYPS REPEAT COLONOSCOPY IN 5 YEARS COLONOSCOPY, DIAGNOSTIC (RECTUM) 10/27/2016 diverticulosis, repeat 5 yrs/COLONOSCOPY FLEXIBLE PROXIMAL DIAGNOSTIC performed by Greta Holloway DO at ENDOSCOPY [facility] PARTIAL HYSTERECTOMY due to heavy [...] Vaping/E-Cigarette Devices ROS: -Per HPI OBJECTIVE: BP 124/80 | Pulse 99 | Temp 36.2 C (97.1 F) | Wt 89.1 kg (196 lb 6.4 oz) | SpO2 95% | BMI 28.18kg/m | BSA 2.1 m PHYSICAL EXAM: Vitals are reviewed General:. NAD, well developed HEENT:. Normal Conjunctiva, EOMI Lungs:. CTA, no wheezing or crackles Psych:. AAOx3, normal affect ASSESSMENT/PLAN: Continue dayquil BID Lungs CTA -- not suspecting PNA Suspecting viral infection Acute cough (Primary) - predniSONE 10 MG Oral Tablet (Deltasone); Take 5 tabs for 2 days, 4 tabs for 2 days, 3 tabs for 2days, 2 tabs for 2 days 1 tab for 2 days - INFLUENZA A/B RSV SARS-COV2,PCR Antione Rocha MD Family medicine, [place] [phone] documented in this encounter Nursing Notes * Shruthi Mandel CMA - 02/07/2024 8:31 AM EDT She is here for a head cold. She has been sick since Sunday. She has congestion, cough, runny nose.No covid test. documented in this encounter Plan of Treatment Upcoming Encounters Date Type Department Care Team (Late st Contact Info) Description 03/13/2024 9:30 AM EST Office Visit Cardiology [address] [place] [address] Yesenia Garcia PA-C [address] [place] [address] 04/10/2024 3:00 PM EST Office Visit Orthopaedics [address] [place] [phone] Augie Victoria MD [address] [place] [address] 04/17/2024 3:00 PM EST Office Visit Orthopaedic[address] [phone] Augie Victoria MD [address] [place] [address] 04/24/2024 3:00 PM EST Office Visit Orthopaedics [address] [phone] Augie Victoria MD [address] [place] [address] 05/06/2024 8:00 AM EST Office Visit Family Medicine [address] [phone] Antione Rocha MD [address] [place] [address] [place] [phone] Pending Results Name Type Priority Associated Diagnoses Date /Time INFLUENZA A/B RSV SARS-COV2,PCR Lab Routine Acute cough 02/07/2024 9:05 AM EDT Scheduled Procedures Name Priority Associated [...] 10/21/2021, 09/17/19 21 CKD PHOS USE SMARTSET 07865 05/15/2023 02/0 09/2022, 05/05/2021, 01/27/2020, Additional history exists COVID-19 Vaccine (4 - season) 2023 04/05/2021, 09/22/2020, 08/24/2020 CKD HGB USE SMARTSET 53872 03/05/202403/05, 03/05/2023, 12/21/2022, Additional history exists DXA Scan 04/04/2024 04/04/2022, 04/04/2022 Depression Monitoring 07/18/2024 07/19/2023 GFR 07/21/2024 01/21/2024, 0 06/2023, 09/06/2023, Additional history exists Albumin/Creatinine Ratio 09/05/2024 09/06/2023, 08/07 TSH 12/10/2024 12/11/2023, 08/09, 11/13/2022, Additional history exists RETIRED - COLONOSCOPY-EVERY 5 YRS AGES 18-100 Discontinued 10/27/2016, 10/27/2016, 10/09/2011, Additional history exists VITAMIN D LEVEL ONCE IN A LIFETIME-USE SMARTSET# 36724 Completed 10/09/2022, 08/16/2022 Influenza Vaccine (FLU shot) [...] as of this encounter Visit Diagnoses Diagnosis Acute cough- Primary documented in this encounter Advance Directives Healthcare Agents on File Name Relationship Healthcare Agent Relationshi p Communication Ailyn Foster Adult Child Health Care Repr esentative (appointed verbally by patient or by statute hierarchy) Care Teams Referral Rn Relationship Specialty Start Date End Date Antione Rocha MD [address] [place] [address] [place] [address] PCP - General Family Medicine 02/02/21 documented as of this encounter"
--- OUTSIDE RECORDS SUMMARY | 2024-05-06 06:08 | External Medical Summary | Summary of Care ---
Author Name Unknown Organization [facility] Address [address] [place] [address] Phone [phone] Care Team Providers Care Associate Principal Name Role Phone Antione Rocha MD Primary Care Provide r Reason for Visit * Reason Comments Follow Up Knee Pain R knee Encounter Details Date Type Department Care Team (Latest Contact Info) Description 01/10/2024 9:45 AM EDT Office Visit Orthopaedics [address] [phone] Augie Victoria MD [address] [place] [address] Primary osteoarthritis of right knee* Allergies Active Allergy Reactions Criticality Noted Date Comments Rosuvastatin Calcium 07/21/2016 myalgia documented as of this encounter (statuses as of 01/25/2024) Medications Medication Sig Dispensed Refills Start Date [...] 12 Tablet 11 05/10/2023 05/09/19 25 Active Additional Information Patient taking differently: Sundays., [...] Oral Tablet Extended Release 12 Hour (Humibid LA)Indications:Acut e cough Take 1 Tablet by mouth in the morning and 1 Tablet before bedtime. 40 Tablet 11/05/2023 Active Additional Information Patient not taking.Reported on 12/26/2023 Sertraline HCl 50 MG Oral Tablet (Zoloft)Indications [...] 12/06/2023 Active Gabapentin 100 MG Oral Capsule (Neurontin)Indicati ons:Chronic bilateral low back pain without sciatica Take 1 Capsule by mouth at bedtime. 30 Capsule 5 12/11/2023 Active Omeprazole 20 MG Oral Capsule Delayed Release (PriLOSEC) TAKE ONE CAPSULE BY MOUTH EVERY MORNING ONE HOUR BEFORE THE FIRST MEAL OF THE DAY 100 Capsule 1 12/24/2023 Active Lisinopril 20 MG Oral Tablet (Prinivil)Indicatio ns:Benign hypertension with stage 3b chronic kidney disease (HCC),HTN, goal below 150/90 Take 1 Tablet by mouth in the morning. 90 Tablet 1 07/31/2023 01/20/20 24 Discontinu ed(Refill) Hospital, Clinic, or Other Facility Administered Medication Ordered Dose Route Frequency Start Date End Date Status Triamcinolone Acetonide (Kenalog) 40 MG/ML inj 40 mgIndications:Primary osteoarthritis of right knee 40 mg IX ONCE 01/11/2024 01/10/2024 Ended lidocaine 1 % inj 10 mgIndications:Primary osteoarthritis of right knee 10 mg IX ONCE 01/11/2024 01/10/2024 Ended documented as of this encounter (statuses as of 01/25/2024) Active Problems Problem Noted Date Diagnosed Date [...] tis 07/21/2016 Coronary artery disease invo lving [place] coronary artery of [place] heart without angina pectoris 07/21/2016 documented as of this encounter (statuses as of 01/25/2024) Resolved Problems Problem Noted Date Diagnosed Date [...] breast, colon screening. REQUEST shot recs [place]? 08/23 TTE 5mm pericardial effusion-on repeat, appears to be fat pad. 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 documented as of this encounter (statuses as of 01/25/2024) Immunizations Name Administration Dates Next Due COVID-19 [...] Progress Notes * Augie Victoria MD - 01/10/2024 9:45 AM EDT Violetta Nicole [phone] Violetta Nicole is a 83 year old female who presents for follow-up to [facility] for right knee injury/pain. I saw her originally for this on 06/07/2023 Violetta Nicole is here with her daughter Quality: reviewed and agree with Nursing Notes for HPI elements History: History on 06/07/2023 - Presents for increased pain right knee, xrayed 06/04/23. Was injected by her PCP Dr. Josefina SERRANO September of 2022 which last several months Pain is mostly anterior. Also has grinding. Since that visit: Reports getting at least 6 months of significant benefit out of previous steroid shot R knee pain 08/16 Pt would like repeat steroid injection ROS: ROS per HPI otherwise non-contributory Past [...] stage III (GFR 30-59 ml/min) ([facility]) 01/24/2017 Old myocardial infarct 01/24/2017 Pericardial effusion 08/14/2016 Well adult exam 07/21/2016 Prefers to stop breast, colon screening. REQUEST shot recs [place]ant [place]? 08/23 TTE 5mm pericardial effusion-on repeat, appears [...] date: 1975 Quit date: 1985 Years since quittin.7 Smokeless tobacco: Never Vaping Use Vaping status: [...] Stability Do you currently live in a long term or have no steady place to sleep [...] Dr. Josefina SERRANO in September of 2022. I performed intra-articular steroid injection for her on 06/07/2023. That also helped her substantially. She desired to repeat which I did performed today 01/10/2024 Note: We have also discussed the possibility [...] Victoria MD Primary Care Sports Medicine Orthopaedics [address] [phone] documented in this encounter Nursing Notes * Serena Paez LPN - 01/10/2024 9:42 AM EDT F/u R knee pain 5/10 Pt would like repeat steroid injection Xray L knee today for future 30 min f/u visit Pt accompanied by her Rachel Pimentel ELIZABETH documented in this encounter Plan of Treatment Upcoming Encounters Date Type Department Care Team (Late st Contact Info) Description 01/31/2024 1:30 PM EDT Office Visit Orthopaedics [address] [phone] Augie Victoria MD [address] [place] [address] 03/13/2024 9:30 AM EST Office Visit Cardiology [address] [place] [address] Yesenia Garcia PA-C [address] [place] [address] 05/06/2024 8:00 AM EST Office Visit Family Medicine [address] [phone] Antione Rocha MD [address] [place] [address] [place] [address] Scheduled Orders Name Type Priority Associated Diagnoses Orde r Schedule XR KNEE 4 OR MORE VIEWS Medical Imaging Routine Ordered: 024 Scheduled Procedures Name Priority Associated Diagnoses Date/Ti [...] 10/21/2022 10/21/2021, 09/17/19 CKD PHOS USE SMARTSET 21881 05/15/2023 02/0 09/2022, 05/05/2021, 01/27/2020, Additional history exists COVID-19 Vaccine ( season) 2023 04/05/2021, 09/22/2020, 08/24/2020 CKD HGB USE SMARTSET 12355 03/05/202403/05, 03/05/2023, 12/21/2022, Additional history exists DXA Scan 04/04/2024 04/04/2022, 04/04/2022 Depression Monitoring 07/18/2024 07/19/2023 GFR 07/21/2024 01/21/2024, 0906/2023, 09/06/2023, Additional history exists Albumin/Creatinine Ratio 09/05/2024 09/06/2023, 08/07 TSH 12/10/2024 12/11/2023, 08/09, 11/13/2022, Additional history exists RETIRED - COLONOSCOPY-EVERY 5 YRS AGES 18-100 Discontinued 10/27/2016, 10/27/2016, 10/09/2011, Additional history exists VITAMIN D LEVEL ONCE IN A LIFETIME-USE SMARTSET# 20203 Completed 10/09/2022, 08/16/2022 Influenza Vaccine (FLU shot) [...] 10 mg 10 mg, Intra-Articular, ONCE, On Sun01/11/24 at 1500, For 1 dose Given 01/10/2024 9:45 AM EDT 10 mg Knee Right Triamcinolone Acetonide (Kenalog) 40 MG/ML inj 40 mg 40 mg, Intra-Articular, ONCE, On Sun01/11/24 at 1500, For 1 dose Given 01/10/2024 9:49 AM EDT 40 mg Knee Right documented in this encounter Advance Directives Healthcare Agents on File Name Relationship Healthcare Agent Relationshi p Communication Ailyn Foster Adult Child Health Care Repr esentative (appointed verbally by patient or by statute hierarchy) Care Teams Associate Principal Relationship Specialty Start Date End Date Antione Rocha MD [address] [place] [address] [place] [address] PCP - General Family Medicine 02/02/21 documented as of this encounter
--- OUTSIDE RECORDS SUMMARY | 2024-05-06 06:08 | External Medical Summary | Summary of Care ---
Author Name Unknown Organization [facility] Address [address] [place] [address] Phone [phone] Care Team Providers Care Data Collection Interviewer Name Role Phone Antione Rocha MD Primary Care Provide r Reason for Visit * Reason Comments Medication Refill Encounter Details Date Type Department Care Team (Late st Contact Info) Description 02/09/2024 Refill Family Medicine [address] [phone] Antione Rocha MD [address] [place] [address] [place] [id number] Essential hypertension with goal blood pressure less than 140/90 Allergies Active Allergy Reactions Criticality Noted Date Comments Rosuvastatin Calcium 07/21/2016 myalgia documented as of this encounter (statuses as of 02/09/2024) Medications Medication Sig Dispensed Refills Start Date [...] 02/07/2024 Sennosides-Docusate Sodium 8.6-50 MG Oral Tablet (Senokot-S)Indicati [...] 01/22/2024 Active predniSONE 10 MG Oral Tablet (Deltasone)Indicati ons:Acute cough Take 5 tabs for 2 days, 4 tabs for 2 days, 3 tabs for 2 days, 2 tabs for 2 days 1 tab for 2 days 30 Tablet 02/07/2024 Active Metoprolol Succinate ER 100 MG Oral Tablet Extended Release 24 Hour (Toprol XL)Indications:Esse ntial hypertension with goal blood pressure less than 140/90 Take 1 Tablet by mouth in the morning. 100 Tablet 3 02/09/2024 Active Metoprolol Succinate ER 100 MG Oral Tablet Extended Release 24 Hour (Toprol XL)Indications:Esse ntial hypertension with goal blood pressure less than 140/90 Take 1 Tablet by mouth in the morning. 100 Tablet 3 01/08/2023 02/09/20 24 Discontinu ed(Refill) documented as of this encounter (statuses as of 02/09/2024) Active Problems Problem Noted Date Diagnosed Date [...] tis 07/21/2016 Coronary artery disease invo lving [place] coronary artery of [place] heart without angina pectoris 07/21/2016 documented as of this encounter (statuses as of 02/09/2024) Resolved Problems Problem Noted Date Diagnosed Date [...] breast, colon screening. REQUEST shot recs [place]ant [place]? 08/23 TTE 5mm pericardial effusion-on repeat, appears to be fat pad. 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 documented as of this encounter (statuses as of 02/09/2024) Immunizations Name Administration Dates Next Due COVID-19 [...] encounter Miscellaneous Notes * Telephone Encounter - Sergo Pham [facility] - 02/09/2024 6:18 AM EDTSigned Prescriptions: Disp Refills Metoprolol Succinate ER 100 MG Oral Tablet*100 Ta*3 Sig: Take 1 Tablet by mouth in the morning.Authorizing Provider: Kayla ROCHA User: SERGO PHAM documented in this encounter Plan of Treatment Upcoming Encounters Date Type Department Care Team (Late st Contact Info) Description 03/13/2024 9:30 AM EST Office Visit Cardiology [address] [place] [address] Yesenia Garcia PA-C [address] [place] [address] 04/10/2024 3:00 PM EST Office Visit [address] [phone] Augie Victoria MD [address] [place] [address] 04/17/2024 3:00 PM EST Office Visit [address] [phone] Augie Victoria MD [address] [place] [address] 04/24/2024 3:00 PM EST Office Visit [address] [phone] Augie Victoria MD [address] [place] [address] 05/06/2024 8:00 AM EST Office Visit Family Medicine [address] [phone] Antione Rocha MD [address] [place] [address] [place] [address] Scheduled Procedures Name Priority Associated Diagnoses Date/Ti [...] 10/21/2021, 09/17/19 21 CKD PHOS USE SMARTSET 75599 05/15/2023 02/0 09/2022, 05/05/2021, 01/27/2020, Additional history exists COVID-19 Vaccine (4 - 2024-25 season) 2023 04/05/2021, 09/22/2020, 08/24/2020 CKD HGB USE SMARTSET 83996 03/05/202403/05, 03/05/2023, 12/21/2022, Additional history exists DXA Scan 04/04/2024 04/04/2022, 04/04/2022 Depression Monitoring 07/18/2024 07/19/2023 GFR 07/21/2024 01/21/2024, 0 06/2023, 09/06/2023, Additional history exists Albumin/Creatinine Ratio 09/05/2024 09/06/2023, 08/07 TSH 12/10/2024 12/11/2023, 08/09, 11/13/2022, Additional history exists RETIRED - COLONOSCOPY-EVERY 5 YRS AGES 18-100 Discontinued 10/27/2016, 10/27/2016, 10/09/2011, Additional history exists VITAMIN D LEVEL ONCE IN A LIFETIME-USE SMARTSET# [id number] Completed 10/09/2022, 08/16/2022 Influenza Vaccine (FLU shot) [...] as of this encounter Visit Diagnoses Diagnosis Essential hypertension with goal blood pressure less than 140/90 documented in this encounter Additional Health Concerns Infection Onset Date Last Indicated Resolved Time COVID-19 (confirmed) 02/07/2024 02/07/2024 documented as of this encounter Advance Directives Healthcare Agents on File Name Relationship Healthcare Agent Relationshi p Communication Ailyn Foster Adult Child Health Care Repr esentative (appointed verbally by patient or by statute hierarchy) Care Teams Data Collection Interviewer Relationship Specialty Start Date End Date Antione Rocha MD [address] [place] [address] [place] [address] PCP - General Family Medicine 02/02/21 documented as of this encounter
--- OUTSIDE RECORDS SUMMARY | 2024-05-06 06:08 | External Medical Summary | Summary of Care ---
Author Name Unknown Organization [facility] Address [address] [place] [address] Phone [phone] Care Team Providers Care Hvac Project Manager Name Role Phone Antione Rocha MD Primary Care Provide r Reason for Visit * Reason Onset Date Comments Advice 03/21/2024 Encounter Details Date Type Department Care Team (Late st Contact Info) Description 03/21/2024 Telephone Family Medicine [address] [phone] Antione Rocha MD [address] [place] [address] [place] [phone] Advice Allergies Active Allergy Reactions Criticality Noted Date Comments Rosuvastatin Calcium 07/21/2016 myalgia documented as of this encounter (statuses as of 03/21/2024) Medications aspirin enteric coated 81 MG TBEC [...] 30 MINUTES AFTER TAKING 12 Tablet 11 01/12/2024 9:46 AM EDT 05/10/19 24 025 Active [...] OF THE DAY 100 Capsule 1 12/24/2023 6:21 PM EDT 12/24/19 24 Active Lisinopril [...] 3:30 PM EST 03/13/20 24 Active predniSONE 20 MG Oral Tablet (Deltasone)Indicat ions:Hip pain, left Take 2 Tablets by mouth in the morning for 5 days. 10 Tablet 03/21/20 24 024 Active documented as of this encounter (statuses as of 03/21/2024) Active Problems Problem Noted Date Diagnosed Date [...] tis 07/21/2016 Coronary artery disease invo lving [place] coronary artery of [place] heart without angina pectoris 07/21/2016 documented as of this encounter (statuses as of 03/21/2024) Resolved Problems Problem Noted Date Diagnosed Date [...] breast, colon screening. REQUEST shot recs [place]? 08/23 TTE 5mm pericardial effusion-on repeat, appears to be fat pad. 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 documented as of this encounter (statuses as of 03/21/2024) Immunizations Name Administration Dates Next Due COVID-19 [...] Date Smoking Tobacco: Former Cigarettes 1 10 6 1985 Smokeless Tobacco: Never Alcohol Use Standard [...] Telephone Encounter - Antione Rocha MD - 03/21/2024 11:57 AM EST Prednisone sent for persistent joint pain documented in this encounter Plan of Treatment Upcoming Encounters Date Type Department Care Team (Late st Contact Info) Description 04/10/2024 3:00 PM EST Office Visit Orthopaedics [address] [phone] Augie Victoria MD [address] [place] [address] 04/17/2024 3:00 PM EST Office Visit Orthopaedics [address] [phone] Augie Victoria MD [address] [place] [address] 04/24/2024 3:00 PM EST Office Visit Orthopaedics [address] [phone] Augie Victoria MD [address] [place] [address] 05/06/2024 8:00 AM EST Office Visit Family Medicine [address] [phone] Antione Rocha MD [address] [place] [address] [place] [address] 07/29/2024 8:30 AM EDT [facility] [address] [place] [address] Yesenia Garcia PA-C [address] [place] [address] 10/23/2024 11:00 AM EDT Office Visit Cardiology [address] [place] [address] Yesenia Garcia PA-C [address] [place] [address] Scheduled Procedures Name Priority Associated Diagnoses Date/Ti [...] 10/21/2021, 09/17/19 21 CKD PHOS USE SMARTSET 60786 05/15/2023 02/0 09/2022, 05/05/2021, 01/27/2020, Additional history exists COVID-19 Vaccine ( season) 2023 04/05/2021, 09/22/2020, 08/24/2020 CKD HGB USE SMARTSET 65119 03/05/202403/05, 03/05/2023, 12/21/2022, Additional history exists DXA Scan 04/04/2024 04/04/2022, 04/04/2022 Depression Monitoring 07/18/2024 07/19/2023 GFR 07/21/2024 01/21/2024, 06/2023, 09/06/2023, Additional history exists Albumin/Creatinine Ratio 09/05/2024 09/06/2023, 08/07 TSH 12/10/2024 12/11/2023, 08/09, 11/13/2022, Additional history exists RETIRED - COLONOSCOPY-EVERY 5 YRS AGES 18-100 Discontinued 10/27/2016, 10/27/2016, 10/09/2011, Additional history exists VITAMIN D LEVEL ONCE IN A LIFETIME-USE SMARTSET# [id number] Completed 10/09/2022, 08/16/2022 Influenza Vaccine (FLU shot) [...] patient or by statute hierarchy) Care Teams Hvac Project Manager Relationship Specialty Start Date End Date Antione Rocha MD [address] [place] [address] [place] [address] PCP - General Family Medicine 02/02/21 documented as of this encounter
--- OUTSIDE RECORDS SUMMARY | 2024-05-06 06:08 | External Medical Summary | Summary of Care ---
Author Name Unknown Organization [facility] Address [address] [place] [address] Phone [phone] Care Team Providers Care Pilot Plant Research Technician Name Role Phone Antione Rocha MD Primary Care Provide r Reason for Visit * Reason Comments Follow Up Knee Pain R knee Encounter Details Date Type Department Care Team (Latest Contact Info) Description 01/10/2024 9:45 AM EDT Office Visit Orthopaedics [address] [phone] Augie Victoria MD [address] [place] [address] Primary osteoarthritis of right knee* Allergies Active [...] tis 07/21/2016 Coronary artery disease invo lving [place] coronary artery of [place] heart without angina pectoris 07/21/2016 documented as [...] breast, colon screening. REQUEST shot recs Distant [place]? 08/23 TTE 5mm pericardial effusion-on repeat, appears [...] - 01/10/2024 9:45 AM EDT Violetta Nicole [phone] Violetta Nicole is a 83 year old female who presents for follow-up to [facility] Orthopa[facility]ics [facility] Medicine for right knee [...] disease, chronic, stage III (GFR 30-59 ml/min) ([facility]) 01/24/2017 Old myocardial infarct 01/24/2017 Pericardial effusion 08/14/2016 Well adult exam 07/21/2016 Prefers to stop breast, colon screening. REQUEST shot recs Distant [place]? 08/23 TTE 5mm pericardial effusion-on repeat, appears [...] Stability Do you currently live in a retirement or have no steady place to sleep [...] Victoria MD Primary Care Sports Medicine Orthopaedics [address] [phone] documented in this encounter Nursing Notes * [...] 01/31/2024 1:30 PM EDT Office Visit Orthopaedics [address] [phone] Augie Victoria MD [address] [place] [address] 03/13/2024 9:30 AM EST Office Visit Cardiology [address] [place] [address] Yesenia Garcia PA-C [address] [place] [address] 05/06/2024 8:00 AM EST Office Visit Family Medicine [address] [phone] Antione Rocha MD [address] [place] [address] [place] [address] Scheduled Orders Name Type Priority Associated Diagnoses [...] 10/21/2022 10/21/2021, 09/17/19 CKD PHOS USE SMARTSET 76919 05/15/2023 02/0 09/2022, 05/05/2021, 01/27/2020, Additional history exists COVID-19 Vaccine ( season) 2023 04/05/2021, 09/22/2020, 08/24/2020 CKD HGB USE SMARTSET 86508 03/05/202403/05, 03/05/2023, 12/21/2022, Additional history exists DXA Scan 04/04/2024 04/04/2022, 04/04/2022 Depression Monitoring 07/18/2024 07/19/2023 GFR 07/21/2024 01/21/2024, 0906/2023, 09/06/2023, Additional history exists Albumin/Creatinine Ratio 09/05/2024 09/06/2023, 08/07 TSH 12/10/2024 12/11/2023, 08/09, 11/13/2022, Additional history exists RETIRED - COLONOSCOPY-EVERY 5 YRS AGES 18-100 Discontinued 10/27/2016, 10/27/2016, 10/09/2011, Additional history exists VITAMIN D LEVEL ONCE IN A LIFETIME-USE SMARTSET# 50763 Completed 10/09/2022, 08/16/2022 Influenza Vaccine (FLU shot) [...] patient or by statute hierarchy) Care Teams Pilot Plant Research Technician Relationship Specialty Start Date End Date Antione Rocha MD [address] [place] [address] [place] [address] PCP - General Family Medicine 02/02/21 documented as of this encounter
--- OUTSIDE RECORDS SUMMARY | 2024-05-06 06:09 | External Medical Summary | Summary of Care ---
Author Name Unknown Organization [facility] Address [address] [place] [address] Phone [phone] Care Team Providers Care Football Scout Name Role Phone Antione Rocha MD Primary Care Provide r Reason for Visit * Reason Comments Outpatient Testing Encounter Details Date Type Department Care Team (Late st Contact Info) Description 01/21/2024 9:00 AM EDT Laboratory Laboratory [address] [place] [phone] , Specimen Drop Off [address] [place] [address] Shortness of breath; Chronic kidney disease, stage 3b (HCC) Allergies Active Allergy Reactions Criticality Noted Date Comments Rosuvastatin Calcium 07/21/2016 myalgia documented as of this encounter (statuses as of 01/21/2024) Medications Medication Sig Dispensed Refills Start Date [...] hours as needed for Pain, Moderate. Active Lisinopril 20 MG Oral Tablet (Prinivil)Indication s:Benign hypertension with stage 3b chronic kidney disease (HCC),HTN, goal below 150/90 Take 1 Tablet by mouth in the morning. 90 Tablet 1 07/31/2023 Active Pravastatin Sodium 20 MG Oral Tablet [...] THE DAY 100 Capsule 1 12/24/2023 Active documented as of this encounter (statuses as of 01/21/2024) Active Problems Problem Noted Date Diagnosed Date [...] tis 07/21/2016 Coronary artery disease invo lving [place] coronary artery of [place] heart without angina pectoris 07/21/2016 documented as of this encounter (statuses as of 01/21/2024) Resolved Problems Problem Noted Date Diagnosed Date [...] breast, colon screening. REQUEST shot recs Distant [place]? 08/23 TTE 5mm pericardial effusion-on repeat, appears to be fat pad. 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 documented as of this encounter (statuses as of 01/21/2024) Immunizations Name Administration Dates Next Due COVID-19 [...] 01/31/2024 1:30 PM EDT Office Visit Orthopaedics [address] [place] [address] Augie Victoria MD [address] [place] [address] 03/13/2024 9:30 AM EST Office Visit Cardiology [address] [place] [address] Yesenia Garcia PA-C [address] [place] [address] 05/06/2024 8:00 AM EST Office Visit Family Medicine [address] [place] [phone] Antione Rocha MD [address] [place] [address] [place] [address] Pending Results Name Type Priority Associated Diagnoses Date /Time BASIC METABOLIC PANEL Lab Routine Shortness of breath Chronic kidney disease, stage 3b (HCC) 01/21/2024 6:20 AM EDT Scheduled Procedures Name Priority Associated Diagnoses Date/Ti me COLONOSCOPY FLEXIBLE PROXIMAL DIAGNOSTIC Recall History of colon polyps Health Maintenance Due Date Last Done Comments DTap/Tdap Vaccines (1 - Tdap) 1959 Zoster Vaccines (1 of 2) 1990 Pneumococcal Vaccine: 65+ Years (2 of 2 - PPSV23 or PCV20) 11/24/2015 11/23/2014 Colonoscopy 10/27/2021 10/27/2016, /04/2016, 09/22/2011, Additional history exists Adult Wellness Visit 10/21/2022 10/21/2021, 09/17/19 CKD PHOS USE SMARTSET 75198 05/15/2023 02/0 09/2022, 05/05/2021, 01/27/2020, Additional history exists COVID-19 Vaccine ( season) 2023 04/05/2021, 09/22/2020, 08/24/2020 CKD HGB USE SMARTSET 88854 03/05/202403/05, 03/05/2023, 12/21/2022, Additional history exists DXA Scan 04/04/2024 04/04/2022, 04/04/2022 GFR 06/09/2024 12/11/2023, 08/09, 07/31/2023, Additional history exists Depression Monitoring 07/18/2024 07/19/2023 Albumin/Creatinine Ratio 09/05/2024 09/06/2023, 05/1 TSH 12/10/2024 12/11/2023, 08/09, 11/13/2022, Additional history exists RETIRED - COLONOSCOPY-EVERY 5 YRS AGES 18-100 Discontinued 10/27/2016, 10/27/2016, 10/09/2011, Additional history exists VITAMIN D LEVEL ONCE IN A LIFETIME-USE SMARTSET# 80341 Completed 10/09/2022, 08/16/2022 Influenza Vaccine (FLU shot) [...] as of this encounter Visit Diagnoses Diagnosis Shortness of breath Chronic kidney disease, stage 3b (HCC) documented in this encounter Advance Directives Healthcare Agents on File Name Relationship Healthcare Agent Relationshi p Communication Ailyn Foster Adult Child Health Care Repr esentative (appointed verbally by patient or by statute hierarchy) Care Teams Football Scout Relationship Specialty Start Date End Date Antione Rocha MD [address] [place] [address] [place] [phone] PCP - General Family Medicine 02/02/21 documented as of this encounter
--- OUTSIDE RECORDS SUMMARY | 2024-05-06 06:09 | External Medical Summary | Summary of Care ---
Author Name Unknown Organization [facility] Address [address] [place] [address] Phone [phone] Care Team Providers Care Chief Supply Chain Officer Name Role Phone Antione Rocha MD Primary Care Provide r Reason for Visit * Reason Comments Follow Up Knee Pain R knee Encounter Details Date Type Department Care Team (Latest Contact Info) Description 01/10/2024 9:45 AM EDT Office Visit Orthopaedics [address] [phone] Augie Victoria MD [address] [place] [address] Primary osteoarthritis of right knee* Allergies Active Allergy Reactions Criticality Noted Date Comments Rosuvastatin Calcium 07/21/2016 myalgia documented as of this encounter (statuses as of 01/11/2024) Medications Medication Sig Dispensed Refills Start Date [...] THE DAY 100 Capsule 1 12/24/2023 Active Hospital, Clinic, or Other Facility Administered Medication Ordered Dose Route Frequency Start Date End Date Status Triamcinolone Acetonide (Kenalog) 40 MG/ML inj 40 mgIndications:Primary osteoarthritis of right knee 40 mg IX ONCE 01/11/2024 01/12/2024 Active lidocaine 1 % inj 10 mgIndications:Primary osteoarthritis of right knee 10 mg IX ONCE 01/11/2024 01/12/2024 Active documented as of this encounter (statuses as of 01/11/2024) Active Problems Problem Noted Date Diagnosed Date [...] tis 07/21/2016 Coronary artery disease invo lving [place] coronary artery of [place] heart without angina pectoris 07/21/2016 documented as of this encounter (statuses as of 01/11/2024) Resolved Problems Problem Noted Date Diagnosed Date [...] as of this encounter (statuses as of 01/11/2024) Immunizations Name Administration Dates Next Due COVID-19 [...] Former Cigarettes 1 10 1 976 - 1985 Smokeless Tobacco: Never Alcohol [...] - 01/10/2024 9:45 AM EDT Violetta Nicole [phone] Violetta Nicole is a 83 year old female who presents for follow-[facility] to [facility] Orthopaedics and [facility] Medicine for [...] disease, chronic, stage III (GFR 30-59 ml/min) ([facility]) 01/24/2017 Old myocardial infarct 01/24/2017 Pericardial [...] Stability Do you currently live in a residential or have no steady place to sleep [...] Victoria MD Primary Care Sports Medicine Orthopaedics [address] [phone] documented in this encounter Nursing Notes * Serena Paez LPN - 01/10/2024 9:42 AM EDT F/u R knee pain 5/10 Pt would like repeat steroid injection Xray L knee today for future 30 min f/u visit Pt accompanied by her Rachel AdkinsShaylee JOHNSON documented in this encounter Plan of Treatment Upcoming Encounters Date Type Department Care Team (Late st Contact Info) Description 01/31/2024 1:30 PM EDT Office Visit Orthopaedics [address] [phone] Augie Victoria MD [address] [place] [address] 03/13/2024 9:30 AM EST Office Visit Cardiology [address] [place] [address] Yesenia Garcia PA-C [address] [place] [address] 05/06/2024 8:00 AM EST Office Visit Family Medicine [address] [phone] Antione Rocha MD [address] [place] [address] [place] [address] Scheduled Orders Name Type Priority Associated Diagnoses [...] 10/21/2022 10/21/2021, 09/17/19 CKD PHOS USE SMARTSET 91410 05/15/2023 02/0 09/2022, 05/05/2021, 01/27/2020, Additional history exists COVID-19 Vaccine ( season) 2023 04/05/2021, 09/22/2020, 08/24/2020 CKD HGB USE SMARTSET 62368 03/05/202403/05, 03/05/2023, 12/21/2022, Additional history exists DXA Scan 04/04/2024 04/04/2022, 04/04/2022 GFR 06/09/2024 12/11/2023, 08/09, 07/31/2023, Additional history exists Depression Monitoring 07/18/2024 07/19/2023 Albumin/Creatinine Ratio 09/05/2024 09/06/2023, 08/07 TSH 12/10/2024 12/11/2023, 08/09, 11/13/2022, Additional history exists RETIRED - COLONOSCOPY-EVERY 5 YRS AGES 18-100 Discontinued 10/27/2016, 10/27/2016, 10/09/2011, Additional history exists VITAMIN D LEVEL ONCE IN A LIFETIME-USE SMARTSET# [id number] Completed 10/09/2022, 08/16/2022 Influenza Vaccine (FLU shot) [...] osteoarthrosis, lower leg documented in this encounter Advance Directives Healthcare Agents on File Name Relationship Healthcare Agent Relationshi p Communication Ailyn Foster Adult Child Health Care Repr esentative (appointed verbally by patient or by statute hierarchy) Care Teams Chief Supply Chain Officer Relationship Specialty Start Date End Date Antione Rocha MD [address] [place] [address] [place] [phone] PCP - General Family Medicine 02/02/21 documented as of this encounter
--- OUTSIDE RECORDS SUMMARY | 2024-05-06 06:09 | External Medical Summary | Summary of Care ---
Author Name Unknown Organization [facility] Address [address] [place] [address] Phone [phone] Care Team Providers Care Theater Usher Name Role Phone Antione Rocha MD Primary Care Provide r Reason for Visit * Reason Comments Medication Refill Encounter Details Date Type Department Care Team (Late st Contact Info) Description 12/22/2023 Refill Family Medicine [address] [phone] Antione Rocha MD [address] [place] [address] [place] [id number] Encounter for long-term (current) use of medications* Allergies Active Allergy Reactions Criticality Noted Date Comments Rosuvastatin Calcium 07/21/2016 myalgia documented as of this encounter (statuses as of 12/24/2023) Medications Medication Sig Dispensed Refills Start Date [...] Moderate. Active Lisinopril 20 MG Oral Tablet (Prinivil)Indicatio [...] Tablet before bedtime. 40 Tablet 11/05/2023 Active Sertraline HCl 50 MG Oral Tablet [...] THE DAY 100 Capsule 1 12/24/2023 Active Omeprazole 20 MG Oral Capsule Delayed Release (PriLOSEC) TAKE ONE CAPSULE BY MOUTH EVERY MORNING ONE HOUR BEFORE THE FIRST MEAL OF THE DAY 100 Capsule 3 11/21/2022 12/22/19 24 Discontinu ed(Refill) documented as of this encounter (statuses as of 12/24/2023) Active Problems Problem Noted Date Diagnosed Date [...] tis 07/21/2016 Coronary artery disease invo lving [place] coronary artery of [place] heart without angina pectoris 07/21/2016 documented as of this encounter (statuses as of 12/24/2023) Resolved Problems Problem Noted Date Diagnosed Date [...] as of this encounter (statuses as of 12/24/2023) Immunizations Name Administration Dates Next Due COVID-19 [...] (Fluzone Hd) 01/12/2023,01/26/2022,12/30/2020 Seasonal Influenza, Trivalen t, (IIV3), with Preserv, (Fluzone) 03/03/2013 Seasonal Influenza, Trivalen t, Adjuvanted, 65+ YRS, [...] encounter Miscellaneous Notes * Telephone Encounter - Muna Walter RPh - 12/24/2023 10:18 AM EDTSigned Prescriptions: Disp Refills Omeprazole 20 MG Oral Capsule Delayed Rele*100 Ca*1 Sig: TAKE ONE CAPSULE BY MOUTH EVERY MORNING ONE HOUR BEFORE THE FIRST MEAL OF THE DAY Authorizing Provider: ANTIONE ROCHA Ordering User: MUNA WALTER * Telephone Encounter - Muna Walter RPh - 12/24/2023 10:17 AM EDT Per refill protocol patient needs magnesium lab on file within the past 2 years while using PPIs. Lab work ordered. Patient may obtain with next routine labs. ThanksMuna PharmD Clinical Pharmacist [facility] [phone] 12/24/2023, 10:18 AM documented in this encounter Plan of Treatment Upcoming Encounters Date Type Department Care Team (Late st Contact Info) Description 12/26/2023 2:30 PM EDT Office Visit Cardiology, [facility] [address] [address] Josefina Price CRNP [address] [address] 01/10/2024 9:45 AM EDT Office Visit Orthopaedics [address] [phone] Augie Victoria MD [address] [place] [address] 03/13/2024 9:30 AM EST Office Visit Cardiology [address] [place] [address] Yesenia Garcia PA-C [address] [place] [address] 05/06/2024 8:00 AM EST Office Visit Family Medicine [address] [place] [phone] Antione Rocha MD [address] [place] [address] [place] [phone] Scheduled Orders Name Type Priority Associated Diagnoses Orde r Schedule MAGNESIUM Lab Routine Encounter for long-term (current) use of medications Expected: 12/31/2023 (Approximate), Expires: 12/23/2024 Scheduled Procedures Name Priority Associated Diagnoses Date/Ti [...] 10/21/2021, 09/17/19 21 CKD PHOS USE SMARTSET 10621 05/15/2023 02/0 09/2022, 05/05/2021, 01/27/2020, Additional history exists COVID-19 Vaccine ( season) 2023 04/05/2021, 09/22/2020, 08/24/2020 Influenza Vaccine (FLU shot) (#1) 2023 01/12/2023, 01/26/2022, 12/30/2020, Additional history exists CKD HGB USE SMARTSET 97748 03/05/202403/05, 03/05/2023, 12/21/2022, Additional history exists DXA Scan 04/04/2024 04/04/2022, 04/04/2022 GFR 06/09/2024 12/11/2023, 08/09, 07/31/2023, Additional history exists Depression Monitoring 07/18/2024 07/19/2023 Albumin/Creatinine Ratio 09/05/2024 09/06/2023, 08/07 TSH 12/10/2024 12/11/2023, 08/09, 11/13/2022, Additional history exists RETIRED - COLONOSCOPY-EVERY 5 YRS AGES 18-100 Discontinued 10/27/2016, 10/27/2016, 10/09/2011, Additional history exists VITAMIN D LEVEL ONCE IN A LIFETIME-USE SMARTSET# [id number] Completed 10/09/2022, 08/16/2022 HPV (Gardasil) Vaccine Aged Out No lo [...] as of this encounter Visit Diagnoses Diagnosis Encounter for long-term (current) use of medications- Primary Encounter for long-term (current) use of other medications documented in this encounter Advance Directives Healthcare Agents on File Name Relationship Healthcare Agent Relationshi p Communication Ailyn Foster Adult Child Health Care Repr esentative (appointed verbally by patient or by statute hierarchy) Care Teams Theater Usher Relationship Specialty Start Date End Date Antione Rocha MD [address] [place] [address] [place] [address] PCP - General Family Medicine 02/02/21 documented as of this encounter
--- OUTSIDE RECORDS SUMMARY | 2024-05-06 06:09 | External Medical Summary | Summary of Care ---
Author Name Unknown Organization [facility] Address [address] [place] [address] Phone [phone] Care Team Providers Care Drawbridge Tender Name Role Phone Antione Rocha MD Primary Care Provide r Reason for Visit * Reason Comments Follow Up Knee Pain R knee Encounter Details Date Type Department Care Team (Latest Contact Info) Description 01/10/2024 9:45 AM EDT Office Visit Orthopaedics [address] [phone] Augie Victoria MD [address] [place] [address] Primary osteoarthritis of right knee* Allergies Active Allergy Reactions Criticality Noted Date Comments Rosuvastatin Calcium 07/21/2016 myalgia documented as of this encounter (statuses as of 01/19/2024) Medications Medication Sig Dispensed Refills Start Date [...] as of this encounter (statuses as of 01/19/2024) Active Problems Problem Noted Date Diagnosed Date [...] tis 07/21/2016 Coronary artery disease invo lving [place] coronary artery of [place] heart without angina pectoris 07/21/2016 documented as of this encounter (statuses as of 01/19/2024) Resolved Problems Problem Noted Date Diagnosed Date [...] as of this encounter (statuses as of 01/19/2024) Immunizations Name Administration Dates Next Due COVID-19 [...] - 01/10/2024 9:45 AM EDT Violetta Nicole [phone] Violetta Nicole is a 83 year old female who presents for follow-up to [facility] for right knee [...] disease, chronic, stage III (GFR 30-59 ml/min) ([facility]) 01/24/2017 Old myocardial infarct [...] Stability Do you currently live in a intermediate or have no steady place to sleep [...] Victoria MD Primary Care Sports Medicine Orthopaedics [address] [phone] documented in this encounter Nursing Notes * [...] 01/31/2024 1:30 PM EDT Office Visit Orthopaedics [address] [phone] Augie Victoria MD [address] [place] [address] 03/13/2024 9:30 AM EST Office Visit Cardiology [address] [place] [address] Yesenia Garcia PA-C [address] [place] [address] 05/06/2024 8:00 AM EST Office Visit Family Medicine [address] [phone] Antione Rocha MD [address] [place] [address] [place] [address] Scheduled Orders Name Type Priority Associated Diagnoses [...] 10/21/2022 10/21/2021, 09/17/19 CKD PHOS USE SMARTSET 61476 05/15/2023 02/0 09/2022, 05/05/2021, 01/27/2020, Additional history exists COVID-19 Vaccine ( season) 2023 04/05/2021, 09/22/2020, 08/24/2020 CKD HGB USE SMARTSET 77675 03/05/202403/05, 03/05/2023, 12/21/2022, Additional history exists DXA Scan 04/04/2024 04/04/2022, 04/04/2022 GFR 06/09/2024 12/11/2023, 08/09, 07/31/2023, Additional history exists Depression Monitoring 07/18/2024 07/19/2023 Albumin/Creatinine Ratio 09/05/2024 09/06/2023, 08/07 TSH 12/10/2024 12/11/2023, 08/09, 11/13/2022, Additional history exists RETIRED - COLONOSCOPY-EVERY 5 YRS AGES 18-100 Discontinued 10/27/2016, 10/27/2016, 10/09/2011, Additional history exists VITAMIN D LEVEL ONCE IN A LIFETIME-USE SMARTSET# [id number] Completed 10/09/2022, 08/16/2022 Influenza Vaccine (FLU shot) [...] patient or by statute hierarchy) Care Teams Drawbridge Tender Relationship Specialty Start Date End Date Antione Rocha MD [address] [place] [address] [place] [address] PCP - General Family Medicine 02/02/21 documented as of this encounter
--- OUTSIDE RECORDS SUMMARY | 2024-05-06 06:09 | External Medical Summary | Summary of Care ---
Author Name Unknown Organization [facility] Address [address] [place] [address] Phone [phone] Care Team Providers Care Wool Brusher Name Role Phone Antione Rocha MD Primary Care Provide r Reason for Visit * Reason Comments Follow Up Knee Pain R knee Encounter Details Date Type Department Care Team (Latest Contact Info) Description 01/10/2024 9:45 AM EDT Office Visit Orthopaedics [address] [phone] Augie Victoria MD [address] [place] [address] Primary osteoarthritis of right knee* Allergies Active Allergy Reactions Criticality Noted Date Comments Rosuvastatin Calcium 07/21/2016 myalgia documented as of this encounter (statuses as of 01/18/2024) Medications Medication Sig Dispensed Refills Start Date [...] knee 40 mg IX ONCE 01/11/2024 01/12/2024 Ended lidocaine 1 % inj 10 mgIndications:Primary osteoarthritis of right knee 10 mg IX ONCE 01/11/2024 01/12/2024 Ended documented as of this encounter (statuses as of 01/18/2024) Active Problems Problem Noted Date Diagnosed Date [...] tis 07/21/2016 Coronary artery disease invo lving [place] coronary artery of [place] heart without angina pectoris 07/21/2016 documented as of this encounter (statuses as of 01/18/2024) Resolved Problems Problem Noted Date Diagnosed Date [...] breast, colon screening. REQUEST shot recs Distant PA? 08/23 TTE 5mm pericardial effusion-on repeat, appears to be fat pad. 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 documented as of this encounter (statuses as of 01/18/2024) Immunizations Name Administration Dates Next Due COVID-19 [...] - 01/10/2024 9:45 AM EDT Violetta Nicole [phone] Violetta Nicole is a 83 year old female who presents for follow-up to [facility] for right [...] stage III (GFR 30-59 ml/min) ([facility]) 01/24/2017 Old myocardial infarct 01/24/2017 Pericardial effusion 08/14/2016 Well adult exam 07/21/2016 Prefers to stop breast, colon screening. REQUEST shot recs Distant PA? 08/23 TTE 5mm pericardial effusion-on repeat, appears [...] Victoria MD Primary Care Sports Medicine Orthopaedics [address] [phone] documented in this encounter Nursing Notes * [...] 01/31/2024 1:30 PM EDT Office Visit Orthopaedics [address] [phone] Augie Victoria MD [address] [place] [address] 03/13/2024 9:30 AM EST Office Visit Cardiology [address] [place] [address] Yesenia Garcia PA-C [address] [place] [address] 05/06/2024 8:00 AM EST Office Visit Family Medicine [address] [phone] Antione Rocha MD [address] [place] [address] [place] [phone] Scheduled Orders Name Type Priority Associated Diagnoses [...] 10/21/2022 10/21/2021, 09/17/19 CKD PHOS USE SMARTSET 19591 05/15/2023 02/0 09/2022, 05/05/2021, 01/27/2020, Additional history exists COVID-19 Vaccine ( season) 2023 04/05/2021, 09/22/2020, 08/24/2020 CKD HGB USE SMARTSET 19819 03/05/202403/05, 03/05/2023, 12/21/2022, Additional history exists DXA Scan 04/04/2024 04/04/2022, 04/04/2022 GFR 06/09/2024 12/11/2023, 08/09, 07/31/2023, Additional history exists Depression Monitoring 07/18/2024 07/19/2023 Albumin/Creatinine Ratio 09/05/2024 09/06/2023, 08/07 TSH 12/10/2024 12/11/2023, 08/09, 11/13/2022, Additional history exists RETIRED - COLONOSCOPY-EVERY 5 YRS AGES 18-100 Discontinued 10/27/2016, 10/27/2016, 10/09/2011, Additional history exists VITAMIN D LEVEL ONCE IN A LIFETIME-USE SMARTSET# [id number] Completed 10/09/2022, 08/16/2022 Influenza Vaccine (FLU shot) [...] patient or by statute hierarchy) Care Teams Wool Brusher Relationship Specialty Start Date End Date Antione Rocha MD [address] [place] [address] [place] [phone] PCP - General Family Medicine 02/02/21 documented as of this encounter
--- OUTSIDE RECORDS SUMMARY | 2024-05-06 06:09 | External Medical Summary | Summary of Care ---
Author Name Unknown Organization [facility] Address [address] [place] [address] Phone [phone] Care Team Providers Care Specialty Sales Consultant Name Role Phone Antione Rocha MD Primary Care Provide r Reason for Visit * Reason Onset Date Comments Follow Up Abnormal echo / nuclear stress test follow up Medication Administration 12/26/2023 Flu an d/or Pneumo Inj Encounter Details Date Type Department Care Team (Late st Contact Info) Description 12/26/2023 2:30 PM EDT [facility] Visit [facility] [place] [address] Josefina Price CRNP [address] [facility] [place] [address] Coronary artery disease involving [place] coronary artery of [place] heart with other form of angina pectoris (HCC)*; PVC (premature ventricular contraction); Heart palpitations; HTN, goal below 140/90; Need for prophylactic vaccination and inoculation against influenza; Dyslipidemia, goal LDL below 70 Allergies Active Allergy Reactions Criticality Noted Date Comments Rosuvastatin Calcium 07/21/2016 myalgia documented as of this encounter (statuses as of 12/28/2023) Medications Medication Sig Dispensed Refills Start Date [...] TAKING 12 Tablet 11 05/10/2023 5 Active Additional Information Patient taking differently: Sundays., [...] as of this encounter (statuses as of 12/28/2023) Active Problems Problem Noted Date Diagnosed Date [...] as of this encounter (statuses as of 12/28/2023) Resolved Problems Problem Noted Date Diagnosed Date [...] as of this encounter (statuses as of 12/28/2023) Immunizations Name Administration Dates Next Due COVID-19 mRNA, LNP-s, No Pre serve, 2-Dose Series (Moderna) 09/22/2020,08/24/2020 COVID-19, mRNA, LNP-s, PF, B ooster, 100mcg/0.5mg (Moderna) 04/05/2021 Pneumococcal Conjugate Vacc, 13 Valent (Prevnar) 11/23/2014 Season Influenza, Quad, PF, Adjuvanted, 65+ Yrs, IM (FLUAD) 01/14/2020 Seasonal Influenza, High Dos e, Trivalent, PF, [...] Sign Reading Time Taken Comments Blood Pressure 134/72 12/26/2023 2:30 PM EDT Pulse 60 12/26/2023 2:30 PM EDT Temperature - - Respiratory Rate 16 12/26/2023 2:30 PM EDT Oxygen Saturation - - Inhaled Oxygen Concentration - - Weight 89.8 kg (198 lb) 12/26/2023 2:30 PM EDT Height - - Body Mass Index 28.41 08/16/2023 12:50 PM EDT documented in this encounter Progress Notes * Josefina Price CRNP - 12/26/2023 2:30 PM EDT 12/26/2023 Cardiology Follow Up Primary Culture Room Worker: Dr. 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 Patient was ordered a nuclear stress test as well as a resting echocardiogram for evaluation. Nuclear stress test showed a small area of mild lateral wall ischemia involving 5% of the total myocardium resting echocardiogram showed a low normal LVEF of 50-54% mild MR and TR echo is essentiallyunchanged from 2022. There was notation that blood pressure was elevated during the course of study. Patient presents to review results and discuss possible medication adjustments. Patient presents today feeling well overall. Spouse is accompanied her to the appointment. Patient states that she continues with intermittent episodes of shortness of breath with exertion such as climbing stairs, but does not report any worsening symptoms of fatigue. Patient denies chest pain or pressure but does endorse occasional palpitations which is not new for her as she has a known historyof frequent PVCs with most recent Zio showing 4% burden. EKG obtained today while patient was reporting PVCs demonstrates sinus bradycardia rate 55 beats per minute T-wave abnormality wishes cited in prior EKGs QTC interval 491 milliseconds Patient's spouse report they have been monitoring her blood pressure at home but has been taking itin the morning before her medications. Unfortunately, this does not give us an accurate portrayal of how she is responding to medication therapy. Blood pressure today at target Patient reports compliance on all medication therapies with no untoward effects. REVIEW OF SYSTEMS: See HPI for pertinent positives. All others negative other than those noted in the HPI. CONSTITUTIONAL: No change in weight, No weakness, No fatigue and No fevers, No sweats or chills. PULMONARY: No cough, sputum, or hemoptysis, No wheezing, No shortness or breath and No recent change in breathing. CARDIOVASCULAR: No chest pain, No dyspnea on exertion, No edema, No palpitations and No syncope. GASTROINTESTINAL: No abdominal pain, No change in bowel habits, No significant heartburn, No nausea, No vomiting, No diarrhea, No constipation, No blood in stools or black tarry stools. No dysphagia. HEMATOLOGIC: No abnormal bleeding and No bruising. NEUROLOGICAL: Normal balance, No headaches and No weakness. Review of patient's allergies indicates: Allergen Reactions [...] 6 hours as needed for Pain, Moderate. Lisinopril 20 MG Oral Tablet (Prinivil) Take 1 Tablet by mouth in the morning. 90 Tablet 1 Pravastatin Sodium 20 MG Oral Tablet (Pravachol) [...] MEAL OF THE DAY 100 Capsule 1 guaiFENesin ER 600 MG Oral Tablet [...] 2019. Social History Socioeconomic History Marital status: Occupational History Occupation: retired. card shop. Tobacco [...] kids, 5 grandkids, +great 4 or so. Social History Narrative 61 yrs as of 10/21/2021 Likes--kylah. Active w/mult state fairs. Born in [place]. Social Determinants of Health Financial Resource Strain: Low Risk (07/26/2023) Financial Resource Strain Do you have any trouble paying for your medications, or do you think you might in the future? (Adult - for ages 18 years and over): No Food Insecurity: Food Insecurity Present (07/26/2023) Food Insecurity Do you need food for this week? (Adult - for ages 18 years and over): Yes Transportation Needs: No Transportation Needs (07/26/2023) Transportation Needs Do you have trouble getting a ride to medical visits or work? (Adult - for ages 18 years and over):Never True Social Connections: Socially Integrated (07/26/2023) Social Connections How often do you feel lonely or isolated from those around you? (Adult - for ages 18 years and over): Never Housing Stability: High Risk (07/26/2023) Housing Stability Do you currently live in a long-term or have no steady place to sleep at night? (Adult - for ages 18 years and over): Yes Do you think you are at risk of becoming homeless? (Adult - for ages 18 years and over): Yes OBJECTIVE/PHYSICAL EXAMINATION: BP 134/72 | Pulse 60 | Resp 16 | Wt 89.8 kg (198 lb) | BMI 28.41 kg/m | BSA 2.11 m General: No acute distress. A+Ox3. HEENT: Normocephalic. Atraumatic. PERRL. EOMI. Conjunctiva and sclera clear. NECK: No carotid bruits. No JVD. Carotid upstrokes are brisk. Heart: RRR. S1 and S2 noted. No murmur. No rubs or gallops. PMI non displaced. Lungs: Clear to auscultation. No wheezes.No rhonchi. No rales. Abdomen: Normal bowel sounds. Soft. Nontender. No masses or organomegaly. No abdominal bruits. Extremities: No edema. No clubbing or cyanosis. Pulses: radial=2/4, posterior tibial=2/4, dorsalis pedis = 2/4. NEURO: No focal deficits. PSYCH: Appropriate affect and insight. DATA Labs & Imaging Reviewed Below: Echocardiogram 11/08/23: Interpretation Summary The qualitative LV ejection fraction is 50-54% (normal). The left atrium is mildly enlarged (35-41 ml/m^2). Mild mitral regurgitation is present. Mild tricuspid regurgitation is present. The estimated pulmonary artery systolic pressure is 43mm Hg. There is an atrial septal aneurysm. There is no evidence of an atrial septal defect but resolution does not allow assessment for a patent foramen ovale. Compared to prior study of 11/23/2022, there is no significant change. Nuclear stress test 11/08/23: Interpretation Summary Abnormal Lexiscan nuclear stress test demonstrating a small area of mild lateral wall ischemia. Ischemia involves less than 5% of the total myocardium per quantitative analysis. Gated SPECT images reveals normal myocardial thickening and wall motion. The LV ejection fraction is calculated at 68%. EKG reviewed from [facility] dated 07/17/23 Sinus rhythm with Premature ventricular complexes T wave abnormality, consider anterior ischemia T wave inversions are more prominent in anterior leads compared to prior EKG Echo 11/23/2022 The examination is adequate to [...] effusion is noted. Cardiac tamponade is absent. ASSESSMENT/PLAN: 83 year old year old female 1. Coronary artery disease involving p[place] coronary artery of [place] heart with other form of angina pectoris (HCC) -Patient denies any chest pain or angina. -Review of stress test demonstrates a small area of mild lateral wall ischemia less than 5%. -Would like to consider adjusting medications therapies, but need to see home BP readings. -Have requested that patient (spouse) checks her blood pressure 2 hours after she takes her morningmedications and keep a log. He will have his grandaugter send me a [employer] message in 1-2 weeks. 2. PVC (premature ventricular contraction) 3. Heart palpitations -Continues to endorse occasional palpitations. EKG was obtained at the time of symptom complaint and demonstrates SB, no ectopy. -Continue Toprol xl as per current regimen. Would be hesitant to increase as patient's current resting HR is 55bpm - EKG 4. HTN, goal below 140/90 -AT target. -continue metoprolol succinate, furosemide, lisinopril - EKG 5. Need for prophylactic vaccination and inoculation against influenza - INFLUENZA VAC., TRIVALENT, HD, PF, 65 AND ABOVE, 0.5 ML IM (FLUZONE HD) 6. Dyslipidemia, goal LDL below 70 -recommend yearly lipid panel -continue aspirin 81 milligram and pravastatin 20 milligram as per current regimen DISPOSITION: Follow up 3 months as already scheduled with Bessie in [facility] or if symptoms worsen/fail to improve. All questions were answered to the patients satisfaction. Patient advised to report to ED with any and all emergencies. The patient agrees to the above plan and will call with additional questions or concerns. [facility], [address] [address] I spent a total of 35 minutes on the date of service in preparation, delivery, and documentation ofthe care provided to Violetta Nicole excluding any time spent in the performance of separately billed services. This chart was completed in part utilizing [employer] Speech Voice Recognition Software. Grammatical errors, random word insertions, pronoun errors, and incomplete sentences are an occasional consequence of this system due to software limitations, ambient noise, and hardware issues. Any formal questions or concerns about the content, text, or information contained within the body of this dictation should be directly addressed to the provider for clarification. * Maryjane Pemberton CMA - 12/26/2023 2:29 PM EDT PRE - ADMINISTRATION DOCUMENTATION Are you experiencing any cold symptoms or fever? No Have you had Guillain-Marianna Syndrome (an illness that causes paralysis) within the last 6 weeks? No Have you had the flu shot in the past? YES Have you ever had a reaction to the flu shot? Mary Alice Pemberton CMA, 12/26/2023 2:29 PM Immunization Administration Documentation Time Out Procedure Performed: Yes Patient Identified (Ask Name/Date of ): Yes Does the patient have a fever greater than 101 degrees today? No Patient allergic to latex? No VFC Stock: No Immunization(s) verified: Yes, Immunization Name: Flu, VIS Sheet(s) given: Yes Verified Side and Site: Yes Verified Shot(s) with Parent(s)/Patient: Yes documented in this encounter Procedure Notes * Luis E Starr MD - 12/26/2023 2:43 PM EDTAssociated Order(s): EKG REASON FOR STUDY: Palps;Palps CONCLUSIONS: Sinus bradycardia T wave abnormality, consider anterior ischemia Prolonged QT interval or tu fusion, consider myocardial disease, electrolyte imbalance, or drug effects Abnormal ECG When compared with ECG of 13-Dec-2022 12:04, No significant change was found Ventricular Rate: 55 Atrial Rate: 55 CO Interval: 192 QRS Duration: 86 QT/QTc: 514/491 ms P-R-T [place]: 64 : 50 : 69 degrees documented in this encounter Nursing Notes * Maryjane Pemberton CMA - 12/26/2023 2:26 PM EDT Examination Room: 6 Name: Violetta Nicole Date of : (1940). Reason for Visit: follow up abnormal echo/nuclear stress test Interim Hospitalization(s): [facility] 07/17/23 hyponatremia Problems/Concerns: Pulse has been low as 20's, pt and have been taking BP but usually at the same time she takes her meds. I advised them to take BP at home 2 hours after morning meds and report back results. Chest Pain/SOB: SOB on minimal exertion [facility] Discussed: Yes [facility] a way you can [...] Care Team (Late st Contact Info) Description 01/10/2024 9:45 AM EDT Office Visit Orthopaedics [address] [place] [address] Augie Victoria MD [address] [place] [address] 03/13/2024 9:30 AM EST Office Visit Cardiology [address] [place] [address] Yesenia Garcia PA-C [address] [place] [address] 05/06/2024 8:00 AM EST Office Visit Family Medicine [address] [place] [address] Antione Rocha MD [address] [place] [address] [place] [address] Scheduled Procedures Name Priority Associated Diagnoses Date/Ti [...] 10/21/2022 10/21/2021, 09/17/19 CKD PHOS USE SMARTSET 64190 05/15/2023 02/0 09/2022, 05/05/2021, 01/27/2020, Additional history exists COVID-19 Vaccine ( season) 2023 04/05/2021, 09/22/2020, 08/24/2020 CKD HGB USE SMARTSET 57934 03/05/202403/05, 03/05/2023, 12/21/2022, Additional history exists DXA Scan 04/04/2024 04/04/2022, 04/04/2022 GFR 06/09/2024 12/11/2023, 08/09, 07/31/2023, Additional history exists Depression Monitoring 07/18/2024 07/19/2023 Albumin/Creatinine Ratio 09/05/2024 09/06/2023, 05 TSH 12/10/2024 12/11/2023, 08/09, 11/13/2022, Additional history exists RETIRED - COLONOSCOPY-EVERY 5 YRS AGES 18-100 Discontinued 10/27/2016, 10/27/2016, 10/09/2011, Additional history exists VITAMIN D LEVEL ONCE IN A LIFETIME-USE SMARTSET# [id number] Completed 10/09/2022, 08/16/2022 Influenza Vaccine (FLU shot) [...] Not on filedocumented as of this encounter Procedures Procedure Name Priority Date/Time Associated Diagnosis Comments CO ECG ROUTINE ECG W/LEAST 12 LDS W/I&R Routine 12/26/2023 2:43 PM EDT Heart palpitations HTN, goal below 140/90 documented in this encounter Results * EKG (12/26/2023 2:43 PM EDT) 12/26/2023 2:43 PM EDT Narrative Procedure Note Luis E Starr MD - 12/26/2023 2:43 PM EDT REASON FOR STUDY: Palps;Palps CONCLUSIONS: Sinus bradycardia T wave abnormality, consider anterior ischemia Prolonged QT interval or tu fusion, consider myocardial disease,electrolyte imbalance, or drug effects Abnormal ECG When compared with ECG of 13-Dec-2022 12:04, No significant change was found Ventricular Rate: 55 Atrial Rate: 55 CO Interval: 192 QRS Duration: 86 QT/QTc: 514/491 ms P-R-T [place]: 64 : 50 : 69 degrees Josefina Felipe CORDON EKG [facility] documented in this encounter Visit Diagnoses Diagnosis Coronary artery disease involving [place] coronary artery of [place] heart with other form of angina pectoris (HCC)- Primary PVC (premature ventricular contraction) Other premature beats Heart palpitations Palpitations HTN, goal below 140/90 Unspecified essential hypertension Need for prophylactic vaccination and inoculation against influenza Dyslipidemia, goal LDL below 70 Other and unspecified hyperlipidemia documented in this encounter Advance Directives Healthcare Agents on File Name Relationship Healthcare Agent Relationshi p Communication Ailyn Foster Adult Child Health Care Repr esentative (appointed verbally by patient or by statute hierarchy) Care Teams Specialty Sales Consultant Relationship Specialty Start Date End Date Antione Rocha MD [address] [place] [address] [place] [address] PCP - General Family Medicine 02/02/21 documented as of this encounter"
--- OUTSIDE RECORDS SUMMARY | 2024-05-06 06:09 | External Medical Summary | Summary of Care ---
Author Name Unknown Organization [facility] Address [address] [place] [address] Phone [phone] Care Team Providers Care Industrial Plant Custodian Name Role Phone Antione Rocha MD Primary Care Provide r Reason for Visit * Reason Onset Date Comments Medication Refill 01/20/2024 Encounter Details Date Type Department Care Team (Late st Contact Info) Description 01/20/2024 Refill Family Medicine [address] [phone] Faye Rivera MD [address] [place] [address] [place] [phone] Benign hypertension with stage 3b chronic kidney disease (HCC); HTN, goal below 150/90 Allergies Active Allergy Reactions Criticality Noted Date Comments Rosuvastatin Calcium 07/21/2016 myalgia documented as of this encounter (statuses as of 01/22/2024) Medications Medication Sig Dispensed Refills Start Date [...] the morning. 90 Tablet 1 01/22/2024 Active Lisinopril 20 MG Oral Tablet (Prinivil)Indicatio ns:Benign hypertension with stage 3b chronic kidney disease (HCC),HTN, goal below 150/90 Take 1 Tablet by mouth in the morning. 90 Tablet 1 07/31/2023 01/20/20 24 Discontinu ed(Refill) documented as of this encounter (statuses as of 01/22/2024) Active Problems Problem Noted Date Diagnosed Date [...] tis 07/21/2016 Coronary artery disease invo lving [place] coronary artery of [place] heart without angina pectoris 07/21/2016 documented as of this encounter (statuses as of 01/22/2024) Resolved Problems Problem Noted Date Diagnosed Date [...] breast, colon screening. REQUEST shot recs Distant PR? 08/23 TTE 5mm pericardial effusion-on repeat, appears to be fat pad. 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 documented as of this encounter (statuses as of 01/22/2024) Immunizations Name Administration Dates Next Due COVID-19 [...] encounter Miscellaneous Notes * Telephone Encounter - Nancy Cole RP - 01/22/2024 10:36 AM EDTSigned Prescriptions: Disp Refills Lisinopril 20 MG Oral Tablet (Prinivil) 90 Tab*1 Sig: Take 1 Tablet by mouth in the morning.Authorizing Provider: Kayla ROCHA User: NANCY COLE documented in this encounter Plan of Treatment Upcoming Encounters Date Type Department Care Team (Late st Contact Info) Description 01/31/2024 1:30 PM EDT Office Visit Orthopaedics [address] [place] [phone] uAgie Victoria MD [address] [place] [address] 03/13/2024 9:30 AM EST Office Visit Cardiology [address] [place] [address] Yesenia Garcia PA-C [address] [place] [address] 05/06/2024 8:00 AM EST Office Visit Family Medicine [address] [place] [phone] Antione Rocha MD [address] [place] [address] [place] [phone] Scheduled Procedures Name Priority Associated Diagnoses Date/Ti [...] 10/21/2022 10/21/2021, 09/17/19 CKD PHOS USE SMARTSET 24120 05/15/2023 02/0 09/2022, 05/05/2021, 01/27/2020, Additional history exists COVID-19 Vaccine ( season) 2023 04/05/2021, 09/22/2020, 08/24/2020 CKD HGB USE SMARTSET 54159 03/05/202403/05, 03/05/2023, 12/21/2022, Additional history exists DXA Scan 04/04/2024 04/04/2022, 04/04/2022 Depression Monitoring 07/18/2024 07/19/2023 GFR 07/21/2024 01/21/2024, 06/2023, 09/06/2023, Additional history exists Albumin/Creatinine Ratio 09/05/2024 09/06/2023, 08/07 TSH 12/10/2024 12/11/2023, 08/09, 11/13/2022, Additional history exists RETIRED - COLONOSCOPY-EVERY 5 YRS AGES 18-100 Discontinued 10/27/2016, 10/27/2016, 10/09/2011, Additional history exists VITAMIN D LEVEL ONCE IN A LIFETIME-USE SMARTSET# [id number] Completed 10/09/2022, 08/16/2022 Influenza Vaccine (FLU shot) [...] goal below 150/90 documented in this encounter Advance Directives Healthcare Agents on File Name Relationship Healthcare Agent Relationshi p Communication Ailyn Foster Adult Child Health Care Repr esentative (appointed verbally by patient or by statute hierarchy) Care Teams Industrial Plant Custodian Relationship Specialty Start Date End Date Antione Rocha MD [address] [place] [address] [place] [phone] PCP - General Family Medicine 02/02/21 documented as of this encounter
--- OUTSIDE RECORDS SUMMARY | 2024-05-06 06:09 | External Medical Summary | Summary of Care ---
Author Name Unknown Organization [facility] Address [address] [place] [address] Phone [phone] Care Team Providers Care Regulatory Technician Name Role Phone Antione Rocha MD Primary Care Provide r Reason for Visit * Reason Comments Outpatient Testing Encounter Details Date Type Department Care Team (Late st Contact Info) Description 01/02/2024 8:40 AM EDT Laboratory Laboratory [address] [place] [phone] , Specimen Drop Off [address] [place] [address] Encounter for long-term (current) use of medications Allergies Active Allergy Reactions Criticality Noted Date Comments Rosuvastatin Calcium 07/21/2016 myalgia documented as of this encounter (statuses as of 01/02/2024) Medications Medication Sig Dispensed Refills Start Date [...] as of this encounter (statuses as of 01/02/2024) Active Problems Problem Noted Date Diagnosed Date [...] tis 07/21/2016 Coronary artery disease invo lving [place] coronary artery of [place] heart without angina pectoris 07/21/2016 documented as of this encounter (statuses as of 01/02/2024) Resolved Problems Problem Noted Date Diagnosed Date [...] as of this encounter (statuses as of 01/02/2024) Immunizations Name Administration Dates Next Due COVID-19 [...] 01/10/2024 9:45 AM EDT Office Visit Orthopaedics [address] [phone] Augie Victoria MD [address] [place] [address] 03/13/2024 9:30 AM EST Office Visit Cardiology [address] [place] [address] Yesenia Garcia PA-C [address] [place] [address] 05/06/2024 8:00 AM EST Office Visit Family Medicine [address] [phone] Antione Rocha MD [address] [place] [address] [place] [address] Pending Results Name Type Priority Associated Diagnoses Date /Time MAGNESIUM Lab Routine Encounter for long-term (current) use of medications 01/02/2024 8:43 AM EDT Scheduled Procedures Name Priority Associated [...] 10/21/2022 10/21/2021, 09/17/19 CKD PHOS USE SMARTSET 43289 05/15/2023 02/0 09/2022, 05/05/2021, 01/27/2020, Additional history exists COVID-19 Vaccine ( season) 2023 04/05/2021, 09/22/2020, 08/24/2020 CKD HGB USE SMARTSET 06576 03/05/202403/05, 03/05/2023, 12/21/2022, Additional history exists DXA Scan 04/04/2024 04/04/2022, 04/04/2022 GFR 06/09/2024 12/11/2023, 08/09, 07/31/2023, Additional history exists Depression Monitoring 07/18/2024 07/19/2023 Albumin/Creatinine Ratio 09/05/2024 09/06/2023, 051 TSH 12/10/2024 12/11/2023, 08/09, 11/13/2022, Additional history exists RETIRED - COLONOSCOPY-EVERY 5 YRS AGES 18-100 Discontinued 10/27/2016, 10/27/2016, 10/09/2011, Additional history exists VITAMIN D LEVEL ONCE IN A LIFETIME-USE SMARTSET# [id number] Completed 10/09/2022, 08/16/2022 Influenza Vaccine (FLU shot) [...] Diagnosis Encounter for long-term (current) use of medications Encounter for long-term (current) use of other medications documented in this encounter Advance Directives Healthcare Agents on File Name Relationship Healthcare Agent Relationshi p Communication Ailyn Cristian Adult Child Health Care Repr esentative (appointed verbally by patient or by statute hierarchy) Care Teams Regulatory Technician Relationship Specialty Start Date End Date Antione Rocha MD [address] [place] [address] [place] [address] PCP - General Family Medicine 02/02/21 documented as of this encounter
--- OUTSIDE RECORDS SUMMARY | 2024-05-06 06:09 | External Medical Summary ---
Author Name Unknown Address Unknown Organization K01:LAB[facility]ATORY [facility] - [address] [place] [address] Laboratory Report Ordering Provider Test Date Status MARQUIS,DURA 01/02/2024 08:43:38 Final Observation Date Value Abnormality Reference (Units ) Status Magnesium 01/02/2024 08:43:38 1.9 1.5-2.6 (m g/dL) Final Performing Location [facility] [address] [facility] [address]
--- OUTSIDE RECORDS SUMMARY | 2024-05-06 06:09 | External Medical Summary | Summary of Care ---
Author Name Unknown Organization [facility] Address [address] [place] [address] Phone [phone] Care Team Providers Care Modern Greek Studies Professor Name Role Phone Antione Rocha MD Primary Care Provide r Encounter Details Date Type Department Care Team (Late st Contact Info) Description 12/28/2023 Orders Only PATIENT PORTAL DO NOT DELETE [...] tis 07/21/2016 Coronary artery disease invo lving [place] coronary artery of [place] heart without angina pectoris 07/21/2016 documented [...] CKD protocol Atrial septal aneurysm 01/24/201712/10 Overview: 2016-start ASA lifetime as inc risk CVA Anemia [...] 01/10/2024 9:45 AM EDT Office Visit Orthopaedics [address] [place] [address] Augie Victoria MD [address] [place] [address] 03/13/2024 9:30 AM EST Office Visit Cardiology [address] [place] [address] Yesenia Garcia PA-C [address] [place] [address] 05/06/2024 8:00 AM EST Office Visit Family Medicine [address] [place] [address] Antione Rocha MD [address] [place] [address] [place] [address] Scheduled Procedures Name Priority Associated Diagnoses Date/Ti [...] 10/21/2021, 09/17/19 21 CKD PHOS USE SMARTSET 66780 05/15/2023 02/0 09/2022, 05/05/2021, 01/27/2020, Additional history exists COVID-19 Vaccine ( season) 2023 04/05/2021, 09/22/2020, 08/24/2020 CKD HGB USE SMARTSET 15555 03/05/202403/05, 03/05/2023, 12/21/2022, Additional history exists DXA Scan 04/04/2024 04/04/2022, 04/04/2022 GFR 06/09/2024 12/11/2023, 08/09, 07/31/2023, Additional history exists Depression Monitoring 07/18/2024 07/19/2023 Albumin/Creatinine Ratio 09/05/2024 09/06/2023, 05 TSH 12/10/2024 12/11/2023, 08/09, 11/13/2022, Additional history exists RETIRED - COLONOSCOPY-EVERY 5 YRS AGES 18-100 Discontinued 10/27/2016, 10/27/2016, 10/09/2011, Additional history exists VITAMIN D LEVEL ONCE IN A LIFETIME-USE SMARTSET# 30272 Completed 10/09/2022, 08/16/2022 Influenza Vaccine (FLU shot) [...] patient or by statute hierarchy) Care Teams Modern Greek Studies Professor Relationship Specialty Start Date End Date Antione Rocha MD [address] [place] [address] [place] [phone] PCP - General Family Medicine 02/02/21 documented as of this encounter
--- OUTSIDE RECORDS SUMMARY | 2024-05-06 06:09 | External Medical Summary ---
Author Name Unknown Address Unknown Organization K01:LABORATORY [facility] [place] - [facility] [address] [place] [address] Laboratory Report Ordering Provider Test Date Status JARED DUNN 01/21/2024 06:20:00 Final Observation Date Value Abnormality Reference (Units ) Status BUN 01/21/2024 06:20:00 16 6-20 (mg/dL) Final Creatinine 01/21/2024 06:20:00 1.2 Above high normal 0.5-1.0 (mg/dL) Final Glomerular filtration rate/1.73 sq M.predicted [Volume Rate/Area] in Serum, Plasma or Blood by Creatinine-based formula (CKD-EPI) 01/21/2024 06:20:00 44 Below low normal >=60 (mL/min) Final eGFR is calculated based on the CKD-EPI 2020 equation. Sodium 01/21/2024 06:20:00 145 135-146 (m mol/L) Final Potassium 01/21/2024 06:20:00 4.0 3.5-5.1 (m mol/L) Final Cl 01/21/2024 06:20:00 108 Above high normal 98 -107 (mmol/L) Final CO2 01/21/2024 06:20:00 28 22-32 (mmo l/L) Final Anion gap 01/21/2024 06:20:00 9 7-15 (mmol /L) Final Glucose 01/21/2024 06:20:00 94 70-120 (mg /dL) Final Calcium 01/21/2024 06:20:00 8.6 8.4-10.2 ( mg/dL) Final Performing Location LABORATORY [facility] - [address] [place] [address]
--- OUTSIDE RECORDS SUMMARY | 2024-05-06 06:10 | External Medical Summary | Summary of Care ---
Author Name Unknown Organization [facility] Address [address] [place] [address] Phone [phone] Care Team Providers Care Recovery Room Nurse Name Role Phone Antione Rocha MD Primary Care Provide r Reason for Visit * Reason Comments Medication Refill Encounter Details Date Type Department Care Team (Late st Contact Info) Description 12/05/2023 Refill Family Medicine [address] [phone] Antione Rocha MD [address] [place] [address] [place] [id number] Acquired hypothyroidism Allergies Active Allergy Reactions Criticality Noted Date Comments Rosuvastatin Calcium 07/21/2016 myalgia documented as of this encounter (statuses as of 12/06/2023) Medications Medication Sig Dispensed Refills Start Date [...] PRN, Constipation, Informant: Patient, Reported on 07/19/2023 Omeprazole 20 MG Oral Capsule Delayed Release (PriLOSEC) TAKE ONE CAPSULE BY MOUTH EVERY MORNING ONE HOUR BEFORE THE FIRST MEAL OF THE DAY 100 Capsule 3 11/21/2022 Active B-12 500 MCG Oral Tablet Take [...] THE MORNING 100 Tablet 1 08/27/2023 Active Baclofen 10 MG Oral Tablet (Lioresal)Indicatio ns:Bilateral low back pain without sciatica, unspecified chronicity Take 1 Tablet by mouth at bedtime as needed for Pain. 30 Tablet 09/06/2023 Active guaiFENesin ER 600 MG Oral Tablet [...] OTHER MEDICATIONS 90 Tablet 3 12/06/2023 Active Levothyroxine Sodium 75 MCG Oral Tablet (Levoxyl)Indication s:Acquired hypothyroidism TAKE 1 TABLET BY MOUTH DAILY AT LEAST 30 MINUTES PRIOR TO FIRST MEAL OF THE DAY OR OTHER MEDICATIONS 90 Tablet 2 03/14/2023 12/05/19 24 Discontinu ed(Refill) documented as of this encounter (statuses as of 12/06/2023) Active Problems Problem Noted Date Diagnosed Date [...] tis 07/21/2016 Coronary artery disease invo lving [place] coronary artery of [place] heart without angina pectoris 07/21/2016 documented as of this encounter (statuses as of 12/06/2023) Resolved Problems Problem Noted Date Diagnosed Date [...] breast, colon screening. REQUEST shot recs Distant [place]? 08/23 TTE 5mm pericardial effusion-on repeat, appears to be fat pad. 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 documented as of this encounter (statuses as of 12/06/2023) Immunizations Name Administration Dates Next Due COVID-19 [...] encounter Miscellaneous Notes * Telephone Encounter - Gavino Franco [facility] - 12/06/2023 12:11 PM EDT Signed Prescriptions: Disp Refills Levothyroxine Sodium 75 MCG Oral Tablet (L*90 Tab*3 Sig: TAKE 1TABLET BY MOUTH DAILY AT LEAST 30 MINUTES PRIOR TO FIRST MEAL OF THE DAY OR OTHER MEDICATIONSAuthorizing Provider: Kayla ROCHA User: GAVINO FRANCO documented in this encounter Plan of Treatment Upcoming Encounters Date Type Department Care Team (Late st Contact Info) Description 12/26/2023 2:30 PM EDT Office Visit Cardiology, [facility] [address] [place] [address] Josefina Price CRNP [address] [address] 03/13/2024 9:30 AM EST Office Visit Cardiology [address] [place] [address] Yesenia Garcia PA-C [address] [address] 05/06/2024 8:00 AM EST Office Visit Family Medicine [address] [place] [phone] Antione Rocha MD [address] [place] [address] [place] [address] Scheduled Procedures Name Priority [...] exists Adult Wellness Visit 10/21/2022 10/21/2021, 09/17/19 COVID-19 Vaccine ( season) 2022 04/05/2021, 09/22/2020, 08/24/2020 CKD PHOS USE SMARTSET 07471 05/15/2023 020 09/2022, 05/05/2021, 01/27/2020, Additional history exists Influenza Vaccine (FLU shot) (#1) 2023 01/12/2023, 01/26/2022, 12/30/2020, Additional history exists CKD HGB USE SMARTSET 87440 03/05/202403/05, 03/05/2023, 12/21/2022, Additional history exists GFR 03/08/2024 09/06/2023, 07/09, 07/12/2023, Additional history exists DXA Scan 04/04/2024 04/04/2022, 04/04/2022 Depression Monitoring 07/18/2024 07/19/2023 Albumin/Creatinine Ratio 09/05/2024 09/06/2023, 05 TSH 09/05/2024 09/06/2023, 08/0 10/2022, 11/13/2022, Additional history exists RETIRED - COLONOSCOPY-EVERY 5 YRS AGES 18-100 Discontinued 10/27/2016, 10/27/2016, 10/09/2011, Additional history exists VITAMIN D LEVEL ONCE IN A LIFETIME-USE SMARTSET# 63720 Completed 10/09/2022, 08/16/2022 HPV (Gardasil) Vaccine Aged [...] hypothyroidism Unspecified hypothyroidism documented in this encounter Advance Directives Healthcare Agents on File Name Relationship Healthcare Agent Relationshi p Communication Ailyn [place] Adult Child Health Care Repr esentative (appointed verbally by patient or by statute hierarchy) Care Teams Recovery Room Nurse Relationship Specialty Start Date End Date Antione Rocha MD [address] [place] [address] [place] [phone] PCP - General Family Medicine 02/02/21 documented as of this encounter
--- OUTSIDE RECORDS SUMMARY | 2024-05-06 06:10 | External Medical Summary ---
Author Name Unknown Address Unknown Organization K01:[facility]ATORY [facility] [place] - [address] [place] [address] Laboratory Report Ordering Provider Test Date Status ALISHA MARTINRUDDY 12/11/2023 11:36:31 Ros l Observation Date Value Abnormality Reference (Units ) Status TSH 12/11/2023 11:36:31 3.62 0.27-4.20 (uIU/mL) Final Performing Location [facility] - [address] [place] [address]
--- OUTSIDE RECORDS SUMMARY | 2024-05-06 06:10 | External Medical Summary | Summary of Care ---
Author Name Unknown Organization [facility] Address [address] [place] [address] Phone [phone] Care Team Providers Care Sales Planning Analyst Name Role Phone Antione Rocha MD Primary Care Provide r Reason for Visit * Reason Onset Date Comments Medication Refill 11/20/2023 Encounter Details Date Type Department Care Team (Late st Contact Info) Description 11/20/2023 Refill Family [address] [phone] Antione Rocha MD [address] [place] [address] [place] [phone] Current mild episode of major depressive disorder without prior episode (HCC) Allergies Active Allergy Reactions Criticality Noted Date Comments Rosuvastatin Calcium 07/21/2016 myalgia documented as of this encounter (statuses as of 11/21/2023) Medications Medication Sig Dispensed Refills Start Date [...] the morning. 100 Tablet 3 01/08/2023 Active Levothyroxine Sodium 75 MCG Oral Tablet [...] the morning. 90 Tablet 3 11/21/2023 Active Sertraline HCl 50 MG Oral Tablet (Zoloft)Indications :Current mild episode of major depressive disorder without prior episode (HCC) Take 1 Tablet by mouth in the morning. 90 Tablet 1 05/22/2023 11/20/19 24 Discontinu ed(Refill) documented as of this encounter (statuses as of 11/21/2023) Active Problems Problem Noted Date Diagnosed Date [...] tis 07/21/2016 Coronary artery disease invo lving [place] coronary artery of [place] heart without angina pectoris 07/21/2016 documented as of this encounter (statuses as of 11/21/2023) Resolved Problems Problem Noted Date Diagnosed Date [...] as of this encounter (statuses as of 11/21/2023) Immunizations Name Administration Dates Next Due COVID-19 [...] encounter Miscellaneous Notes * Telephone Encounter - Jackie Downs [facility] - 11/21/2023 2:09 PM EDT Signed Prescriptions: Disp Refills Sertraline HCl 50 MG Oral Tablet (Zoloft) 90 Tab*3 Sig: Take 1 Tablet by mouth in the morning.Authorizing Provider: Kayla ROCHA User: JACKIE DOWNS documented in this encounter Plan of Treatment Upcoming Encounters Date Type Department Care Team (Late st Contact Info) Description 12/26/2023 2:30 PM EDT Office Visit Cardiology, [facility] [address] [place] [address] Josefina Price CRNP [address] [place] [address] 03/13/2024 9:30 AM EST Office Visit Cardiology [address] [place] [address] Yesenia Garcia PA-C [address] [place] [address] 05/06/2024 8:00 AM EST Office Visit Family Medicine [address] [place] [phone] Antione Rocha MD [address] [place] [address] [place] [address] Scheduled Procedures Name Priority [...] 04/05/2021, 09/22/2020, 08/24/2020 CKD PHOS USE SMARTSET 45943 05/15/2023 02/0 09/2022, 05/05/2021, 01/27/2020, Additional history exists Influenza Vaccine (FLU shot) (#1) 2023 01/12/2023, 01/26/2022, 12/30/2020, Additional history exists CKD HGB USE SMARTSET 06282 03/05/202403/05, 03/05/2023, 12/21/2022, Additional history exists GFR 03/08/2024 09/06/2023, 07/09, 07/12/2023, Additional history exists DXA Scan 04/04/2024 04/04/2022, 04/04/2022 Depression Monitoring 07/18/2024 07/19/2023 Albumin/Creatinine Ratio 09/05/2024 09/06/2023, 08/07 TSH 09/05/2024 09/06/2023, 0810/2022, 11/13/2022, Additional history exists RETIRED - COLONOSCOPY-EVERY 5 YRS AGES 18-100 Discontinued 10/27/2016, 10/27/2016, 10/09/2011, Additional history exists VITAMIN D LEVEL ONCE IN A LIFETIME-USE SMARTSET# 36684 Completed 10/09/2022, 08/16/2022 HPV (Gardasil) Vaccine Aged [...] as of this encounter Visit Diagnoses Diagnosis Current mild episode of major depressive disorder without prior episode (HCC) documented in this encounter Advance Directives Healthcare Agents on File Name Relationship Healthcare Agent Relationshi p Communication Ailyn [place] Adult Child Health Care Repr esentative (appointed verbally by patient or by statute hierarchy) Care Teams Sales Planning Analyst Relationship Specialty Start Date End Date Antione Rocha MD [address] [place] [address] [place] [phone] PCP - General Family Medicine 02/02/21 documented as of this encounter
--- OUTSIDE RECORDS SUMMARY | 2024-05-06 06:10 | External Medical Summary ---
Author Name Unknown Address Unknown Organization K01:[facility]AT[facility] [place] - [facility] [address] [facility] [address] [place] [address] Laboratory Report Ordering Provider Test Date Status DYLON MARTIN 12/11/2023 11:36:31 Ros l Observation Date Value Abnormality Reference (Units ) Status BUN 12/11/2023 11:36:31 17 6-20 (mg/dL) Final Creatinine 12/11/2023 11:36:31 1.3 Above high normal 0.5-1.0 (mg/dL) Final Glomerular filtration rate/1.73 sq M.predicted [Volume Rate/Area] in Serum, Plasma or Blood by Creatinine-based formula (CKD-EPI) 12/11/2023 11:36:31 43 Below low normal >=60 (mL/min) Final eGFR is calculated based on the CKD-EPI 2020 equation. Sodium 12/11/2023 11:36:31 140 135-146 (m mol/L) Final Potassium 12/11/2023 11:36:31 4.2 3.5-5.1 (m mol/L) Final Cl 12/11/2023 11:36:31 104 98-107 (mm ol/L) Final CO2 12/11/2023 11:36:31 25 22-32 (mmo l/L) Final Anion gap 12/11/2023 11:36:31 11 7-15 (mmol /L) Final Glucose 12/11/2023 11:36:31 101 70-120 (mg /dL) Final Calcium 12/11/2023 11:36:31 8.8 8.4-10.2 ( mg/dL) Final Performing Location LABORATORY [facility] [place] - [address] [place] [address]
--- OUTSIDE RECORDS SUMMARY | 2024-05-06 06:10 | External Medical Summary | Summary of Care ---
Author Name Unknown Organization [facility] Address [address] [place] [address] Phone [phone] Care Team Providers Care Poison Information Specialist Name Role Phone Antione Rocha MD Primary Care Provide r Reason for Visit * Reason Comments Outpatient Testing Encounter Details Date Type Department Care Team (Late st Contact Info) Description 12/11/2023 11:40 AM EDT Laboratory Laboratory [address] [place] [phone] [place] [address] Arrived Allergies Active Allergy Reactions Criticality Noted Date Comments Rosuvastatin Calcium 07/21/2016 myalgia documented as of this encounter (statuses as of 12/11/2023) Medications Medication Sig Dispensed Refills Start Date [...] at bedtime. 30 Capsule 5 12/11/2023 Active documented as of this encounter (statuses as of 12/11/2023) Active Problems Problem Noted Date Diagnosed Date [...] tis 07/21/2016 Coronary artery disease invo lving [place] coronary artery of [place] heart without angina pectoris 07/21/2016 documented as of this encounter (statuses as of 12/11/2023) Resolved Problems Problem Noted Date Diagnosed Date [...] breast, colon screening. REQUEST shot recs Distant [place]? 08/23 TTE 5mm pericardial effusion-on repeat, appears to be fat pad. 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 (HCC) 12/26/2023 2:30 PM EDT Office Visit Cardiology, [facility] [address] [place] [address] Josefina Price CRNP [address] [place] [address] 03/13/2024 9:30 AM EST Office Visit Cardiology [address] [place] [address] Yesenia Garcia PA-C [address] [place] [address] 05/06/2024 8:00 AM EST Office Visit Family [address] [place] [phone] Antione Rocha MD [address] [place] [address] [place] [address] Scheduled Procedures Name Priority Associated Diagnoses Date/Ti [...] 10/21/2022 10/21/2021, 09/17/19 CKD PHOS USE SMARTSET 33767 05/15/2023 02/0 09/2022, 05/05/2021, 01/27/2020, Additional history exists COVID-19 Vaccine ( season) 2023 04/05/2021, 09/22/2020, 08/24/2020 Influenza Vaccine (FLU shot) (#1) 2023 01/12/2023, 01/26/2022, 12/30/2020, Additional history exists CKD HGB USE SMARTSET 25689 03/05/202403/05, 03/05/2023, 12/21/2022, Additional history exists GFR 03/08/2024 09/06/2023, 04/2 06/2023, 07/12/2023, Additional history exists DXA Scan 04/04/2024 04/04/2022, 04/04/2022 Depression Monitoring 07/18/2024 07/19/2023 Albumin/Creatinine Ratio 09/05/2024 09/06/2023, 051 TSH 09/05/2024 09/06/2023, 08/0 10/2022, 11/13/2022, Additional history exists RETIRED - COLONOSCOPY-EVERY 5 YRS AGES 18-100 Discontinued 10/27/2016, 10/27/2016, 10/09/2011, Additional history exists VITAMIN D LEVEL ONCE IN A LIFETIME-USE SMARTSET# 76818 Completed 10/09/2022, 08/16/2022 HPV (Gardasil) Vaccine Aged [...] patient or by statute hierarchy) Care Teams Poison Information Specialist Relationship Specialty Start Date End Date Antione Rocha MD [address] [place] [address] [place] [address] PCP - General Family Medicine 02/02/21 documented as of this encounter
--- OUTSIDE RECORDS SUMMARY | 2024-05-06 06:10 | External Medical Summary | Summary of Care ---
Author Name Unknown Organization [facility] Address [address] [place] [address] Phone [phone] Care Team Providers Care Rent Control Office Manager Name Role Phone Antione Rocha MD Primary Care Provide r Reason for Visit * Reason Onset Date Comments Appointment 08/17/2023 Encounter Details Date Type Department Care Team (Late st Contact Info) Description 08/17/2023 Telephone Cardiology, [facility] [address] [place] [phone] Yesenia Garcia PA-C [address] [place] [address] Appointment Allergies Active Allergy Reactions Criticality Noted Date Comments Rosuvastatin Calcium 07/21/2016 myalgia documented as of this encounter (statuses as of 11/16/2023) Medications Medication Sig Dispensed Refills Start Date [...] Patient taking differently: Sundays., Reported on 07/19/2023 Sertraline HCl 50 MG Oral Tablet (Zoloft)Indications: Current mild episode of major depressive disorder without prior episode (HCC) Take 1 Tablet by mouth in the morning. 90 Tablet 1 05/22/2023 Active Furosemide 20 MG Oral Tablet (Lasix) Weigh [...] the morning. 90 Tablet 1 07/31/2023 Active documented as of this encounter (statuses as of 11/16/2023) Active Problems Problem Noted Date Diagnosed Date [...] tis 07/21/2016 Coronary artery disease invo lving [place] coronary artery of [place] heart without angina pectoris 07/21/2016 documented as of this encounter (statuses as of 11/16/2023) Resolved Problems Problem Noted Date Diagnosed Date [...] as of this encounter (statuses as of 11/16/2023) Immunizations Name Administration Dates Next Due COVID-19 [...] encounter Miscellaneous Notes * Telephone Encounter - Magdy Newton, [facility] - 08/17/2023 9:32 AM EDT Patient is ordered two Cardiac Studies, please assist patient to schedule, thank you. NM MYOCARD PERF IMG SPECT MULT STUDIES WITH PHARM INTERV [48943.02] (Order [id number]) ECHO, COMPLETE (2D), TRANS-THORACIC [[id number]] (Order [id number]) documented in this encounter Plan of Treatment Upcoming Encounters Date Type Department Care Team (Late st Contact Info) Description 12/26/2023 2:30 PM EDT Office Visit Cardiology, [facility] [address] [place] [address] Josefina Price CRNP [address] [place] [address] 03/13/2024 9:30 AM EST Office Visit Cardiology [address] [place] [address] Yesenia Garcia PA-C [address] [place] [address] 05/06/2024 8:00 AM EST Office Visit Family Medicine [address] [place] [phone] Antione Rocha MD [address] [place] [address] [place] [address] Scheduled Procedures Name Priority Associated Diagnoses Date/Ti [...] Adult Wellness Visit 10/21/2022 10/21/2021, 09/17/19 21 COVID-19 Vaccine ( season) 2022 04/05/2021, 09/22/2020, 08/24/2020 CKD PHOS USE SMARTSET 40728 05/15/2023 02/0 09/2022, 05/05/2021, 01/27/2020, Additional history exists Influenza Vaccine (FLU shot) (#1) 2023 01/12/2023, 01/26/2022, 12/30/2020, Additional history exists CKD HGB USE SMARTSET 91436 03/05/202403/05, 03/05/2023, 12/21/2022, Additional history exists GFR 03/08/2024 09/06/2023, 04/2 06/2023, 07/12/2023, Additional history exists DXA Scan 04/04/2024 04/04/2022, 04/04/2022 Depression Monitoring 07/18/2024 07/19/2023 Albumin/Creatinine Ratio 09/05/2024 09/06/2023, 05 TSH 09/05/2024 09/06/2023, 08/0 10/2022, 11/13/2022, Additional history exists RETIRED - COLONOSCOPY-EVERY 5 YRS AGES 18-100 Discontinued 10/27/2016, 10/27/2016, 10/09/2011, Additional history exists VITAMIN D LEVEL ONCE IN A LIFETIME-USE SMARTSET# 24614 Completed 10/09/2022, 08/16/2022 HPV (Gardasil) Vaccine Aged [...] Relationship Healthcare Agent Relationshi p Communication Ailyn [place] Adult Child Health Care Repr esentative (appointed verbally by patient or by statute hierarchy) Care Teams Rent Control Office Manager Relationship Specialty Start Date End Date Antione Rocha MD [address] [place] [address] [place] [phone] PCP - General Family Medicine 02/02/21 documented as of this encounter
--- OUTSIDE RECORDS SUMMARY | 2024-05-06 06:10 | External Medical Summary | Summary of Care ---
Author Name Unknown Organization [facility] Address [address] [place] [address] Phone [phone] Care Team Providers Care Lyft Driver Name Role Phone Antione Rocha MD Primary Care Provide r Reason for Visit * Reason Comments Acute Back, legs, hip Encounter Details Date Type Department Care Team (Late st Contact Info) Description 12/11/2023 2:20 PM EDT Office Visit Family Medicine [address] [phone] Antione Rocha MD [address] [place] [address] [place] [phone] Chronic bilateral low back pain without sciatica*; [...] at bedtime. 30 Capsule 5 12/11/2023 Active Baclofen 10 MG Oral Tablet (Lioresal)Indicatio ns:Bilateral low back pain without sciatica, unspecified chronicity Take 1 Tablet by mouth at bedtime as needed for Pain. 30 Tablet 09/06/2023 12/11/19 24 Discontinu ed(Medicat ion List Clean Up) documented as of this encounter (statuses as [...] tis 07/21/2016 Coronary artery disease invo lving [place] coronary artery of [place] heart without angina pectoris 07/21/2016 documented as [...] Sign Reading Time Taken Comments Blood Pressure 128/80 12/11/2023 10:54 AM EDT Pulse 59 12/11/2023 10:54 AM EDT Temperature 35.9 C (96.6 F) 12/11/2023 10:54 AM E DT Respiratory Rate - - Oxygen Saturation 96% 12/11/2023 10:54 AM EDT Inhaled Oxygen Concentration - - Weight 89.8 kg (198 lb) 12/11/2023 10:54 AM EDT Height - - Body Mass Index 28.41 08/16/2023 12:50 PM EDT documented in this encounter Progress Notes * Antione Rocha MD - 12/11/2023 11:14 AM EDT Subjective: HPI: Violetta Nicole is a 83 year old female with hx of Hypothyroidism, HLD, HTN, CAD, hx of [place] (), GERD, CKD III, Anemia, hx of COVID infection (06/2020), atrial septal aneurysm, b/l cataract surgery, b/l carotid artery stenosis, mild mitral regurgitation seen for Diffuse joint pain - started on the R hip - now having L hip - no fever or fall - sometimes goes to the lower back ---- worse at night - also having knee pain - used to get knee injection Patient Active Problem List Diagnosis Acquired hypothyroidism Essential hypertension with goal blood pressure less than 140/90 Gastroesophageal reflux disease without esophagitis Coronary artery disease involving [place] coronary artery of [place] heart without angina 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 40 Tablet 0 Sertraline HCl 50 MG Oral Tablet (Zoloft) [...] by mouth at bedtime. 30 Capsule 5 No current facility-administered medications for this visit. [...] performed by Greta Holloway DO at [facility] PARTIAL HYSTERECTOMY due to heavy bleeding. [...] date: 1975 Quit date: 1985 Years since quittin.6 Smokeless tobacco: Never Substance Use Topics Alcohol use: Not Currently Vaping/E-Cigarette Use Vaping/E-Cigarette Use Never User Vaping/E-Cigarette Substances Vaping/E-Cigarette Devices ROS: -Per HPI OBJECTIVE: BP 128/80 | Pulse 59 | Temp 35.9 C (96.6 F) | Wt 89.8 kg (198 lb) | SpO2 96% | BMI 28.41 kg/m| BSA 2.11 m PHYSICAL EXAM: Vitals are reviewed General:. NAD, well developed HEENT:. Normal Conjunctiva, EOMI MSK:. Normal gait Psych:. AAOx3, normal affect ASSESSMENT/PLAN: Since pain is worse at night and preventing the pt from sleeping will try gabapentin qhs - discussed the benefit and risk - if tolerating well then might consider increasing the dose to 200mg qhs Repeat TSH today Chronic bilateral low back pain without sciatica (Primary) - Gabapentin 100 MG Oral Capsule (Neurontin); Take 1 Capsule by mouth at bedtime. - BASIC METABOLIC PANEL Acquired hypothyroidism - TSH Current mild episode of major depressive disorder without prior episode (HCC) - continue zoloft Antione Rocha MD Family medicine, [address] [address] documented in this encounter Nursing Notes * Shruthi Mandel CMA - 12/11/2023 10:52 AM EDT She is here for pain in her back, legs and hip. She has tried tylenol and icy hot. That isn't helping with the pain. documented in this encounter Plan of Treatment Upcoming Encounters Date Type Department Care Team (Late st Contact Info) Description 12/26/2023 2:30 PM EDT Office Visit Cardiology, [facility] [address] [place] [address] Josefina Price CRNP [address] [place] [address] 03/13/2024 9:30 AM EST Office Visit Cardiology [address] [place] [address] Yesenia Garcia PA-C [address] [place] [address] 05/06/2024 8:00 AM EST Office Visit Family Medicine [address] [place] [phone] Antione Rocha MD [address] [place] [address] [place] [phone] Pending Results Name Type Priority Associated Diagnoses Date /Time BASIC METABOLIC PANEL Lab Routine Chronic bilateral low back pain without sciatica 12/11/2023 11:36 AM EDT TSH Lab Routine Acquired hypothyroidism 12/11/2023 11:36 AM EDT Scheduled Procedures Name Priority Associated [...] 10/21/2022 10/21/2021, 09/17/19 CKD PHOS USE SMARTSET 26978 05/15/2023 02/0 09/2022, 05/05/2021, 01/27/2020, Additional history exists COVID-19 Vaccine ( season) 2023 04/05/2021, 09/22/2020, 08/24/2020 Influenza Vaccine (FLU shot) (#1) 2023 01/12/2023, 01/26/2022, 12/30/2020, Additional history exists CKD HGB USE SMARTSET 23286 03/05/202403/05, 03/05/2023, 12/21/2022, Additional history exists GFR 03/08/2024 09/06/2023, 07/09, 07/12/2023, Additional history exists DXA Scan 04/04/2024 04/04/2022, 04/04/2022 Depression Monitoring 07/18/2024 07/19/2023 Albumin/Creatinine Ratio 09/05/2024 09/06/2023, 05/1 TSH 09/05/2024 09/06/2023, 08/0 10/2022, 11/13/2022, Additional history exists RETIRED - COLONOSCOPY-EVERY 5 YRS AGES 18-100 Discontinued 10/27/2016, 10/27/2016, 10/09/2011, Additional history exists VITAMIN D LEVEL ONCE IN A LIFETIME-USE SMARTSET# [id number] Completed 10/09/2022, 08/16/2022 HPV (Gardasil) Vaccine Aged [...] of this encounter Visit Diagnoses Diagnosis Chronic bilateral low back pain without sciatica- Primary Acquired hypothyroidism Unspecified hypothyroidism Current mild episode of major depressive disorder without prior episode (HCC) documented in this encounter Advance Directives Healthcare Agents on File Name Relationship Healthcare Agent Relationshi p Communication Ailyn Foster Adult Child Health Care Repr esentative (appointed verbally by patient or by statute hierarchy) Care Teams Lyft Driver Relationship Specialty Start Date End Date Antione Rocha MD [address] [place] [address] [place] [address] PCP - General Family Medicine 02/02/21 documented as of this encounter"
--- OUTSIDE RECORDS SUMMARY | 2024-05-06 06:10 | External Medical Summary | Summary of Care ---
Author Name Unknown Organization [facility] Address [address] [place] [address] Phone [phone] Care Team Providers Care Marble Setter Helper Name Role Phone Antione Rocha MD Primary Care Provide r Reason for Visit * Reason Onset Date Comments Abnormal Test Results 11/09/2023 Encounter Details Date Type Department Care Team (Late st Contact Info) Description 11/09/2023 Telephone Cardiology, [facility] [address] [facility] [place] [address] Estefani Liz CRNP [address] [facility], [place] [phone] Abnormal Test Results Allergies Active Allergy Reactions Criticality Noted Date Comments Rosuvastatin Calcium 07/21/2016 myalgia documented as of this encounter (statuses as of 11/14/2023) Medications Medication Sig Dispensed Refills Start Date [...] 08/27/2023 Active Baclofen 10 MG Oral Tablet (Lioresal)Indication s:Bilateral low back pain without sciatica, unspecified chronicity Take 1 Tablet by mouth at bedtime as needed for Pain. 30 Tablet 09/06/2023 Active guaiFENesin ER 600 MG Oral Tablet Extended Release 12 Hour (Humibid LA)Indications:Acute cough Take 1 Tablet by mouth in the morning and 1 Tablet before bedtime. 40 Tablet 11/05/2023 Active Amoxicillin-Pot Clavulanate 875-125 MG Oral Tablet (Augmentin)Indicatio ns:Acute cough Take 1 Tablet by mouth in the morning and 1 Tablet before bedtime. Do all this for 7 days. 14 Tablet 11/05/2023 documented as of this encounter (statuses as of 11/14/2023) Active Problems Problem Noted Date Diagnosed Date [...] tis 07/21/2016 Coronary artery disease invo lving [place] coronary artery of [place] heart without angina pectoris 07/21/2016 documented as of this encounter (statuses as of 11/14/2023) Resolved Problems Problem Noted Date Diagnosed Date [...] as of this encounter (statuses as of 11/14/2023) Immunizations Name Administration Dates Next Due COVID-19 [...] encounter Miscellaneous Notes * Telephone Encounter - Josefina Price CRNP - 11/14/2023 4:05 PM EDT Noted. Thank you * Telephone Encounter - Yesenia Garcia PA-C - 11/14/2023 2:44 PM EDT Noted. Given lower BP and no significant/worsening symptoms, would not change medication at this time. Would keep f/u as scheduled and patient to report any new or worsening symptoms in the interim * Telephone Encounter - Fiorella Ivory RN - 11/14/2023 2:12 PM EDT Called, spoke with patient. Does have ability to check bp at home and had been doing so recently. Did not save bp readings thatwere written down. Reports on average bp in AM 105-110's / 60's ; PM 120's systolic Denies chest pain/discomfort. Does report shortness of breath with going up stairs. Reports shortness of breath similar to symptoms discussed at last evaluation. * Telephone Encounter - Yesenia Garcia PA-C - 11/14/2023 1:19 PM EDT Nursing - see below notes - Can we check on patient to see how she is feeling? If having any worsening or recurrent chest pain, may make med adjustment prior to appt ER for un resolving chest pain * Telephone Encounter - Magdy Newton OSA - 11/14/2023 12:25 PM EDT Called patient, and verified the upcoming appt on 12/26/23. Patient is aware of the date and time, and that it is here at . * Telephone Encounter - Magdy Newton OSA - 11/13/2023 2:50 PM EDT Thank you, I did schedule the patient, so no one else took the slot. I have her scheduled on: RETURN CARDIOLOGY at 2:30 PM (30 min)Arrive by 2:15 PM Tuesday December 26, 2023 Appointment Provider:Josefina Price CRNP in [facility]IOLOGY [facility] Please let me know if there should be anything on my end I would need to do. Thank you. * Telephone Encounter - Yesenia Garcia PA-C - 11/13/2023 2:41 PM EDT Ok for appt in Dec if patient is agreeable to [facility]. Will have nursing reach out to her and check on her in the meantime * Telephone Encounter - Magdy Newton OSA - 11/13/2023 2:29 PM EDT I do have an appt here at in December with Josefina, it is on: 12/26/23 at 230. I could split a CLOS REL appt at 1130 am if this patient will need to be seen sooner. Then I would have something a bit sooner, only it would be here at . Please let me know, thank you. * Telephone Encounter - Yesenia Garcia PA-C - 11/13/2023 2:26 PM EDT Recent BP readings reviewed. Typically well controlled. See if she can provider home readings? Also see how she is feeling? Any recent chest pain/dyspnea Agree with sooner appt - Arun or [facility] based on availability BP Readings from Last 4 Encounters: 11/05/23 122/74 09/06/23 130/80 08/24/23 136/74 08/16/23 122/70 * Telephone Encounter - Rosalinda Roper LPN - 11/12/2023 4:17 PM EDT Attempted pt by phone, no answer sent mychart * Telephone Encounter - Estefani Liz CRNP - 11/09/2023 9:01 AM EDT Reviewed in coverage of Yesenia Garcia. Nuclear stress test showed a small area of mild lateral wall ischemia involving 5% of the total myocardium. Resting echo showed a low normal LVEF of 50-54%. Mild MR and TR. Echo similar to prior dated 11/2022. Blood pressure was hypertensive during the study. Please ask if the patient took her medications prior to stress testing? May need to make a medication adjustment. (Increase lisinopril vs add Imdur) Otherwise recommend sooner follow-up with Yesenia in [place] to discuss in detail. NERIS Ybarra documented in this encounter Plan of Treatment Upcoming Encounters Date Type Department Care Team (Late st Contact Info) Description 12/26/2023 2:30 PM EDT Office Visit Cardiology, [address] [place] [address] Josefina Price CRNP [address] [place] [address] 03/13/2024 9:30 AM EST Office Visit Cardiology [address] [place] [address] Yesenia Garcia PA-C [address] [place] [address] 05/06/2024 8:00 AM EST Office Visit Family Medicine [address] [place] [phone] Antione Rocha MD [address] [place] [address] [place] [address] Scheduled Procedures Name Priority Associated Diagnoses Date/Ti [...] 04/05/2021, 09/22/2020, 08/24/2020 CKD PHOS USE SMARTSET 52796 05/15/2023 02/0 09/2022, 05/05/2021, 01/27/2020, Additional history exists Influenza Vaccine (FLU shot) (#1) 2023 01/12/2023, 01/26/2022, 12/30/2020, Additional history exists CKD HGB USE SMARTSET 98499 03/05/202403/05, 03/05/2023, 12/21/2022, Additional history exists GFR 03/08/2024 09/06/2023, 04/2 06/2023, 07/12/2023, Additional history exists DXA Scan 04/04/2024 04/04/2022, 04/04/2022 Depression Monitoring 07/18/2024 07/19/2023 Albumin/Creatinine Ratio 09/05/2024 09/06/2023, 05/1 TSH 09/05/2024 09/06/2023, 08/0 10/2022, 11/13/2022, Additional history exists RETIRED - COLONOSCOPY-EVERY 5 YRS AGES 18-100 Discontinued 10/27/2016, 10/27/2016, 10/09/2011, Additional history exists VITAMIN D LEVEL ONCE IN A LIFETIME-USE SMARTSET# 03057 Completed 10/09/2022, 08/16/2022 HPV (Gardasil) Vaccine Aged [...] patient or by statute hierarchy) Care Teams Marble Setter Helper Relationship Specialty Start Date End Date Antione Rocha MD [address] [place] [address] [place] [phone] PCP - General Family Medicine 02/02/21 documented as of this encounter
--- OUTSIDE RECORDS SUMMARY | 2024-05-06 06:11 | External Medical Summary | Summary of Care ---
Author Name Unknown Organization [facility] Address [address] [place] [address] Phone [phone] Care Team Providers Care Receptionist Doctor'S Office Name Role Phone Antione Rocha MD Primary Care Provide r Reason for Visit * Reason Onset Date Comments Abnormal Test Results 11/09/2023 Encounter Details Date Type Department Care Team (Late st Contact Info) Description 11/09/2023 Telephone Cardiology, [facility] [address] [facility] [place] [address] Estefani Liz CRNP [address] [facility] [place] [phone] Abnormal Test Results Allergies Active Allergy Reactions [...] tis 07/21/2016 Coronary artery disease invo lving [place] coronary artery of [place] heart without angina pectoris 07/21/2016 documented as [...] Miscellaneous Notes * Telephone Encounter - Magdy Newton OSA [...] 2023 Appointment Provider:Josefina Price CRNP in CARDIOLOGY [facility] Please let me know if there should be anything on my end I would need to do. Thank you. * Telephone Encounter - Yesenia Garcia PA-C - 11/13/2023 2:41 PM EDT Ok for appt in Dec if patient is agreeable to [facility]. Will have nursing reach out to her [...] with sooner appt - Arun or [facility] based on availability BP Readings from Last [...] Otherwise recommend sooner follow-up with Yesenia in [place] to discuss in detail. NERIS Ybarra documented in this encounter Plan of Treatment Upcoming Encounters Date Type Department Care Team (Late st Contact Info) Description 12/26/2023 2:30 PM EDT Office Visit Cardiology, [facility] [address] [place] [address] Josefina Price CRNP [address] [place] [address] 03/13/2024 9:30 AM EST Office Visit Cardiology [address] [place] [address] Yesenia Garcia PA-C [address] [place] [address] 05/06/2024 8:00 AM EST Office Visit Family Medicine [address] [place] [phone] Antione Rocha MD [address] [place] [address] [place] [address] Scheduled Procedures Name Priority Associated Diagnoses Date/Ti me COLONOSCOPY FLEXIBLE PROXIMAL DIAGNOSTIC Recall History of colon polyps Health Maintenance Due Date Last Done Comments DTaP,Tdap,and Td Vaccines (1 - Tdap) 1959 Zoster Vaccines (1 of 2) 1990 Pneumococcal Vaccine: 65+ Years (2 of 2 - PPSV23 or PCV20) 11/24/2015 11/23/2014 Colonoscopy 10/27/2021 10/27/2016, 0704/2016, 09/22/2011, Additional history exists Adult Wellness Visit 10/21/2022 10/21/2021, 09/17/19 21 COVID-19 Vaccine ( season) 2022 04/05/2021, 09/22/2020, 08/24/2020 CKD PHOS USE SMARTSET 09674 05/15/2023 02/0 09/2022, 05/05/2021, 01/27/2020, Additional history exists Influenza Vaccine (FLU shot) (#1) 2023 01/12/2023, 01/26/2022, 12/30/2020, Additional history exists CKD HGB USE SMARTSET 42946 03/05/202403/05, 03/05/2023, 12/21/2022, Additional history exists GFR 03/08/2024 09/06/2023, 04/2 06/2023, 07/12/2023, Additional history exists DXA Scan 04/04/2024 04/04/2022, 04/04/2022 Depression Monitoring 07/18/2024 07/19/2023 Albumin/Creatinine Ratio 09/05/2024 09/06/2023, 08/07 TSH 09/05/2024 09/06/2023, 080 10/2022, 11/13/2022, Additional history exists RETIRED - COLONOSCOPY-EVERY 5 YRS AGES 18-100 Discontinued 10/27/2016, 10/27/2016, 10/09/2011, Additional history exists VITAMIN D LEVEL ONCE IN A LIFETIME-USE SMARTSET# 10691 Completed 10/09/2022, 08/16/2022 HPV (Gardasil) Vaccine Aged [...] patient or by statute hierarchy) Care Teams Receptionist Doctor'S Office Relationship Specialty Start Date End Date Antione Rocha MD [address] [place] [address] [place] [address] PCP - General Family Medicine 02/02/21 documented as of this encounter
--- OUTSIDE RECORDS SUMMARY | 2024-05-06 06:11 | External Medical Summary | Summary of Care ---
Author Name Unknown Organization [facility] Address [address] [place] [address] Phone [phone] Care Team Providers Care Brick Pointer Name Role Phone Antione Rocha MD Primary Care Provide r Reason for Visit * Reason Onset Date Comments Abnormal Test Results 11/09/2023 Encounter Details Date Type Department Care Team (Late st Contact Info) Description 11/09/2023 Telephone Cardiology, [facility] [address] [facility] [place] [address] Estefani Liz CRNP [address] [facility] [place], [place] [phone] Abnormal Test Results Allergies Active Allergy Reactions [...] tis 07/21/2016 Coronary artery disease invo lving [place] coronary artery of [place] heart without angina pectoris 07/21/2016 documented as [...] breast, colon screening. REQUEST shot recs [place]? 08/23 TTE 5mm pericardial effusion-on repeat, appears [...] encounter Miscellaneous Notes * Telephone Encounter - Yesenia Garcia PA-C [...] time, and that it is here at [facility]. * Telephone Encounter - Magdy Newton OSA [...] Otherwise recommend sooner follow-up with Yesenia in [place] to discuss in detail. NERIS Ybarra documented in this encounter Plan of Treatment Upcoming Encounters Date Type Department Care Team (Late st Contact Info) Description 12/26/2023 2:30 PM EDT Office Visit Cardiology, [facility] [address] [place] [address] Josefina Price CRNP [address] [place] [address] 03/13/2024 9:30 AM EST Office Visit Cardiology [address] [place] [address] Yesenia Garcia PA-C [address] [place] [address] 05/06/2024 8:00 AM EST Office Visit Family Medicine [address] [place] [phone] Antione Rocha MD [address] [place] [address] [place] [address] Scheduled Procedures Name Priority Associated Diagnoses Date/Ti [...] 04/05/2021, 09/22/2020, 08/24/2020 CKD PHOS USE SMARTSET 07474 05/15/2023 02/0 09/2022, 05/05/2021, 01/27/2020, Additional history exists Influenza Vaccine (FLU shot) (#1) 2023 01/12/2023, 01/26/2022, 12/30/2020, Additional history exists CKD HGB USE SMARTSET 08582 03/05/202403/05, 03/05/2023, 12/21/2022, Additional history exists GFR 03/08/2024 09/06/2023, 2 06/2023, 07/12/2023, Additional history exists DXA Scan 04/04/2024 04/04/2022, 04/04/2022 Depression Monitoring 07/18/2024 07/19/2023 Albumin/Creatinine Ratio 09/05/2024 09/06/2023, 05/1 TSH 09/05/2024 09/06/2023, 08/0 10/2022, 11/13/2022, Additional history exists RETIRED - COLONOSCOPY-EVERY 5 YRS AGES 18-100 Discontinued 10/27/2016, 10/27/2016, 10/09/2011, Additional history exists VITAMIN D LEVEL ONCE IN A LIFETIME-USE SMARTSET# 29314 Completed 10/09/2022, 08/16/2022 HPV (Gardasil) Vaccine Aged [...] patient or by statute hierarchy) Care Teams Brick Pointer Relationship Specialty Start Date End Date Antione Rocha MD [address] [place] [address] [place] [address] PCP - General Family Medicine 02/02/21 documented as of this encounter
--- OUTSIDE RECORDS SUMMARY | 2024-05-06 06:11 | External Medical Summary | Summary of Care ---
Author Name Unknown Organization [facility] Address [address] [place] [address] Phone [phone] Care Team Providers Care Charge Coordinator Name Role Phone Antione Rocha MD Primary Care Provide r Reason for Visit * Reason Onset Date Comments Abnormal Test Results 11/09/2023 Encounter Details Date Type Department Care Team (Late st Contact Info) Description 11/09/2023 Telephone Cardiology, [facility] [address] [facility] [place] [address] Estefani Liz CRNP [address] [facility], [place] [id number] Abnormal Test Results Allergies Active Allergy Reactions Criticality Noted Date Comments Rosuvastatin Calcium 07/21/2016 myalgia documented as of this encounter (statuses as of 11/13/2023) Medications Medication Sig Dispensed Refills Start Date [...] as of this encounter (statuses as of 11/13/2023) Active Problems Problem Noted Date Diagnosed Date [...] tis 07/21/2016 Coronary artery disease invo lving [place] coronary artery of [place] heart without angina pectoris 07/21/2016 documented as of this encounter (statuses as of 11/13/2023) Resolved Problems Problem Noted Date Diagnosed Date [...] breast, colon screening. REQUEST shot recs Distant [place]? 08/23 TTE 5mm pericardial effusion-on repeat, appears to be fat pad. 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 documented as of this encounter (statuses as of 11/13/2023) Immunizations Name Administration Dates Next Due COVID-19 [...] encounter Miscellaneous Notes * Telephone Encounter - Rosalinda Roper LPN - 11/12/2023 4:17 PM EDT Attempted pt by phone, no answer sent mychart * Telephone Encounter - Estefnai Liz CRNP - 11/09/2023 9:01 AM EDT [...] Otherwise recommend sooner follow-up with Yesenia in [place] to discuss in detail. NERIS Ybarra documented in this encounter Plan of Treatment Upcoming Encounters Date Type Department Care Team (Late st Contact Info) Description 03/13/2024 9:30 AM EST Office Visit Cardiology [address] [place] [address] Yesenia Garcia PA-C [address] [place] [address] 05/06/2024 8:00 AM EST Office Visit Family Medicine [address] [place] [phone] Antione Rocha MD [address] [place] [address] [place] [address] Scheduled Procedures Name Priority Associated Diagnoses [...] 04/05/2021, 09/22/2020, 08/24/2020 CKD PHOS USE SMARTSET 49474 05/15/2023 02/0 09/2022, 05/05/2021, 01/27/2020, Additional history exists Influenza Vaccine (FLU shot) (#1) 2023 01/12/2023, 01/26/2022, 12/30/2020, Additional history exists CKD HGB USE SMARTSET 54938 03/05/202403/05, 03/05/2023, 12/21/2022, Additional history exists GFR 03/08/2024 09/06/2023, 07/09, 07/12/2023, Additional history exists DXA Scan 04/04/2024 04/04/2022, 04/04/2022 Depression Monitoring 07/18/2024 07/19/2023 Albumin/Creatinine Ratio 09/05/2024 09/06/2023, 08/07 TSH 09/05/2024 09/06/2023, 0810/2022, 11/13/2022, Additional history exists RETIRED - COLONOSCOPY-EVERY 5 YRS AGES 18-100 Discontinued 10/27/2016, 10/27/2016, 10/09/2011, Additional history exists VITAMIN D LEVEL ONCE IN A LIFETIME-USE SMARTSET# 60778 Completed 10/09/2022, 08/16/2022 HPV (Gardasil) Vaccine Aged [...] Relationship Healthcare Agent Relationshi p Communication Ailyn [place] Adult Child Health Care Repr esentative (appointed verbally by patient or by statute hierarchy) Care Teams Charge Coordinator Relationship Specialty Start Date End Date Antione Rocha MD [address] [place] [address] [place] [address] PCP - General Family Medicine 02/02/21 documented as of this encounter
--- OUTSIDE RECORDS SUMMARY | 2024-05-06 06:11 | External Medical Summary | Summary of Care ---
Author Name Unknown Organization [facility] Address [address] [place] [address] Phone [phone] Care Team Providers Care School Bus Attendant Name Role Phone Antione Rocha MD Primary Care Provide r Reason for Visit * Reason Onset Date Comments Abnormal Test Results 11/09/2023 Encounter Details Date Type Department Care Team (Late st Contact Info) Description 11/09/2023 Telephone Cardiology, [facility] [address] [facility] [place] [address] Estefani Liz CRNP [address] [facility], [place] [phone] Abnormal Test Results Allergies Active Allergy Reactions [...] tis 07/21/2016 Coronary artery disease invo lving [place] coronary artery of [place] heart without angina pectoris 07/21/2016 documented [...] 08/16/23 122/70 * Telephone Encounter - Rosalinda Rpoer LPN - 11/12/2023 4:17 PM EDT Attempted [...] Otherwise recommend sooner follow-up with Yesenia in [place] to discuss in detail. NERIS Ybarra documented in this encounter Plan of Treatment Upcoming Encounters Date Type Department Care Team (Late st Contact Info) Description 03/13/2024 9:30 AM EST Office Visit Cardiology [address] [place] [address] Yesenia Garcia, [place] [address] [place] [address] 05/06/2024 8:00 AM EST Office Visit Family Medicine [address] [place] [phone] Antione Rocha MD [address] [place] [address] [place] [address] Scheduled Procedures Name Priority Associated Diagnoses Date/Ti [...] 04/05/2021, 09/22/2020, 08/24/2020 CKD PHOS USE SMARTSET 55516 05/15/2023 02/0 09/2022, 05/05/2021, 01/27/2020, Additional history exists Influenza Vaccine (FLU shot) (#1) 2023 01/12/2023, 01/26/2022, 12/30/2020, Additional history exists CKD HGB USE SMARTSET 76850 03/05/202403/05, 03/05/2023, 12/21/2022, Additional history exists GFR 03/08/2024 09/06/2023, 07/09, 07/12/2023, Additional history exists DXA Scan 04/04/2024 04/04/2022, 04/04/2022 Depression Monitoring 07/18/2024 07/19/2023 Albumin/Creatinine Ratio 09/05/2024 09/06/2023, 05 TSH 09/05/2024 09/06/2023, 08/10/2022, 11/13/2022, Additional history exists RETIRED - COLONOSCOPY-EVERY 5 YRS AGES 18-100 Discontinued 10/27/2016, 10/27/2016, 10/09/2011, Additional history exists VITAMIN D LEVEL ONCE IN A LIFETIME-USE SMARTSET# 81454 Completed 10/09/2022, 08/16/2022 HPV (Gardasil) Vaccine Aged [...] patient or by statute hierarchy) Care Teams School Bus Attendant Relationship Specialty Start Date End Date Antione Rocha MD [address] [place] [address] [place] [phone] PCP - General Family Medicine 02/02/21 documented as of this encounter
--- OUTSIDE RECORDS SUMMARY | 2024-05-06 06:11 | External Medical Summary | Summary of Care ---
Author Name Unknown Organization [facility] Address [address] [place] [address] Phone [phone] Care Team Providers Care Peer Support Specialist Name Role Phone Antione Rocha MD Primary Care Provide r Reason for Visit * Reason Onset Date Comments Abnormal Test Results 11/09/2023 Encounter Details Date Type Department Care Team (Late st Contact Info) Description 11/09/2023 Telephone Cardiology, [facility] [address] [facility] [place] [address] Estefani Liz CRNP [address] [facility], [place] [phone] Abnormal Test Results Allergies Active Allergy Reactions [...] tis 07/21/2016 Coronary artery disease invo lving [place] coronary artery of [place] heart without angina pectoris 07/21/2016 documented as [...] Otherwise recommend sooner follow-up with Yesenia in [place] to discuss in detail. NERIS Ybarra documented in this encounter Plan of Treatment Upcoming Encounters Date Type Department Care Team (Late st Contact Info) Description 03/13/2024 9:30 AM EST Office Visit Cardiology [address] [place] [address] Yesenia Garcia PA-C [address] [place] [address] 05/06/2024 8:00 AM EST Office Visit Family Medicine [address] [place] [phone] Antione Rocha MD [address] [place] [address] [place] [address] Scheduled Procedures Name Priority Associated Diagnoses Date/Ti [...] 04/05/2021, 09/22/2020, 08/24/2020 CKD PHOS USE SMARTSET 33408 05/15/2023 02/0 09/2022, 05/05/2021, 01/27/2020, Additional history exists Influenza Vaccine (FLU shot) (#1) 2023 01/12/2023, 01/26/2022, 12/30/2020, Additional history exists CKD HGB USE SMARTSET 96981 03/05/202403/05, 03/05/2023, 12/21/2022, Additional history exists GFR 03/08/2024 09/06/2023, 04/2 06/2023, 07/12/2023, Additional history exists DXA Scan 04/04/2024 04/04/2022, 04/04/2022 Depression Monitoring 07/18/2024 07/19/2023 Albumin/Creatinine Ratio 09/05/2024 09/06/2023, 05/1 TSH 09/05/2024 09/06/2023, 08/0 10/2022, 11/13/2022, Additional history exists RETIRED - COLONOSCOPY-EVERY 5 YRS AGES 18-100 Discontinued 10/27/2016, 10/27/2016, 10/09/2011, Additional history exists VITAMIN D LEVEL ONCE IN A LIFETIME-USE SMARTSET# 19619 Completed 10/09/2022, 08/16/2022 HPV (Gardasil) Vaccine Aged [...] patient or by statute hierarchy) Care Teams Peer Support Specialist Relationship Specialty Start Date End Date Antione Rocha MD [address] [place] [address] [place] [address] PCP - General Family Medicine 02/02/21 documented as of this encounter
--- OUTSIDE RECORDS SUMMARY | 2024-05-06 06:11 | External Medical Summary | Summary of Care ---
Author Name Unknown Organization [facility] Address [address] [place] [address] Phone [phone] Care Team Providers Care Hopper Feeder Name Role Phone Antione Rocha MD Primary Care Provide r Reason for Visit * Reason Onset Date Comments Abnormal Test Results 11/09/2023 Encounter Details Date Type Department Care Team (Late st Contact Info) Description 11/09/2023 Telephone Cardiology, [facility] [address] [facility] [place] [address] Estefani Liz CRNP [address] [facility], [place] [phone] Abnormal Test Results Allergies Active Allergy Reactions [...] tis 07/21/2016 Coronary artery disease invo lving [place] coronary artery of [place] heart without angina pectoris 07/21/2016 documented as [...] breast, colon screening. REQUEST shot recs Distant [place]? 08/23 TTE 5mm pericardial effusion-on repeat, appears [...] 2023 Appointment Provider:Josefina Price CRNP in [facility] Please let me know if there should be anything on my end I would need to do. Thank you. * Telephone Encounter - Yesenia Garcia PA-C - 11/13/2023 2:41 PM EDT Ok for appt in Dec if patient is agreeable to [facility]. Will have nursing reach out to her [...] Otherwise recommend sooner follow-up with Yesenia in [place] to discuss in detail. NERIS Ybarra documented in this encounter Plan of Treatment Upcoming Encounters Date Type Department Care Team (Late st Contact Info) Description 12/26/2023 2:30 PM EDT [facility] [address] [place] [address] Josefina Price CRNP [address] [place] [address] 03/13/2024 9:30 AM EST Office Visit Cardiology [address] [place] [address] Yesenia Garcia, [place] [address] [place] [address] 05/06/2024 8:00 AM EST Office Visit Family Medicine [address] [place] [phone] Antione oRcha MD [address] [place] [address] [place] [address] Scheduled Procedures Name Priority Associated Diagnoses Date/Ti [...] 04/05/2021, 09/22/2020, 08/24/2020 CKD PHOS USE SMARTSET 95579 05/15/2023 02/0 09/2022, 05/05/2021, 01/27/2020, Additional history exists Influenza Vaccine (FLU shot) (#1) 2023 01/12/2023, 01/26/2022, 12/30/2020, Additional history exists CKD HGB USE SMARTSET 15779 03/05/202403/05, 03/05/2023, 12/21/2022, Additional history exists GFR 03/08/2024 09/06/2023, 07/09, 07/12/2023, Additional history exists DXA Scan 04/04/2024 04/04/2022, 04/04/2022 Depression Monitoring 07/18/2024 07/19/2023 Albumin/Creatinine Ratio 09/05/2024 09/06/2023, 08/07 TSH 09/05/2024 09/06/2023, 10/2022, 11/13/2022, Additional history exists RETIRED - COLONOSCOPY-EVERY 5 YRS AGES 18-100 Discontinued 10/27/2016, 10/27/2016, 10/09/2011, Additional history exists VITAMIN D LEVEL ONCE IN A LIFETIME-USE SMARTSET# 64937 Completed 10/09/2022, 08/16/2022 HPV (Gardasil) Vaccine Aged [...] patient or by statute hierarchy) Care Teams Hopper Feeder Relationship Specialty Start Date End Date Antione Rocha MD [address] [place] [address] [place] [phone] PCP - General Family Medicine 02/02/21 documented as of this encounter
--- OUTSIDE RECORDS SUMMARY | 2024-05-06 06:11 | External Medical Summary | Summary of Care ---
Author Name Unknown Organization [facility] Address [address] [place] [address] Phone [phone] Care Team Providers Care Shirt Hemmer Name Role Phone Antione Rocha MD Primary Care Provide r Reason for Visit * Reason Onset Date Comments Abnormal Test Results 11/09/2023 Encounter Details Date Type Department Care Team (Late st Contact Info) Description 11/09/2023 Telephone Cardiology, [facility] [address] [facility] [place] [address] Estefani Liz CRNP [address] [facility], [place] [phone] Abnormal Test Results Allergies Active Allergy Reactions [...] tis 07/21/2016 Coronary artery disease invo lving [place] coronary artery of [place] heart without angina pectoris 07/21/2016 documented as [...] Otherwise recommend sooner follow-up with Yesenia in [place] to discuss in detail. NERIS Ybarra documented in this encounter Plan of Treatment Upcoming Encounters Date Type Department Care Team (Late st Contact Info) Description 03/13/2024 9:30 AM EST Office Visit Cardiology [address] [place] [address] Yesenia Garcia PA-C [address] [place] [address] 05/06/2024 8:00 AM EST Office Visit Family Medicine [address] [place] [phone] Antione Rocha MD [address] [place] [address] [place] [address] Scheduled Procedures Name Priority Associated Diagnoses Date/Ti [...] 04/05/2021, 09/22/2020, 08/24/2020 CKD PHOS USE SMARTSET 13315 05/15/2023 02/0 09/2022, 05/05/2021, 01/27/2020, Additional history exists Influenza Vaccine (FLU shot) (#1) 2023 01/12/2023, 01/26/2022, 12/30/2020, Additional history exists CKD HGB USE SMARTSET 70474 03/05/202403/05, 03/05/2023, 12/21/2022, Additional history exists GFR 03/08/2024 09/06/2023, 07/09, 07/12/2023, Additional history exists DXA Scan 04/04/2024 04/04/2022, 04/04/2022 Depression Monitoring 07/18/2024 07/19/2023 Albumin/Creatinine Ratio 09/05/2024 09/06/2023, 05 TSH 09/05/2024 09/06/2023, 080 10/2022, 11/13/2022, Additional history exists RETIRED - COLONOSCOPY-EVERY 5 YRS AGES 18-100 Discontinued 10/27/2016, 10/27/2016, 10/09/2011, Additional history exists VITAMIN D LEVEL ONCE IN A LIFETIME-USE SMARTSET# 50184 Completed 10/09/2022, 08/16/2022 HPV (Gardasil) Vaccine Aged [...] patient or by statute hierarchy) Care Teams Shirt Hemmer Relationship Specialty Start Date End Date Antione Rocha MD [address] [place] [address] [place] [address] PCP - General Family Medicine 02/02/21 documented as of this encounter
--- OUTSIDE RECORDS SUMMARY | 2024-05-06 06:11 | External Medical Summary | Summary of Care ---
Author Name Unknown Organization [facility] Address [address] [place] [address] Phone [phone] Care Team Providers Care Web Page Designer Name Role Phone Antione Rocha MD Primary Care Provide r Reason for Visit * Reason Onset Date Comments Abnormal Test Results 11/09/2023 Encounter Details Date Type Department Care Team (Late st Contact Info) Description 11/09/2023 Telephone Cardiology, [facility] [address] [facility] [place] [address] Estefani Liz CRNP [address] [facility], [place] [phone] Abnormal Test Results Allergies Active Allergy Reactions [...] tis 07/21/2016 Coronary artery disease invo lving [place] coronary artery of [place] heart without angina pectoris 07/21/2016 documented as [...] 2023 Appointment Provider:Josefina Price CRNP in [facility]OLOGY [facility] Please let me know if there should [...] Otherwise recommend sooner follow-up with Yesenia in [place] to discuss in detail. NERIS Ybarra documented in this encounter Plan of Treatment Upcoming Encounters Date Type Department Care Team (Late st Contact Info) Description 12/26/2023 2:30 PM EDT Office Visit Cardiology, [facility] [address] [place] [address] Josefina Price CRNP [address] [place] [address] 03/13/2024 9:30 AM EST Office Visit Cardiology [address] [place] [address] Yesenia Garcia PA-C [address] [place] [address] 05/06/2024 8:00 AM EST Office Visit Family Medicine [address] [place] [phone] Antione Rocha MD [address] [place] [address] [place] [address] Scheduled Procedures Name Priority Associated Diagnoses Date/Ti [...] 04/05/2021, 09/22/2020, 08/24/2020 CKD PHOS USE SMARTSET 08887 05/15/2023 02/0 09/2022, 05/05/2021, 01/27/2020, Additional history exists Influenza Vaccine (FLU shot) (#1) 2023 01/12/2023, 01/26/2022, 12/30/2020, Additional history exists CKD HGB USE SMARTSET 86610 03/05/202403/05, 03/05/2023, 12/21/2022, Additional history exists GFR 03/08/2024 09/06/2023, 07/09, 07/12/2023, Additional history exists DXA Scan 04/04/2024 04/04/2022, 04/04/2022 Depression Monitoring 07/18/2024 07/19/2023 Albumin/Creatinine Ratio 09/05/2024 09/06/2023, 05 TSH 09/05/2024 09/06/2023, 08/0 10/2022, 11/13/2022, Additional history exists RETIRED - COLONOSCOPY-EVERY 5 YRS AGES 18-100 Discontinued 10/27/2016, 10/27/2016, 10/09/2011, Additional history exists VITAMIN D LEVEL ONCE IN A LIFETIME-USE SMARTSET# 65303 Completed 10/09/2022, 08/16/2022 HPV (Gardasil) Vaccine Aged [...] patient or by statute hierarchy) Care Teams Web Page Designer Relationship Specialty Start Date End Date Antione Rocha MD [address] [place] [address] [place] [address] PCP - General Family Medicine 02/02/21 documented as of this encounter
--- OUTSIDE RECORDS SUMMARY | 2024-05-06 06:11 | External Medical Summary | Summary of Care ---
Author Name Unknown Organization [facility] Address [address] [place] [address] Phone [phone] Care Team Providers Care Banbury Mixer Operator Name Role Phone Antione Rocha MD Primary Care Provide r Reason for Visit * Reason Onset Date Comments Abnormal Test Results 11/09/2023 Encounter Details Date Type Department Care Team (Late st Contact Info) Description 11/09/2023 Telephone Cardiology, [facility] [address] [facility] [place] [address] Estefani Liz CRNP [address] [facility], [place] [phone] Abnormal Test Results Allergies Active Allergy Reactions [...] tis 07/21/2016 Coronary artery disease invo lving [place] coronary artery of [place] heart without angina pectoris 07/21/2016 documented as [...] Otherwise recommend sooner follow-up with Yesenia in [place] to discuss in detail. NERIS Ybarra documented in this encounter Plan of Treatment Upcoming Encounters Date Type Department Care Team (Late st Contact Info) Description 03/13/2024 9:30 AM EST Office Visit Cardiology [address] [place] [address] Yesenia Garcia PA-C [address] [place] [address] 05/06/2024 8:00 AM EST Office Visit Family Medicine [address] [place] [phone] Antione Rocha MD [address] [place] [address] [place] [address] Scheduled Procedures Name Priority Associated Diagnoses Date/Ti [...] 04/05/2021, 09/22/2020, 08/24/2020 CKD PHOS USE SMARTSET 22012 05/15/2023 02/0 09/2022, 05/05/2021, 01/27/2020, Additional history exists Influenza Vaccine (FLU shot) (#1) 2023 01/12/2023, 01/26/2022, 12/30/2020, Additional history exists CKD HGB USE SMARTSET 67226 03/05/202403/05, 03/05/2023, 12/21/2022, Additional history exists GFR 03/08/2024 09/06/2023, 07/09, 07/12/2023, Additional history exists DXA Scan 04/04/2024 04/04/2022, 04/04/2022 Depression Monitoring 07/18/2024 07/19/2023 Albumin/Creatinine Ratio 09/05/2024 09/06/2023, 05 TSH 09/05/2024 09/06/2023, 080 10/2022, 11/13/2022, Additional history exists RETIRED - COLONOSCOPY-EVERY 5 YRS AGES 18-100 Discontinued 10/27/2016, 10/27/2016, 10/09/2011, Additional history exists VITAMIN D LEVEL ONCE IN A LIFETIME-USE SMARTSET# 01103 Completed 10/09/2022, 08/16/2022 HPV (Gardasil) Vaccine Aged [...] patient or by statute hierarchy) Care Teams Banbury Mixer Operator Relationship Specialty Start Date End Date Antione Rocha MD [address] [place] [address] [place] [address] PCP - General Family Medicine 02/02/21 documented as of this encounter
--- OUTSIDE RECORDS SUMMARY | 2024-05-06 06:11 | External Medical Summary | Summary of Care ---
Author Name Unknown Organization [facility] Address [address] [place] [address] Phone [phone] Care Team Providers Care Clinical Program Consultant Name Role Phone Antione Rocha MD Primary Care Provide r Reason for Visit * Reason Onset Date Comments Abnormal Test Results 11/09/2023 Encounter Details Date Type Department Care Team (Late st Contact Info) Description 11/09/2023 Telephone Cardiology, [facility] [address] [facility] [place] [address] Estefani Liz CRNP [address] [facility] [place] [phone] Abnormal Test Results Allergies Active Allergy Reactions [...] tis 07/21/2016 Coronary artery disease invo lving [place] coronary artery of [place] heart without angina pectoris 07/21/2016 documented as [...] encounter Miscellaneous Notes * Telephone Encounter - Fiorella Ivory RN [...] Otherwise recommend sooner follow-up with Yesenia in [place] to discuss in detail. NERIS Ybarra documented in this encounter Plan of Treatment Upcoming Encounters Date Type Department Care Team (Late st Contact Info) Description 12/26/2023 2:30 PM EDT Office Visit Cardiology, [facility] [address] [place] [address] Josefina Price CRNP [address] [address] 03/13/2024 9:30 AM EST Office Visit Cardiology [address] [place] [address] Yesenia Garcia PA-C [address] [place] [address] 05/06/2024 8:00 AM EST Office Visit Family Medicine [address] [place] [phone] Antione Rocha MD [address] [place] [address] [place] [address] Scheduled Procedures Name Priority Associated Diagnoses Date/Ti [...] 04/05/2021, 09/22/2020, 08/24/2020 CKD PHOS USE SMARTSET 22809 05/15/2023 020 09/2022, 05/05/2021, 01/27/2020, Additional history exists Influenza Vaccine (FLU shot) (#1) 2023 01/12/2023, 01/26/2022, 12/30/2020, Additional history exists CKD HGB USE SMARTSET 25574 03/05/202403/05, 03/05/2023, 12/21/2022, Additional history exists GFR 03/08/2024 09/06/2023, 07/09, 07/12/2023, Additional history exists DXA Scan 04/04/2024 04/04/2022, 04/04/2022 Depression Monitoring 07/18/2024 07/19/2023 Albumin/Creatinine Ratio 09/05/2024 09/06/2023, 08/07 TSH 09/05/2024 09/06/2023, 0810/2022, 11/13/2022, Additional history exists RETIRED - COLONOSCOPY-EVERY 5 YRS AGES 18-100 Discontinued 10/27/2016, 10/27/2016, 10/09/2011, Additional history exists VITAMIN D LEVEL ONCE IN A LIFETIME-USE SMARTSET# 46048 Completed 10/09/2022, 08/16/2022 HPV (Gardasil) Vaccine Aged [...] Relationship Healthcare Agent Relationshi p Communication Ailyn [place] Adult Child Health Care Repr esentative (appointed verbally by patient or by statute hierarchy) Care Teams Clinical Program Consultant Relationship Specialty Start Date End Date Antione Rocha MD [address] [place] [address] [place] [address] PCP - General Family Medicine 02/02/21 documented as of this encounter
--- OUTSIDE RECORDS SUMMARY | 2024-05-06 06:12 | External Medical Summary | Summary of Care ---
Author Name Unknown Organization [facility] Address [address] [place] [address] Phone [phone] Care Team Providers Care Tradeshow Worker Name Role Phone Antione Rocha MD Primary Care Provide r Reason for Visit * Reason Onset Date Comments Abnormal Test Results 11/09/2023 Encounter Details Date Type Department Care Team (Late st Contact Info) Description 11/09/2023 Telephone Cardiology, [facility] [address] [place] [facility] [place] [address] Estefani Liz CRNP [address] [facility], [place] [phone] Abnormal Test Results Allergies Active Allergy Reactions Criticality Noted Date Comments Rosuvastatin Calcium 07/21/2016 myalgia documented as of this encounter (statuses as of 11/12/2023) Medications Medication Sig Dispensed Refills Start Date [...] this for 7 days. 14 Tablet 11/05/2023 Active documented as of this encounter (statuses as of 11/12/2023) Active Problems Problem Noted Date Diagnosed Date [...] tis 07/21/2016 Coronary artery disease invo lving la posta coronary artery of la posta heart without angina pectoris 07/21/2016 documented as of this encounter (statuses as of 11/12/2023) Resolved Problems Problem Noted Date Diagnosed Date [...] as of this encounter (statuses as of 11/12/2023) Immunizations Name Administration Dates Next Due COVID-19 [...] Years Used Date Smoking Tobacco: Former Cigarettes 10 976 - 1985 Smokeless Tobacco: Never [...] do you feel lonely or isolated from ose around you? Never 07/26/2023 Financial Resource [...] Otherwise recommend sooner follow-up with Yesenia in [place] to discuss in detail. NERIS Ybarra documented in this encounter Plan of Treatment Upcoming Encounters Date Type Department Care Team (Late st Contact Info) Description 03/13/2024 9:30 AM EST Office Visit Cardiology [address] [place] [phone] Yesenia Garcia PA-C [address] [place] [address] 05/06/2024 8:00 AM EST Office Visit Family Medicine [address] [place] [phone] Antione Rocha MD [address] [place] [address] [place] [address] Scheduled Procedures Name Priority Associated Diagnoses Date/Ti me COLONOSCOPY FLEXIBLE PROXIMAL DIAGNOSTIC Recall History of colon polyps Health Maintenance Due Date Last Done Comments DTaP,Tdap,and Td Vaccines (1 - Tdap) 1959 Zoster Vaccines (1 of 2) 1990 Pneumococcal Vaccine: 65+ Years (2 of 2 - PPSV23 or PCV20) 11/24/2015 11/23/2014 Colonoscopy 10/27/2021 10/27/2016, 10/08, 09/22/2011, Additional history exists COVID-19 Vaccine ( season) 2022 04/05/2021, 09/22/2020, 08/24/2020 CKD PHOS USE SMARTSET 09255 05/15/2023 02/0 09/2022, 05/05/2021, 01/27/2020, Additional history exists Influenza Vaccine (FLU shot) (#1) 2023 01/12/2023, 01/26/2022, 12/30/2020, Additional history exists CKD HGB USE SMARTSET 85598 03/05/202403/05, 03/05/2023, 12/21/2022, Additional history exists GFR 03/08/2024 09/06/2023, 07/09, 07/12/2023, Additional history exists DXA Scan 04/04/2024 04/04/2022, 04/04/2022 Depression Monitoring 07/18/2024 07/19/2023 Albumin/Creatinine Ratio 09/05/2024 09/06/2023, 05 TSH 09/05/2024 09/06/2023, 0810/2022, 11/13/2022, Additional history exists RETIRED - COLONOSCOPY-EVERY 5 YRS AGES 18-100 Discontinued 10/27/2016, 10/27/2016, 10/09/2011, Additional history exists VITAMIN D LEVEL ONCE IN A LIFETIME-USE SMARTSET# 63456 Completed 10/09/2022, 08/16/2022 HPV (Gardasil) Vaccine Aged [...] patient or by statute hierarchy) Care Teams Tradeshow Worker Relationship Specialty Start Date End Date Antione Rocha MD [address] [place] [address] [place] [phone] PCP - General Family Medicine 02/02/21 documented as of this encounter
--- OUTSIDE RECORDS SUMMARY | 2024-05-06 06:12 | External Medical Summary | Summary of Care ---
Author Name Unknown Organization [facility] Address [address] [place] [address] Phone [phone] Care Team Providers Care Ear Muff Assembler Name Role Phone Antione Rocha MD Primary Care Provide r Reason for Visit * Reason Onset Date Comments Abnormal Test Results 11/09/2023 Encounter Details Date Type Department Care Team (Late st Contact Info) Description 11/09/2023 Telephone Cardiology, [facility] [address] [place] [address] Estefani Liz CRNP [address] [place], [place] [phone] Abnormal Test Results Allergies Active Allergy Reactions Criticality Noted Date Comments Rosuvastatin Calcium 07/21/2016 myalgia documented as of this encounter (statuses as of 11/09/2023) Medications Medication Sig Dispensed Refills Start Date [...] as of this encounter (statuses as of 11/09/2023) Active Problems Problem Noted Date Diagnosed Date [...] as of this encounter (statuses as of 11/09/2023) Resolved Problems Problem Noted Date Diagnosed Date [...] breast, colon screening. REQUEST shot recs Distant SD? 08/23 TTE 5mm pericardial effusion-on repeat, appears to be fat pad. 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 documented as of this encounter (statuses as of 11/09/2023) Immunizations Name Administration Dates Next Due COVID-19 [...] encounter Miscellaneous Notes * Telephone Encounter - Estefani Liz CRNP [...] Otherwise recommend sooner follow-up with Yesenia in [place] to discuss in detail. ENRIS Ybarra documented in this encounter Plan of Treatment Upcoming Encounters Date Type Department Care Team (Late st Contact Info) Description 03/13/2024 9:30 AM EST Office Visit Cardiology [address] [place] [address] Yesenia Garcia PA-C [address] [facility] [place] [address] 05/06/2024 8:00 AM EST Office Visit Family Medicine [address] [place] [phone] Antione Rocha MD [address] [place] [address] [place] [phone] Scheduled Procedures Name Priority Associated Diagnoses Date/Ti [...] 04/05/2021, 09/22/2020, 08/24/2020 CKD PHOS USE SMARTSET 20224 05/15/2023 02/0 09/2022, 05/05/2021, 01/27/2020, Additional history exists Influenza Vaccine (FLU shot) (#1) 2023 01/12/2023, 01/26/2022, 12/30/2020, Additional history exists CKD HGB USE SMARTSET 66525 03/05/202403/05, 03/05/2023, 12/21/2022, Additional history exists GFR 03/08/2024 09/06/2023, 07/09, 07/12/2023, Additional history exists DXA Scan 04/04/2024 04/04/2022, 04/04/2022 Depression Monitoring 07/18/2024 07/19/2023 Albumin/Creatinine Ratio 09/05/2024 09/06/2023, 051 TSH 09/05/2024 09/06/2023, 08/0 10/2022, 11/13/2022, Additional history exists RETIRED - COLONOSCOPY-EVERY 5 YRS AGES 18-100 Discontinued 10/27/2016, 10/27/2016, 10/09/2011, Additional history exists VITAMIN D LEVEL ONCE IN A LIFETIME-USE SMARTSET# 51776 Completed 10/09/2022, 08/16/2022 HPV (Gardasil) Vaccine Aged [...] patient or by statute hierarchy) Care Teams Ear Muff Assembler Relationship Specialty Start Date End Date Antione Rocha MD [address] [place] [address] [place] [address] PCP - General Family Medicine 02/02/21 documented as of this encounter
[2024-05-06] MEDS: cefTRIAXone SODIUM 2,000 MG/50 ML BAG IV SCH (06:19)
[2024-05-06] MEDS: METOPROLOL SUCC 50MG EXT REL TAB PO SCH (07:46)
[2024-05-06] MEDS: FOLIC ACID 400 MCG TAB PO SCH (07:46)
[2024-05-06] MEDS: FERROUS SULFATE 325 MG TAB PO SCH (07:46)
[2024-05-06] MEDS: CYANOCOBALAMIN (B-12) 2,500 MCG TABLET PO SCH (07:47)
[2024-05-06] MEDS: PRAVASTATIN SOD 20 MG TAB PO SCH (07:47)
[2024-05-06] MEDS: SERTRALINE HCL 50 MG TABLET PO SCH (07:47)
[2024-05-06] MEDS: PANTOprazole 40 MG TAB PO SCH (07:47)
[2024-05-06] MEDS: lisinopril 10 MG TAB PO SCH (08:43)
[2024-05-06 08:50] LABS: Basophils # (auto) 0.02 K/uL (0.00-0.20); Basophils % (auto) 0.2 %; Eosinophils # (auto) 0.12 K/uL (0.00-0.50); Eosinophils % (auto) 1.3 %; Hematocrit (blood only) 33.1 % (37.0-47.0); Hemoglobin 10.8 g/dl (12.0-16.0); Immature Granulocytes # (auto) 0.07 K/uL (0.01-0.20); Immature Granulocytes % (auto) 0.8 %; Lymphocytes # (auto) 2.11 K/uL (1.20-3.40); Lymphocytes % (auto) 23.7 %; Mean Corpuscular Hgb Conc 32.6 g/dL (32.0-36.0); Mean Platelet Volume 9.5 fL (9.4-12.4); Monocytes # (auto) 0.68 K/uL (0.11-0.59); Monocytes % (auto) 7.6 %; Neutrophils # (auto) 5.92 K/uL (1.40-6.50); Neutrophils % (auto) 66.4 %; Platelet Count 190 K/uL (130-400); RDW Coefficient of Variation 13.4 % (11.5-14.5); RDW Standard Deviation 43.8 fL (36.4-46.3); Red Blood Count 3.72 M/uL (4.20-5.40); White Blood Count 8.92 K/ul (4.8-10.8)
[2024-05-06 09:11] LABS: BUN Creatinine Ratio 16.3 (10-20); Calcium 8.1 mg/dl (8.6-10.3); Creatinine Clr Calc Pharmacy 50.7 ml/min; Potassium 3.4 mmol/L (3.5-5.1)
--- NOTE | 2024-05-06 10:30 | Orthopedic Consultation ---
Date of Service May 06, 2024 Assessment & Plan (1) Atypical fracture of femur: Assessment: Nondisplaced left proximal femur fracture. Plan: I had a long discussion today with the patient about her left femur fracture in great detail with ample amount of time for patient ask any questions today and concerns. All question concerns were answered the patient satisfaction. At this point in time, she does have a known femur fracture that is causing her significant discomfort with both ambulation and range of motion. I discussed conservative treatment options as well as surgical intervention in great detail with ample amount time for patient ask any questions stating concerns. It was decided and agreed upon to proceed with surgical intervention today. I discussed the risk, benefits, and alternatives to intramedullary nailing of left femur in great detail with ample amount time for patient ask any questions and concerns. All question concerns were anticipated satisfaction and she agrees to proceed with the surgical case as described. Surgery performed later this morning by Dr. Zurita. She should remain n.p.o. Postsurgical expectation discussed. Will continue to follow her postoperatively. History of Present Illness Reason for Consultation: . Left femur fracture Requesting Physician: . Attending Physician: Christine Bryant MD . Patient is an 84-year-old female who presented to the emergency department yesterday evening for evaluation of a known left hip fracture. She notes that she has been dealing with this discomfort for some time now but the pain is worsened over the last 3 weeks. She noted that the pain increases significant amount yesterday and has been causing her some issues with ambulation which caused her daughter to bring her to the emergency department. Today, she notes that her pain is controlled whenever she is laying down. She would rate her pain a 4 out of 10 when sitting still. She notes that the pain can increase depending on certain range of motion and ambulation. She denies any distal extremity pain, numbness/ting, or paresthesias. She denies any other concerns today. She is not on any anticoagulation. She does take a baby aspirin daily. Allergies Allergy/AdvReac Type Severity Reaction Status Date / Time rosuvastatin [From Crestor] AdvReac Unknown Verified 07/13/23 13:49 Home Medications Medication Instructions Recorded Confirmed Type alendronate 70 mg tablet 70 mg PO .WEEK 07/13/23 05/05/24 History aspirin 81 mg tablet,delayed 81 mg PO DAILY 07/13/23 05/05/24 History release cyanocobalamin (vitamin B-12) 5,000 mcg PO Q OTHER DAY 07/13/23 05/05/24 History 5,000 mcg sublingual tablet (Vitamin B-12) ferrous sulfate 325 mg (65 mg 65 mg PO Q OTHER DAY 07/13/23 05/05/24 History iron) tablet (iron) folic acid 800 mcg tablet 0.8 mg PO DAILY 07/13/23 05/05/24 History levothyroxine 75 mcg tablet 75 mcg PO QAM 07/13/23 05/05/24 History lisinopril 10 mg tablet 10 mg PO QAM 07/13/23 05/05/24 History metoprolol succinate 100 mg 100 mg PO QAM 07/13/23 05/05/24 History tablet,extended release 24 hr omeprazole 20 mg capsule,delayed 20 mg PO QAM 07/13/23 05/05/24 History release pravastatin 20 mg tablet 20 mg PO DAILY 07/13/23 05/05/24 History sertraline 50 mg tablet 50 mg PO QAM 07/13/23 05/05/24 History furosemide 20 mg tablet 20 mg PO UD #1 tab 07/17/23 05/05/24 Rx tramadol 50 mg tablet 50 mg PO HS 05/05/24 05/05/24 History Past Med/Surg History Problem List (Updated 05/06/24 @ 11:10 by Manish Peacock DO) Encounter for pre-operative examination Asymptomatic hypertensive urgency Atypical fracture of femur (Acute) Hypothyroidism HLD (hyperlipidemia) HTN (hypertension) Dizziness (Acute) Acute hyponatremia (Acute) Surgical History No pertinent past surgical history Social History Smoking Status: Former smoker Second Hand Exposure: Yes; Do You Dip or Chew Tobacco: No; Hx Alcohol Use: No Hx Substance Use: No Preferred Language: Burmese Communication Ability: Effective Overhead Foreman Required: No Beliefs That Will Affect Care: None Current Living Situation: Spouse Current Living Situation Comment: with Feels Safe at Home: Yes Safety Concerns: Feels Safe At This Time Assistive Devices: Bedside Commode, Cane and Walker Assistive Devices Comment: pt uses a walker and cane at baseline, unable to ambulate at this time Review of Systems All systems reviewed & are unremarkable except as noted in HPI & below. Physical Exam . Constitutional: WD/WN, vitals as above no acute distress Eyes: PERRL, conjunctivae normal, anicteric sclerae Neck: trachea midline, no thyromegaly Respiratory: normal respiratory effort, lungs clear to auscultation Cardiovascular: RRR, no murmur, no edema Vessels: normal carotid upstroke; no carotid bruit Gastrointestinal (Abdomen): normal bowel sounds, soft, nontender, no hepatosplenomegaly Skin: no rashes, warm and dry Neurologic: CN's II-XI intact bilaterally and moves all extremities Psychiatric: A+Ox3, euthymic affect Musculoskeletal: On physical examination of the left lower extremity, there is no erythema, ecchymosis, edema, or other obvious deformities. Tenderness to palpation diffusely throughout the thigh region of the left lower extremity. Limited range of motion and strength secondary to discomfort to the left lower extremity. Calf soft nontender to palpation. Negative Homans' sign. Intact plantarflexion dorsiflexion of left ankle. +2 DP and PT pulse. Less than 2- second capillary refill. Normal sensation. Neurovascular intact. Results & Data Results & Data Laboratory Results . Hip X-Ray 05/05/24 21:17 Exam(s): XR LEFT HIP EXAM: XR Left Hip , 2 Views CLINICAL HISTORY: Reason for exam: left hip atypical fx on outside imaging. TECHNIQUE: Two views of the left hip COMPARISON: No relevant prior studies available. FINDINGS: Bones/joints: There is a nondisplaced fracture noted of the proximal femoral shaft.. No dislocation. Soft tissues: Unremarkable. IMPRESSION: There is a nondisplaced fracture noted of the proximal femoral shaft.. This is of undetermined age . Electronically signed by: Edi Whittaker MD 05/05/24 23:19 PM Chest X-Ray 05/05/24 23:27 EXAM: XR chest 1V portable CLINICAL HISTORY: PRE OP HISTORY OF SMOKING [facility] TECHNIQUE: An X-ray image of the chest is obtained in AP projection. COMPARISON: 07/13/2023 FINDINGS: Pulmonary Parenchyma: Right lower zone peripheral opacity. Blunting of both costophrenic angles. Suspected left lower zone opacity silhouetting the heart apex. Heart and Mediastinum: Apparent cardiomegaly. Prominent hilar shadows. Bony Thorax: Bony thorax appears intact without fractures or deformities. Soft Tissues: Soft tissues overlying the chest wall are unremarkable. IMPRESSION: 1. Right lower zone peripheral opacity, could be exaggerated due to overlying soft tissue shadows. Clinical correlation is advised to assess for pulmonary infiltrates. (More conspicuous in the present study) 2. Blunting of the right costophrenic angle, could be due to mild pleural effusion/thickening. 3. Suspected left lower zone opacity nearly stable since the previous study, could be projectional. 4. Cardiomegaly, apparent? Electronically signed by Lucy Albert 05-06-2024 02:27 AM Diagnostic Findings . PG Care Time/CCT Total # of Minutes Spent Total Time Spent with Patient: Total time spent is greater than 50% in coordination of care (as documented) at patient's floor/unit and/or counseling patient: Coding Level of Care Code 12762 IN/OBS CONSULT LVL 3,45M Diagnoses Atypical fracture of femur M84.750A Encounter type: initial encounter Additional Codes Fx Hip/Femur - Femoral shaft: Femoral shaft ([id number]) (1) Atypical fracture of femur Encounter type: initial encounter Qualified Code(s): M84.750A - Atypical femoral fracture, unspecified, initial encounter for fracture
[2024-05-06] MEDS: PROMETHAZINE 6.25 MG/50.25 ML BAG IV PRN (10:50)
--- NOTE | 2024-05-06 11:10 | Anesthesiology Consultation ---
Date of Service May 06, 2024 Assessment & Plan (1) Encounter for pre-operative examination: Chart Review Chart Review: Acceptable Risk for Surgery and Patient NOT seen in Pre Admission Testing Consults Requested none History Surgery Operation Date: 05/06/24 08:20 Proposed Procedures p Left IM Nail - Bryce Zurita MD Height/Weight Height: 5 ft 4 in Weight: 94.2 kg Allergies Allergy/AdvReac Type Severity Reaction Status Date / Time rosuvastatin [From Crestor] AdvReac Unknown Verified 07/13/23 13:49 Medications Home Medications Medication Instructions Recorded Confirmed Last Taken alendronate 70 mg tablet 70 mg PO .WEEK 07/13/23 05/05/24 Unknown aspirin 81 mg tablet,delayed 81 mg PO DAILY 07/13/23 05/05/24 Unknown release cyanocobalamin (vitamin B-12) 5,000 mcg PO Q OTHER DAY 07/13/23 05/05/24 Unknown 5,000 mcg sublingual tablet (Vitamin B-12) ferrous sulfate 325 mg (65 mg 65 mg PO Q OTHER DAY 07/13/23 05/05/24 Unknown iron) tablet (iron) folic acid 800 mcg tablet 0.8 mg PO DAILY 07/13/23 05/05/24 Unknown levothyroxine 75 mcg tablet 75 mcg PO QAM 07/13/23 05/05/24 Unknown lisinopril 10 mg tablet 10 mg PO QAM 07/13/23 05/05/24 Unknown metoprolol succinate 100 mg 100 mg PO QAM 07/13/23 05/05/24 Unknown tablet,extended release 24 hr omeprazole 20 mg capsule,delayed 20 mg PO QAM 07/13/23 05/05/24 Unknown release pravastatin 20 mg tablet 20 mg PO DAILY 07/13/23 05/05/24 Unknown sertraline 50 mg tablet 50 mg PO QAM 07/13/23 05/05/24 Unknown furosemide 20 mg tablet 20 mg PO UD #1 tab 07/17/23 05/05/24 Unknown tramadol 50 mg tablet 50 mg PO HS 05/05/24 05/05/24 Unknown Active Medications Generic Name Dose Route Start Last Admin Trade Name Freq PRN Reason Stop Dose Admin Cyanocobalamin 5,000 mcg 05/06/24 09:00 05/06/24 07:47 Cyanocobalamin (B-12) 2,500 Mcg Tablet PO 06/05/24 08:59 5,000 mcg Q48H SEBASTIEN Administration Ferrous Sulfate 325 mg 05/06/24 09:00 05/06/24 07:46 Ferrous Sulfate 325 Mg Tab PO 06/05/24 08:59 325 mg Q48H SEBASTIEN Administration Folic Acid 800 mcg 05/06/24 09:00 05/06/24 07:46 Folic Acid 400 Mcg Tab PO 06/05/24 08:59 800 mcg DAILY SEBASTIEN Administration Promethazine HCl 6.25 mg in 50.25 mls @ 201 mls/hr 05/06/24 00:07 05/06/24 11:09 Phenergan IV 06/05/24 00:06 0 mls/hr Q6H PRN Titration Nausea And Vomiting Sodium Chloride 1,000 mls @ 60 mls/hr 05/06/24 02:21 05/06/24 04:28 Nss IV 05/06/24 19:00 60 mls/hr .[id number] ONE Administration Ceftriaxone Sodium 2,000 mg in 50 mls @ 100 mls/hr 05/06/24 06:30 05/06/24 07:12 Rocephin IV 05/16/24 06:29 Infused Q24H SEBASTIEN Infusion Levothyroxine Sodium 75 mcg 05/06/24 06:30 05/06/24 05:56 Levothyroxine Sodium 75 Mcg Tablet PO 06/05/24 06:29 75 mcg DAILYBB SEBASTIEN Administration Lisinopril 10 mg 05/06/24 09:00 05/06/24 08:43 Lisinopril 10 Mg Tab PO 06/05/24 08:59 10 mg QAM SEBASTIEN Administration Metoprolol Succinate 100 mg 05/06/24 09:00 05/06/24 07:46 Metoprolol Succ 50mg Ext Rel Tab PO 06/05/24 08:59 100 mg QAM SEBASTIEN Administration Morphine Sulfate 2 mg 05/06/24 00:07 05/06/24 07:46 Morphine Sulfate 2 Mg/Ml Carp IV 05/20/24 00:06 2 mg Q3H PRN Administration Pain Pantoprazole Sodium 40 mg 05/06/24 09:00 05/06/24 07:47 Pantoprazole 40 Mg Tab PO 06/05/24 08:59 40 mg QAM SEBASTIEN Administration Pravastatin Sodium 20 mg 05/06/24 09:00 05/06/24 07:47 Pravastatin Sod 20 Mg Tab PO 06/05/24 08:59 20 mg DAILY SEBASTIEN Administration Sertraline HCl 50 mg 05/06/24 09:00 05/06/24 07:47 Sertraline Hcl 50 Mg Tablet PO 06/05/24 08:59 50 mg QAM SEBASTIEN Administration Past Surgical History Surgical History No pertinent past surgical history Social History Smoking Status: Former smoker Do You Dip or Chew Tobacco: No Hx Alcohol Use: No Hx Substance Use: No substance use type: does not use Physical Exam Vital Signs Last Vital Signs Temp 99.0 F 05/06/24 11:07 Pulse 63 05/06/24 11:07 Resp 18 05/06/24 11:07 BP 153/71 H 05/06/24 11:07 Pulse Ox 93 05/06/24 11:07 O2 Del Method Room Air 05/06/24 11:07 Testing Laboratory Results 05/06/24 07:18 05/06/24 07:18 PT 11.1 Seconds (9.0-12.0) 05/05/24 21:29 INR 1.0 (0.9-1.1) 05/05/24 21:29 APTT 25 Seconds (21-31) 05/05/24 21:29 Urine Color Yellow 05/06/24 04:45 Urine Appearance Cloudy (Clear) A 05/06/24 04:45 Urine pH 6.5 (4.5-7.5) 05/06/24 04:45 Ur Specific [place] 1.019 (1.000-1.030) 05/06/24 04:45 Urine Protein Negative (Negative) 05/06/24 04:45 Urine Glucose (UA) Negative (Negative) 05/06/24 04:45 Urine Ketones Trace (Negative) H 05/06/24 04:45 Urine Nitrite Positive (Negative) A 05/06/24 04:45 Ur Leukocyte Esterase Trace (Negative) H 05/06/24 04:45 Urine WBC (Auto) 0-5 /hpf (0-5) 05/06/24 04:45 Urine RBC (Auto) 0-2 /hpf (0-2) 05/06/24 04:45 U Hyaline Cast (Auto) 0-2 /lpf (0-2) 05/06/24 04:45 U Epithel Cells (Auto) 0-2 /hpf (0-2) 05/06/24 04:45 Urine Bacteria (Auto) 4+ (None Seen) H 05/06/24 04:45 Electrocardiogram Date: 05/05/24 Findings: + NSR @ with PACs, Prolonged QT Chest X-Ray Date: 05/05/24 IMPRESSION: 1. Right lower zone peripheral opacity, could be exaggerated due to overlying soft tissue shadows. Clinical correlation is advised to assess for pulmonary infiltrates. (More conspicuous in the present study) 2. Blunting of the right costophrenic angle, could be due to mild pleural effusion/thickening. 3. Suspected left lower zone opacity nearly stable since the previous study, could be projectional. 4. Cardiomegaly, apparent?
--- NOTE | 2024-05-06 12:14 | Hospitalist Progress Note ---
Date of Service May 06, 2024 Assessment & Plan (1) Atypical fracture of femur: Plan Pt is an 84yoF with PMhx significant for CAD, PVD, valvular heart disease (mild MR/TR), atrial septal aneurysm, pulmonary hypertension, history PVCs, hypertension, hyperlipidemia, CRI (baseline creatinine 1.2-1.3), chronic anemia (baseline hemoglobin of 11), postsurgical hypothyroidism, GERD, past tobacco abuse who presents for further evaluation of a left hip fracture noted on outpt imaging. Fracture of left femur Falls Noted on outpt MRI left hip Orthopedics consulted, appreciate recs -s/p L intramedullary nail on 05/06/24 Pain control PT/OT per recs of ortho DVT prophylaxis per ortho Continue to monitor Anemia, possible acute blood loss Hgb on admission of 11 Continue to monitor post op Hypertensive urgency likely in setting of above fracture and pain continue home meds, titrate as needed Consider IV prn for SBP> 180 Possible UTI UA suggestive of infection urine cx pending empiric rocephin, adjust based on cx results Hypokalemia replete as needed Chronic medical problems: hx CAD/PVD, stable as per recent outpatient [facility] visit last December 2023 valvular heart disease (mild MR/TR) atrial septal aneurysm pulmonary hypertension hyperlipidemia, on statin Rx CRI, creatinine better than baseline chronic anemia, at baseline hypothyroidism, euthyroid as of recent outpatient TSH past tobacco abuse Diet: NPO until after surgery DVT prophylaxis: per ortho postop Dispo: per PT/OT recs post op, will likely need acute rehab Admission and Anticipated Discharge Date Admission Date: May 05, 2024 Subjective pt was seen right before being taken for surgery. Stated that the pain was somewhat controlled Denied other concerns at that time Review of Systems Review of Systems: All systems reviewed & are unremarkable except as noted in Subjective Physical Exam Physical Exam: General: Alert, oriented. No acute distress Psych: Appropriate mood and affect HEENT: NC/AT CV: RRR Resp: no increased effort of breathing Abdomen:Soft, nontender Extremities: trace edema in lower extremities bilaterally. Results & Data Results & Data Vital Signs (Past 12 Hours) Vital Signs Temp Pulse Pulse Pulse Resp BP BP 05/06/24 11:50 67 20 179/74 H 05/06/24 11:47 37.3 C 73 20 159/103 H 05/06/24 11:07 37.2 C 63 18 153/71 H 05/06/24 07:34 37.0 C 60 18 150/67 H 05/06/24 07:15 57 L 05/06/24 02:13 37.2 C 61 18 152/79 H Pulse Ox O2 Del Method 05/06/24 11:50 94 Room Air 05/06/24 11:47 95 Room Air 05/06/24 11:07 93 Room Air 05/06/24 07:34 93 Room Air 05/06/24 07:15 05/06/24 02:13 95 Room Air Diagnostic Findings Hip X-Ray 05/05/24 21:17 Exam(s): XR LEFT HIP EXAM: XR Left Hip , 2 Views CLINICAL HISTORY: Reason for exam: left hip atypical fx on outside imaging. TECHNIQUE: Two views of the left hip COMPARISON: No relevant prior studies available. FINDINGS: Bones/joints: There is a nondisplaced fracture noted of the proximal femoral shaft.. No dislocation. Soft tissues: Unremarkable. IMPRESSION: There is a nondisplaced fracture noted of the proximal femoral shaft.. This is of undetermined age . Electronically signed by: Edi Whittaker MD 05/05/24 23:19 PM Chest X-Ray 05/05/24 23:27 EXAM: XR chest 1V portable CLINICAL HISTORY: PRE OP HISTORY OF SMOKING F TECHNIQUE: An X-ray image of the chest is obtained in AP projection. COMPARISON: 07/13/2023 FINDINGS: Pulmonary Parenchyma: Right lower zone peripheral opacity. Blunting of both costophrenic angles. Suspected left lower zone opacity silhouetting the heart apex. Heart and Mediastinum: Apparent cardiomegaly. Prominent hilar shadows. Bony Thorax: Bony thorax appears intact without fractures or deformities. Soft Tissues: Soft tissues overlying the chest wall are unremarkable. IMPRESSION: 1. Right lower zone peripheral opacity, could be exaggerated due to overlying soft tissue shadows. Clinical correlation is advised to assess for pulmonary infiltrates. (More conspicuous in the present study) 2. Blunting of the right costophrenic angle, could be due to mild pleural effusion/thickening. 3. Suspected left lower zone opacity nearly stable since the previous study, could be projectional. 4. Cardiomegaly, apparent? Electronically signed by Lucy Albert 05-06-2024 02:27 AM Femur X-Ray 05/06/24 00:00 FL femur LT 2V CLINICAL HISTORY: LEFT TROCH NAIL COMPARISON STUDY: Left hip radiographs May 05, 2024. FLUOROSCOPY TIME: 1 minute and 20 seconds. Ka,r: 11.57 mGy FLUOROSCOPIC IMAGES: 4 FINDINGS: Fluoroscopy was provided during internal fixation of the subtrochanteric fracture of the left femur with trochanteric nail. Fracture alignment is anatomic. Hardware is intact. No unexpected radiopaque foreign bodies. IMPRESSION: Fluoroscopy provided during internal fixation of the subtrochanteric left femoral fracture. ACT 112: Negative or not required by law. Electronically signed by: Braxton Grigsby M.D. 05/06/2024 2:46 PM (1) Atypical fracture of femur Encounter type: initial encounter Qualified Code(s): M84.750A - Atypical femoral fracture, unspecified, initial encounter for fracture
[2024-05-06] MEDS ORDERED: ROCURONIUM BROMIDE 10 MG/ML 5 ML VIAL IV ONE (12:18)
[2024-05-06] MEDS ORDERED: PROPOFOL IV EMULSION 10 MG/ML 20 ML VIAL IV ONE (12:18)
[2024-05-06] MEDS ORDERED: PHENYLEPHRINE HCL 10 MG/ML VIAL ONE (12:18)
[2024-05-06] MEDS ORDERED: fentaNYL citrate PF 100 MCG/2 ML VIAL ONE (12:18)
[2024-05-06] MEDS ORDERED: LIDOCAINE 2% 2 ML VIAL/AMP(20MG/ML) INFIL ONE ×2 (12:18→12:24)
--- NOTE | 2024-05-06 12:29 | History & Physical Bridge Note ---
Date of Service May 06, 2024 History & Physical Bridge Note I have examined the patient, reviewed the History & Physical and in the interval since the performance of the History & Physical I have noted the following changes of clinical significance: no changes noted
--- NOTE | 2024-05-06 12:44 | Electrocardiogram Report ---
Test Reason : Blood Pressure : */* mmHG Vent. Rate : 64 BPM Atrial Rate : 64 BPM P-R Int : 168 ms QRS Dur : 94 ms QT Int : 478 ms P-R-T Axes : 81 34 77 degrees QTcB Int : 493 ms Sinus rhythm with Premature atrial complexes Nonspecific ST abnormality Prolonged QT Abnormal ECG When compared with ECG of 17-Jul-2023 08:28, Non-specific change in ST segment in Inferior leads ST now depressed in Lateral leads T wave inversion less evident in Anterior leads Confirmed by Adithya Wagner ([id number]) on 05/06/2024 12:44:13 PM Referred By: Antione Rocha Confirmed By: Adithya Wagner
[2024-05-06] MEDS ORDERED: ceFAZolin 330 MG/ML 1 GM VIAL ONE (13:06)
[2024-05-06] MEDS: ceFAZolin 2000MG 2,000 MG/15 ML SYR IV ONE (13:15)
[2024-05-06] MEDS: TRANEXAMIC ACID 100 MG/ML 10 ML VIAL IV ONE (13:27)
[2024-05-06] MEDS ORDERED: DEXAMETHASONE SOD INJ 4 MG/ML VIAL ONE (14:04)
[2024-05-06] MEDS ORDERED: ONDANSETRON INJ 2 MG/ML 2 ML VIAL ONE (14:04)
[2024-05-06] MEDS ORDERED: SUGAMMADEX SODIUM 200 MG/2 ML VIAL IV ONE (14:13)
[2024-05-06] MEDS: BUPIVACAINE/EPINEPHRINE 0.5% MPF 1:200,000 30 ML VIAL ONE (14:15)
[2024-05-06] MEDS: TRANEXAMIC ACID / 0.7% NACL 1,000 MG/100 ML BAG IV ONE (14:16)
[2024-05-06] MEDS: TRANEXAMIC ACID / 0.7% NACL 1000MG/100ML BAG IV ONE (14:16)
--- NOTE | 2024-05-06 14:38 | Operative Report ---
PG Post Operative Report Pre & Post Diagnosis Operation Date: 05/06/24 08:20 Pre-Op Diagnosis: Left atypical subtrochanteric fracture of Femur Post-Op Diagnosis: Left atypical subtrochanteric fracture of Femur I identified the patient and participated in the time-out.: Yes Procedure Operation Date: 05/06/24 08:20 Actual Procedures p Left Intramedullary Nail(Left) - Bryce Zurita MD Surgeon Bryce Zurita MD Assembler Crimper Donte oClon PA-C Estimated Blood Loss 100 Findings Consistent with Post-Op Diagnosis Specimens None Anesthesia Type General Complications none Disposition Accompanied Patient To Recovery: No Indications Patient is an 84-year-old female with multiple medical comorbidities who sustained several falls over the past several months. She has been having some left leg pain for quite some time. She has been on bisphosphonates for osteoporosis. She is stating more recent fall and was unable to ambulate. She brought the emergency room x-rays of the right subtrochanteric femur fracture. The patient was admitted by the hospitalist service, medically optimized and indicated for surgical fixation. Description of Procedure Operative implants consist of: 1. Synthes left 360 mm x 11 mm long trochanteric nail. 2. 105 mm helical blade. 3. 44 mm x 5.0 mm distal interlocking screw. The patient was taken the op room, identified, placed on the operating table in the supine position. All conductors were appropriately padded. IV antibiotics fibra anesthesia team. A general anesthetic was implemented. The patient was then placed on the fracture table. The left leg was placed in boot traction of the right leg was placed in a well-leg gibbs. Applied some longitudinal traction to the left foot and then internally rotated the foot so the knee Poi nted the ceiling. X-ray was brought in and the fracture was anatomically aligned. The hip was then prepped and draped in usual sterile fashion. A slightly curvilinear incision was made just proximal tip of the trochanter and extended proximally. Sharp dissection got through subcutaneous tissue down to the gluteal fascia. She had a very thick soft tissue envelope. The gluteal fascia was sized longitudinally. A guidewire was placed in the central aspect of the femoral shaft just lateral to the tip of trochanter on AP and lateral films. This is advanced down the IM canal verified fluoroscopically. We then overreamed this with the largest Synthes 17 mm reamer. The guidewire was then exchanged for a ball-tipped guidewire which placed down the IM canal. We measured and a 360 mm nail was selected. We then overreamed the guidewire with a 12.0 and the 12.5 mm flexible reamer. A left Synthes 11 mm x 360 mm long trochanteric nail was then placed over the guidewire. Was tapped into position. The lateral aiming arm was attached. A stab incision was made and the lateral aiming arm was advanced to the lateral aspect the femur. A guidewire was placed in the central aspect of the femoral head neck on both the AP and lateral planes. She did have a varus neck so we had to start this a little bit lower than typical. This was measured in the 105 mm helical blade was selected. The cortical stripper was used to breach the cortex and then the triple reamer set at 105. We overreamed the guidewire. 105 mm helical blade was then placed and tapped into position. This was verified fluoroscopically. The proximal setscrew was tightened. The lateral aiming arm was then removed and some final x-rays were obtained. Attention then drawn toward distal interlocking. Using a perfect [place] technique a distal interlocking screw was placed in the dynamic hole. An incision insert made in the skin down to the bone. The drill was used to drill a hole and a 44 mm x 5.0 mm distal interlocking screw was placed. This was verified fluoroscopically. Attention was then drawn toward closing. All wounds irrigated extensively. I did inject locally with 30 Shushan of 5% Marcaine with epinephrine. The gluteal fascia was then closed with 0 Vicryl suture in a running fashion. The subcutaneous tissues were then closed in 2 layers with 0 Vicryl suture and 2-0 Dexon suture in a buried interrupted fashion. Skin was closed with skin andrew. Leg was then cleaned and dried a sterile dressing was Xeroform, 4 fours, ABD pad and foam tape was applied. The patient is then brought out of general esthesia taken off the fracture table and transported to the recovery room in stable condition. Patient tolerated procedure well and there were no complications. Donte Colon, my physician court assistant, was present for the entire procedure. His assistance was required for proper patient positioning, prepping and draping, surgical exposure, retraction, perform the technical details of the operation, placement of the hardware, closure of the incision site, and placement of sterile postoperative bandage. I attest to the content of the Intraoperative Record and any orders documented therein. Any exceptions are noted below.
[2024-05-06] MEDS: ONDANSETRON INJ 2 MG/ML 2 ML VIAL IV PRN (14:46)
--- NOTE | 2024-05-06 14:47 | Fluoroscopy Report ---
FL femur LT 2V CLINICAL HISTORY: LEFT TROCH NAIL COMPARISON STUDY: Left hip radiographs May 05, 2024. FLUOROSCOPY TIME: 1 minute and 20 seconds. Ka,r: 11.57 mGy FLUOROSCOPIC IMAGES: 4 FINDINGS: Fluoroscopy was provided during internal fixation of the subtrochanteric fracture of the le ft femur with trochanteric nail. Fracture alignment is anatomic. Hardware is intact. No unexpected ra diopaque foreign bodies. IMPRESSION: Fluoroscopy provided during internal fixation of the subtrochanteric left femoral fractu re. ACT 112: Negative or not required by law. Electronically signed by: Braxton Grigsby M.D. 05/06/2024 2:46 PM
[2024-05-06] MEDS ORDERED: ATROPINE SULFATE 0.1 MG/ML 10ML SYR IV PRN (14:57)
[2024-05-06] MEDS ORDERED: ePHEDrine sulfate 50 MG/ML AMP IV PRN (14:57)
[2024-05-06] MEDS: PROMETHAZINE HCL 6.25 MG in SODIUM CHLORIDE 0.9% 50 ML IV PRN (15:00)
[2024-05-06] MEDS: fentaNYL citrate PF 100 MCG/2 ML VIAL IV PRN (15:17)
[2024-05-06] MEDS ORDERED: FUROSEMIDE 20 MG TAB PO SCH (16:12)
[2024-05-06] MEDS: PROMETHAZINE HCL INJ 25 MG/ML 1 ML VIAL ONE (16:14)
[2024-05-06] MEDS: ONDANSETRON INJ 2 MG/ML 2 ML VIAL ONE (16:14)
--- NOTE | 2024-05-06 16:24 | Anesthesiology Progress Note ---
Date of Service May 06, 2024 Anesthesia Post Procedure Vital Signs Vital Signs: Temp Pulse Pulse Pulse Pulse Resp BP 05/06/24 16:00 99.5 F 71 18 05/06/24 15:30 63 12 05/06/24 15:20 98.6 F 66 20 05/06/24 15:10 64 16 05/06/24 15:00 71 12 05/06/24 14:50 66 18 05/06/24 14:40 65 18 05/06/24 14:34 96.8 F L 73 10 L 05/06/24 11:50 67 20 05/06/24 11:47 99.1 F 73 20 05/06/24 11:07 99.0 F 63 18 05/06/24 07:34 98.6 F 60 18 05/06/24 07:15 57 L 05/06/24 02:13 99.0 F 61 18 05/06/24 00:08 98.8 F 64 18 05/06/24 00:05 68 05/05/24 23:00 63 14 05/05/24 21:00 69 16 05/05/24 19:47 70 05/05/24 19:37 98.2 F 68 18 05/05/24 19:37 98.2 F 72 15 187/96 H BP BP Pulse Ox O2 Del Method O2 Flow Rate 05/06/24 16:00 149/84 H 96 Room Air 05/06/24 15:30 185/77 H 98 Nasal Cannula 2 05/06/24 15:20 177/72 H 99 Nasal Cannula 2 05/06/24 15:10 159/97 H 99 Nasal Cannula 2 05/06/24 15:00 161/103 H 95 Nasal Cannula 2 05/06/24 14:50 173/94 H 95 Nasal Cannula 2 05/06/24 14:40 178/86 H 99 Nasal Cannula 2 05/06/24 14:34 187/86 H 98 Nasal Cannula 2 05/06/24 11:50 179/74 H 94 Room Air 05/06/24 11:47 159/103 H 95 Room Air 05/06/24 11:07 153/71 H 93 Room Air 05/06/24 07:34 150/67 H 93 Room Air 05/06/24 07:15 05/06/24 02:13 152/79 H 95 Room Air 05/06/24 00:08 161/66 H 95 Room Air 05/06/24 00:05 05/05/24 23:00 138/110 H 97 Room Air 05/05/24 21:00 149/93 H 95 Room Air 05/05/24 19:47 05/05/24 19:37 187/96 H 97 Room Air 05/05/24 19:37 95 Room Air Pain Intensity Left Hip: Pain Intensity: 6 Transfer of Care Handoff Completed per policy Notes Mental Status: alert / awake / arousable and participated in evaluation Patient Amnestic to Procedure: Yes Nausea / Vomiting: improving with treatment Pain: adequately controlled and improving with treatment Airway Patency, RR, SpO2: stable & adequate BP & HR: stable & adequate Hydration State: stable & adequate Anesthetic Complications: no major complications apparent and Pt Satisfied with anesthetic care
[2024-05-06] MEDS: ASPIRIN 81 MG ECTAB PO SCH (20:07)
[2024-05-06] MEDS ORDERED: ceFAZolin 2000MG 2,000 MG/15 ML SYR IV SCH (20:30)
[2024-05-06] MEDS: POTASSIUM CHLORIDE CRTAB 20 MEQ TABCR PO STA (21:30)
[2024-05-07 07:09] LABS: Basophils # (auto) 0.01 K/uL (0.00-0.20); Basophils % (auto) 0.1 %; Eosinophils # (auto) 0.01 K/uL (0.00-0.50); Eosinophils % (auto) 0.1 %; Hematocrit (blood only) 31.6 % (37.0-47.0); Hemoglobin 10.6 g/dl (12.0-16.0); Immature Granulocytes # (auto) 0.07 K/uL (0.01-0.20); Immature Granulocytes % (auto) 0.6 %; Lymphocytes # (auto) 1.59 K/uL (1.20-3.40); Lymphocytes % (auto) 14.1 %; Mean Corpuscular Hemoglobin 29.8 pg (25.0-34.0); Mean Corpuscular Hgb Conc 33.5 g/dL (32.0-36.0); Mean Corpuscular Volume 88.8 fL (80.0-100.0); Mean Platelet Volume 9.5 fL (9.4-12.4); Monocytes % (auto) 7.1 %; Neutrophils # (auto) 8.78 K/uL (1.40-6.50); Platelet Count 190 K/uL (130-400); RDW Coefficient of Variation 13.2 % (11.5-14.5); Red Blood Count 3.56 M/uL (4.20-5.40); White Blood Count 11.26 K/ul (4.8-10.8)
[2024-05-07 07:24] LABS: Creatinine Clr Calc Pharmacy 45.6 ml/min; Potassium 4.1 mmol/L (3.5-5.1)
--- NOTE | 2024-05-07 08:13 | Orthopedic Progress Note ---
Date of Service May 07, 2024 Assessment & Plan (1) Fracture of proximal end of left femur: POD 1 from left TFN. Pain controlled PT/OT wbat dvt prophylaxis: teds, scd's, aspirin BID dressing change tomorrow d/c planning: She would like to try to go home if possible. She can discuss this with case management/therapy. She said she does have help at home. will discuss with Dr. Parminder Tan .84 year old patient POD 1 from left hip TFN for a proximal femur fx. Her pain as been mild, really only painful when moved. Review of Systems All systems reviewed & are unremarkable except as noted in HPI & below. Physical Exam . alert and oriented. VSS Left leg: dressing clean, dry, intact. Able to dorsiflex and plantarflex. NVI Results & Data Results & Data Laboratory Results . Diagnostic Findings . PG Care Time/CCT Total # of Minutes Spent Total Time Spent with Patient: Total time spent is greater than 50% in coordination of care (as documented) at patient's floor/unit and/or counseling patient: Coding Level of Care Code 43013 Post Operative Follow-Up Diagnoses Fracture of proximal end of left femur S72.002A
[2024-05-07] MEDS: oxyCODONE HCL IR 5 MG TAB (IMMEDIATE RELEASE) PO PRN (08:34)
[2024-05-07] MEDS: HYDROmorphone INJ 0.5 MG/0.5 ML SYR IV PRN (11:15)
--- NOTE | 2024-05-07 13:38 | Hospitalist Progress Note ---
Date of Service May 07, 2024 Assessment & Plan (1) Atypical fracture of femur: Plan Pt is an 84yoF with PMhx significant for CAD, PVD, valvular heart disease (mild MR/TR), atrial septal aneurysm, pulmonary hypertension, history PVCs, hypertension, hyperlipidemia, CRI (baseline creatinine 1.2-1.3), chronic anemia (baseline hemoglobin of 11), postsurgical hypothyroidism, GERD, past tobacco abuse who presents for further evaluation of a left hip fracture noted on outpt imaging. #Fracture of left femur #Falls -Noted on outpt MRI left hip Plan: -Orthopedics consulted, appreciate recs -s/p L intramedullary nail on 05/06/24 -stop IV morphine, start dilaudid IV for breakthrough pain -PT/OT per recs of ortho -DVT prophylaxis per ortho #Post Procedure Anemia -no evidence of acute bleed Plan: -Continue to monitor post op #Hypertensive Urgency, resolved -likely in setting of above fracture and pain -continue home meds, titrate as needed #UTI -UA suggestive of infection -urine culture with growth, sensitivites pending Plan: -empiric rocephin, adjust based on cx results #Hypokalemia, resolved Chronic medical problems: -hx CAD/PVD, stable as per recent outpatient [facility] visit last December 2023 -valvular heart disease (mild MR/TR) -atrial septal aneurysm -pulmonary hypertension -hyperlipidemia, on statin Rx -CRI, creatinine better than baseline -chronic anemia, at baseline -hypothyroidism, euthyroid as of recent outpatient TSH -past tobacco abuse Feeding/fluids: heart healthy Analgesia: oxycodone, prn dilaudid for breakthrough only Sedation: none Thromboprophylaxis: per ortho Head up position: 30 degrees Ulcer prophylaxis: na Glycemic control: na Spontaneous breathing trial: na Bowel care: start miralax prn Indwelling catheter removal: before discharge Deescalation of antibiotics: ceftriaxone for now I spent a total of 50 minutes in direct patient care, including [id number] time with the patient and/or family, reviewing medical records, ordering and reviewing diagnostic tests, and coordinating care with other healthcare providers. This time includes: history taking, physical examination, medical decision making, counseling, ECG interpretation, imaging interpretation, lab interpretation, orders, and education, excluding time spent in the performance of separately billed services. Admission and Anticipated Discharge Date Admission Date: May 05, 2024 Subjective Patient seen and examined at bedside along with . Patient doing well today. States she is ready to go home, but will do a few days of rehab if abso lutely necessary. Patient denies concerning symptoms at this time. Review of Systems Review of Systems: CONSTITUTIONAL: Patient denies fevers, chills, sweats and weight changes. EYES: Patient denies any visual symptoms. EARS, NOSE, AND THROAT: No difficulties with hearing. No symptoms of rhinitis or sore throat. CARDIOVASCULAR: Patient denies chest pains, palpitations, orthopnea and paroxysmal nocturnal dyspnea. RESPIRATORY: No dyspnea on exertion, no wheezing or cough. GI: No nausea, vomiting, diarrhea, constipation, abdominal pain, hematochezia or melena. : No urinary hesitancy or dribbling. No nocturia or urinary frequency. No abnormal urethral discharge. MUSCULOSKELETAL: No myalgias or arthralgias. NEUROLOGIC: No chronic headaches, no seizures. Patient denies numbness, tingling or weakness. PSYCHIATRIC: Patient denies problems with mood disturbance. No problems with anxiety. ENDOCRINE: No excessive urination or excessive thirst. DERMATOLOGIC: Patient denies any rashes or skin changes. Physical Exam Physical Exam: Gen: A&O 3 NAD HEENT: NCAT, EOMI, not icteric. External ears normal. No rhinorrhea. Moist mucous membranes. Neck: Supple, full range of motion, no observable masses, No meningeal sign. Lungs: No Respiratory distress. CV: RRR, no edema. Abdomen: Soft, nondistended, No rebound tenderness. MSK: No joint swelling, no redness. Noted surgical site, nontender to palpation, 4+/5 strength in both legs bilaterally Skin: No rashes, petechiae, lesions. Normal color per patient. Neuro: Normal Gait, Grossly intact. Psych: Appropriate for situation. Results & Data Results & Data Vital Signs (Past 12 Hours) Vital Signs Temp Pulse Pulse Resp BP Pulse Ox O2 Del Method 05/07/24 11:39 37.2 C 58 L 20 111/56 L 91 Room Air 05/07/24 07:48 37.0 C 97 H 20 157/81 H 95 Room Air 05/07/24 07:20 Room Air 05/07/24 06:55 63 05/07/24 01:48 36.9 C 58 L 18 165/69 H 94 Room Air Laboratory Results -personally interpreted, hemodynamically stable, creatinine 1 (appears ba seline), Hgb slowly dropping post op without evidence of acute bleed Medications Administered Aspirin (Aspirin 81 Mg Ectab) 81 mg PO BID [facility] Stop: 06/05/24 20:59 Last Admin: 05/07/24 08:35 Dose: 81 mg Documented By: Admin: 05/06/24 20:07 Dose: 81 mg Documented By: ALEXANDER Cyanocobalamin (Cyanocobalamin (B-12) 2,500 Mcg Tablet) 5,000 mcg PO Q48H [facility] Stop: 06/05/24 08:59 Last Admin: 05/06/24 07:47 Dose: 5,000 mcg Documented By: QUENTIN Ferrous Sulfate (Ferrous Sulfate 325 Mg Tab) 325 mg PO Q48H [facility] Stop: 06/05/24 08:59 Last Admin: 05/06/24 07:46 Dose: 325 mg Documented By: QUENTIN Folic Acid (Folic Acid 400 Mcg Tab) 800 mcg PO DAILY [facility] Stop: 06/05/24 08:59 Last Admin: 05/07/24 08:35 Dose: 800 mcg Documented By: Admin: 05/06/24 07:46 Dose: 800 mcg Documented By: QUENTIN Hydromorphone HCl (Hydromorphone Inj 0.5 Mg/0.5 Ml Syr) 0.5 mg IV Q4 PRN PRN Reason: Breakthrough Pain Stop: 05/21/24 07:39 Last Admin: 05/07/24 11:15 Dose: 0.5 mg Documented By: QUENTIN Promethazine HCl (Phenergan) 6.25 mg in 50.25 mls @ 201 mls/hr IV Q6H PRN PRN Reason: Nausea And Vomiting Stop: 06/05/24 00:06 Last Infusion: 05/06/24 11:09 Dose: Infused Documented By: Admin: 05/06/24 10:50 Dose: 201 mls/hr Documented By: QUENTIN Ceftriaxone Sodium (Rocephin) 2,000 mg in 50 mls @ 100 mls/hr IV Q24H [facility] Stop: 05/16/24 06:29 Last Infusion: 05/07/24 05:52 Dose: Infused Documented By: Admin: 05/07/24 05:21 Dose: 100 mls/hr Documented By: Infusion: 05/06/24 07:12 Dose: Infused Documented By: Admin: 05/06/24 06:19 Dose: 100 mls/hr Documented By: MARISELA Levothyroxine Sodium (Levothyroxine Sodium 75 Mcg Tablet) [facility]: 06/05/24 06:29 Last Admin: 05/07/24 05:23 Dose: 75 mcg Documented By: Admin: 05/06/24 05:56 Dose: 75 mcg Documented By: [id number] Lisinopril (Lisinopril 10 Mg Tab) 10 mg PO [facility] Stop: 06/05/24 08:59 Last Admin: 05/07/24 08:35 Dose: 10 mg Documented By: Admin: 05/06/24 08:43 Dose: 10 mg Documented By: QUENTIN Metoprolol Succinate (Metoprolol Succ 50mg Ext Rel Tab) 100 mg PO [facility] Stop: 06/05/24 08:59 Last Admin: 05/07/24 08:35 Dose: 100 mg Documented By: Admin: 05/06/24 07:46 Dose: 100 mg Documented By: QUENTIN Oxycodone HCl (Oxycodone Hcl Ir 5 Mg Tab (Immediate Release)) 5 mg PO Q4H PRN PRN Reason: Pain Stop: 05/20/24 00:06 Last Admin: 05/07/24 08:34 Dose: 5 mg Documented By: QUENTIN Pantoprazole Sodium (Pantoprazole 40 Mg Tab) 40 mg PO [facility] Stop: 06/05/24 08:59 Last Admin: 05/07/24 08:35 Dose: 40 mg Documented By: Admin: 05/06/24 07:47 Dose: 40 mg Documented By: QUENTIN Pravastatin Sodium (Pravastatin Sod 20 Mg Tab) 20 mg PO DAILY [facility] Stop: 06/05/24 08:59 Last Admin: 05/07/24 08:35 Dose: 20 mg Documented By: Admin: 05/06/24 07:47 Dose: 20 mg Documented By: QUENTIN Sertraline HCl (Sertraline Hcl 50 Mg Tablet) 50 mg PO [facility] Stop: 06/05/24 08:59 Last Admin: 05/07/24 08:35 Dose: 50 mg Documented By: Admin: 05/06/24 07:47 Dose: 50 mg Documented By: QUENTIN (1) Atypical fracture of femur Encounter type: initial encounter Qualified Code(s): M84.750A - Atypical femoral fracture, unspecified, initial encounter for fracture
[2024-05-07] MEDS ORDERED: POLYETHYLENE (MIRALAX) 17 GM PACK PO PRN (13:43)
[2024-05-08 06:56] LABS: Hematocrit (blood only) 32.4 % (37.0-47.0); Hemoglobin 10.6 g/dl (12.0-16.0); Mean Corpuscular Hemoglobin 29.1 pg (25.0-34.0); Mean Corpuscular Hgb Conc 32.7 g/dL (32.0-36.0); Mean Platelet Volume 9.7 fL (9.4-12.4); Platelet Count 177 K/uL (130-400); RDW Coefficient of Variation 13.4 % (11.5-14.5); RDW Standard Deviation 43.8 fL (36.4-46.3); Red Blood Count 3.64 M/uL (4.20-5.40); White Blood Count 9.55 K/ul (4.8-10.8)
--- NOTE | 2024-05-08 07:06 | Orthopedic Progress Note ---
Date of Service May 08, 2024 Assessment & Plan (1) Fracture of proximal end of left femur: Plan: 84-year-old female postop day 2 from IM nailing of left subtrochanteric femur fracture doing pretty well. Pain seems to be controlled. She is neurologically intact. Plan: 1. DVT prophylaxis including thigh-high teds, SCDs, aspirin twice a day. 2. PT/OT. She can fully weight-bear as tolerated. 3. Medical management as per the medicine service. 4. Wound care. Routine wound care. Dressing change daily to incision sites. 5. Disposition she is orthopedically okay for discharge anytime medically stable. I need to see her back 2 to 3 weeks from out from surgery date. Any orthopedic questions can be directly [phone]. (2) Atypical fracture of femur: (3) Hypothyroidism: (4) HLD (hyperlipidemia): (5) HTN (hypertension): Admission and Anticipated Discharge Date Admission Date: May 05, 2024 Subjective 84-year-old female postop day 2 from IM nailing of the left inner troches fracture. She is doing well this morning. Not having much pain. No chest pain or shortness of breath. Not feeling dizzy or lightheaded. Physical Exam Physical Exam: Physical nation is a pleasant elderly female. She is lying in bed looks pretty comfortable but examination left leg reveals leg to be well aligned. Dressings clean dry and intact. Thigh is soft and supple. She is neurologically intact. Results & Data Vital Signs (Past 12 Hours) Vital Signs Temp Pulse Pulse Resp BP Pulse Ox O2 Del Method 05/08/24 03:46 36.9 C 71 20 157/76 H 92 Room Air 05/07/24 23:47 36.9 C 62 20 160/73 H 94 Room Air 05/07/24 22:05 67 05/07/24 20:06 36.7 C 57 L 20 128/76 94 Room Air Laboratory Results Hemoglobin is 10.6. Hematocrit is 32.4. Electrolytes are pending. (2) Atypical fracture of femur Encounter type: initial encounter Qualified Code(s): M84.750A - Atypical femoral fracture, unspecified, initial encounter for fracture
[2024-05-08 07:14] LABS: BUN Creatinine Ratio 20.4 (10-20); Calcium 7.9 mg/dl (8.6-10.3); Creatinine Clr Calc Pharmacy 44.4 ml/min; Magnesium 1.8 mg/dl (1.7-2.4); Potassium 3.6 mmol/L (3.5-5.1)
[2024-05-08] MEDS: CHOLECALCIFEROL 125 MCG (5,000 UNITS) TAB PO SCH (07:39)
--- NOTE | 2024-05-08 12:08 | Hospitalist Progress Note ---
Date of Service May 08, 2024 Assessment & Plan (1) Atypical fracture of femur: Plan Pt is an 84yoF with PMhx significant for CAD, PVD, valvular heart disease (mild MR/TR), atrial septal aneurysm, pulmonary hypertension, history PVCs, hypertension, hyperlipidemia, CRI (baseline creatinine 1.2-1.3), chronic anemia (baseline hemoglobin of 11), postsurgical hypothyroidism, GERD, past tobacco abuse who presents for further evaluation of a left hip fracture noted on outpt imaging. #Fracture of left femur #Falls -Noted on outpt MRI left hip Plan: -Orthopedics consulted, appreciate recs -s/p L intramedullary nail on 05/06/24 -stop IV dilaudid today -PT/OT per recs of ortho -DVT prophylaxis per ortho -awaiting placement #Post Procedure Anemia -no evidence of acute bleed -stable #Hypertensive Urgency, resolved -likely in setting of above fracture and pain -continue home meds, titrate as needed #UTI -UA suggestive of infection -urine culture with growth, sensitive to ceftriaxone Plan: -continue ceftriaxone x3 days #Hypokalemia, resolved Chronic medical problems: -hx CAD/PVD, stable as per recent outpatient [facility] visit last December 2023 -valvular heart disease (mild MR/TR) -atrial septal aneurysm -pulmonary hypertension -hyperlipidemia, on statin Rx -CRI, creatinine better than baseline -chronic anemia, at baseline -hypothyroidism, euthyroid as of recent outpatient TSH -past tobacco abuse Feeding/fluids: regular Analgesia: oxycodone, stop dilaudid Sedation: none Thromboprophylaxis: per ortho Head up position: 30 degrees Ulcer prophylaxis: na Glycemic control: na Spontaneous breathing trial: na Bowel care: miralax prn Indwelling catheter removal: before discharge Deescalation of antibiotics: ceftriaxone for now I spent a total of 40 minutes in direct patient care, including [id number] time with the patient and/or family, reviewing medical records, ordering and reviewing diagnostic tests, and coordinating care with other healthcare providers. This time includes: history taking, physical examination, medical decision making, counseling, ECG interpretation, imaging interpretation, lab interpretation, orders, and education, excluding time spent in the performance of separately billed services. Admission and Anticipated Discharge Date Admission Date: May 05, 2024 Subjective patient seen and examined at bedside. Accompanied by daughter and . Patient is doing well today. Pain is present but much improved. Looking forward to leaving hospital and going to rehab. Review of Systems Review of Systems: CONSTITUTIONAL: Patient denies fevers, chills, sweats and weight changes. EYES: Patient denies any visual symptoms. EARS, NOSE, AND THROAT: No difficulties with hearing. No symptoms of rhinitis or sore throat. CARDIOVASCULAR: Patient denies chest pains, palpitations, orthopnea and paroxysmal nocturnal dyspnea. RESPIRATORY: No dyspnea on exertion, no wheezing or cough. GI: No nausea, vomiting, diarrhea, constipation, abdominal pain, hematochezia or melena. : No urinary hesitancy or dribbling. No nocturia or urinary frequency. No abnormal urethral discharge. MUSCULOSKELETAL: mild tenderness on left thigh NEUROLOGIC: No chronic headaches, no seizures. Patient denies numbness, tingling or weakness. PSYCHIATRIC: Patient denies problems with mood disturbance. No problems with anxiety. ENDOCRINE: No excessive urination or excessive thirst. DERMATOLOGIC: Patient denies any rashes or skin changes. Physical Exam Physical Exam: Gen: A&O 3 NAD HEENT: NCAT, EOMI, not icteric. External ears normal. No rhinorrhea. Moist mucous membranes. Neck: Supple, full range of motion, no observable masses, No meningeal sign. Lungs: No Respiratory distress. CV: RRR, no edema. Abdomen: Soft, nondistended, No rebound tenderness. MSK: No joint swelling, no redness. Noted surgical site left hip, nontender to palpation, 4+/5 strength in both legs bilaterally Skin: No rashes, petechiae, lesions. Normal color per patient. Neuro: Normal Gait, Grossly intact. Psych: Appropriate for situation. Results & Data Results & Data Vital Signs (Past 12 Hours) Vital Signs Temp Pulse Pulse Resp BP Pulse Ox O2 Del Method 05/08/24 11:52 36.9 C 80 18 138/79 93 Room Air 05/08/24 07:56 36.6 C 75 18 130/87 95 Room Air 05/08/24 07:00 71 05/08/24 03:46 36.9 C 71 20 157/76 H 92 Room Air Laboratory Results - Personally reviewed, urine culture growing E. coli Medications Administered Aspirin (Aspirin 81 Mg Ectab) 81 mg PO BID SE[facility] Stop: 06/05/24 20:59 Last Admin: 05/08/24 07:39 Dose: 81 mg Documented By: Admin: 05/07/24 20:52 Dose: 81 mg Documented By: Admin: 05/07/24 08:35 Dose: 81 mg Documented By: Admin: 05/06/24 20:07 Dose: 81 mg Documented By: ALEXANDER Cyanocobalamin (Cyanocobalamin (B-12) 2,500 Mcg Tablet) 5,000 mcg PO Q48H [facility] Stop: 06/05/24 08:59 Last Admin: 05/08/24 07:41 Dose: 5,000 mcg Documented By: Admin: 05/06/24 07:47 Dose: 5,000 mcg Documented By: QUENTIN Ferrous Sulfate (Ferrous Sulfate 325 Mg Tab) 325 mg PO Q48H [facility] Stop: 06/05/24 08:59 Last Admin: 05/08/24 07:39 Dose: 325 mg Documented By: Sony Admin: 05/06/24 07:46 Dose: 325 mg Documented By: QUENTIN Folic Acid (Folic Acid 400 Mcg Tab) 800 mcg PO DAILY [facility] Stop: 06/05/24 08:59 Last Admin: 05/08/24 07:40 Dose: 800 mcg Documented By: Admin: 05/07/24 08:35 Dose: 800 mcg Documented By: Admin: 05/06/24 07:46 Dose: 800 mcg Documented By: QUENTIN Hydromorphone HCl (Hydromorphone Inj 0.5 Mg/0.5 Ml Syr) 0.5 mg IV Q4 PRN PRN Reason: Breakthrough Pain Stop: 05/21/24 07:39 Last Admin: 05/07/24 22:51 Dose: 0.5 mg Documented By: Admin: 05/07/24 11:15 Dose: 0.5 mg Documented By: QUENTIN Promethazine HCl (Phenergan) 6.25 mg in 50.25 mls @ 201 mls/hr IV Q6H PRN PRN Reason: Nausea And Vomiting Stop: 06/05/24 00:06 Last Infusion: 05/06/24 11:09 Dose: Infused Documented By: Admin: 05/06/24 10:50 Dose: 201 mls/hr Documented By: QUENTIN Ceftriaxone Sodium (Rocephin) 2,000 mg in 50 mls @ 100 mls/hr IV Q24H [facility] Stop: 05/16/24 06:29 Last Infusion: 05/08/24 06:09 Dose: Infused Documented By: Admin: 05/08/24 05:39 Dose: 100 mls/hr Documented By: Infusion: 05/07/24 05:52 Dose: Infused Documented By: Admin: 05/07/24 05:21 Dose: 100 mls/hr Documented By: Infusion: 05/06/24 07:12 Dose: Infused Documented By: Admin: 05/06/24 06:19 Dose: 100 mls/hr Documented By: MARISELA Levothyroxine Sodium (Levothyroxine Sodium 75 Mcg Tablet) [facility] Stop: 06/05/24 06:29 Last Admin: 05/08/24 05:37 Dose: 75 mcg Documented By: Admin: 05/07/24 05:23 Dose: 75 mcg Documented By: Admin: 05/06/24 05:56 Dose: 75 mcg Documented By: [id number] Lisinopril (Lisinopril 10 Mg Tab) 10 mg PO [facility] Stop: 06/05/24 08:59 Last Admin: 05/08/24 07:39 Dose: 10 mg Documented By: Admin: 05/07/24 08:35 Dose: 10 mg Documented By: Admin: 05/06/24 08:43 Dose: 10 mg Documented By: QUENTIN Metoprolol Succinate (Metoprolol Succ 50mg Ext Rel Tab) 100 mg PO [facility] Stop: 06/05/24 08:59 Last Admin: 05/08/24 07:39 Dose: 100 mg Documented By: Admin: 05/07/24 08:35 Dose: 100 mg Documented By: Admin: 05/06/24 07:46 Dose: 100 mg Documented By: QUENTIN Oxycodone HCl (Oxycodone Hcl Ir 5 Mg Tab (Immediate Release)) 5 mg PO Q4H PRN PRN Reason: Pain Stop: 05/20/24 00:06 Last Admin: 05/08/24 10:06 Dose: 5 mg Documented By: Admin: 05/07/24 20:51 Dose: 5 mg Documented By: Admin: 05/07/24 15:51 Dose: 5 mg Documented By: Admin: 05/07/24 08:34 Dose: 5 mg Documented By: QUENTIN Pantoprazole Sodium (Pantoprazole 40 Mg Tab) 40 mg PO QAM [facility] Stop: 06/05/24 08:59 Last Admin: 05/08/24 07:39 Dose: 40 mg Documented By: Admin: 05/07/24 08:35 Dose: 40 mg Documented By: Admin: 05/06/24 07:47 Dose: 40 mg Documented By: QUENTIN Pravastatin Sodium (Pravastatin Sod 20 Mg Tab) 20 mg PO DAILY [facility] Stop: 06/05/24 08:59 Last Admin: 05/08/24 07:39 Dose: 20 mg Documented By: Admin: 05/07/24 08:35 Dose: 20 mg Documented By: Admin: 05/06/24 07:47 Dose: 20 mg Documented By: QUENTIN Sertraline HCl (Sertraline Hcl 50 Mg Tablet) [facility] Stop: 06/05/24 08:59 Last Admin: 05/08/24 07:39 Dose: 50 mg Documented By: Admin: 05/07/24 08:35 Dose: 50 mg Documented By: Admin: 05/06/24 07:47 Dose: 50 mg Documented By: QUENTIN Vitamin D (Cholecalciferol 125 Mcg (5,000 Units) Tab) 125 mcg PO QAM [facility] Stop: 06/07/24 08:59 Last Admin: 05/08/24 07:39 Dose: 125 mcg Documented By: BUNNY (1) Atypical fracture of femur Encounter type: initial encounter Qualified Code(s): M84.750A - Atypical femoral fracture, unspecified, initial encounter for fracture
--- NOTE | 2024-05-08 15:30 | Communication Note ---
Called peer to peer to patients insurance for acute rehab, which was denied. Patient did receive approval for SNF level of rehab per discussion with insurance plan medical office specialist. Date of Service: May 08, 2024
[2024-05-09 06:10] LABS: Hematocrit (blood only) 32.1 % (37.0-47.0); Hemoglobin 10.5 g/dl (12.0-16.0); Mean Corpuscular Hemoglobin 28.9 pg (25.0-34.0); Mean Corpuscular Hgb Conc 32.7 g/dL (32.0-36.0); Mean Corpuscular Volume 88.4 fL (80.0-100.0); Mean Platelet Volume 9.7 fL (9.4-12.4); Platelet Count 179 K/uL (130-400); RDW Coefficient of Variation 13.2 % (11.5-14.5); RDW Standard Deviation 42.6 fL (36.4-46.3); Red Blood Count 3.63 M/uL (4.20-5.40); White Blood Count 7.77 K/ul (4.8-10.8)
[2024-05-09 06:23] LABS: BUN Creatinine Ratio 17.9 (10-20); Calcium 7.8 mg/dl (8.6-10.3); Creatinine Clr Calc Pharmacy 48.1 ml/min; Potassium 3.8 mmol/L (3.5-5.1)
--- NOTE | 2024-05-09 07:06 | Orthopedic Progress Note ---
Date of Service May 09, 2024 Assessment & Plan (1) Fracture of proximal end of left femur: Plan: 84-year-old female postop day 3 from IM nailing of left inner troches fracture. Orthopedically she is doing well. Pains controlled. She is neurologically inta ct. Plan: 1. DVT prophylaxis including thigh-high teds, SCDs, aspirin twice a day. 2. PT/OT. She can fully weight-bear as tolerated. 3. Pain control doing well with current pain regimen. 4. Medical management as per the medicine service. 5. Disposition. She is orthopedically okay for discharge any time medically stable. She can weight-bear as tolerated. Routine wound care left hip. Orth opedic follow-up in 2 to 3 weeks out from surgery date. Admission and Anticipated Discharge Date Admission Date: May 05, 2024 Subjective 84-year-old female postop day 3 from left hip intertrochanteric nailing. That she is doing well this morning. No new complaints. Feels like the pain is getting little bit better. No chest pain or shortness of breath. Physical Exam Physical Exam: Physical nation was a pleasant elderly female. She is lying in bed looks pretty comfortable this morning. Examination of left hip and leg reveals the dressing be clean dry and intact. Leg lengths are equal. Thigh is soft and supple. She is neurologically intact. Results & Data Vital Signs (Past 12 Hours) Vital Signs Temp Pulse Pulse Resp BP Pulse Ox O2 Del Method 05/09/24 05:52 37.1 C 66 20 147/63 H 97 Room Air 05/09/24 03:00 36.7 C 68 16 143/73 H 92 Room Air 05/08/24 23:00 36.4 C L 70 16 158/66 H 92 Room Air 05/08/24 21:57 68 05/08/24 19:05 Room Air Diagnostic Findings Hemoglobin 10.5 hematocrit 32.1. Electrolytes are stable.
[2024-05-09 07:33] VITALS: RESP 18
[2024-05-09 11:11] VITALS: BP 125/81; PULSE 62; TEMP 98.4; O2SAT 94
[2024-05-09] MEDS ORDERED: DICLOFENAC SOD 1% GEL 100 GM TUBE EXT SCH (12:45)
--- NOTE | 2024-05-09 18:31 | Discharge Summary ---
Discharge Summary Date of Service May 09, 2024 Principal Dx & Hospital Course #1 = Principal Diagnosis (1) Atypical fracture of femur: Plan Pt is an 84yoF with PMhx significant for CAD, PVD, valvular heart disease (mild MR/TR), atrial septal aneurysm, pulmonary hypertension, history PVCs, hypertension, hyperlipidemia, CRI (baseline creatinine 1.2-1.3), chronic anemia (baseline hemoglobin of 11), postsurgical hypothyroidism, GERD, past tobacco abuse who presents for further evaluation of a left hip fracture noted on outpt imaging. #Fracture of left femur #Falls -Noted on outpt MRI left hip Plan: -Orthopedics consulted, appreciate recs -s/p L intramedullary nail on 05/06/24 -PT/OT per recs of ortho -DVT prophylaxis per ortho -going to rehab today #Post Procedure Anemia -no evidence of acute bleed -stable #Hypertensive Urgency, resolved -likely in setting of above fracture and pain -continue home meds, titrate as needed #UTI -UA suggestive of infection -urine culture with growth, sensitive to ceftriaxone #Hypokalemia, resolved Chronic medical problems: -hx CAD/PVD, stable as per recent outpatient [facility] visit last December 2023 -valvular heart disease (mild MR/TR) -atrial septal aneurysm -pulmonary hypertension -hyperlipidemia, on statin Rx -CRI, creatinine better than baseline -chronic anemia, at baseline -hypothyroidism, euthyroid as of recent outpatient TSH -past tobacco abuse Notes For Next Care Provider 84-year-old female presenting post fall, found to have a left femur fracture, status post nailing. Patient progressed well with therapy here. Pain treated and adequately here. Patient medically stable for discharge home Medication Changes From Visit -none Admission HPI Per Admitting Provider History obtained from patient, family, and records. Medical history significant for CAD, PVD, valvular heart disease (mild MR/TR), atrial septal aneurysm, pulmonary hypertension, history PVCs, hypertension, hyperlipidemia, CRI (baseline creatinine 1.2-1.3), chronic anemia (baseline hemoglobin of 11), postsurgical hypothyroidism, GERD, past tobacco abuse. Last 2023 for acute hyponatremia. Patient has had achy left hip pain last 3 months possibly following a fall at home. Hip pain worse with ambulation. Denies fever, chills. Denies chest pain, SOB. Denies headache symptoms. No improvement with pain medication and steroid Rx prescribed by PCP. No improvement with outpatient steroid injection by chest painting and sealing supervisor 3 weeks ago. Mild osteoarthritis left hip on outpatient imaging prior to outpatient pain management visit. Outpatient MRI of the lumbar spine and left hip ordered on chest painting and sealing supervisor a few days ago due to worsening discomfort on insistence of family. LS MRI Degenerative changes are most prominent at L4-L5 and L5-S1 with subarticular and foraminal stenosis with compression of the exiting and descending nerve roots as above Left hip MRI Nondisplaced left atypical femur fracture. Patient directed to ER for evaluation by PCP with abnormal left hip MRI result.. SBP 180s upon arrival at the ER. Medical History as above Surgical History : Partial hysterectomy, thyroidectomy Family History : Dementia Personal/Social history : Past tobacco abuse, no EtOH intake, retired [employer]; born in [place] Discharge Exam Gen: A&O 3 NAD HEENT: NCAT, EOMI, not icteric. External ears normal. No rhinorrhea. Moist mucous membranes. Neck: Supple, full range of motion, no observable masses, No meningeal sign. Lungs: No Respiratory distress. CV: RRR, no edema. Abdomen: Soft, nondistended, No rebound tenderness. MSK: No joint swelling, no redness. Noted surgical site left hip, nontender to palpation, 4+/5 strength in both legs bilaterally, improving Skin: No rashes, petechiae, lesions. Normal color per patient. Neuro: Normal Gait, Grossly intact. Psych: Appropriate for situation. Updated Medication List Medication Instructions Recorded Confirmed Type alendronate 70 mg tablet 70 mg PO .WEEK 07/13/23 05/05/24 History aspirin 81 mg tablet,delayed 81 mg PO DAILY 07/13/23 05/05/24 History release cyanocobalamin (vitamin B-12) 5,000 mcg PO Q OTHER DAY 07/13/23 05/05/24 History 5,000 mcg sublingual tablet (Vitamin B-12) ferrous sulfate 325 mg (65 mg 65 mg PO Q OTHER DAY 07/13/23 05/05/24 History iron) tablet (iron) folic acid 800 mcg tablet 0.8 mg PO DAILY 07/13/23 05/05/24 History levothyroxine 75 mcg tablet 75 mcg PO QAM 07/13/23 05/05/24 History lisinopril 10 mg tablet 10 mg PO QAM 07/13/23 05/05/24 History metoprolol succinate 100 mg 100 mg PO QAM 07/13/23 05/05/24 History tablet,extended release 24 hr omeprazole 20 mg capsule,delayed 20 mg PO QAM 07/13/23 05/05/24 History release pravastatin 20 mg tablet 20 mg PO DAILY 07/13/23 05/05/24 History sertraline 50 mg tablet 50 mg PO QAM 07/13/23 05/05/24 History furosemide 20 mg tablet 20 mg PO UD #1 tab 07/17/23 05/05/24 Rx tramadol 50 mg tablet 50 mg PO HS 05/05/24 05/05/24 History cholecalciferol (vitamin D3) 125 125 mcg PO QAM 30 days #30 tabs 05/09/24 Rx mcg (5,000 unit) tablet diclofenac sodium 1 % topical gel 4 g EXT DAILY #100 grams 05/09/24 Rx (Voltaren Arthritis Pain) Hospital Stay Data Consultations 05/05/24 22:51 ED Decision to Admit Stat 05/06/24 00:07 Consult Orthopedic Surgery Routine Procedures Performed Operation Date: 05/06/24 08:20 Actual Procedures p Left Intramedullary Nail(Left) - Bryce Zurita MD Diagnostic Imagining Performed 05/06/24 FL femur LT 2V Routine Pending Results Patient Have Any Pending Studies at Discharge: No Discharge Instructions Given to Patient (Per Discharging Provider) Weightbear as tolerated Dry dressing change to incision sites daily/ May remove dressing and shower. Then replace with dry dressing. Total Time Total Time Spent Total Time Spent (In Minutes): I spent a total of 35 minutes in direct patient care, including [id number] time with the patient and/or family, reviewing medical records, ordering and reviewing diagnostic tests, and coordinating care with other healthcare providers. This time includes: history taking, physical examination, medical decision making, counseling, ECG interpretation, imaging interpretation, lab interpretation, orders, and education, excluding time spent in the performance of separately billed services.
== END 2024-05-09 14:32 | DRG 481 ==
LOC: ED 19:33 → 2N 23:01 → SUATTDRO 23:01 → 2N 23:41